=== PATIENT | female | born 1980 | race Caucasian/White ===

== ENCOUNTER 2016-10-16 21:09 | Inpatient (IN) | payer MEDICARE, MEDICAID ==
[~2016-10-16] VITALS: Ht 132.1 cm; Wt 44.5 kg
[~2016-10-16 21:09] MED LIST: ACET325T38 GT; ALB0.5V NEB; AZIT200S13 PO; BACI1PAC7 TOP; BISM262O27 GT; CARB100O GT; CETI1SOL36 GT; DIVA250T PO; DIVA500T7 GT; DOCU50LI GT; DOCU50LI14 GT; DUONEB 0.5 MG-33 ML IH; DVL500TSR GT; FRSM10B60 GT; GUAI100L28 PO; LEVO75TA GT; MAGN400O7 GT; MULT236L PEG; MULT9LIQ7 PO; NITR50CA4 GT; NITR50CA4 PO; NST15C TOP; POLY17PO6 PO; POLY1DRO OP; POTA20LI2 PO; PRED15SO PO; RANI15SY PO; SENN-115 GT; SENN8.6T80 PO; TOPI25CA6 GT; VALP250S14 PO; VALP250S3 PEG; [UNRECOGNIZED DRUG - CODE] PO; [UNRECOGNIZED DRUG - CODE] PO; [UNRECOGNIZED DRUG - CODE] TOP; [UNRECOGNIZED DRUG - CODE] TP
--- OUTSIDE RECORDS SUMMARY | 2016-10-16 21:16 | XMS REPORT | Continuity of Care Document ---
Author Author [facility] Organization [facility] Address Unknown Phone Unavailable Care Team Providers Care Server Name Role Phone Hari Gunter PCP [phone] Source Comments Some departments are not documenting in the electronic medical record. If you do not see the information that you expected, contact Release of Information in the Health Information Management department at [phone] for further assistance in locating additional records.[facility] Active Allergies and Adverse Reactions Allergen Noted Date Severity Reactions Comments Amoxicillin 12/19/2011 DIARRHEA Other 12/19/2011 SEE COMMENTS Anesthesia gases caused MALIGNANT HYPERTHERMIA Current Medications Prescription Sig. Disp. Refills Start End Date Status Date vitamins, multiple Take 5 mL by mouth daily. Active (THERAVITE) oral solution cetirizine (ZYRTEC) 1 10 mg by PEG Tube route Active mg/mL oral solution daily. carBAMazepine (TEGRETOL) 200 mg by PEG Tube route Active 100 mg/5 mL oral three times daily. suspension topiramate (TOPAMAX) 25 50 mg by PEG Tube route Active mg sprinkle capsule twice daily. LEVOTHYROXINE SODIUM Take 0.5 Tabs by mouth Active (SYNTHROID PO) twice daily. nitrofurantoin Take 50 mg by mouth every Active (MACRODANTIN) 50 mg 6 hours. capsule DIVALPROEX SODIUM Take by mouth. Active (DEPAKOTE PO) DOCUSATE SODIUM (COLACE Take by mouth. Active PO) SENNOSIDES (SENOKOT PO) Take by mouth. Active ALBUTEROL IN Inhale by mouth. Active CARBOXYMETHYLCELLULOSE Place into or around Active SODIUM (REFRESH OP) eye(s). 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 Social History Tobacco Use Types Packs/Day Years Used Date Never Smoker Alcohol Use Drinks/Week oz/Week Comments No Last Filed Vital Signs Vital Sign Reading Time Taken Blood Pressure 105/58 01/05/2012 12:30 PM TEXTILE BAG SEWER Pulse 107 01/05/2012 12:38 PM TEXTILE BAG SEWER Temperature 36.7 C (98.1 F) 01/05/2012 12:38 PM TEXTILE BAG SEWER Respiratory Rate - - Height 1.321 m (4' 4") 12/23/2013 3:44 PM TEXTILE BAG SEWER Weight 48.535 kg (107 lb) 05/09/2016 2:16 PM CDT Body Mass Index 27.81 05/09/2016 2:16 PM CDT Oxygen Saturation 96% 01/05/2012 12:38 PM TEXTILE BAG SEWER Plan of Care Health Maintenance Due Date Last Done Comments Physical (Comprehensive) 1986 Exam Pertussis Vaccine 1990 Tetanus Vaccine 1996 Cervical Cancer Screening 2000 Influenza Vaccine 06/30/2016 Results from Last 3 Months Not on file
--- OUTSIDE RECORDS SUMMARY | 2016-10-16 21:18 | XMS REPORT | Continuity of Care Document ---
Author Author [facility] Organization [facility] Address Unknown Phone Unavailable Care Team Providers Care Designer Architect Name Role Phone Hari Gunter PCP [phone] Source Comments Some departments are not documenting in the electronic medical record. 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 Social History Tobacco Use Types Packs/Day Years Used Date Never Smoker Alcohol Use Drinks/Week oz/Week Comments No Last Filed Vital Signs Vital Sign Reading Time Taken Blood Pressure 105/58 01/05/2012 12:30 PM [employer]ING FOR[employer] MACHINE Pulse 107 01/05/2012 12:38 PM [employer]ING [employer]ACHINE Temperature 36.7 C (98.1 F) 01/05/2012 12:38 PM [employer]ING [employer] MACHINE Respiratory Rate - - Height 1.321 m (4' 4") 12/23/2013 3:44 PM [employer]ACHINE Weight 48.535 kg (107 lb) 05/09/2016 2:16 PM CDT Body Mass Index 27.81 05/09/2016 2:16 PM CDT Oxygen Saturation 96% 01/05/2012 12:38 PM [employer] MACHINE Plan of Care Health Maintenance Due Date Last Done Comments Physical (Comprehensive) 1986 Exam Pertussis Vaccine 1990 Tetanus Vaccine 1996 Cervical Cancer Screening 2000 Influenza Vaccine 06/30/2016 Results from Last 3 Months Not on file
[2016-10-16] MEDS ORDERED: ONDANSETRON 2 MG/ML (Z0FRAN) 2 ML VIAL IV ONE (21:50)
--- NOTE | 2016-10-16 22:15 | NUR ---
Placed 19g 3/4" jacobo needle to left side where PAC is. Flushed easily, no blood return noted. Eva Leon RN verified placement.
[2016-10-16 22:40] LABS: BASOPHILS % (AUTO) 1 % (0-2); EOSINOPHILS # (AUTO) 0.1 10^3uL; EOSINOPHILS % (AUTO) 1 % (0-4); LYMPHOCYTES # (AUTO) 0.5 X10^3; MEAN CORPUSCULAR VOLUME 96 FL (80-100); MEAN PLATELET VOLUME 11.9 FL (6.0-9.5); MONOCYTES # (AUTO) 0.9 X10^3; MONOCYTES % (AUTO) 12 % (3-11); NEUTROPHILS # (AUTO) 5.7 X10^3; NEUTROPHILS % (AUTO) 79 % (51-67); PLATELET COUNT 157 10^3uL (150-450); WHITE BLOOD COUNT 7.21 10^3uL (4.0-11.0)
[2016-10-16] MEDS ORDERED: BACI30OI7 TP (22:44)
[2016-10-16 22:50] LABS: ALBUMIN 3.8 g/dL (3.4-5.0); ANION GAP 15.5 MEQ/L (3-15); CALCULATED IONIZED CALCIUM 4.2 mg/dL (3.8-4.6); TOTAL PROTEIN 6.3 g/dL (6.4-8.5)
[2016-10-16 22:51] LABS: MEAN CORPUSCULAR HEMOGLOBIN 34.3 PG (26.0-34.0); MEAN CORPUSCULAR HGB CONC 35.6 g/dL (31.0-37.0)
[2016-10-16 23:14] LABS: BILIRUBIN,URINE Negative (Negative); CLARITY,URINE Cloudy; GLUCOSE, URINE (UA) Negative (Negative); LEUKOCYTE ESTERASE ,URINE 1+ (Negative); UROBILINOGEN,URINE 0.2 mg/dL (0.2-1.0)
[2016-10-16] MEDS ORDERED: [UNRECOGNIZED DRUG - CODE] PO (23:23)
[2016-10-16 23:28] LABS: COLOR,URINE Dark Yellow; RBC,URINE 0-2 /HPF; URINE CENTRIFUGED VOLUME 12 mL
[2016-10-16 23:29] LABS: AMORPHOUS SEDIMENT,UR 4+ /HPF
[2016-10-16] MEDS: SODIUM CHLORIDE FLUSH 10 ML SYR IV PRN ×2 (23:30→23:33)
[2016-10-17] MEDS ORDERED: ALBUTEROL/IPRATROPIUM 3MG-0.5MG/3ML (DUONEB) NEB VIAL INH ONE ×2 (00:12→00:15)
[2016-10-17] MEDS ORDERED: cefTRIAXone SODIUM 1,000 MG in SODIUM CHLORIDE 50 ML IV ONE (00:20)
--- NOTE | 2016-10-17 01:53 | NUR ---
Pt arrived to floor via cart, accompanied by personal care aid and RN from ER. Pt is alert, lethargic, has several mental delays. Resp are even and nonlabored, rhonchi is heard bilaterally to lungs, Heart murmur heard, BS are active x 4 quadrants. Pt is NPO, does have g-tube that she receives Jevity through. Pt has + 1 edema to bilateral legs and arms, has had an 8lb weight gain. Does not appear in pain at this time, PAC to left chest accessed, will continue to monitor.
[2016-10-17] MEDS ORDERED: MULTIVITS W FE OTHER MIN PEG SCH (02:05)
[2016-10-17] MEDS: ONDANSETRON 2 MG/ML (Z0FRAN) 2 ML VIAL IV SCH ×4 (02:15→21:07)
[2016-10-17] MEDS ORDERED: FUROSEMIDE 20 MG/2 ML (LASIX) VIAL IV ONE (02:35)
--- NOTE | 2016-10-17 03:02 | History and Physical (E) ---
History & Physical PCP: Willem Sparrow MD CC: " vomiting" HPI This is a 36 y/o F who presents to the ED for the 2nd time in the last 24 hrs with conjunctivitis and started on ABX gtt's and returns with continual vomiting and inability to keep tube feeds down. Reports she vomits with each feed. She has also had some increased WOB. She is unable to cough as far as the rehab care assistant knows. She is drooling more than usual and appears more lethargic than her baseline. She reports a BM today. No change in urination. Reports getting x2 bags IVF's today. Reports being 8 lb up from baseline wt. PMH Marcela de Pike Severe intellectual disability Sz d/o Celft palate with partial repair Hypothyroidism Lactose intolerance Chronic bronchitis Asthma Eczema Chronic UTI's PSH Unknown foot surgeries Partial cleft palate repair ALLERGIES: Please see list at end of report. HOME MEDICATIONS: Please see list at end of report. FH Father- unknown [place] Mother- healthy SH MCDS with permanent rehab care assistant No alcohol, tobacco or ROS- pt non-verbal and complete ROS unobtainable, below is reported by caregiver CONSTITUTION: Reports weight gain. Denies fever or chills. HEENT: No change in vision or hearing. No sores in mouth, sore throat. CV: No chest pain, palpitations. PULM: Reports dyspnea. No cough, shortness of breath. GI: Reports vomiting, No constipation, or diarrhea. No blood in stool. : No dysuria. No blood in urine. MS: No new muscle or joint aches and pains. NEURO: No numbness or tingling. No new weakness. INTEG: No rashes, lesions, or sores. ENDO: No heat or cold intolerance. No polydipsia or polyuria. HEME/LYMPH: No easy bruising or bleeding. No swollen glands. PSYCH: Reports change in mood or behavior. OBJECTIVE GEN: Awake, non-verbal, intermittent tracking HEENT: EOMI, PERRL, synophyrs, unable to visualize oral cavity, drooling excessively, difficult to evaluate conjunctiva as pt will not open eyes but on brief exam R erythema with minimal matting CV: RRR, distant heart sounds, chest wall port LUNGS: Diffuse bilateral rhonchi ABD: NT, distended abdomen, G-tube C/D/I EXTR: Cyanosis to BLE, small hands and feet, 1+ pitting edema BLE, distant peripheral pulses. INTEG: No rash. NEURO: difficult to completely evaluate d/t illness, appears to have multiple chronic strength deficits MSK: diffuse weakness and muscle wasting with decrease ROM LUE LABS Vital Signs Date Time Temp Pulse Resp B/P Pulse Ox O2 Delivery O2 Flow Rate FiO2 10/17/16 01:24 92 20 97 Room Air 10/16/16 21:35 97.3 134/71 Lab-Past 14 Days, 35 Results 10/16/16 22:32: Alanine Aminotransferase (ALT/SGPT) 33, Albumin 3.8, Albumin/Globulin Ratio 1.520, Alkaline Phosphatase 268H, Anion Gap 15.5H, Aspartate Amino Transf (AST/ SGOT) 33, BUN/Creatinine Ratio 26H, Basophils # (Auto) 0.0, Basophils (%) (Auto ) 1, Blood Urea Nitrogen 9, Calcium Level 8.9, Calcium/Ionized Calcium Ratio 4.2 , Calculated Osmolality 260L, Carbon Dioxide Level 27, Chloride Level 96L, Creatinine 0.34L, Eosinophils # (Auto) 0.1, Eosinophils (%) (Auto) 1, Estimat Glomerular Filtration Rate 262.2, Estimated GFR (Non- 216.7, Glucose Level 136H, Hematocrit 41.30, Hemoglobin 14.7, Lipase 75, Lymphocytes # (Auto) 0.5, Lymphocytes (%) (Auto) 7L, Mean Corpuscular Hemoglobin 34.3H, Mean Corpuscular Hemoglobin Concent 35.6, Mean Corpuscular Volume 96, Mean Platelet Volume 11.9H, Monocytes # (Auto) 0.9, Monocytes (%) (Auto) 12H, Neutrophils # ( Auto) 5.7, Neutrophils (%) (Auto) 79H, Platelet Count 157, Potassium Level 3.6# , Red Blood Count 4.29, Red Cell Distribution Width 12.0, Sodium Level 134L, Total Bilirubin 0.8, Total Protein 6.3L, White Blood Count 7.21 10/16/16 23:05: Urine Amorphous Sediment 4+H, Urine Bacteria None seen, Urine Bilirubin Negative , Urine Clarity Cloudy, Urine Collection Type Catheter, Urine Color Dark yellow , Urine Glucose (UA) Negative, Urine Hyaline Casts 2+, Urine Ketones 1+H, Urine Leukocyte Esterase 1+H, Urine Mucus 2+H, Urine Nitrite Negative, Urine Protein Negative, Urine RBC 0-2, Urine RBC (Auto) 2+H, Urine Specific [place] 1.015, Urine Squamous Epithelial Cells 2-5, Urine Urobilinogen 0.2, Urine WBC 5-10H, Urine pH 8.0, Volume Urine Centrifuged 12 ml IMAGING ASSESSMENT This is a 36 y/o F with Marcela Erazo who presents with nausea and inability to keep feeds down PLAN Nausea and vomiting- schedule Zofran prior to feeds, gastric residual, hold IVF' s Chronic bronchitis in fluid overloaded state Caregiver reports this is BL for pt and with appropriate O2 sats will not be too aggressive Will give extra Lasix dose x1, continue breathing treatments R Bacterial Conjunctivitis- Polymyxin/trimethoprim Chronic medical conditions- continue home meds DVT- Lovenox Allergies/Home Medications Allergies: Coded Allergies: Penicillins (Verified Allergy, Unknown, 12/01/15) amoxicillin (Verified Allergy, Unknown, 12/01/15) Uncoded Allergies: ANESTHESIA (Allergy, Unknown, 09/18/14) Reported Home Medications Scheduled Bacitracin Zinc (Antibiotic Ointment) 28.4 GM TP BID (Reported) Carbamazepine (Tegretol) 10 ML GT TID (Reported) Cetirizine Hcl (Zyrtec) 10 ML GT HS (Reported) Diltiazem HCl (Diltiazem ER) 120 MG PO DAILY (Reported) Divalproex Sodium (Divalproex Sodium) 500 MG GT HS (Reported) Docusate Sodium (Colace 10mg/ml) 10 ML GT BID (Reported) Furosemide (Lasix 10mg/ml) 20 MG GT DAILY (Reported) Guaifenesin (Robafen) 400 MG PO BID (Reported) Ipratropium/Albuterol Sulfate (Duoneb 3mg-0.5mg/3ml) 3 ML IH TID (Reported) Lactose-Free Food (Jevity) 237 ML PO QID (Reported) Levothyroxine Sodium (Synthroid) 37.5 MG GT DAILY (Reported) Multivits W-Fe,Other Min (Centrum) 5 ML PEG DAILY AT NOON (Reported) Multivits W-Min/Ferrous Gluc (Centrum Multivit-Mineral Liq) 9 MG PO DAILY ( Reported) Nitrofurantoin Macrocrystal (Macrodantin) 50 MG PO HS (Reported) Polyethylene Glycol 3350 (Miralax) 17 GM PO DAILY (Reported) Polyvinyl Alcohol/Povidone/Pf (Refresh Classic Eye Drops) 1 EACH OP DAILY ( Reported) Potassium Chloride (KCl 20mEq/15ml) 7.5 ML PO DAILY (Reported) Ranitidine Hcl (Ranitidine 75mg/5ml) 10 ML PO BID (Reported) Sennosides (Senna-Gen) 8.6 MG PO DAILY (Reported) Sulfamethoxazole/Trimethoprim (Sulfamethoxazole/Trimethoprim 200mg-40mg/5ml) 20 ML PO BID (Reported) Topiramate (Topamax) 50 MG GT BID (Reported) Valproic Acid (Depakene 250mg/5ml) 500 MG PO HS (Reported) Copies to: End of Report . CARLI BENAVIDES DO Oct 17, 2016 03:02
[2016-10-17] MEDS: [UNRECOGNIZED DRUG - OTHER] OD SCH ×5 (05:00→21:22)
[2016-10-17] MEDS: TRIMETHOPRIM OD SCH ×5 (05:00→21:22)
[2016-10-17 07:04] VITALS: BP 130/81
--- NOTE | 2016-10-17 07:35 | NUR ---
NUTRITION ASSESSMENT Level 1 Patient: Kelly Jackson Age/Sex: 36/F Date Screened: 10-17-16 Weight: 113.7#/51.7 kg Height: 52 inches Primary Diagnosis: n/v, bronchitis Diet Order: (none entered) Relevant labs: (from -) sodium 134, glucose 136 Food allergies: N Nutrition Assessment Criteria Age over 80: N Body Mass Index (BMI) under 19: N Admission Screening Indicates Risk? 6 points Moderate/High Risk Diagnosis: 3 points TPN or PPN: N NPO or clear liquid diet: Yes Serum Glucose <70 or >180: N Hgb A1c >6.7: N/A Total: 9 points Risk Screen: __ Patient at low nutritional risk based on available data; reevaluate in 5-7 days __ Patient at moderate nutritional risk based on available data; reevaluate in 3-5 days _X_ Patient at high nutritional risk; complete Nutrition Assessment within 48 hours of admission.
--- NOTE | 2016-10-17 07:38 | Diagnostic Imaging Report ---
INDICATION: Abdominal pain COMPARISON: 09/14/2016 FINDINGS: Frontal chest: Left-sided Port-A-Cath is unchanged. Heart size is enlarged but stable. Mild pulmonary venous congestion is unchanged. Some patchy perihilar infiltrate is again demonstrated. No pleural fluid is seen. Abdomen: Gastrostomy tube is again seen overlying the stomach. The bowel gas pattern appears unremarkable with the exception of moderate amount of stool in the colon. There is no evidence of free intraperitoneal air. No abnormal calcifications are suspected. Deformity of the bony pelvis is again demonstrated. IMPRESSION: 1. In the chest, there is persistent cardiomegaly with mild pulmonary vascular congestion and patchy perihilar airspace disease similar to the prior study. 2. No acute abdominal abnormality is suspected. Dictated by: Dictated on workstation # [id number]
[2016-10-17 07:51] VITALS: BP 88/70
[2016-10-17] MEDS ORDERED: LEVOTHYROXINE 75 MCG (LEVOTHROID) TABLET GT SCH (09:00)
[2016-10-17] MEDS ORDERED: BACITRACIN OINTMENT 0.9 GM PACKET TOP SCH (09:00)
[2016-10-17] MEDS ORDERED: BACITRACIN TOP SCH (09:00)
[2016-10-17] MEDS ORDERED: TOPIRAMATE 50 MG GT SCH (09:00)
[2016-10-17] MEDS ORDERED: FUROSEMIDE GT SCH (09:00)
[2016-10-17] MEDS ORDERED: RANITIDINE 75 MG/5 ML PO SCH (09:00)
[2016-10-17] MEDS ORDERED: LACTOSE FREE FOOD PO SCH (09:00)
[2016-10-17] MEDS ORDERED: NON-FORMULARY MEDICATION 1 EA EA (Diltiazem HCl (Diltiazem ER) 120 MG) PO SCH (09:00)
[2016-10-17] MEDS ORDERED: FUROSEMIDE 40 MG/5 ML GT SCH (09:00)
[2016-10-17] MEDS: DOCUSATE 100 MG/10 ML GT SCH ×2 (09:02→21:11)
[2016-10-17] MEDS ORDERED: ACET80TA20 PO (09:02)
[2016-10-17] MEDS ORDERED: CALA120L5 TOP (09:02)
[2016-10-17] MEDS ORDERED: [UNRECOGNIZED DRUG - CODE] OU (09:02)
[2016-10-17] MEDS ORDERED: [UNRECOGNIZED DRUG - CODE] TOP (09:02)
[2016-10-17] MEDS ORDERED: BACI3.5O6 OD (09:02)
[2016-10-17] MEDS ORDERED: CARB15DR2 OU (09:02)
[2016-10-17] MEDS: guaiFENesin SYRUP 200 MG/10 ML (ROBITUSSIN) UDC GT SCH ×2 (09:03→21:29)
[2016-10-17] MEDS: FAMOTIDINE 40 MG/5 ML GT SCH ×2 (09:05→21:19)
[2016-10-17] MEDS: SENNOSIDES 8.6 MG (SENOKOT) TAB GT SCH (09:06)
[2016-10-17] MEDS: LEVOTHYROXINE 75 MCG (LEVOTHROID) TABLET GT SCH (09:07)
[2016-10-17] MEDS: CARBAMAZEPINE 100 MG/5 ML GT SCH ×3 (09:08→18:14)
[2016-10-17] MEDS: SULFAMETHOXAZOLE PO SCH ×2 (09:09→21:16)
[2016-10-17] MEDS: ARTIFICIAL TEARS (REFRESH) OPHTHALMIC DROPS OU SCH (09:09)
[2016-10-17] MEDS: DILTIAZEM CD 120 MG (CARDIZEM CD) CAP PO SCH (09:09)
[2016-10-17] MEDS: TRIMETHOPRIM PO SCH ×2 (09:09→21:16)
[2016-10-17] MEDS ORDERED: HYDR28CR43 TP (09:10)
[2016-10-17] MEDS ORDERED: MAGN400O7 PO (09:10)
[2016-10-17] MEDS ORDERED: ZINC TOP (09:10)
[2016-10-17] MEDS ORDERED: MAALOX TOP (09:10)
[2016-10-17] MEDS ORDERED: NYST15CR TP (09:10)
[2016-10-17] MEDS ORDERED: [UNRECOGNIZED DRUG - CODE] PO (09:10)
[2016-10-17] MEDS ORDERED: TOLN150S2 TP (09:10)
[2016-10-17] MEDS: ENOXAPARIN 40 MG/0.4 ML (LOVENOX) SYR SC SCH (09:11)
[2016-10-17] MEDS: POLYETHYLENE GLYCOL 17 GM (MIRALAX) PACKET PO SCH (09:11)
[2016-10-17] MEDS: POTASSIUM CHLORIDE ORAL SOLUTION 20 MEQ/15 ML (KCL) UDC PO SCH (09:11)
[2016-10-17] MEDS: ALBUTEROL/IPRATROPIUM 3MG-0.5MG/3ML (DUONEB) NEB VIAL INH SCH ×3 (09:38→19:52)
--- NOTE | 2016-10-17 10:29 | NUR ---
NUTRITION ASSESSMENT Level II Patient: Kelly Jackson Age/Sex: 36/F Date Assessed: 10-17-16 ASSESSMENT Pertinent History: Patient admitted with n/v and bronchitis and screened at high nutritional risk secondary to mentally disabled patient with existing G-tube who currently has no order in [place] for her feedings. PMHx includes Marcela de Pike, severe intellectual disability, seizures, cleft palate, hypothyroidism, lactose intolerance and asthma. She has caregivers who on admission reported continual vomiting with inability to keep tube feedings down LORRY WEIGHER. She is also up 10.3# since the day before with fluid overload. Weight history includes 112# in 2012, 105# 2014, 104.9# 09-14-16, and 103.4# 10-16-16 in ED. There is no current documentation of her usual tube feeding regimen in the EMR other than Jevity. Spoke with nurse at [facility] and PCP office: patients usual regimen is 4 cans Jevity 1.0/day for total of 960 ml, with an order to flush once/day with 7Toma, Piotr or Dr. Ferrera but no specified quantity. She also receives water flushes after each feeding, of an unknown amount. Meds/Nutrition: Synthroid, Lasix, KCl, MVI, Colace, Zofran q 6 hrs. Weight: 113.7#/51.7 kg Height: 52 inches Body Mass Index (BMI): 29.6 [place] Body Weight : 85#/38.6 kg % IBW: 133% GASTROINTESTINAL Appetite: N/A Diet Order: none Unintentional loss of >10 lbs. in 3 months: N Difficult to chew/swallow: Yes Diabetes: N Relevant Labs: (from -) glucose 136, sodium 134 Calculations for Nutritional Assessment Estimated calorie needs: 22-25 kcals/kg UBW = 1,100-1,275 kcals Estimated protein needs: 1.0-1.1 g/kg UBW = 46-51 g./day DIAGNOSIS 1. Nutrition Diagnosis: Inability to take p.o. nutrition related to severe intellectual disability as evidenced by Marcela Crumpe with mental disability and existing PEG whereby she receives Jevity. NUTRITIONAL INTERVENTION Goal: Patient will receive adequate nutrition via PEG to meet her needs. Plan: Patients usual TFing regimen is Jevity 1.0, 240 cc QID, providing a total of 1,015 kcals, 42 g. protein, and 799 ml water. Because her weight has been stable (other than fluid retention with this admission), I see no reason to change her usual tube feeding regimen at this time. Recommend she receive water flushes for a total of 216 ml/day--divided into 4 feedings would equal 55 ml flush each time. Per tube feeding protocol, recommend flushing tube both before and after feedings to help prevent clogging, and flush with 20 ml sterile water before-and after each medication administration. Nurse at [facility] said pt. is to be strict NPO and receive nothing by mouth, though oral care would certainly be appropriate. Consistent with our tube feeding protocol, do not recommend flushing with Piotr Mcallister or Dr. Ferrera while hospitalized, since the Jevity (because it has intact protein) is more susceptible to changes in consistency when exposed to meds or liquids with a more acidic pH and can get thicker, which potentially increases the risk of clogging the tube. Also, because pt. was vomiting after feedings prior to admission, recommend we check gastric residuals for 12-24 hours after restarting her feedings; once she is tolerating feedings as usual, we should be able to DC residual check. Will follow closely with physician. MONITORING & EVALUATION __ Monitor patients menu selections __ Monitor patients food intake per nursing notes __ Monitor NPO/clear liquid days _X_ Monitor lab values _X_ Monitor I&O _X_ Other--monitor tube feeding intake and tolerance, and weight
--- NOTE | 2016-10-17 10:31 | NUR ---
Med Rec completed via DEC.
[2016-10-17] MEDS: THERAPEUTIC MULTIVITAMINS LIQUID 5 ML UDC GT SCH (12:00)
--- NOTE | 2016-10-17 15:24 | NUR ---
Pt found sleeping in bed on RA with intensive care medicine specialist at bedside, SPO2 94%, HR 65, RR 18 and sonorous, BS coarse rhonchi throughout all lung [place]. Duoneb via SVN/MASK tolerated well with no changes in BS post Tx. Pt did not wake during my visit.
[2016-10-17] MEDS ORDERED: ARTIFICIAL TEARS (REFRESH) OPHTHALMIC DROPS OU PRN (15:40)
[2016-10-17 15:46] VITALS: BP 80/60
--- NOTE | 2016-10-17 16:25 | NUR ---
MULTIDISCIPLINARY MTG/DR. FERNANDO: Pt. admitted for respiratory distress and she had been vomiting after feedings. Pt. is to be on Jevity 1 and strict NPO. Zofran has been ordered to be given prior to feedings. No discharge needs identified at this time.
--- NOTE | 2016-10-17 17:23 | Progress Note (E) ---
Progress Note SUBJECTIVE Overnight, no major issues reported. Remains afebrile. Remains on room air. Other vitals stable though noted BP is on the low side. Because of disability, she can provide no history or ROS. Noted edema of arms, L > R. Breath sounds remain somewhat coarse. No further emesis noted with feeds. Place tube feed order after discussing with RN, psychologist educational. OBJECTIVE Vital Signs Date Time Temp Pulse Resp B/P Pulse Ox O2 Delivery O2 Flow Rate FiO2 10/17/16 07:04 96.9 95 18 96 Room air 10/16/16 21:35 134/71 GEN: Stirs to exam. Non-verbal. 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 Dry skin. Clear sclerae. Somewhat dry oral mucosa through she doesn't cooperate much with exam. CV: Regular, borderline tachy, with prominent 3/6 systolic murmur, crescendo/ decrescendo. PULM: Coarse rales bilaterally, somewhat conducted from upper airway. ABD: Soft, no apparent tenderness. G-tube intact. Active bowels sounds. EXTR: Warm, well-perfused. Left arm is hyperemic, edematous, more so than right. INTEG: Dry skin. Left arm hyperemia as noted. NEURO: Non-verbal. Lab-Past 14 Days, 35 Results 10/16/16 22:32: Alanine Aminotransferase (ALT/SGPT) 33, Albumin 3.8, Albumin/Globulin Ratio 1.520, Alkaline Phosphatase 268H, Anion Gap 15.5H, Aspartate Amino Transf (AST/ SGOT) 33, BUN/Creatinine Ratio 26H, Basophils # (Auto) 0.0, Basophils (%) (Auto ) 1, Blood Urea Nitrogen 9, Calcium Level 8.9, Calcium/Ionized Calcium Ratio 4.2 , Calculated Osmolality 260L, Carbon Dioxide Level 27, Chloride Level 96L, Creatinine 0.34L, Eosinophils # (Auto) 0.1, Eosinophils (%) (Auto) 1, Estimat Glomerular Filtration Rate 262.2, Estimated GFR (Non- 216.7, Glucose Level 136H, Hematocrit 41.30, Hemoglobin 14.7, Lipase 75, Lymphocytes # (Auto) 0.5, Lymphocytes (%) (Auto) 7L, Mean Corpuscular Hemoglobin 34.3H, Mean Corpuscular Hemoglobin Concent 35.6, Mean Corpuscular Volume 96, Mean Platelet Volume 11.9H, Monocytes # (Auto) 0.9, Monocytes (%) (Auto) 12H, Neutrophils # ( Auto) 5.7, Neutrophils (%) (Auto) 79H, Platelet Count 157, Potassium Level 3.6# , Red Blood Count 4.29, Red Cell Distribution Width 12.0, Sodium Level 134L, Total Bilirubin 0.8, Total Protein 6.3L, White Blood Count 7.21 10/16/16 23:05: Urine Amorphous Sediment 4+H, Urine Bacteria None seen, Urine Bilirubin Negative , Urine Clarity Cloudy, Urine Collection Type Catheter, Urine Color Dark yellow , Urine Glucose (UA) Negative, Urine Hyaline Casts 2+, Urine Ketones 1+H, Urine Leukocyte Esterase 1+H, Urine Mucus 2+H, Urine Nitrite Negative, Urine Protein Negative, Urine RBC 0-2, Urine RBC (Auto) 2+H, Urine Specific [place] 1.015, Urine Squamous Epithelial Cells 2-5, Urine Urobilinogen 0.2, Urine WBC 5-10H, Urine pH 8.0, Volume Urine Centrifuged 12 ml IMAGING 10/16/16 ACUTE ABD SERIES INDICATION: Abdominal pain COMPARISON: 09/14/2016 FINDINGS: Frontal chest: Left-sided Port-A-Cath is unchanged. Heart size is enlarged but stable. Mild pulmonary venous congestion is unchanged. Some patchy perihilar infiltrate is again demonstrated. No pleural fluid is seen. Abdomen: Gastrostomy tube is again seen overlying the stomach. The bowel gas pattern appears unremarkable with the exception of moderate amount of stool in the colon. There is no evidence of free intraperitoneal air. No abnormal calcifications are suspected. Deformity of the bony pelvis is again demonstrated. IMPRESSION: 1. In the chest, there is persistent cardiomegaly with mild pulmonary vascular congestion and patchy perihilar airspace disease similar to the prior study. 2. No acute abdominal abnormality is suspected. ASSESSMENT Kelly Jackson is a 36 year old female admitted from ED 10/17 where she presented for the second time in two days. She had a recent diagnosis of conjunctivitis and developed acute respiratory distress, vomiting after tube feeds, increased lethargy, and increased weight. She has a significant murmur on exam and pulmonary edema on admit imaging. 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 PLAN * Nausea/Vomiting: Uncertain cause. Viral gastroenteritis? No diarrhea reported. Resumed tube feeds and plan to check residuals. Ondansetron for nausea. * Acute Respiratory Distress: URI? Heart failure? Check resp PCR panel. Workup for heart failure. Oxygen protocol. Consider diuresis. * Asthma: Duoneb TID * Congestive Heart Failure: On the basis of murmur, CXR, pulmonary exam, edema. Check echo. Consider diuresis. Monitor daily weight. I&O difficult to monitor due to incontinence. * Edema: Monitor I&O, daily weight. Consider diuresis. * Altered Mental Status: Check ammonia level. * Conjunctivitis: Polymixin/trimethoprim eye drops, moisturizing eye drops. * F/E/N: Hold IVF. Peripheral IV. Tube feeds. I&O, daily weight. * Prophylaxis: SCDs. * Code Status: Full * Dispo: Inpatient. Not expected to discharge before 10/21. CHRONIC ISSUES * Seizure disorder: Topiramate, valproic acid. * Constipation: Bowel regimen * Hypothyroidism: Levothyroxine * GERD: Famotidine * Seasonal allergies: Cetirizine * HTN? Diltiazem. Verify indication. * Eczema: Observe * Marcela de Pike syndrome: Observe. MARYBETH FERNANDO MD Oct 17, 2016 07:48
--- NOTE | 2016-10-17 18:37 | NUR ---
Patient has slept most of shift. Patient had 190 ml of residual in G tube before 2 bolus of Jevity 1.0 chase. Patient was given 240 ml of jevity 1.0 chase.
[2016-10-17 18:40] VITALS: BP 80/60
--- NOTE | 2016-10-17 20:03 | NUR ---
Pt found lying in bed on RA, SPO2 90%, HR 88, RR 18 with coarse rhonchi throughout all lung [place] before and after Duoneb via SVN. Will monitor for supplemental O2 needs ESPERANZA lopez.
[2016-10-17] MEDS ORDERED: VALPROIC ACID 250 MG/5 ML PO SCH (21:00)
[2016-10-17] MEDS ORDERED: NITROFURANTOIN MACROCRYSTAL 50 MG PO SCH (21:00)
[2016-10-17] MEDS ORDERED: DIVALPROEX 500 MG PO SCH (21:00)
[2016-10-17] MEDS: SODIUM CHLORIDE FLUSH 10 ML SYR IV PRN (21:08)
[2016-10-17] MEDS: toPIRamate 25 MG (TOPAMAX) TAB PO SCH (21:18)
[2016-10-17] MEDS: CETIRIZINE 1 MG/ML GT SCH (21:22)
[2016-10-17] MEDS: CARBOXYMETHYLCELLULOSE 1% (CELLUVISC) OPHTHALMIC DROPS OU SCH (21:25)
[2016-10-18 00:48] VITALS: BP 121/69
[2016-10-18] MEDS: [UNRECOGNIZED DRUG - OTHER] OD SCH ×6 (01:00→20:25)
[2016-10-18] MEDS: TRIMETHOPRIM OD SCH ×6 (01:00→20:25)
[2016-10-18 04:00] VITALS: BP 104/59
--- NOTE | 2016-10-18 05:55 | NUR ---
Notified by EMPLOYMENT TRAINER that SPO2 86-89% on room air. RT called to evaluate, O2 @ 2L/ nc. Rested throughout night, turn q 2 hr, patient does turn self at times, non verbal, incontinent of urine, lungs sounds course, HOB 30 degree,
--- NOTE | 2016-10-18 05:59 | NUR ---
Lab in for blood specimen, blood sample taken from left upper chest, good blood return, flushes easily and locked.
[2016-10-18 06:05] LABS: MEAN CORPUSCULAR HGB CONC 34.6 g/dL (31.0-37.0); MEAN PLATELET VOLUME 12.2 FL (6.0-9.5); PLATELET COUNT 145 10^3uL (150-450); WHITE BLOOD COUNT 3.89 10^3uL (4.0-11.0)
--- NOTE | 2016-10-18 06:21 | NUR ---
Pt placed on 2 l/min NC for low SPO2 of 86%
[2016-10-18 06:35] LABS: ALBUMIN 3.4 g/dL (3.4-5.0); ANION GAP 12.6 MEQ/L (3-15); MAGNESIUM* 2.3 mg/dL (1.6-2.3); PHOSPHORUS 4.6 mg/dL (2.4-4.9)
[2016-10-18 06:59] LABS: MEAN CORPUSCULAR HEMOGLOBIN 34.6 PG (26.0-34.0); MEAN CORPUSCULAR VOLUME 100 FL (80-100)
[2016-10-18 07:01] LABS: BAND NEUTROPHILS % 2 % (0-6); EOSINOPHILS % 5 % (0-4); LYMPHOCYTES # 0.8 #; MONOCYTES # 0.5 #; MONOCYTES % 16 % (3-11); SEGMENTED NEUTROPHILS % 56 % (51-67); TOTAL CELLS COUNTED 100
[2016-10-18 07:02] LABS: RBC MORPH NORMAL (NORMAL)
[2016-10-18] MEDS: ALBUTEROL/IPRATROPIUM 3MG-0.5MG/3ML (DUONEB) NEB VIAL INH SCH ×3 (07:36→19:09)
--- NOTE | 2016-10-18 07:40 | NUR ---
Pt is laying in bed, arousable, pt is on 3L SPO2 90%. Visitor present at bedside. Addendum: 10/18/16 at 0747 by Sulema Reddy RT Pt is laying in bed, arousable, pt is on room air not 3L, SPO2 90%. Visitor is present at bedside.
[2016-10-18] MEDS ORDERED: LACTULOSE ORAL SOLUTION 10 GM/15 ML UDC GT ONE (07:47)
[2016-10-18 07:53] VITALS: BP 109/59
[2016-10-18] MEDS: DILTIAZEM CD 120 MG (CARDIZEM CD) CAP PO SCH (08:42)
[2016-10-18] MEDS: LEVOTHYROXINE 75 MCG (LEVOTHROID) TABLET GT SCH (08:42)
[2016-10-18] MEDS: SENNOSIDES 8.6 MG (SENOKOT) TAB GT SCH (08:42)
[2016-10-18] MEDS: DOCUSATE 100 MG/10 ML GT SCH ×2 (08:47→20:26)
[2016-10-18] MEDS: guaiFENesin SYRUP 200 MG/10 ML (ROBITUSSIN) UDC GT SCH ×2 (08:47→20:26)
[2016-10-18] MEDS: TRIMETHOPRIM PO SCH ×2 (08:48→20:29)
[2016-10-18] MEDS: SULFAMETHOXAZOLE PO SCH ×2 (08:48→20:29)
[2016-10-18] MEDS: FAMOTIDINE 40 MG/5 ML GT SCH ×2 (08:48→20:27)
[2016-10-18] MEDS: CARBAMAZEPINE 100 MG/5 ML GT SCH ×3 (08:49→18:01)
[2016-10-18] MEDS: POTASSIUM CHLORIDE ORAL SOLUTION 20 MEQ/15 ML (KCL) UDC PO SCH (08:51)
[2016-10-18] MEDS: ENOXAPARIN 40 MG/0.4 ML (LOVENOX) SYR SC SCH (08:54)
[2016-10-18] MEDS ORDERED: FUROSEMIDE 40 MG/4 ML PO SCH (09:00)
[2016-10-18] MEDS: LACTULOSE ORAL SOLUTION 10 GM/15 ML UDC GT SCH ×2 (09:00→20:27)
--- NOTE | 2016-10-18 09:30 | NUR ---
Pt's hands and feet bilaterally noted to be red, edematous; pitting 1+.
[2016-10-18] MEDS ORDERED: WATER, FOR IRRIGATION 1000 ML POUR BOTTLE ONE (09:50)
[2016-10-18] MEDS ORDERED: WATER (STERILE) FOR INJECTION 10 ML VIAL IR PRN (09:50)
[2016-10-18] MEDS ORDERED: SODIUM CHLORIDE 100 ML ONE (10:04)
[2016-10-18] MEDS: LEVOFLOXACIN 750 MG/150 ML IV 150 ML IV SCH (10:17)
[2016-10-18] MEDS: FUROSEMIDE 40 MG/4 ML (LASIX) VIAL IV SCH ×2 (10:18→14:49)
[2016-10-18] MEDS: ARTIFICIAL TEARS (REFRESH) OPHTHALMIC DROPS OU SCH (10:24)
[2016-10-18] MEDS: WATER, FOR IRRIGATION 1000 ML POUR BOTTLE GT PRN (10:43)
--- NOTE | 2016-10-18 10:45 | NUR ---
AM medications administered per GT with no difficulty, flushes easily. Upon flushing and administering miralax at 1030, GT flushes well without resistance, but upon removing syringe, fluid evacuates tube with excessive pressure. Residual checked and approx 60mL of what was checked appeared to be the medications that were administered this morning. Paveline notified, new orders entered.
[2016-10-18] MEDS: POLYETHYLENE GLYCOL 17 GM (MIRALAX) PACKET PO SCH (10:56)
--- NOTE | 2016-10-18 11:36 | Progress Note (E) ---
Progress Note SUBJECTIVE Overnight, oxygen requirement increased to 1-2 L. This AM, coarse upper airway rhonchi. Started NT suction which worked well. Got sample for culture. RN reports more firm, distended abdomen, and though G-tube flushes, contents pour back out when she removes the syringe. Checking small bowel follow-up through study to further assess while holding feeds and meds. Given oxygen requirement, started empiric coverage for pneumonia. Noted elevated ammonia level. Gave lactulose this AM which may be contributing to her new symptoms. OBJECTIVE Vital Signs Date Time Temp Pulse Resp B/P Pulse Ox O2 Delivery O2 Flow Rate FiO2 10/18/16 07:53 97.0 85 20 109/59 92 Room air I & O 10/17/16 10/18/16 Cumulative From/Thru 19:00 07:00 10/16/16 21:35 - 10/18/16 06:09 Intake Total 445 ml 605 ml 1050 ml Balance 445 ml 605 ml 1050 ml GEN: Awake, stirs to exam. Non-verbal. 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 Dry skin. Clear sclerae. Somewhat dry oral mucosa through she doesn't cooperate much with exam. CV: Regular, prominent 3/6 systolic murmur, crescendo/decrescendo. PULM: Coarse rales bilaterally on 10/17 have improved somewhat. Rhonchi conducted from upper airway. ABD: Distended, firm, tolerates exam, but this is a change from 10/17. G-tube intact. Hypoactive bowel sounds. EXTR: Warm, well-perfused. Left arm is hyperemic, edematous, more so than right. INTEG: Dry skin. Left arm hyperemia as noted. NEURO: Non-verbal. Lab-Past 14 Days, 35 Results 10/16/16 22:32: Alanine Aminotransferase (ALT/SGPT) 33, Albumin 3.8, Albumin/Globulin Ratio 1.520, Alkaline Phosphatase 268H, Anion Gap 15.5H, Aspartate Amino Transf (AST/ SGOT) 33, BUN/Creatinine Ratio 26H, Basophils # (Auto) 0.0, Basophils (%) (Auto ) 1, Blood Urea Nitrogen 9, Calcium Level 8.9, Calcium/Ionized Calcium Ratio 4.2 , Calculated Osmolality 260L, Carbon Dioxide Level 27, Chloride Level 96L, Creatinine 0.34L, Eosinophils # (Auto) 0.1, Eosinophils (%) (Auto) 1, Estimat Glomerular Filtration Rate 262.2, Estimated GFR (Non- 216.7, Glucose Level 136H, Hematocrit 41.30, Hemoglobin 14.7, Lipase 75, Lymphocytes # (Auto) 0.5, Lymphocytes (%) (Auto) 7L, Mean Corpuscular Hemoglobin 34.3H, Mean Corpuscular Hemoglobin Concent 35.6, Mean Corpuscular Volume 96, Mean Platelet Volume 11.9H, Monocytes # (Auto) 0.9, Monocytes (%) (Auto) 12H, Neutrophils # ( Auto) 5.7, Neutrophils (%) (Auto) 79H, Platelet Count 157, Potassium Level 3.6# , Red Blood Count 4.29, Red Cell Distribution Width 12.0, Sodium Level 134L, Total Bilirubin 0.8, Total Protein 6.3L, White Blood Count 7.21 10/16/16 23:05: Urine Amorphous Sediment 4+H, Urine Bacteria None seen, Urine Bilirubin Negative , Urine Clarity Cloudy, Urine Collection Type Catheter, Urine Color Dark yellow , Urine Glucose (UA) Negative, Urine Hyaline Casts 2+, Urine Ketones 1+H, Urine Leukocyte Esterase 1+H, Urine Mucus 2+H, Urine Nitrite Negative, Urine Protein Negative, Urine RBC 0-2, Urine RBC (Auto) 2+H, Urine Specific [place] 1.015, Urine Squamous Epithelial Cells 2-5, Urine Urobilinogen 0.2, Urine WBC 5-10H, Urine pH 8.0, Volume Urine Centrifuged 12 ml 10/17/16 17:58: Adenovirus (PCR) Negative, Bordetella parapertussis DNA (PCR) Negative, Chlamydophila pneumoniae (PCR) Negative, Coronavirus Type 229E (PCR) Negative, Coronavirus Type HKU1 (PCR) Negative, Coronavirus Type NL63 (PCR) Negative, Coronavirus Type OC43 (PCR) Negative, Enterovirus/Rhinovirus (PCR) Negative, Human Metapneumovirus (PCR) Negative, Influenza Type A (H1) (PCR) Negative, Influenza Virus Type B (PCR) Negative, Mycoplasma pneumoniae (PCR) Negative, Parainfluenza Type 1 (PCR) Negative, Parainfluenza Type 2 (PCR) Negative, Parainfluenza Type 3 (PCR) Negative, Parainfluenza Type 4 (PCR) Negative, Respiratory Syncytial Virus (PCR) Negative 10/18/16 05:40: Albumin 3.4, Anion Gap 12.6, Basophils # (Auto) , Basophils (%) (Auto) , Blood Urea Nitrogen 9, Calcium Level 8.7L, Carbon Dioxide Level 27, Chloride Level 105 , Creatinine 0.45L, Eosinophils # (Auto) , Eosinophils (%) (Auto) , Estimat Glomerular Filtration Rate 189.7, Estimated GFR (Non- 156.8, Glucose Level 85#, Hematocrit 38.20, Hemoglobin 13.2, Lymphocytes # (Auto) , Lymphocytes (%) (Auto) , Mean Corpuscular Hemoglobin 34.6H, Mean Corpuscular Hemoglobin Concent 34.6, Mean Corpuscular Volume 100, Mean Platelet Volume 12.2H , Monocytes # (Auto) , Monocytes (%) (Auto) , Neutrophils # (Auto) , Neutrophils (%) (Auto) , Platelet Count 145L, Potassium Level 4.1, Red Blood Count 3.82L, Red Cell Distribution Width 12.6, Sodium Level 141#, White Blood Count 3.89L, Absolute Band Neutrophils 0.1, Ammonia 89.1H, Band Neutrophils % 2 , Basophils # (Manual) 0.0, Basophils % (Manual) 1, Blood Morphology Comment Normal, C-Reactive Protein 1.30H, Differential Total Cells Counted 100, Eosinophils # 0.2, Eosinophils % (Manual) 5H, Lymphocytes # 0.8, Lymphocytes % ( Manual) 20, Magnesium Level 2.3, Metamyelocytes % 0, Monocytes # 0.5, Monocytes % (Manual) 16H, VN-Qam-I-Type Natriuretic Peptide 1600H, Neutrophils # 2.2, Phosphorus Level 4.6, Segmented Neutrophils % 56 MICRO 10/16 Urine culture >100,000 cfu/ml gram negative bacilli. 10/17 Resp PCR Panel Negative 10/18 Sputum culture Pending IMAGING 10/18/16 Small Bowel Follow Through: PENDING 10/17/16 ECHO: Pending 10/16/16 ACUTE ABD SERIES INDICATION: Abdominal pain COMPARISON: 09/14/2016 FINDINGS: Frontal chest: Left-sided Port-A-Cath is unchanged. Heart size is enlarged but stable. Mild pulmonary venous congestion is unchanged. Some patchy perihilar infiltrate is again demonstrated. No pleural fluid is seen. Abdomen: Gastrostomy tube is again seen overlying the stomach. The bowel gas pattern appears unremarkable with the exception of moderate amount of stool in the colon. There is no evidence of free intraperitoneal air. No abnormal calcifications are suspected. Deformity of the bony pelvis is again demonstrated. IMPRESSION: 1. In the chest, there is persistent cardiomegaly with mild pulmonary vascular congestion and patchy perihilar airspace disease similar to the prior study. 2. No acute abdominal abnormality is suspected. ASSESSMENT Kelly Jackson is a 36 year old female admitted from ED 10/17 where she presented for the second time in two days. She had a recent diagnosis of conjunctivitis and developed acute respiratory distress, vomiting after tube feeds, increased lethargy, and increased weight. She has a significant murmur on exam and pulmonary edema on admit imaging. 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 PLAN * Acute Respiratory Distress: URI? Heart failure? Also concern for pneumonia. Resp PCR panel negative. Workup for heart failure. Oxygen protocol. Consider diuresis * Asthma: Duoneb TID, albuterol PRN. * Community Acquired Pneumonia: [facility] diagnosis. Blood culture not obtained on admit. Sputum culture pending. Allergy to PCN noted. Unable to participate in acapella or IS. NT suction PRN. Levofloxacin. * UTI Due to Gram Negative Bacilli: Culture pending. Levofloxacin. * Nausea/Vomiting: Resolved. Uncertain cause. Viral gastroenteritis? No diarrhea reported. Resumed tube feeds and plan to check residuals. Ondansetron for nausea. * Abdominal Distension, G-Tube Dysfunction: Check small bowel follow-through. * Congestive Heart Failure: On the basis of murmur, CXR, pulmonary exam, edema. Check echo. Furosemide. Monitor daily weight. I&O difficult to monitor due to incontinence. * Edema: Monitor I&O, daily weight. Furosemide. * Altered Mental Status: Due to infection, ammonia. Treat underlying problems. * Hyperammonemia: Attributed to valproic acid adverse effect. Hold valproate. Lactulose. * Conjunctivitis: Polymixin/trimethoprim eye drops, moisturizing eye drops. * F/E/N: Peripheral IV. Tube feeds. I&O, daily weight. * Prophylaxis: SCDs. * Code Status: Full * Dispo: Inpatient. Not expected to discharge before 10/21. CHRONIC ISSUES * Seizure disorder: Topiramate. Hold valproic acid due to hyperammonemia. * Constipation: Bowel regimen * Hypothyroidism: Levothyroxine * GERD: Famotidine * Seasonal allergies: Cetirizine * HTN? Diltiazem. Verify indication. * Eczema: Observe * [place] de Pike syndrome: Observe. MARYBETH FERNANDO MD Oct 18, 2016 11:36
[2016-10-18] MEDS: THERAPEUTIC MULTIVITAMINS LIQUID 5 ML UDC GT SCH (12:00)
[2016-10-18] MEDS ORDERED: BISACODYL 10 MG SUPP (DULCOLAX) PR PRN (15:00)
[2016-10-18 15:36] VITALS: BP 126/68
--- NOTE | 2016-10-18 17:21 | NUR ---
Instructed by Dr Ball to hold all feedings and medications except Topamax and Tegretol until further notice. Pt just had large loose incontinent BM requiring bed change. [facility] staff here at this time; she states pt toilets Q2hr at their facility and does well with this. Bed alarm on. L port access intact.
--- NOTE | 2016-10-18 18:35 | NUR ---
Pt sitting up in bed, caregiver brought a few personal belongings from home ("busy beads", chapstick, "thumper" back massager) and pt appears to enjoy these. PRN Dulcolax suppository given per Dr Ball instruction. 1800 med given thru GT with no difficulty, flushed with 30mL before and after with no resistance. Port access intact. Bed alarm on for safety.
--- NOTE | 2016-10-18 19:11 | NUR ---
Pt found lying in bed on RA, SPO2 92%, RR 16, HR 94 with BS clear bilateral upper and RML, slightly coarse bilateral lower lobes before and after Duoneb via SVN. Pt has a moderately strong cough, NTS not indicated at this time.
[2016-10-18] MEDS: toPIRamate 25 MG (TOPAMAX) TAB PO SCH (20:25)
[2016-10-18] MEDS: CARBOXYMETHYLCELLULOSE 1% (CELLUVISC) OPHTHALMIC DROPS OU SCH (20:25)
[2016-10-18] MEDS: CETIRIZINE 1 MG/ML GT SCH (20:28)
--- NOTE | 2016-10-18 20:48 | Diagnostic Imaging Report ---
INDICATION: Abdominal pain and distention. FINDINGS: Fleet Director radiographs of the abdomen reveal diffuse dilatation of colon containing moderate to large amount of stool. Gastrografin contrast was injected through the indwelling gastrostomy tube. Contrast opacifies mildly prominent small bowel loops with contrast reaching the distal small bowel and proximal colon after 5-1/2 hours. IMPRESSION: Findings are compatible with constipation. There is mild delay in small bowel transit with transit time of 5.5 hours. No obstruction is seen. Dictated by: Dictated on workstation # [id number]
--- NOTE | 2016-10-19 | NUR ---
Tube feeding done as ordered. 35 cc residual before tube feeding of 120 cc, followed by sterile water as ordered. Patient tolerated well. Repositioned in bed.
[2016-10-19 00:09] VITALS: BP 126/60
[2016-10-19] MEDS: [UNRECOGNIZED DRUG - OTHER] OD SCH ×7 (00:49→21:00)
[2016-10-19] MEDS: TRIMETHOPRIM OD SCH ×7 (00:49→21:00)
[2016-10-19 04:32] VITALS: BP 88/47
[2016-10-19 06:10] LABS: MEAN PLATELET VOLUME 11.3 FL (6.0-9.5); PLATELET COUNT 158 10^3uL (150-450); WHITE BLOOD COUNT 7.33 10^3uL (4.0-11.0)
--- NOTE | 2016-10-19 06:15 | NUR ---
Patient rests in bed throughout night without needs. Respirations even and unlabored. No suctioning necessary this shift. No needs at this time.
[2016-10-19 06:37] LABS: MEAN CORPUSCULAR HEMOGLOBIN 34.5 PG (26.0-34.0); MEAN CORPUSCULAR VOLUME 99 FL (80-100)
[2016-10-19 06:43] LABS: ALBUMIN 3.9 g/dL (3.4-5.0); ANION GAP 18.6 MEQ/L (3-15); CALCULATED IONIZED CALCIUM 4.3 mg/dL (3.8-4.6); TOTAL PROTEIN 6.5 g/dL (6.4-8.5)
[2016-10-19 06:48] LABS: BAND NEUTROPHILS % 1 % (0-6); EOSINOPHILS % 0 % (0-4); MONOCYTES # 1.1 #; MONOCYTES % 16 % (3-11); SEGMENTED NEUTROPHILS % 70 % (51-67); TOTAL CELLS COUNTED 100
[2016-10-19 06:49] LABS: RBC MORPH NORMAL (NORMAL)
[2016-10-19] MEDS: ALBUTEROL/IPRATROPIUM 3MG-0.5MG/3ML (DUONEB) NEB VIAL INH SCH ×3 (07:23→18:56)
[2016-10-19 07:55] VITALS: BP 117/69
[2016-10-19] MEDS: LEVOFLOXACIN 750 MG/150 ML IV 150 ML IV SCH (08:31)
[2016-10-19] MEDS: DILTIAZEM CD 120 MG (CARDIZEM CD) CAP PO SCH (09:00)
[2016-10-19] MEDS: THERAPEUTIC MULTIVITAMINS LIQUID 5 ML UDC GT SCH (09:00)
[2016-10-19] MEDS: CETIRIZINE 1 MG/ML GT SCH (09:00)
[2016-10-19] MEDS: SULFAMETHOXAZOLE PO SCH ×2 (09:00→21:00)
[2016-10-19] MEDS: POTASSIUM CHLORIDE ORAL SOLUTION 20 MEQ/15 ML (KCL) UDC PO SCH (09:00)
[2016-10-19] MEDS: SENNOSIDES 8.6 MG (SENOKOT) TAB GT SCH (09:00)
[2016-10-19] MEDS: FAMOTIDINE 40 MG/5 ML GT SCH ×2 (09:00→21:00)
[2016-10-19] MEDS: FUROSEMIDE 40 MG/4 ML GT SCH (09:00)
[2016-10-19] MEDS: POLYETHYLENE GLYCOL 17 GM (MIRALAX) PACKET PO SCH (09:00)
[2016-10-19] MEDS: LACTULOSE ORAL SOLUTION 10 GM/15 ML UDC GT SCH ×2 (09:00→21:00)
[2016-10-19] MEDS: guaiFENesin SYRUP 200 MG/10 ML (ROBITUSSIN) UDC GT SCH ×2 (09:00→21:00)
[2016-10-19] MEDS: TRIMETHOPRIM PO SCH ×2 (09:00→21:00)
[2016-10-19] MEDS: DOCUSATE 100 MG/10 ML GT SCH ×2 (09:00→21:00)
[2016-10-19] MEDS: LEVOTHYROXINE 75 MCG (LEVOTHROID) TABLET GT SCH (09:00)
[2016-10-19] MEDS: CARBAMAZEPINE 100 MG/5 ML GT SCH ×3 (09:19→18:10)
[2016-10-19] MEDS: ARTIFICIAL TEARS (REFRESH) OPHTHALMIC DROPS OU SCH (09:20)
[2016-10-19 12:03] VITALS: BP 102/57
--- NOTE | 2016-10-19 12:43 | NUR ---
Nutrition Follow Up: Noted abdominal distention and reports by RN of Jevity coming back out when syringe is removed. SBFT yesterday showed constipation with mild delay in small bowel transit time, no obstruction. Feedings were held on physicians verbal order yesterday evening, but no official order was entered in the EMR to stop feedings even though they have been held since approximately 1725 yesterday, per nurses notes. Weight today: 102.3#/46.5 kg--this is down 11.4# since admission Labs: glucose 67 1. Weight is back down to UBW. 2. Spoke with RN who will clarify with physician whether or not we can restart feedings today. If not, requested that an order be entered to DC feedings until were ready to begin again.
[2016-10-19] MEDS: SODIUM CHLORIDE FLUSH 10 ML SYR IV PRN ×2 (12:49→17:06)
[2016-10-19] MEDS: FUROSEMIDE 40 MG/4 ML (LASIX) VIAL IV SCH ×2 (12:49→17:11)
--- NOTE | 2016-10-19 13:27 | NUR ---
Patient is still not receiving any feeding per her G tube. Abdomen distension has decreased. Bowel sounds are hypoactive. Patient is alert and non communicative.
--- NOTE | 2016-10-19 13:57 | Progress Note-A/P (E) ---
Progress Note Subjective: Patient is resting quietly in bed. Awake. No family at bedside. Discussed care plan with nursing staff. 3 BM's overnight. Objective: Current Medications Carbamazepine 200 mg TID GT Cetirizine 10 mg HS GT Docusate 100 mg BID GT Guaifenesin 400 mg BID GT Albuterol/ Ipratropium 3 ml TID INH Multivitamins Therapeutic 5 ml DAILY@12 GT Polyethylene Glycol 17 gm DAILY PO Polyvinyl Alcohol/ Povidone 1 each DAILY OU Potassium Chloride 10 meq DAILY PO Sennosides 8.6 mg DAILY GT Trimethoprim/ Sulfamethoxazole 20 ml BID PO Valproic Acid 500 mg HS PO--Hold Polymyxin/ Trimethoprim Sulfate 1 DROP Q4HR OD Enoxaparin 40 mg DAILY SC Levothyroxine 37.5 mcg DAILY GT Diltiazem 120 mg DAILY@0900 PO Topiramate 50 mg HS PO Famotidine 20 mg BID GT Carboxymethylcellulose Sodium 1 DROP HS OU Polyvinyl Alcohol/ Povidone 1 DROP QID PRN OU Furosemide 40 mg DAILY@09,14 IV Levofloxacin Q24H IV Lactulose 20 gm BID GT Furosemide 20 mg DAILY GT Sterile Water FOR GT FLUSH UD PRN GT Bisacodyl 10 mg BID PRN NC Vital Signs Date Time Temp Pulse Resp B/P Pulse Ox O2 Delivery O2 Flow Rate FiO2 10/19/16 12:03 97.7 101 20 102/57 92 Room air I & O Past 24 hrs 10/19/16 07:00 Output Total 3694 ml Balance -3694 ml Output Urine Total 3058 ml Stool Total 636 ml Physical Exam General--Awake and alert. No distress. HEENT--Normal [place] de Pike facial features. MMM in oral cavity. Lungs--Clear bilaterally. Heart--LARISA II/ heard best over left lower sternal. RRR. Abdomen--NBS/S/ND/NTTP. G-tube present. Extremities--No lower extremity edema. Past 24 hour Lab Results 10/19/16 06:00 Laboratory Results Past 24 Hrs 10/19/16 06:00: Absolute Band Neutrophils 0.1, Alanine Aminotransferase (ALT/SGPT) 34, Albumin 3.9, Albumin/Globulin Ratio 1.500, Alkaline Phosphatase 241, Ammonia 52.4, Anion Gap 18.6, Aspartate Amino Transf (AST/SGOT) 36, BUN/Creatinine Ratio 20, Band Neutrophils % 1, Basophils # (Auto) , Basophils # (Manual) 0.0, Basophils % (Manual) 0, Basophils (%) (Auto) , Blood Morphology Comment Normal, Blood Urea Nitrogen 10, C-Reactive Protein 2.00, Calcium Level 9.3, Calcium/Ionized Calcium Ratio 4.3, Calculated Osmolality 269, Carbon Dioxide Level 25, Chloride Level 101, Creatinine 0.49, Differential Total Cells Counted 100, Eosinophils # 0.0, Eosinophils # (Auto) , Eosinophils % (Manual) 0, Eosinophils (%) (Auto) , Estimat Glomerular Filtration Rate 172.0, Estimated GFR (Non- 142.1, Glucose Level 67, Hematocrit 40.60, Hemoglobin 14.2, Lymphocytes # 1.0, Lymphocytes # (Auto) , Lymphocytes % (Manual) 13, Lymphocytes (%) (Auto) , Mean Corpuscular Hemoglobin 34.5, Mean Corpuscular Hemoglobin Concent 35.0, Mean Corpuscular Volume 99, Mean Platelet Volume 11.3, Monocytes # 1.1, Monocytes # ( Auto) , Monocytes % (Manual) 16, Monocytes (%) (Auto) , Neutrophils # 5.1, Neutrophils # (Auto) , Neutrophils (%) (Auto) , Platelet Count 158, Potassium Level 3.7, Red Blood Count 4.11, Red Cell Distribution Width 12.4, Segmented Neutrophils % 70, Sodium Level 141, Total Bilirubin 1.7, Total Protein 6.5, White Blood Count 7.33 Microbiology 10/16/16 Urine Culture - Final, Complete Urine Culture FINAL 10/19/16 07:30 S Escherichia coli >100,000 cfu/ml E. coli Antibiotic AVIS INT Ampicillin >=32 R Ampicillin/sulbactam 16 I Cefazolin <=4 S Ceftriaxone <=1 S Ciprofloxacin 1 S Gentamicin <=1 S Nitrofurantoin <=16 S Trimethoprim/Sulfa >=320 R Imaging Results 10.16.16 CXR IMPRESSION: 1. In the chest, there is persistent cardiomegaly with mild pulmonary vascular congestion and patchy perihilar airspace disease similar to the prior study. 2. No acute abdominal abnormality is suspected. 10.18.16 Small bowel follow through. IMPRESSION: Findings are compatible with constipation. There is mild delay in small bowel transit with transit time of 5.5 hours. No obstruction is seen. Assessment/Plan Acute respiratory failure Attributed to URI. Required oxygen overnight 10.17 CAP Continue levofloxacin. Allergy to PCN. No blood culture. Sputum culture pending. UTI Culture above. Continue levofloxacin. G tube dysfunction/Constipation Radiographic studies above. Improving. Will start tube feeds today at half feeds (120ml QID), and advance tomorrow. Constipation Improving. Multiple BM's. CHF Echo pending. Prelim report shows normal LVEF. Providing furosemide. Monitor daily i/o's carefully and daily weights ( trending down). Hyperammonemia Trending down. Attributed to valproic acid, holding for now. Continue lactulose. Seizure disorder Topiramate per home regimen. Holding valproic acid per above. Constipation Continue bowel regimen. Hypothyroidism Continue home levothyroxine. GERD Continue home famotidine. Seasonal allergies Continue home cetirizine. HTN Has been on diltiazem at home, pressures have been low here. [place] de Pike syndrome Stable. Monitor. FEN NPO, all diet per G-tube. Has been on hold due to distention and constipation. Will restart tube feeds. Electrolytes have been normal. No fluids at this time. Code status Full code. DVT proph SCD's Dispo Inpatient. Will start tube feeds and monitor for improvement. Will also restart home medications. CIERRA DOMINGUEZ MD Oct 19, 2016 13:57
[2016-10-19 15:51] VITALS: BP 122/45
[2016-10-19] MEDS ORDERED: FUROSEMIDE 40 MG/4 ML (LASIX) VIAL IV SCH (16:31)
[2016-10-19] MEDS: ENOXAPARIN 40 MG/0.4 ML (LOVENOX) SYR SC SCH (18:27)
--- NOTE | 2016-10-19 18:30 | NUR ---
Received an order to restart tube feedings with Jevity 1.0 chase. at half the original dose. Flushes remain the same. Brian RN gave a 120 cc feeding without difficulty. No residual noted prior to the feeding.
[2016-10-19 20:00] VITALS: BP 107/49
--- NOTE | 2016-10-19 20:00 | NUR ---
Repositioned in bed. Alert. G-tube intact. Hs meds given, followed by sterile water as ordered. Patient tolerates well. No skin breakdown noted. Barrier cream to bottom. Heels off of bed with two pillows. Oral care and lip moisture to lips. Smiles at staff. Pillows at sides of bed for seizure precautions. Bed alarm on for safety.
[2016-10-19] MEDS: toPIRamate 25 MG (TOPAMAX) TAB PO SCH (20:51)
[2016-10-19] MEDS: CARBOXYMETHYLCELLULOSE 1% (CELLUVISC) OPHTHALMIC DROPS OU SCH (21:00)
[2016-10-20] VITALS: BP 113/54
[2016-10-20] MEDS: TRIMETHOPRIM OD SCH ×6 (01:00→21:18)
[2016-10-20] MEDS: [UNRECOGNIZED DRUG - OTHER] OD SCH ×6 (01:00→21:18)
--- NOTE | 2016-10-20 03:00 | NUR ---
Patient repositioned q 2 hours, but does not like to rest on her right side very well. Heels floated at all times. Barrier cream to buttocks area. Patient is non-verbal. Oral care given several times, along with lip moisture to lips. Patient cooperative with cares. Smiles at staff. Bed alarm on for safety.
[2016-10-20 04:00] VITALS: BP 98/54
--- NOTE | 2016-10-20 06:00 | NUR ---
Tube feeding administered per protocol. Residual prior to tube feeding 45cc. Patient tolerated well. Diaper changed x3 tonight. Good mikaela care given Barrier cream to bottom. Left Port patent and has a good blood return and flushes without difficulty. No complications noted at site. Oral care given several times, and moisture cream to lops numerous times.
[2016-10-20 06:07] LABS: MEAN CORPUSCULAR HGB CONC 35.4 g/dL (31.0-37.0); MEAN CORPUSCULAR VOLUME 97 FL (80-100); MEAN PLATELET VOLUME 12.1 FL (6.0-9.5); PLATELET COUNT 182 10^3uL (150-450); WHITE BLOOD COUNT 6.12 10^3uL (4.0-11.0)
[2016-10-20 06:10] LABS: MEAN CORPUSCULAR HEMOGLOBIN 34.5 PG (26.0-34.0)
[2016-10-20 06:33] LABS: BAND NEUTROPHILS % 2 % (0-6); EOSINOPHILS % 1 % (0-4); LYMPHOCYTES # 0.9 #; MONOCYTES # 1.2 #; MONOCYTES % 20 % (3-11); RBC MORPH NORMAL (NORMAL); SEGMENTED NEUTROPHILS % 63 % (51-67); TOTAL CELLS COUNTED 100
[2016-10-20 06:46] LABS: ANION GAP 21.3 MEQ/L (3-15); CALCULATED IONIZED CALCIUM 4.4 mg/dL (3.8-4.6); MAGNESIUM* 2.2 mg/dL (1.6-2.3); PHOSPHORUS 4.8 mg/dL (2.4-4.9); TOTAL PROTEIN 6.7 g/dL (6.4-8.5)
[2016-10-20] MEDS: ALBUTEROL/IPRATROPIUM 3MG-0.5MG/3ML (DUONEB) NEB VIAL INH SCH ×3 (07:13→20:04)
--- NOTE | 2016-10-20 07:16 | NUR ---
Pt found lying in bed on RA, SPO2 90%, HR 103, RR 16 and non labored. BS reveal clear bilateral upper lobes and RML, slightly coarse bilateral lower lobes before and after Duoneb via SVN/MASK which was tolerated well. NTS not indicated att his time.
--- NOTE | 2016-10-20 07:32 | Diagnostic Imaging Report ---
EXAMINATION: Abdominal radiographs, acute series. DATE: October 20, 2016. CLINICAL INDICATION: 36-year-old female, constipation. G-tube dysfunction. COMPARISON: October 18, 2016. COMMENTS: There is a left-sided venous line with tip projecting over the expected position of the upper right atrium. The heart appears enlarged. There is no identified pneumothorax or large pleural effusion. The gastrostomy tube projects over the expected position of the stomach. There is enteric contrast material within the transverse colon and right colon. There is no identified free intraperitoneal air. There is mild gaseous distention of large bowel which is less prominent compared to prior exam. IMPRESSION: 1. Gastrostomy tube projects over the expected position of the stomach. 2. Mild gaseous distention of bowel most likely involving loops of large bowel which is less prominent compared to prior exam. Dictated by: Dictated on workstation # [id number]
[2016-10-20 07:50] VITALS: BP 118/64
[2016-10-20] MEDS: TRIMETHOPRIM PO SCH ×3 (08:05→21:17)
[2016-10-20] MEDS: SENNOSIDES 8.6 MG (SENOKOT) TAB GT SCH ×2 (08:05→09:49)
[2016-10-20] MEDS: FUROSEMIDE 40 MG/4 ML GT SCH ×2 (08:05→09:48)
[2016-10-20] MEDS: DOCUSATE 100 MG/10 ML GT SCH ×3 (08:05→21:16)
[2016-10-20] MEDS: SULFAMETHOXAZOLE PO SCH ×3 (08:05→21:17)
[2016-10-20] MEDS: guaiFENesin SYRUP 200 MG/10 ML (ROBITUSSIN) UDC GT SCH ×3 (08:05→21:16)
[2016-10-20] MEDS: LEVOTHYROXINE 75 MCG (LEVOTHROID) TABLET GT SCH ×2 (08:05→09:49)
[2016-10-20] MEDS: LACTULOSE ORAL SOLUTION 10 GM/15 ML UDC GT SCH ×2 (08:05→21:16)
[2016-10-20] MEDS: DILTIAZEM CD 120 MG (CARDIZEM CD) CAP PO SCH ×2 (08:05→09:49)
[2016-10-20] MEDS: FAMOTIDINE 40 MG/5 ML GT SCH ×3 (08:05→21:16)
[2016-10-20] MEDS: POTASSIUM CHLORIDE ORAL SOLUTION 20 MEQ/15 ML (KCL) UDC PO SCH ×5 (08:06→18:26)
[2016-10-20] MEDS: POLYETHYLENE GLYCOL 17 GM (MIRALAX) PACKET PO SCH (08:06)
[2016-10-20] MEDS: LEVOFLOXACIN 750 MG/150 ML IV 150 ML IV SCH (08:18)
[2016-10-20] MEDS: ENOXAPARIN 40 MG/0.4 ML (LOVENOX) SYR SC SCH (08:25)
[2016-10-20] MEDS: CARBAMAZEPINE 100 MG/5 ML GT SCH ×3 (08:26→18:26)
[2016-10-20] MEDS: ARTIFICIAL TEARS (REFRESH) OPHTHALMIC DROPS OU SCH (08:29)
--- NOTE | 2016-10-20 08:30 | Progress Note (E) ---
Progress Note Subjective: Patient is resting quietly in bed. Awake. Patient evaluated by Dr. Burroughs, around 9:15. Patient is awake, resting quietly in bed. No family at bedside. I was able to update mother by phone this morning. She states the patient sees Dr. Mckeon in [place]. She states the patient has frequent seizures that involve eye rolling. She has had grand mal seizures, but not in some time. Her questions were answered. Objective: Current Medications Carbamazepine 200 mg TID GT Cetirizine 10 mg HS GT Docusate 100 mg BID GT Guaifenesin 400 mg BID GT Albuterol/ Ipratropium 3 ml TID INH Multivitamins Therapeutic 5 ml DAILY@12 GT Polyethylene Glycol 17 gm DAILY PO Polyvinyl Alcohol/ Povidone 1 each DAILY OU Potassium Chloride 10 meq DAILY PO Sennosides 8.6 mg DAILY GT Trimethoprim/ Sulfamethoxazole 20 ml BID PO Valproic Acid 500 mg HS PO--Hold Polymyxin/ Trimethoprim Sulfate 1 DROP Q4HR OD Enoxaparin 40 mg DAILY SC Levothyroxine 37.5 mcg DAILY GT Diltiazem 120 mg DAILY@0900 PO Topiramate 50 mg HS PO Famotidine 20 mg BID GT Carboxymethylcellulose Sodium 1 DROP HS OU Polyvinyl Alcohol/ Povidone 1 DROP QID PRN OU Furosemide 40 mg DAILY@09,14 IV Levofloxacin Q24H IV Lactulose 20 gm BID GT Furosemide 20 mg DAILY GT Sterile Water FOR GT FLUSH UD PRN GT Bisacodyl 10 mg BID PRN [place] Vitals: Vital Signs Date Time Temp Pulse Resp B/P Pulse Ox O2 Delivery O2 Flow Rate FiO2 10/20/16 07:50 99.1 105 20 118/64 90 Room air I & O Past 24 hrs 10/20/16 07:00 Output Total 1694 ml Balance -1694 ml Output Urine Total 1694 ml Physical Exam General--Awake and alert. No distress. HEENT--Typical Marcela de Pike facial features. MMM in oral cavity. Lungs--Clear bilaterally. Heart--LARISA II/ heard best over left lower sternal. RRR. Abdomen--NBS/S/ND/NTTP. G-tube present. Extremities--No lower extremity edema. Past 24 hour Lab Results 10/19/16 06:00 Laboratory Results Past 24 Hrs CBC BMP Last 24 Hrs 10/20/16 05:45 Laboratory Results Past 24 Hrs 10/20/16 05:45: Absolute Band Neutrophils 0.1, Alanine Aminotransferase (ALT/SGPT) 36, Albumin 4.0, Albumin/Globulin Ratio 1.481, Alkaline Phosphatase 221, Ammonia 46.8, Anion Gap 21.3, Aspartate Amino Transf (AST/SGOT) 42, BUN/Creatinine Ratio 25, Band Neutrophils % 2, Basophils # (Auto) , Basophils # (Manual) 0.0, Basophils % (Manual) 0, Basophils (%) (Auto) , Blood Morphology Comment Normal, Blood Urea Nitrogen 15, Calcium Level 9.6, Calcium/Ionized Calcium Ratio 4.4, Calculated Osmolality 272, Carbon Dioxide Level 26, Chloride Level 97, Creatinine 0.59, Differential Total Cells Counted 100, Eosinophils # 0.1, Eosinophils # (Auto) , Eosinophils % (Manual) 1, Eosinophils (%) (Auto) , Estimat Glomerular Filtration Rate 138.8, Estimated GFR (Non- 114.7, Glucose Level 85, Hematocrit 42.90, Hemoglobin 15.2, Lymphocytes # 0.9, Lymphocytes # (Auto) , Lymphocytes % (Manual) 14, Lymphocytes (%) (Auto) , Magnesium Level 2.2, Mean Corpuscular Hemoglobin 34.5, Mean Corpuscular Hemoglobin Concent 35.4, Mean Corpuscular Volume 97, Mean Platelet Volume 12.1, Metamyelocytes % 0, Monocytes # 1.2, Monocytes # (Auto) , Monocytes % (Manual) 20, Monocytes (%) (Auto) , Neutrophils # 3.9, Neutrophils # (Auto) , Neutrophils (%) (Auto) , Phosphorus Level 4.8, Platelet Count 182, Potassium Level 3.3, Red Blood Count 4.41, Red Cell Distribution Width 12.4, Segmented Neutrophils % 63, Sodium Level 141, Total Bilirubin 2.1, Total Protein 6.7, White Blood Count 6.12 Microbiology 10/16/16 Urine Culture - Final, Complete Urine Culture FINAL 10/19/16 07:30 S Escherichia coli >100,000 cfu/ml E. coli Antibiotic AVIS INT Ampicillin >=32 R Ampicillin/sulbactam 16 I Cefazolin <=4 S Ceftriaxone <=1 S Ciprofloxacin 1 S Gentamicin <=1 S Nitrofurantoin <=16 S Trimethoprim/Sulfa >=320 R Imaging Results 16 CXR IMPRESSION: 1. In the chest, there is persistent cardiomegaly with mild pulmonary vascular congestion and patchy perihilar airspace disease similar to the prior study. 2. No acute abdominal abnormality is suspected. 10.18.16 Small bowel follow through. IMPRESSION: Findings are compatible with constipation. There is mild delay in small bowel transit with transit time of 5.5 hours. No obstruction is seen. 16 Abdominal film IMPRESSION: 1. Gastrostomy tube projects over the expected position of the stomach. 2. Mild gaseous distention of bowel most likely involving loops of large bowel which is less prominent compared to prior exam. Assessment/Plan Acute respiratory failure Improving. Attributed to URI. Required oxygen overnight 12., she has been weaned to room air. CAP Continue levofloxacin, day #4 of abx. Allergy to PCN. No blood culture. No sputum culture. UTI Culture above. Levofloxacin per above, day #4. G tube dysfunction/Constipation Radiographic studies above. Improving. Started tube feeds at half feeds (120ml QID), will advance today. Constipation Improving. Multiple BM's. CHF Echo pending. Prelim report shows normal LVEF. Providing furosemide. Monitor daily i/o's carefully and daily weights ( trending down). Hyperammonemia Improving. Attributed to valproic acid, holding for now. Continue lactulose. Hyperbilirubinemia 2.1 today. Seizure disorder Topiramate per home regimen. Holding valproic acid per above. Discussed with neurologist (Dr. Mckeon) who recommends holding valproic acid until ammonia and bilirubin normalize. Constipation Continue bowel regimen. Hypothyroidism Continue home levothyroxine. GERD Continue home famotidine. Seasonal allergies Continue home cetirizine. HTN Has been on diltiazem at home, pressures have been low here. 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 FEN NPO, all diet per G-tube. Has been on hold due to distention and constipation. Restarting tube feeds. Electrolytes--hypokalemia today, will replace. No fluids at this time. Code status Full code. DVT proph SCD's Dispo Inpatient. Continue to advance tube feeds, if patient tolerates this well, can look to d/c tomorrow. Discussed with neurologist per above. Yumiko De La Garza APRN Oct 20, 2016 08:30 CIERRA BURROUGHS MD Oct 20, 2016 08:50
--- NOTE | 2016-10-20 08:41 | NUR ---
Pt resting in bed. Skin warm, dry, intact. Resprs nonlabored, even on RA. Heels were floating on two pillows, though pt crossed her feet. feet with pillows and kept heels floated. Medication administered thru GT with no difficulty. Pt tolerated this well. IV Levaquin infusing into L subclavian port with no difficulty. Bed alarm on for safety. Lip moisturizer applied to lips.
[2016-10-20] MEDS ORDERED: SODIUM CHLORIDE 100 ML ONE (10:07)
--- NOTE | 2016-10-20 11:54 | NUR ---
Tube feeding tolerated well. Residual prior to feeding: approx 60mL orange colored fluid.
[2016-10-20 12:38] VITALS: BP 102/61
[2016-10-20] MEDS: THERAPEUTIC MULTIVITAMINS LIQUID 5 ML UDC GT SCH (13:12)
--- NOTE | 2016-10-20 14:43 | NUR ---
Pt found lying in bed on RA, SPO2 90%, HR 82, RR 16 and non labored. BS essentially clear at this time before and after TX of Duoneb via SVN/MASK
[2016-10-20 16:26] VITALS: BP 115/62
--- NOTE | 2016-10-20 17:49 | NUR ---
Pt sitting up in bed. 1800 feeding given thru GT with no difficulty, flushed with 50mL before and after with no resistance. Port access intact. Abd distention has improved. Pt has been alert for majority of shift. Lips dry; oral care and chapstick applied PRN. Skin warm, dry, intact. Resprs nonlabored, even on RA. Bed alarm on for safety.
[2016-10-20 19:46] VITALS: BP 110/67
--- NOTE | 2016-10-20 20:00 | NUR ---
Resting in bed with HOB elevated. Caregivers here from [facility] to visit with patient. Patient repositioned in bed. No respiratory distress noted. Abdomen soft and non-distended. Is alert. Is non-verbal. but for the most part patient is able to make needs known. Skin warm and dry. Color pink. Left Port remains accessed and is without complications to site. Dr Burroughs called and would like patient to go back to full tube feedings again. Meds given via g-tube without difficulty, and patient tolerated well.Bed alarm on for safety.
[2016-10-20] MEDS: CETIRIZINE 1 MG/ML GT SCH (21:17)
[2016-10-20] MEDS: CARBOXYMETHYLCELLULOSE 1% (CELLUVISC) OPHTHALMIC DROPS OU SCH (21:17)
[2016-10-20] MEDS: toPIRamate 25 MG (TOPAMAX) TAB PO SCH (21:19)
--- NOTE | 2016-10-21 | NUR ---
Repositioned in bed. Residual checked prior to tube feeding and obtained 30 cc. Jevity 1 chase, 240ml administered via gravity. Followed with sterile water as ordered. Patient tolerated feeding well. Bed alarm placed on for patient safety.
[2016-10-21 00:15] VITALS: BP 120/76
[2016-10-21] MEDS: [UNRECOGNIZED DRUG - OTHER] OD SCH ×6 (01:00→22:05)
[2016-10-21] MEDS: TRIMETHOPRIM OD SCH ×6 (01:00→22:05)
[2016-10-21 04:00] VITALS: BP 120/74
--- NOTE | 2016-10-21 05:40 | NUR ---
Tube feeding administered as ordered. Patient had 90 cc residual prior to feeding. Jevity 1 chase administered per gravity, followed by sterile water per protocol. Patient tolerated well. No respiratory distress noted. Bed alarm on for safety.
[2016-10-21 06:11] LABS: MEAN CORPUSCULAR HGB CONC 34.9 g/dL (31.0-37.0); MEAN PLATELET VOLUME 11.9 FL (6.0-9.5); PLATELET COUNT 178 10^3uL (150-450); WHITE BLOOD COUNT 5.76 10^3uL (4.0-11.0)
[2016-10-21 06:17] LABS: MEAN CORPUSCULAR HEMOGLOBIN 34.3 PG (26.0-34.0); MEAN CORPUSCULAR VOLUME 98 FL (80-100)
[2016-10-21 06:46] LABS: BAND NEUTROPHILS % 2 % (0-6); EOSINOPHILS % 1 % (0-4); LYMPHOCYTES # 1.1 #; MONOCYTES # 0.7 #; MONOCYTES % 13 % (3-11); RBC MORPH NORMAL (NORMAL); SEGMENTED NEUTROPHILS % 64 % (51-67); TOTAL CELLS COUNTED 100
[2016-10-21 07:27] LABS: ALBUMIN 3.8 g/dL (3.4-5.0); ANION GAP 15.1 MEQ/L (3-15); CALCULATED IONIZED CALCIUM 4.3 mg/dL (3.8-4.6); MAGNESIUM* 2.4 mg/dL (1.6-2.3); PHOSPHORUS 4.1 mg/dL (2.4-4.9); TOTAL PROTEIN 6.4 g/dL (6.4-8.5)
[2016-10-21] MEDS: ALBUTEROL/IPRATROPIUM 3MG-0.5MG/3ML (DUONEB) NEB VIAL INH SCH ×3 (07:32→19:07)
--- NOTE | 2016-10-21 07:34 | NUR ---
Pt found lying in bed on RA, SPO2 91%, HR 90, RR 16 and non labored, with BS having fine crackles in bilateral bases, no change post Tx.
[2016-10-21 08:01] VITALS: BP 112/59
[2016-10-21] MEDS: LEVOFLOXACIN 750 MG/150 ML IV 150 ML IV SCH (08:39)
[2016-10-21] MEDS: POTASSIUM CHLORIDE ORAL SOLUTION 20 MEQ/15 ML (KCL) UDC PO SCH ×2 (08:57→22:04)
[2016-10-21] MEDS: LACTULOSE ORAL SOLUTION 10 GM/15 ML UDC GT SCH ×2 (08:57→22:03)
[2016-10-21] MEDS: CARBAMAZEPINE 100 MG/5 ML GT SCH ×3 (08:58→17:29)
[2016-10-21] MEDS: guaiFENesin SYRUP 200 MG/10 ML (ROBITUSSIN) UDC GT SCH ×2 (08:58→22:03)
[2016-10-21] MEDS: SENNOSIDES 8.6 MG (SENOKOT) TAB GT SCH (08:59)
[2016-10-21] MEDS: DILTIAZEM CD 120 MG (CARDIZEM CD) CAP PO SCH (08:59)
[2016-10-21] MEDS: LEVOTHYROXINE 75 MCG (LEVOTHROID) TABLET GT SCH (08:59)
[2016-10-21] MEDS: POLYETHYLENE GLYCOL 17 GM (MIRALAX) PACKET PO SCH (09:02)
[2016-10-21] MEDS: ENOXAPARIN 40 MG/0.4 ML (LOVENOX) SYR SC SCH (09:09)
[2016-10-21] MEDS: ARTIFICIAL TEARS (REFRESH) OPHTHALMIC DROPS OU SCH (09:10)
--- NOTE | 2016-10-21 09:38 | NUR ---
Pt tolerates AM medication well. Pt playing with "busy beads". Skin warm, dry, intact. Resprs nonlabored, even on RA. Levaquin infusing in L port with no difficulties. Edema in bilateral feet seems to have resolved. Bed alarm on for safety.
[2016-10-21] MEDS: DOCUSATE 100 MG/10 ML GT SCH ×2 (10:09→22:03)
[2016-10-21] MEDS: SULFAMETHOXAZOLE PO SCH ×2 (10:09→22:07)
[2016-10-21] MEDS: FAMOTIDINE 40 MG/5 ML GT SCH ×2 (10:09→21:00)
[2016-10-21] MEDS: FUROSEMIDE 40 MG/4 ML GT SCH (10:09)
[2016-10-21] MEDS: TRIMETHOPRIM PO SCH ×2 (10:09→22:07)
[2016-10-21 12:00] VITALS: BP 116/71
[2016-10-21] MEDS: THERAPEUTIC MULTIVITAMINS LIQUID 5 ML UDC GT SCH (12:08)
--- NOTE | 2016-10-21 12:27 | Progress Note (E) ---
Progress Note SUBJECTIVE Tolerating full feeds. Abdomen soft. She seems more alert and comfortable than 3 days prior. Noted ammonia level is still elevated. Valproic acid remains on hold. OBJECTIVE Vital Signs Date Time Temp Pulse Resp B/P Pulse Ox O2 Delivery O2 Flow Rate FiO2 10/21/16 08:01 97.1 88 20 112/59 95 Room air 0.00 I & O 10/20/16 10/21/16 Cumulative From/Thru 19:00 07:00 10/16/16 21:35 - 10/21/16 06:18 Intake Total 0 ml 1050 ml Output Total 226 ml 736 ml 6350 ml Balance -226 ml -736 ml -5300 ml GEN: Awake, stirs to exam. Non-verbal. 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 Dry skin. Clear sclerae. Somewhat dry oral mucosa through she doesn't cooperate much with exam. Some mattering in eyes bilaterally. CV: Regular, prominent 3/6 systolic murmur, crescendo/decrescendo. PULM: Breath sounds continue to improve with better air movement and diminished basilar rales. ABD: Soft, hypoactibe bowel sounds. No apparent tenderness. EXTR: Warm, well-perfused. Left arm is hyperemic but edema in upper extremities is much improved. INTEG: Dry skin. Left arm hyperemia as noted. NEURO: Non-verbal. Lab-Past 14 Days, 35 Results 10/16/16 22:32: Alanine Aminotransferase (ALT/SGPT) 33, Albumin 3.8, Albumin/Globulin Ratio 1.520, Alkaline Phosphatase 268H, Anion Gap 15.5H, Aspartate Amino Transf (AST/ SGOT) 33, BUN/Creatinine Ratio 26H, Basophils # (Auto) 0.0, Basophils (%) (Auto ) 1, Blood Urea Nitrogen 9, Calcium Level 8.9, Calcium/Ionized Calcium Ratio 4.2 , Calculated Osmolality 260L, Carbon Dioxide Level 27, Chloride Level 96L, Creatinine 0.34L, Eosinophils # (Auto) 0.1, Eosinophils (%) (Auto) 1, Estimat Glomerular Filtration Rate 262.2, Estimated GFR (Non- 216.7, Glucose Level 136H, Hematocrit 41.30, Hemoglobin 14.7, Lipase 75, Lymphocytes # (Auto) 0.5, Lymphocytes (%) (Auto) 7L, Mean Corpuscular Hemoglobin 34.3H, Mean Corpuscular Hemoglobin Concent 35.6, Mean Corpuscular Volume 96, Mean Platelet Volume 11.9H, Monocytes # (Auto) 0.9, Monocytes (%) (Auto) 12H, Neutrophils # ( Auto) 5.7, Neutrophils (%) (Auto) 79H, Platelet Count 157, Potassium Level 3.6# , Red Blood Count 4.29, Red Cell Distribution Width 12.0, Sodium Level 134L, Total Bilirubin 0.8, Total Protein 6.3L, White Blood Count 7.21 10/16/16 23:05: Urine Amorphous Sediment 4+H, Urine Bacteria None seen, Urine Bilirubin Negative , Urine Clarity Cloudy, Urine Collection Type Catheter, Urine Color Dark yellow , Urine Glucose (UA) Negative, Urine Hyaline Casts 2+, Urine Ketones 1+H, Urine Leukocyte Esterase 1+H, Urine Mucus 2+H, Urine Nitrite Negative, Urine Protein Negative, Urine RBC 0-2, Urine RBC (Auto) 2+H, Urine Specific Linn 1.015, Urine Squamous Epithelial Cells 2-5, Urine Urobilinogen 0.2, Urine WBC 5-10H, Urine pH 8.0, Volume Urine Centrifuged 12 ml 10/17/16 17:58: Adenovirus (PCR) Negative, Bordetella parapertussis DNA (PCR) Negative, Chlamydophila pneumoniae (PCR) Negative, Coronavirus Type 229E (PCR) Negative, Coronavirus Type HKU1 (PCR) Negative, Coronavirus Type NL63 (PCR) Negative, Coronavirus Type OC43 (PCR) Negative, Enterovirus/Rhinovirus (PCR) Negative, Human Metapneumovirus (PCR) Negative, Influenza Type A (H1) (PCR) Negative, Influenza Virus Type B (PCR) Negative, Mycoplasma pneumoniae (PCR) Negative, Parainfluenza Type 1 (PCR) Negative, Parainfluenza Type 2 (PCR) Negative, Parainfluenza Type 3 (PCR) Negative, Parainfluenza Type 4 (PCR) Negative, Respiratory Syncytial Virus (PCR) Negative 10/18/16 05:40: Albumin 3.4, Anion Gap 12.6, Basophils # (Auto) , Basophils (%) (Auto) , Blood Urea Nitrogen 9, Calcium Level 8.7L, Carbon Dioxide Level 27, Chloride Level 105 , Creatinine 0.45L, Eosinophils # (Auto) , Eosinophils (%) (Auto) , Estimat Glomerular Filtration Rate 189.7, Estimated GFR (Non- 156.8, Glucose Level 85#, Hematocrit 38.20, Hemoglobin 13.2, Lymphocytes # (Auto) , Lymphocytes (%) (Auto) , Mean Corpuscular Hemoglobin 34.6H, Mean Corpuscular Hemoglobin Concent 34.6, Mean Corpuscular Volume 100, Mean Platelet Volume 12.2H , Monocytes # (Auto) , Monocytes (%) (Auto) , Neutrophils # (Auto) , Neutrophils (%) (Auto) , Platelet Count 145L, Potassium Level 4.1, Red Blood Count 3.82L, Red Cell Distribution Width 12.6, Sodium Level 141#, White Blood Count 3.89L, Absolute Band Neutrophils 0.1, Ammonia 89.1H, Band Neutrophils % 2 , Basophils # (Manual) 0.0, Basophils % (Manual) 1, Blood Morphology Comment Normal, C-Reactive Protein 1.30H, Differential Total Cells Counted 100, Eosinophils # 0.2, Eosinophils % (Manual) 5H, Lymphocytes # 0.8, Lymphocytes % ( Manual) 20, Magnesium Level 2.3, Metamyelocytes % 0, Monocytes # 0.5, Monocytes % (Manual) 16H, UD-Tcg-X-Type Natriuretic Peptide 1600H, Neutrophils # 2.2, Phosphorus Level 4.6, Segmented Neutrophils % 56 10/19/ 06:00: Absolute Band Neutrophils 0.1, Alanine Aminotransferase (ALT/SGPT) 34, Albumin 3.9, Albumin/Globulin Ratio 1.500, Alkaline Phosphatase 241H, Ammonia 52.4H, Anion Gap 18.6H, Aspartate Amino Transf (AST/SGOT) 36, BUN/Creatinine Ratio 20, Band Neutrophils % 1, Basophils # (Auto) , Basophils # (Manual) 0.0, Basophils % (Manual) 0, Basophils (%) (Auto) , Blood Morphology Comment Normal, Blood Urea Nitrogen 10, C-Reactive Protein 2.00H, Calcium Level 9.3, Calcium/Ionized Calcium Ratio 4.3, Calculated Osmolality 269L, Carbon Dioxide Level 25, Chloride Level 101, Creatinine 0.49L, Differential Total Cells Counted 100, Eosinophils # 0.0, Eosinophils # (Auto) , Eosinophils % (Manual) 0, Eosinophils (%) (Auto) , Estimat Glomerular Filtration Rate 172.0, Estimated GFR (Non- 142.1, Glucose Level 67#L, Hematocrit 40.60, Hemoglobin 14.2, Lymphocytes # 1.0, Lymphocytes # (Auto) , Lymphocytes % (Manual) 13L, Lymphocytes (%) (Auto) , Mean Corpuscular Hemoglobin 34.5H, Mean Corpuscular Hemoglobin Concent 35.0, Mean Corpuscular Volume 99, Mean Platelet Volume 11.3H , Monocytes # 1.1, Monocytes # (Auto) , Monocytes % (Manual) 16H, Monocytes (%) (Auto) , Neutrophils # 5.1, Neutrophils # (Auto) , Neutrophils (%) (Auto) , Platelet Count 158, Potassium Level 3.7, Red Blood Count 4.11, Red Cell Distribution Width 12.4, Segmented Neutrophils % 70H, Sodium Level 141, Total Bilirubin 1.7#H, Total Protein 6.5, White Blood Count 7.33 10/20/16 05:45: Absolute Band Neutrophils 0.1, Alanine Aminotransferase (ALT/SGPT) 36, Albumin 4.0, Albumin/Globulin Ratio 1.481, Alkaline Phosphatase 221H, Ammonia 46.8H, Anion Gap 21.3H, Aspartate Amino Transf (AST/SGOT) 42H, BUN/Creatinine Ratio 25H , Band Neutrophils % 2, Basophils # (Auto) , Basophils # (Manual) 0.0, Basophils % (Manual) 0, Basophils (%) (Auto) , Blood Morphology Comment Normal, Blood Urea Nitrogen 15, Calcium Level 9.6, Calcium/Ionized Calcium Ratio 4.4, Calculated Osmolality 272L, Carbon Dioxide Level 26, Chloride Level 97L, Creatinine 0.59L, Differential Total Cells Counted 100, Eosinophils # 0.1, Eosinophils # (Auto) , Eosinophils % (Manual) 1, Eosinophils (%) (Auto) , Estimat Glomerular Filtration Rate 138.8, Estimated GFR (Non- 114.7, Glucose Level 85#, Hematocrit 42.90, Hemoglobin 15.2, Lymphocytes # 0.9, Lymphocytes # (Auto) , Lymphocytes % (Manual) 14L, Lymphocytes (%) (Auto) , Mean Corpuscular Hemoglobin 34.5H, Mean Corpuscular Hemoglobin Concent 35.4, Mean Corpuscular Volume 97, Mean Platelet Volume 12.1H, Monocytes # 1.2, Monocytes # (Auto) , Monocytes % (Manual) 20H, Monocytes (%) (Auto) , Neutrophils # 3.9, Neutrophils # (Auto) , Neutrophils (%) (Auto) , Platelet Count 182, Potassium Level 3.3L, Red Blood Count 4.41, Red Cell Distribution Width 12.4, Segmented Neutrophils % 63, Sodium Level 141, Total Bilirubin 2.1H, Total Protein 6.7, White Blood Count 6.12, Magnesium Level 2.2, Metamyelocytes % 0, Phosphorus Level 4.8 10/21/16 05:50: Absolute Band Neutrophils 0.1, Alanine Aminotransferase (ALT/SGPT) 33, Albumin 3.8, Albumin/Globulin Ratio 1.461, Alkaline Phosphatase 200H, Ammonia 69.1H, Anion Gap 15.1H, Aspartate Amino Transf (AST/SGOT) 42H, BUN/Creatinine Ratio 29H , Band Neutrophils % 2, Basophils # (Manual) 0.0, Basophils % (Manual) 0, Blood Morphology Comment Normal, Blood Urea Nitrogen 14, Calcium Level 9.2, Calcium/ Ionized Calcium Ratio 4.3, Calculated Osmolality 271L, Carbon Dioxide Level 26, Chloride Level 102, Creatinine 0.48L, Differential Total Cells Counted 100, Eosinophils # 0.1, Eosinophils % (Manual) 1, Estimat Glomerular Filtration Rate 176.1, Estimated GFR (Non- 145.5, Glucose Level 119#H, Hematocrit 42.40, Hemoglobin 14.8, Lymphocytes # 1.1, Lymphocytes % (Manual) 20 , Mean Corpuscular Hemoglobin 34.3H, Mean Corpuscular Hemoglobin Concent 34.9, Mean Corpuscular Volume 98, Mean Platelet Volume 11.9H, Monocytes # 0.7, Monocytes % (Manual) 13H, Neutrophils # 3.7, Platelet Count 178, Potassium Level 3.6, Red Blood Count 4.32, Red Cell Distribution Width 12.4, Segmented Neutrophils % 64, Sodium Level 139, Total Bilirubin 1.2H, Total Protein 6.4, White Blood Count 5.76, Magnesium Level 2.4H, Metamyelocytes % 0, Phosphorus Level 4.1 MICRO SPEC #: [id number] FAN: 10/16/16 STATUS: COMP REQ #: [id number] RECD: 10/16/[address]: JONNY QUINN MD Order Location: ED SOURCE: URINE DESCRIPTION: U CATH Procedure Result Verified URINE CULTURE Final Verified 10/19/16-0731 AM Source: URINE / STRAIGHT CATH, IN/OUT Order Location: EMERGENCY Site: U CATH Received : 10/17/16 13:23 Order#: [id number] Urine Culture FINAL 10/19/16 07:30 S Escherichia coli >100,000 cfu/ml E. coli Antibiotic AVIS INT Ampicillin >=32 R Ampicillin/sulbactam 16 I Cefazolin <=4 S Ceftriaxone <=1 S Ciprofloxacin 1 S Gentamicin <=1 S Nitrofurantoin <=16 S Trimethoprim/Sulfa >=320 R S=SUSCEPTIBLE I=INTERMEDIATE R=RESISTANT S-DD= SUSCEPTIBLE, DOSE DEPENDENT 10/17 Resp PCR Panel Negative IMAGING 10/20/16 ACUTE ABD SERIES EXAMINATION: Abdominal radiographs, acute series. DATE : October 20, 2016. CLINICAL INDICATION: 36-year-old female, constipation. G- tube dysfunction. COMPARISON: October 18, 2016. COMMENTS: There is a left- sided venous line with tip projecting over the expected position of the upper right atrium. The heart appears enlarged. There is no identified pneumothorax or large pleural effusion. The gastrostomy tube projects over the expected position of the stomach. There is enteric contrast material within the transverse colon and right colon. There is no identified free intraperitoneal air. There is mild gaseous distention of large bowel which is less prominent compared to prior exam. IMPRESSION: 1. Gastrostomy tube projects over the expected position of the stomach. 2. Mild gaseous distention of bowel most likely involving loops of large bowel which is less prominent compared to prior exam. 10/18/16 SMALL BOWEL STUDY INDICATION: Abdominal pain and distention. FINDINGS: Head Of Loss Prevention radiographs of the abdomen reveal diffuse dilatation of colon containing moderate to large amount of stool. Gastrografin contrast was injected through the indwelling gastrostomy tube. Contrast opacifies mildly prominent small bowel loops with contrast reaching the distal small bowel and proximal colon after 5-1/2 hours. IMPRESSION: Findings are compatible with constipation. There is mild delay in small bowel transit with transit time of 5.5 hours. No obstruction is seen. 10/17/16 ECHO: Summary: Technically challenging study. Normal cardiac chamber sizes. Normal LV wall thickness. Intact LV systolic function with estimated EF 61%. Thickened aortic valve, with no significant stenosis or insufficiency. No significant mitral or tricuspid insufficiency. No pericardial effusion. 10/16/16 ACUTE ABD SERIES INDICATION: Abdominal pain COMPARISON: 09/14/2016 FINDINGS: Frontal chest: Left-sided Port-A-Cath is unchanged. Heart size is enlarged but stable. Mild pulmonary venous congestion is unchanged. Some patchy perihilar infiltrate is again demonstrated. No pleural fluid is seen. Abdomen: Gastrostomy tube is again seen overlying the stomach. The bowel gas pattern appears unremarkable with the exception of moderate amount of stool in the colon. There is no evidence of free intraperitoneal air. No abnormal calcifications are suspected. Deformity of the bony pelvis is again demonstrated. IMPRESSION: 1. In the chest, there is persistent cardiomegaly with mild pulmonary vascular congestion and patchy perihilar airspace disease similar to the prior study. 2. No acute abdominal abnormality is suspected. ASSESSMENT Kelly Jackson is a 36 year old female admitted from ED 10/17 where she presented for the second time in two days. She had a recent diagnosis of conjunctivitis and developed acute respiratory distress, vomiting after tube feeds, increased lethargy, and increased weight. She had a significant murmur on exam and pulmonary edema on admit imaging. She has underlying M[place]a de Pike syndrome as well as other chronic problems. She was found to have multiple acute issues as outlined including constipation, pneumonia, UTI, and hyperammonemia. PLAN * Acute Respiratory Distress: Improved. URI? Heart failure? Also concern for pneumonia. Resp PCR panel negative. Workup for heart failure as noted. Improved with diuresis. Oxygen protocol. * Asthma: Duoneb TID, albuterol PRN. * Community Acquired Pneumonia: [facility] diagnosis. Blood culture not obtained on admit. No sputum for culture. Allergy to PCN noted. Unable to participate in acapella or IS. NT suction PRN. Levofloxacin. * UTI Due to E coli: Culture as noted. Levofloxacin. * Nausea/Vomiting: Resolved. Attributed to constipation. Ondansetron for nausea. * Abdominal Distension, G-Tube Dysfunction: Due to constipation. Small bowel follow-through as noted. * Constipation: Bowel regimen. Lactulose. * Congestive Heart Failure due to Fluid Overload: On the basis of murmur, CXR, pulmonary exam, edema. Echo as noted. Improved with furosemide. Monitor daily weight. I&O difficult to monitor due to incontinence. * Edema: Monitor I&O, daily weight. Furosemide. * Altered Mental Status: Due to infection, ammonia. Treat underlying problems. * Hyperammonemia: Attributed to valproic acid adverse effect. Hold valproate. Lactulose. * Conjunctivitis: Polymixin/trimethoprim eye drops, moisturizing eye drops. Warm compress. * F/E/N: Peripheral IV. Tube feeds. I&O, daily weight. * Prophylaxis: SCDs. * Code Status: Full * Dispo: Inpatient. Discharge deferred due to still elevated ammonia and need to observe another day to ensure tolerating tube feeds. Consider discharge . CHRONIC ISSUES * Seizure disorder: Topiramate. Hold valproic acid due to hyperammonemia. Follow -up with Dr. Mckeon post-discharge. * Constipation: Bowel regimen * Hypothyroidism: Levothyroxine * GERD: Famotidine * Seasonal allergies: Cetirizine * HTN? Diltiazem. Verify indication. * Eczema: Observe * [place] de Pike syndrome: Observe. MARYBETH FERNANDO MD Oct 21, 2016 12:27
--- NOTE | 2016-10-21 12:42 | NUR ---
Pt tolerated 1200 GT feeding well. 120mL pre-feeding residual.
--- NOTE | 2016-10-21 13:42 | NUR ---
Pt found lying in bed on RA, SPO2 93%, HR 93, RR 16, vocal and non labored, BS vocal, able to hear fine crackles bilateral bases before and after Duoneb via SVN/MASK.
[2016-10-21 15:58] VITALS: BP 102/78
--- NOTE | 2016-10-21 19:00 | NUR ---
Pt tolerated 1800 feeding well, pre-feeding residual 130mL. Skin very warm, red all over, intact. Resprs nonlabored, even. Caregiver here at this time, spoke at lengths with this nurse, incoming nurse Manisha Hoover RN and Lizzy. Bed alarm on for safety.
[2016-10-21 19:33] VITALS: BP 111/62
[2016-10-21] MEDS: toPIRamate 25 MG (TOPAMAX) TAB PO SCH (22:04)
[2016-10-21] MEDS: CETIRIZINE 1 MG/ML GT SCH (22:04)
[2016-10-21] MEDS: CARBOXYMETHYLCELLULOSE 1% (CELLUVISC) OPHTHALMIC DROPS OU SCH (22:05)
--- NOTE | 2016-10-22 | NUR ---
Resting in bed, smiling at staff, repositioned q 2 hr, pre-feeding residual 120 ml, Jevity feeding tolerated, tube flushed with 20 ml pre and post feeding.
[2016-10-22 00:19] VITALS: BP 124/76
[2016-10-22] MEDS: [UNRECOGNIZED DRUG - OTHER] OD SCH ×6 (01:31→21:08)
[2016-10-22] MEDS: TRIMETHOPRIM OD SCH ×6 (01:31→21:08)
[2016-10-22 04:45] VITALS: BP 120/68
--- NOTE | 2016-10-22 06:00 | NUR ---
Kelly resting in bed, respirations even non labored on room air, warm compresses, eye drops and oral care completed per order, x-large yellow loose bm incontinent. Pre-residual 120 ml, tube flushed with 20 ml H2O, 230 ml feeding with 20 ml post flush, abdomen, firm round, in no distress, continues to rest with eyes closed.
[2016-10-22] MEDS: ALBUTEROL/IPRATROPIUM 3MG-0.5MG/3ML (DUONEB) NEB VIAL INH SCH ×3 (07:35→19:45)
--- NOTE | 2016-10-22 07:37 | NUR ---
Pt found lying in bed, SPO2 92% on RA, HR 90, RR 16 and non labored with clear BS at this time. Duoneb given via SVN tolerated well. BS unchanged post Tx.
[2016-10-22 07:47] VITALS: BP 100/58
--- NOTE | 2016-10-22 08:00 | NUR ---
Patient expels large amount of yellow emesis. Dr. Ball notified. New order received to hold further feedings. PRN Zofran order also obtained.
[2016-10-22] MEDS ORDERED: ONDANSETRON 2 MG/ML (Z0FRAN) 2 ML VIAL IV PRN (09:05)
[2016-10-22] MEDS: SODIUM CHLORIDE FLUSH 10 ML SYR IV PRN ×2 (09:24→13:09)
[2016-10-22] MEDS: LEVOFLOXACIN 750 MG/150 ML IV 150 ML IV SCH (09:24)
--- NOTE | 2016-10-22 09:51 | Progress Note (E) ---
Progress Note SUBJECTIVE Met last night with [facility] staff member who knows patient well. She states Kelly is not yet to baseline: she is still somewhat lethargic. Has edema which is still a bit worse than usual. Discussed findings, plan of care. This AM, Kelly vomited copious amount. Vitals remained stable. Suspect she just is not tolerating lactulose. She did have a large BM overnight. Held feeds and meds for now. Planning to stop lactulose despite ammonia level. Completed levofloxacin course for UTI and pneumonia. On exam now, resting in bed, sitting up with support of bed. Is a bit more interactive than she has been in the last few days, reaching out, directing her gaze, and she appears to smile. Abdominal exam again concerning, as noted below. OBJECTIVE Vital Signs Date Time Temp Pulse Resp B/P Pulse Ox O2 Delivery O2 Flow Rate FiO2 10/22/16 07:47 97.2 89 18 100/58 94 Room air 10/21/16 15:58 0.00 I & O 10/21/16 10/22/16 Cumulative From/Thru 19:00 07:00 10/16/16 21:35 - 10/22/16 06:04 Intake Total 0 ml 1050 ml Output Total 566 ml 1530 ml 8446 ml Balance -566 ml -1530 ml -7396 ml GEN: Awake, stirs to exam. Non-verbal. 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 Dry skin. Clear sclerae. Somewhat dry oral mucosa through she doesn't cooperate much with exam. Some mattering in eyes bilaterally but improved. Mildly injected right sclera. CV: Regular, prominent 3/6 systolic murmur, crescendo/decrescendo. PULM: Breath sounds continue to improve with better air movement and diminished basilar rales. ABD: More firm again, but tolerates exam. Active but not hyperactive bowel sounds. EXTR: Warm, well-perfused. Left arm is hyperemic but edema in upper extremities is improved. INTEG: Dry skin. Left arm hyperemia as noted. NEURO: Non-verbal. Lab-Past 14 Days, 35 Results 10/16/16 22:32: Alanine Aminotransferase (ALT/SGPT) 33, Albumin 3.8, Albumin/Globulin Ratio 1.520, Alkaline Phosphatase 268H, Anion Gap 15.5H, Aspartate Amino Transf (AST/ SGOT) 33, BUN/Creatinine Ratio 26H, Basophils # (Auto) 0.0, Basophils (%) (Auto ) 1, Blood Urea Nitrogen 9, Calcium Level 8.9, Calcium/Ionized Calcium Ratio 4.2 , Calculated Osmolality 260L, Carbon Dioxide Level 27, Chloride Level 96L, Creatinine 0.34L, Eosinophils # (Auto) 0.1, Eosinophils (%) (Auto) 1, Estimat Glomerular Filtration Rate 262.2, Estimated GFR (Non- 216.7, Glucose Level 136H, Hematocrit 41.30, Hemoglobin 14.7, Lipase 75, Lymphocytes # (Auto) 0.5, Lymphocytes (%) (Auto) 7L, Mean Corpuscular Hemoglobin 34.3H, Mean Corpuscular Hemoglobin Concent 35.6, Mean Corpuscular Volume 96, Mean Platelet Volume 11.9H, Monocytes # (Auto) 0.9, Monocytes (%) (Auto) 12H, Neutrophils # ( Auto) 5.7, Neutrophils (%) (Auto) 79H, Platelet Count 157, Potassium Level 3.6# , Red Blood Count 4.29, Red Cell Distribution Width 12.0, Sodium Level 134L, Total Bilirubin 0.8, Total Protein 6.3L, White Blood Count 7.21 10/16/16 23:05: Urine Amorphous Sediment 4+H, Urine Bacteria None seen, Urine Bilirubin Negative , Urine Clarity Cloudy, Urine Collection Type Catheter, Urine Color Dark yellow , Urine Glucose (UA) Negative, Urine Hyaline Casts 2+, Urine Ketones 1+H, Urine Leukocyte Esterase 1+H, Urine Mucus 2+H, Urine Nitrite Negative, Urine Protein Negative, Urine RBC 0-2, Urine RBC (Auto) 2+H, Urine Specific [place] 1.015, Urine Squamous Epithelial Cells 2-5, Urine Urobilinogen 0.2, Urine WBC 5-10H, Urine pH 8.0, Volume Urine Centrifuged 12 ml 10/17/16 17:58: Adenovirus (PCR) Negative, Bordetella parapertussis DNA (PCR) Negative, Chlamydophila pneumoniae (PCR) Negative, Coronavirus Type 229E (PCR) Negative, Coronavirus Type HKU1 (PCR) Negative, Coronavirus Type NL63 (PCR) Negative, Coronavirus Type OC43 (PCR) Negative, Enterovirus/Rhinovirus (PCR) Negative, Human Metapneumovirus (PCR) Negative, Influenza Type A (H1) (PCR) Negative, Influenza Virus Type B (PCR) Negative, Mycoplasma pneumoniae (PCR) Negative, Parainfluenza Type 1 (PCR) Negative, Parainfluenza Type 2 (PCR) Negative, Parainfluenza Type 3 (PCR) Negative, Parainfluenza Type 4 (PCR) Negative, Respiratory Syncytial Virus (PCR) Negative 10/18/16 05:40: Albumin 3.4, Anion Gap 12.6, Basophils # (Auto) , Basophils (%) (Auto) , Blood Urea Nitrogen 9, Calcium Level 8.7L, Carbon Dioxide Level 27, Chloride Level 105 , Creatinine 0.45L, Eosinophils # (Auto) , Eosinophils (%) (Auto) , Estimat Glomerular Filtration Rate 189.7, Estimated GFR (Non- 156.8, Glucose Level 85#, Hematocrit 38.20, Hemoglobin 13.2, Lymphocytes # (Auto) , Lymphocytes (%) (Auto) , Mean Corpuscular Hemoglobin 34.6H, Mean Corpuscular Hemoglobin Concent 34.6, Mean Corpuscular Volume 100, Mean Platelet Volume 12.2H , Monocytes # (Auto) , Monocytes (%) (Auto) , Neutrophils # (Auto) , Neutrophils (%) (Auto) , Platelet Count 145L, Potassium Level 4.1, Red Blood Count 3.82L, Red Cell Distribution Width 12.6, Sodium Level 141#, White Blood Count 3.89L, Absolute Band Neutrophils 0.1, Ammonia 89.1H, Band Neutrophils % 2 , Basophils # (Manual) 0.0, Basophils % (Manual) 1, Blood Morphology Comment Normal, C-Reactive Protein 1.30H, Differential Total Cells Counted 100, Eosinophils # 0.2, Eosinophils % (Manual) 5H, Lymphocytes # 0.8, Lymphocytes % ( Manual) 20, Magnesium Level 2.3, Metamyelocytes % 0, Monocytes # 0.5, Monocytes % (Manual) 16H, CB-Yfd-F-Type Natriuretic Peptide 1600H, Neutrophils # 2.2, Phosphorus Level 4.6, Segmented Neutrophils % 56 10/19/16 06:00: Absolute Band Neutrophils 0.1, Alanine Aminotransferase (ALT/SGPT) 34, Albumin 3.9, Albumin/Globulin Ratio 1.500, Alkaline Phosphatase 241H, Ammonia 52.4H, Anion Gap 18.6H, Aspartate Amino Transf (AST/SGOT) 36, BUN/Creatinine Ratio 20, Band Neutrophils % 1, Basophils # (Auto) , Basophils # (Manual) 0.0, Basophils % (Manual) 0, Basophils (%) (Auto) , Blood Morphology Comment Normal, Blood Urea Nitrogen 10, C-Reactive Protein 2.00H, Calcium Level 9.3, Calcium/Ionized Calcium Ratio 4.3, Calculated Osmolality 269L, Carbon Dioxide Level 25, Chloride Level 101, Creatinine 0.49L, Differential Total Cells Counted 100, Eosinophils # 0.0, Eosinophils # (Auto) , Eosinophils % (Manual) 0, Eosinophils (%) (Auto) , Estimat Glomerular Filtration Rate 172.0, Estimated GFR (Non- 142.1, Glucose Level 67#L, Hematocrit 40.60, Hemoglobin 14.2, Lymphocytes # 1.0, Lymphocytes # (Auto) , Lymphocytes % (Manual) 13L, Lymphocytes (%) (Auto) , Mean Corpuscular Hemoglobin 34.5H, Mean Corpuscular Hemoglobin Concent 35.0, Mean Corpuscular Volume 99, Mean Platelet Volume 11.3H , Monocytes # 1.1, Monocytes # (Auto) , Monocytes % (Manual) 16H, Monocytes (%) (Auto) , Neutrophils # 5.1, Neutrophils # (Auto) , Neutrophils (%) (Auto) , Platelet Count 158, Potassium Level 3.7, Red Blood Count 4.11, Red Cell Distribution Width 12.4, Segmented Neutrophils % 70H, Sodium Level 141, Total Bilirubin 1.7#H, Total Protein 6.5, White Blood Count 7.33 10/20/16 05:45: Absolute Band Neutrophils 0.1, Alanine Aminotransferase (ALT/SGPT) 36, Albumin 4.0, Albumin/Globulin Ratio 1.481, Alkaline Phosphatase 221H, Ammonia 46.8H, Anion Gap 21.3H, Aspartate Amino Transf (AST/SGOT) 42H, BUN/Creatinine Ratio 25H , Band Neutrophils % 2, Basophils # (Auto) , Basophils # (Manual) 0.0, Basophils % (Manual) 0, Basophils (%) (Auto) , Blood Morphology Comment Normal, Blood Urea Nitrogen 15, Calcium Level 9.6, Calcium/Ionized Calcium Ratio 4.4, Calculated Osmolality 272L, Carbon Dioxide Level 26, Chloride Level 97L, Creatinine 0.59L, Differential Total Cells Counted 100, Eosinophils # 0.1, Eosinophils # (Auto) , Eosinophils % (Manual) 1, Eosinophils (%) (Auto) , Estimat Glomerular Filtration Rate 138.8, Estimated GFR (Non- 114.7, Glucose Level 85#, Hematocrit 42.90, Hemoglobin 15.2, Lymphocytes # 0.9, Lymphocytes # (Auto) , Lymphocytes % (Manual) 14L, Lymphocytes (%) (Auto) , Mean Corpuscular Hemoglobin 34.5H, Mean Corpuscular Hemoglobin Concent 35.4, Mean Corpuscular Volume 97, Mean Platelet Volume 12.1H, Monocytes # 1.2, Monocytes # (Auto) , Monocytes % (Manual) 20H, Monocytes (%) (Auto) , Neutrophils # 3.9, Neutrophils # (Auto) , Neutrophils (%) (Auto) , Platelet Count 182, Potassium Level 3.3L, Red Blood Count 4.41, Red Cell Distribution Width 12.4, Segmented Neutrophils % 63, Sodium Level 141, Total Bilirubin 2.1H, Total Protein 6.7, White Blood Count 6.12, Magnesium Level 2.2, Metamyelocytes % 0, Phosphorus Level 4.8 10/21/16 05:50: Absolute Band Neutrophils 0.1, Alanine Aminotransferase (ALT/SGPT) 33, Albumin 3.8, Albumin/Globulin Ratio 1.461, Alkaline Phosphatase 200H, Ammonia 69.1H, Anion Gap 15.1H, Aspartate Amino Transf (AST/SGOT) 42H, BUN/Creatinine Ratio 29H , Band Neutrophils % 2, Basophils # (Manual) 0.0, Basophils % (Manual) 0, Blood Morphology Comment Normal, Blood Urea Nitrogen 14, Calcium Level 9.2, Calcium/ Ionized Calcium Ratio 4.3, Calculated Osmolality 271L, Carbon Dioxide Level 26, Chloride Level 102, Creatinine 0.48L, Differential Total Cells Counted 100, Eosinophils # 0.1, Eosinophils % (Manual) 1, Estimat Glomerular Filtration Rate 176.1, Estimated GFR (Non- 145.5, Glucose Level 119#H, Hematocrit 42.40, Hemoglobin 14.8, Lymphocytes # 1.1, Lymphocytes % (Manual) 20 , Mean Corpuscular Hemoglobin 34.3H, Mean Corpuscular Hemoglobin Concent 34.9, Mean Corpuscular Volume 98, Mean Platelet Volume 11.9H, Monocytes # 0.7, Monocytes % (Manual) 13H, Neutrophils # 3.7, Platelet Count 178, Potassium Level 3.6, Red Blood Count 4.32, Red Cell Distribution Width 12.4, Segmented Neutrophils % 64, Sodium Level 139, Total Bilirubin 1.2H, Total Protein 6.4, White Blood Count 5.76, Magnesium Level 2.4H, Metamyelocytes % 0, Phosphorus Level 4.1 MICRO SPEC #: [id number] FAN: 10/16/16 STATUS: COMP REQ #: [id number] RECD: 10/16/[address]: JONNY QUINN MD Order Location: ED SOURCE: URINE DESCRIPTION: U CATH Procedure Result Verified URINE CULTURE Final Verified 10/19/16-0731 AM Source: URINE / STRAIGHT CATH, IN/OUT Order Location: EMERGENCY Site: U CATH Received : 10/17/16 13:23 Order#: [id number] Urine Culture FINAL 10/19/16 07:30 S Escherichia coli >100,000 cfu/ml E. coli Antibiotic AVIS INT Ampicillin >=32 R Ampicillin/sulbactam 16 I Cefazolin <=4 S Ceftriaxone <=1 S Ciprofloxacin 1 S Gentamicin <=1 S Nitrofurantoin <=16 S Trimethoprim/Sulfa >=320 R S=SUSCEPTIBLE I=INTERMEDIATE R=RESISTANT S-DD= SUSCEPTIBLE, DOSE DEPENDENT 10/17 Resp PCR Panel Negative IMAGING 10/20/16 ACUTE ABD SERIES EXAMINATION: Abdominal radiographs, acute series. DATE : October 20, 2016. CLINICAL INDICATION: 36-year-old female, constipation. G- tube dysfunction. COMPARISON: October 18, 2016. COMMENTS: There is a left- sided venous line with tip projecting over the expected position of the upper right atrium. The heart appears enlarged. There is no identified pneumothorax or large pleural effusion. The gastrostomy tube projects over the expected position of the stomach. There is enteric contrast material within the transverse colon and right colon. There is no identified free intraperitoneal air. There is mild gaseous distention of large bowel which is less prominent compared to prior exam. IMPRESSION: 1. Gastrostomy tube projects over the expected position of the stomach. 2. Mild gaseous distention of bowel most likely involving loops of large bowel which is less prominent compared to prior exam. 10/18/16 SMALL BOWEL STUDY INDICATION: Abdominal pain and distention. FINDINGS: [employer] radiographs of the abdomen reveal diffuse dilatation of colon containing moderate to large amount of stool. Gastrografin contrast was injected through the indwelling gastrostomy tube. Contrast opacifies mildly prominent small bowel loops with contrast reaching the distal small bowel and proximal colon after 5-1/2 hours. IMPRESSION: Findings are compatible with constipation. There is mild delay in small bowel transit with transit time of 5.5 hours. No obstruction is seen. 10/17/16 ECHO: Summary: Technically challenging study. Normal cardiac chamber sizes. Normal LV wall thickness. Intact LV systolic function with estimated EF 61%. Thickened aortic valve, with no significant stenosis or insufficiency. No significant mitral or tricuspid insufficiency. No pericardial effusion. 10/16/16 ACUTE ABD SERIES INDICATION: Abdominal pain COMPARISON: 09/14/2016 FINDINGS: Frontal chest: Left-sided Port-A-Cath is unchanged. Heart size is enlarged but stable. Mild pulmonary venous congestion is unchanged. Some patchy perihilar infiltrate is again demonstrated. No pleural fluid is seen. Abdomen: Gastrostomy tube is again seen overlying the stomach. The bowel gas pattern appears unremarkable with the exception of moderate amount of stool in the colon. There is no evidence of free intraperitoneal air. No abnormal calcifications are suspected. Deformity of the bony pelvis is again demonstrated. IMPRESSION: 1. In the chest, there is persistent cardiomegaly with mild pulmonary vascular congestion and patchy perihilar airspace disease similar to the prior study. 2. No acute abdominal abnormality is suspected. ASSESSMENT Kelly Jackson is a 36 year old female admitted from ED 10/17 where she presented for the second time in two days. She had a recent diagnosis of conjunctivitis and developed acute respiratory distress, vomiting after tube feeds, increased lethargy, and increased weight. She had a significant murmur on exam and pulmonary edema on admit imaging. 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 She was found to have multiple acute issues as outlined including constipation, pneumonia, UTI, and hyperammonemia. PLAN * Acute Respiratory Distress: Improved. URI? Heart failure? Also concern for pneumonia. Resp PCR panel negative. Workup for heart failure as noted. Improved with diuresis. Oxygen protocol. * Asthma: Duoneb TID, albuterol PRN. * Community Acquired Pneumonia: Clinical diagnosis. Blood culture not obtained on admit. No sputum for culture. Allergy to PCN noted. Unable to participate in acapella or IS. NT suction PRN. Levofloxacin. * UTI Due to E coli: Culture as noted. Levofloxacin. * Nausea/Vomiting: Had resolved but had recurrent episode 10/22. Attributed to constipation initially. May not be tolerating lactulose. Ondansetron for nausea. * Abdominal Distension, G-Tube Dysfunction: Due to constipation. Small bowel follow-through as noted. * Constipation: Bowel regimen. * Congestive Heart Failure due to Fluid Overload: On the basis of murmur, CXR, pulmonary exam, edema. Echo as noted. Improved with furosemide. Monitor daily weight. I&O difficult to monitor due to incontinence. * Edema: Monitor I&O, daily weight. Furosemide increased to IV dosing 10/22. * Altered Mental Status: Due to infection, ammonia. Treat underlying problems. * Hyperammonemia: Attributed to valproic acid adverse effect. Hold valproate. Lactulose on hold due to poor tolerance. Monitor ammonia trend. * Medication Adverse Effect: Due to lactulose. Worse bloating, nausea/vomiting with this medication. Hold lactulose. * Conjunctivitis: Polymixin/trimethoprim eye drops, moisturizing eye drops. Warm compress. * F/E/N: Peripheral IV. Tube feeds. I&O, daily weight. * Prophylaxis: SCDs. * Code Status: Full * Dispo: Inpatient. Discharge deferred due to still elevated ammonia, still edematous, recurrent vomiting. CHRONIC ISSUES * Seizure disorder: Topiramate. Hold valproic acid due to hyperammonemia. Follow -up with Dr. Mckeon post-discharge. * Constipation: Bowel regimen * Hypothyroidism: Levothyroxine * GERD: Famotidine * Seasonal allergies: Cetirizine * HTN? Diltiazem. Verify indication. * Eczema: Observe * Lena de Pike syndrome: Observe. MARYBETH FERNANDO MD Oct 22, 2016 09:46
[2016-10-22] MEDS: ENOXAPARIN 40 MG/0.4 ML (LOVENOX) SYR SC SCH (09:57)
[2016-10-22] MEDS: SULFAMETHOXAZOLE PO SCH ×2 (09:57→21:00)
[2016-10-22] MEDS: DOCUSATE 100 MG/10 ML GT SCH ×2 (09:57→21:00)
[2016-10-22] MEDS: guaiFENesin SYRUP 200 MG/10 ML (ROBITUSSIN) UDC GT SCH ×2 (09:57→21:00)
[2016-10-22] MEDS: POLYETHYLENE GLYCOL 17 GM (MIRALAX) PACKET PO SCH (09:57)
[2016-10-22] MEDS: DILTIAZEM CD 120 MG (CARDIZEM CD) CAP PO SCH (09:57)
[2016-10-22] MEDS: SENNOSIDES 8.6 MG (SENOKOT) TAB GT SCH (09:57)
[2016-10-22] MEDS: LEVOTHYROXINE 75 MCG (LEVOTHROID) TABLET GT SCH (09:57)
[2016-10-22] MEDS: TRIMETHOPRIM PO SCH ×2 (09:57→21:00)
[2016-10-22] MEDS: CARBAMAZEPINE 100 MG/5 ML GT SCH ×3 (09:58→16:05)
[2016-10-22] MEDS: FAMOTIDINE 40 MG/5 ML GT SCH ×2 (09:58→21:00)
[2016-10-22] MEDS: POTASSIUM CHLORIDE ORAL SOLUTION 20 MEQ/15 ML (KCL) UDC PO SCH ×2 (09:58→21:00)
[2016-10-22] MEDS: ARTIFICIAL TEARS (REFRESH) OPHTHALMIC DROPS OU SCH (09:58)
--- NOTE | 2016-10-22 10:00 | NUR ---
AM medications administered through G-tube. Patient does not tolerate well. Expels large amount of emesis. Will continue to monitor.
--- NOTE | 2016-10-22 11:10 | NUR ---
Gunjan from [facility] calls for update. Updated on plan of care for shift.
[2016-10-22] MEDS: THERAPEUTIC MULTIVITAMINS LIQUID 5 ML UDC GT SCH (11:40)
[2016-10-22 11:46] VITALS: BP 104/67
[2016-10-22] MEDS: FUROSEMIDE 40 MG/4 ML (LASIX) VIAL IV SCH (13:09)
--- NOTE | 2016-10-22 13:50 | Diagnostic Imaging Report ---
Indication: Vomiting, abdominal distention Comparison: August 20, 2016 Technique: Single radiograph of the abdomen dated October 22, 2016. Findings: Percutaneous gastrostomy catheter is again seen overlying the upper abdomen. Significant gaseous distention of the colon is identified, increased from the prior examination. This now measures up to 13.8 cm. No definite free air. Osseous structures appear stable. Impression: Increasing distention of the colon. Findings may relate to worsening ileus. However, distal colonic obstruction not excluded. Recommend clinical correlation. Report was called to Dr. Ball by [email or web address] at 1:49 p.m. Dictated by: Dictated on workstation # [id number]
--- NOTE | 2016-10-22 14:23 | NUR ---
Pt found lying in bed, SPO2 90% on RA, HR 97, RR 16 and non labored with clear BS at this time. Duoneb given via SVN/MASK tolerated well. BS unchanged post Tx.
[2016-10-22 16:00] VITALS: BP 84/55
--- NOTE | 2016-10-22 19:05 | NUR ---
At [address] Dr[address] Ball orders to hold all feeds and medications through g-tube today. Patient's abdomen remains distended but no further emesis noted. Patient interactive with staff. housekeeper caregiver visits this afternoon. No edema noted to face. Will continue to monitor.
[2016-10-22 19:32] VITALS: BP 112/66
[2016-10-22] MEDS: toPIRamate 25 MG (TOPAMAX) TAB PO SCH (21:00)
[2016-10-22] MEDS: CETIRIZINE 1 MG/ML GT SCH (21:00)
[2016-10-22] MEDS: CARBOXYMETHYLCELLULOSE 1% (CELLUVISC) OPHTHALMIC DROPS OU SCH (21:08)
[2016-10-23 00:17] VITALS: BP 100/63
[2016-10-23] MEDS: TRIMETHOPRIM OD SCH ×6 (02:24→21:38)
[2016-10-23] MEDS: [UNRECOGNIZED DRUG - OTHER] OD SCH ×6 (02:24→21:38)
[2016-10-23 04:17] VITALS: BP 105/65
[2016-10-23 06:36] LABS: MEAN PLATELET VOLUME 12.3 FL (6.0-9.5); PLATELET COUNT 185 10^3uL (150-450); WHITE BLOOD COUNT 7.11 10^3uL (4.0-11.0)
--- NOTE | 2016-10-23 06:40 | NUR ---
Patient rests in bed throughout night without needs. Turn and changed frequently. No needs at this time.
[2016-10-23 06:58] LABS: MEAN CORPUSCULAR HEMOGLOBIN 34.2 PG (26.0-34.0); MEAN CORPUSCULAR VOLUME 98 FL (80-100)
[2016-10-23 07:07] LABS: ALBUMIN 3.8 g/dL (3.4-5.0); ANION GAP 17.7 MEQ/L (3-15); CALCULATED IONIZED CALCIUM 4.3 mg/dL (3.8-4.6); MAGNESIUM* 2.4 mg/dL (1.6-2.3); TOTAL PROTEIN 6.3 g/dL (6.4-8.5)
[2016-10-23 07:47] LABS: BAND NEUTROPHILS % 3 % (0-6); EOSINOPHILS % 0 % (0-4); LYMPHOCYTES # 1.4 #; MONOCYTES # 1.1 #; MONOCYTES % 16 % (3-11); RBC MORPH NORMAL (NORMAL); SEGMENTED NEUTROPHILS % 61 % (51-67); TOTAL CELLS COUNTED 100
[2016-10-23 07:50] VITALS: BP 107/61
[2016-10-23] MEDS: ALBUTEROL/IPRATROPIUM 3MG-0.5MG/3ML (DUONEB) NEB VIAL INH SCH ×3 (07:53→21:07)
--- NOTE | 2016-10-23 08:02 | Diagnostic Imaging Report ---
Indication: Constipation and pneumonia Comparison: Abdomen dated 10/22/2016 and chest 12/01/2015 Findings: PA chest: Left Port-A-Cath is unchanged. The tip appears to be in the right atrium. Cardiomegaly with mild prominence pulmonary vascularity appears similar to the prior study. Some streaky atelectasis or scarring at the left midlung and right upper lung appears stable. No new pulmonary parenchymal abnormality is suspected. Abdomen: Gastrostomy catheter over the left upper quadrant is unchanged. There has been significant improvement in appearance of bowel gas pattern since the prior study with significant decrease in the extent of colonic distention. There is some persistent prominent colon and air-filled small bowel. Findings are likely related to improving ileus. There is chronic deformity of the pelvis. Impression: 1. Stable appearance of the chest as described 2. Moderate improvement since the recent prior abdominal series with findings suggestive of improving ileus as described. Dictated by: Dictated on workstation # [id number]
[2016-10-23] MEDS: ARTIFICIAL TEARS (REFRESH) OPHTHALMIC DROPS OU SCH (09:00)
--- NOTE | 2016-10-23 10:30 | NUR ---
[id number]. KASSIE RAZO TO ATTEMPT TO GIVE MEDS, HOLD FEEDING X 1 HOUR AFTER, G-TUBE CHECKED FOR RESIDUAL, NONE OBTAINED, MEDS ADMIN VIA G-TUBE WITHOUT INCIDENT, MEDS GO IN EASY, NO RESISTANCE, THIS NURSE ADMIN MEDS SLOWLY, PT SHOWED NO SIGNS OF DISTRESS OR DISCOMFORT, ALERT AND INTERACTS WITH THIS NURSE. PAC PATENT FOR IV LASIX.
[2016-10-23] MEDS: FAMOTIDINE 40 MG/5 ML GT SCH ×2 (10:37→21:41)
[2016-10-23] MEDS: ENOXAPARIN 40 MG/0.4 ML (LOVENOX) SYR SC SCH (10:37)
[2016-10-23] MEDS: FUROSEMIDE 40 MG/4 ML (LASIX) VIAL IV SCH ×2 (10:37→14:07)
[2016-10-23] MEDS: POTASSIUM CHLORIDE ORAL SOLUTION 20 MEQ/15 ML (KCL) UDC PO SCH ×2 (10:37→21:40)
[2016-10-23] MEDS: TRIMETHOPRIM PO SCH ×2 (10:37→21:40)
[2016-10-23] MEDS: SULFAMETHOXAZOLE PO SCH ×2 (10:37→21:40)
[2016-10-23] MEDS: SENNOSIDES 8.6 MG (SENOKOT) TAB GT SCH (10:38)
[2016-10-23] MEDS: CARBAMAZEPINE 100 MG/5 ML GT SCH ×3 (10:38→21:41)
[2016-10-23] MEDS: CETIRIZINE 1 MG/ML GT SCH (10:38)
[2016-10-23] MEDS: DILTIAZEM CD 120 MG (CARDIZEM CD) CAP PO SCH (10:39)
[2016-10-23] MEDS: LEVOTHYROXINE 75 MCG (LEVOTHROID) TABLET GT SCH (10:39)
[2016-10-23] MEDS: guaiFENesin SYRUP 200 MG/10 ML (ROBITUSSIN) UDC GT SCH ×2 (10:42→21:40)
[2016-10-23] MEDS: DOCUSATE 100 MG/10 ML GT SCH ×2 (11:15→21:41)
[2016-10-23 11:44] VITALS: BP 110/63
--- NOTE | 2016-10-23 13:00 | NUR ---
TUBE FEEDING ADMIN WITHOUT PROBLEMS,FLUSHING WITH SW 20CC BEFORE & AFTER.
[2016-10-23] MEDS: POLYETHYLENE GLYCOL 17 GM (MIRALAX) PACKET PO SCH (13:10)
[2016-10-23] MEDS: THERAPEUTIC MULTIVITAMINS LIQUID 5 ML UDC GT SCH (13:10)
--- NOTE | 2016-10-23 13:29 | Progress Note (E) ---
Progress Note SUBJECTIVE With bowel rest, abdominal issue seems to be improving. Has had additional BM. Tolerated meds this AM and now trying tube feed. Minimal residual prior to feed. Vitals stable. Level of alertness remains good. Ammonia level down significantly to 30.1. AST mildly elevated at 66. AlkP 210. Bili more elevated at 2.6 from 1.2. Has not been getting much hydration. CRP is more elevated at 7.30 compared to 1.30 on admit. Afebrile and though there is 3% bands, WBC normal at 7.11. Completed antibiotic for pneumonia and UTI. On exam, is alert, turns head readily to door when people enter. Smiling. Reaches out for hand- holding. Mucus membranes a bit dry. OBJECTIVE Vital Signs Date Time Temp Pulse Resp B/P Pulse Ox O2 Delivery O2 Flow Rate FiO2 10/23/16 11:44 98.0 114 20 110/63 91 Room air 10/21/16 15:58 0.00 I & O 10/22/16 10/23/16 Cumulative From/Thru 19:00 07:00 10/16/16 21:35 - 10/23/16 05:59 Intake Total 150 ml 1200 ml Output Total 1248 ml 9694 ml Balance 150 ml -1248 ml -8494 ml GEN: Awake, stirs to exam. Non-verbal. 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 Dry skin. Clear sclerae. Somewhat dry oral mucosa through she doesn't cooperate much with exam. Some mattering in eyes bilaterally but improved. Mildly injected right sclera, stable. CV: Regular, prominent 3/6 systolic murmur, crescendo/decrescendo. PULM: Breath sounds continue to improve with better air movement and diminished basilar rales. ABD: Abdomen now soft again, hyperactive bowel sounds. Tolerates exam well. EXTR: Warm, well-perfused. Left arm is hyperemic but edema in upper extremities is improved. INTEG: Dry skin. Left arm hyperemia as noted. NEURO: Non-verbal. Lab-Past 14 Days, 35 Results 10/16/16 22:32: Alanine Aminotransferase (ALT/SGPT) 33, Albumin 3.8, Albumin/Globulin Ratio 1.520, Alkaline Phosphatase 268H, Anion Gap 15.5H, Aspartate Amino Transf (AST/ SGOT) 33, BUN/Creatinine Ratio 26H, Basophils # (Auto) 0.0, Basophils (%) (Auto ) 1, Blood Urea Nitrogen 9, Calcium Level 8.9, Calcium/Ionized Calcium Ratio 4.2 , Calculated Osmolality 260L, Carbon Dioxide Level 27, Chloride Level 96L, Creatinine 0.34L, Eosinophils # (Auto) 0.1, Eosinophils (%) (Auto) 1, Estimat Glomerular Filtration Rate 262.2, Estimated GFR (Non- 216.7, Glucose Level 136H, Hematocrit 41.30, Hemoglobin 14.7, Lipase 75, Lymphocytes # (Auto) 0.5, Lymphocytes (%) (Auto) 7L, Mean Corpuscular Hemoglobin 34.3H, Mean Corpuscular Hemoglobin Concent 35.6, Mean Corpuscular Volume 96, Mean Platelet Volume 11.9H, Monocytes # (Auto) 0.9, Monocytes (%) (Auto) 12H, Neutrophils # ( Auto) 5.7, Neutrophils (%) (Auto) 79H, Platelet Count 157, Potassium Level 3.6# , Red Blood Count 4.29, Red Cell Distribution Width 12.0, Sodium Level 134L, Total Bilirubin 0.8, Total Protein 6.3L, White Blood Count 7.21 10/16/16 23:05: Urine Amorphous Sediment 4+H, Urine Bacteria None seen, Urine Bilirubin Negative , Urine Clarity Cloudy, Urine Collection Type Catheter, Urine Color Dark yellow , Urine Glucose (UA) Negative, Urine Hyaline Casts 2+, Urine Ketones 1+H, Urine Leukocyte Esterase 1+H, Urine Mucus 2+H, Urine Nitrite Negative, Urine Protein Negative, Urine RBC 0-2, Urine RBC (Auto) 2+H, Urine Specific [place] 1.015, Urine Squamous Epithelial Cells 2-5, Urine Urobilinogen 0.2, Urine WBC 5-10H, Urine pH 8.0, Volume Urine Centrifuged 12 ml 10/17/16 17:58: Adenovirus (PCR) Negative, Bordetella parapertussis DNA (PCR) Negative, Chlamydophila pneumoniae (PCR) Negative, Coronavirus Type 229E (PCR) Negative, Coronavirus Type HKU1 (PCR) Negative, Coronavirus Type NL63 (PCR) Negative, Coronavirus Type OC43 (PCR) Negative, Enterovirus/Rhinovirus (PCR) Negative, Human Metapneumovirus (PCR) Negative, Influenza Type A (H1) (PCR) Negative, Influenza Virus Type B (PCR) Negative, Mycoplasma pneumoniae (PCR) Negative, Parainfluenza Type 1 (PCR) Negative, Parainfluenza Type 2 (PCR) Negative, Parainfluenza Type 3 (PCR) Negative, Parainfluenza Type 4 (PCR) Negative, Respiratory Syncytial Virus (PCR) Negative 10/18/16 05:40: Albumin 3.4, Anion Gap 12.6, Basophils # (Auto) , Basophils (%) (Auto) , Blood Urea Nitrogen 9, Calcium Level 8.7L, Carbon Dioxide Level 27, Chloride Level 105 , Creatinine 0.45L, Eosinophils # (Auto) , Eosinophils (%) (Auto) , Estimat Glomerular Filtration Rate 189.7, Estimated GFR (Non- 156.8, Glucose Level 85#, Hematocrit 38.20, Hemoglobin 13.2, Lymphocytes # (Auto) , Lymphocytes (%) (Auto) , Mean Corpuscular Hemoglobin 34.6H, Mean Corpuscular Hemoglobin Concent 34.6, Mean Corpuscular Volume 100, Mean Platelet Volume 12.2H , Monocytes # (Auto) , Monocytes (%) (Auto) , Neutrophils # (Auto) , Neutrophils (%) (Auto) , Platelet Count 145L, Potassium Level 4.1, Red Blood Count 3.82L, Red Cell Distribution Width 12.6, Sodium Level 141#, White Blood Count 3.89L, Absolute Band Neutrophils 0.1, Ammonia 89.1H, Band Neutrophils % 2 , Basophils # (Manual) 0.0, Basophils % (Manual) 1, Blood Morphology Comment Normal, C-Reactive Protein 1.30H, Differential Total Cells Counted 100, Eosinophils # 0.2, Eosinophils % (Manual) 5H, Lymphocytes # 0.8, Lymphocytes % ( Manual) 20, Magnesium Level 2.3, Metamyelocytes % 0, Monocytes # 0.5, Monocytes % (Manual) 16H, OC-Cry-P-Type Natriuretic Peptide 1600H, Neutrophils # 2.2, Phosphorus Level 4.6, Segmented Neutrophils % 56 10/19/16 06:00: Absolute Band Neutrophils 0.1, Alanine Aminotransferase (ALT/SGPT) 34, Albumin 3.9, Albumin/Globulin Ratio 1.500, Alkaline Phosphatase 241H, Ammonia 52.4H, Anion Gap 18.6H, Aspartate Amino Transf (AST/SGOT) 36, BUN/Creatinine Ratio 20, Band Neutrophils % 1, Basophils # (Auto) , Basophils # (Manual) 0.0, Basophils % (Manual) 0, Basophils (%) (Auto) , Blood Morphology Comment Normal, Blood Urea Nitrogen 10, C-Reactive Protein 2.00H, Calcium Level 9.3, Calcium/Ionized Calcium Ratio 4.3, Calculated Osmolality 269L, Carbon Dioxide Level 25, Chloride Level 101, Creatinine 0.49L, Differential Total Cells Counted 100, Eosinophils # 0.0, Eosinophils # (Auto) , Eosinophils % (Manual) 0, Eosinophils (%) (Auto) , Estimat Glomerular Filtration Rate 172.0, Estimated GFR (Non- 142.1, Glucose Level 67#L, Hematocrit 40.60, Hemoglobin 14.2, Lymphocytes # 1.0, Lymphocytes # (Auto) , Lymphocytes % (Manual) 13L, Lymphocytes (%) (Auto) , Mean Corpuscular Hemoglobin 34.5H, Mean Corpuscular Hemoglobin Concent 35.0, Mean Corpuscular Volume 99, Mean Platelet Volume 11.3H , Monocytes # 1.1, Monocytes # (Auto) , Monocytes % (Manual) 16H, Monocytes (%) (Auto) , Neutrophils # 5.1, Neutrophils # (Auto) , Neutrophils (%) (Auto) , Platelet Count 158, Potassium Level 3.7, Red Blood Count 4.11, Red Cell Distribution Width 12.4, Segmented Neutrophils % 70H, Sodium Level 141, Total Bilirubin 1.7#H, Total Protein 6.5, White Blood Count 7.33 10/20/16 05:45: Absolute Band Neutrophils 0.1, Alanine Aminotransferase (ALT/SGPT) 36, Albumin 4.0, Albumin/Globulin Ratio 1.481, Alkaline Phosphatase 221H, Ammonia 46.8H, Anion Gap 21.3H, Aspartate Amino Transf (AST/SGOT) 42H, BUN/Creatinine Ratio 25H , Band Neutrophils % 2, Basophils # (Auto) , Basophils # (Manual) 0.0, Basophils % (Manual) 0, Basophils (%) (Auto) , Blood Morphology Comment Normal, Blood Urea Nitrogen 15, Calcium Level 9.6, Calcium/Ionized Calcium Ratio 4.4, Calculated Osmolality 272L, Carbon Dioxide Level 26, Chloride Level 97L, Creatinine 0.59L, Differential Total Cells Counted 100, Eosinophils # 0.1, Eosinophils # (Auto) , Eosinophils % (Manual) 1, Eosinophils (%) (Auto) , Estimat Glomerular Filtration Rate 138.8, Estimated GFR (Non- 114.7, Glucose Level 85#, Hematocrit 42.90, Hemoglobin 15.2, Lymphocytes # 0.9, Lymphocytes # (Auto) , Lymphocytes % (Manual) 14L, Lymphocytes (%) (Auto) , Mean Corpuscular Hemoglobin 34.5H, Mean Corpuscular Hemoglobin Concent 35.4, Mean Corpuscular Volume 97, Mean Platelet Volume 12.1H, Monocytes # 1.2, Monocytes # (Auto) , Monocytes % (Manual) 20H, Monocytes (%) (Auto) , Neutrophils # 3.9, Neutrophils # (Auto) , Neutrophils (%) (Auto) , Platelet Count 182, Potassium Level 3.3L, Red Blood Count 4.41, Red Cell Distribution Width 12.4, Segmented Neutrophils % 63, Sodium Level 141, Total Bilirubin 2.1H, Total Protein 6.7, White Blood Count 6.12, Magnesium Level 2.2, Metamyelocytes % 0, Phosphorus Level 4.8 10/21/16 05:50: Absolute Band Neutrophils 0.1, Alanine Aminotransferase (ALT/SGPT) 33, Albumin 3.8, Albumin/Globulin Ratio 1.461, Alkaline Phosphatase 200H, Ammonia 69.1H, Anion Gap 15.1H, Aspartate Amino Transf (AST/SGOT) 42H, BUN/Creatinine Ratio 29H , Band Neutrophils % 2, Basophils # (Manual) 0.0, Basophils % (Manual) 0, Blood Morphology Comment Normal, Blood Urea Nitrogen 14, Calcium Level 9.2, Calcium/ Ionized Calcium Ratio 4.3, Calculated Osmolality 271L, Carbon Dioxide Level 26, Chloride Level 102, Creatinine 0.48L, Differential Total Cells Counted 100, Eosinophils # 0.1, Eosinophils % (Manual) 1, Estimat Glomerular Filtration Rate 176.1, Estimated GFR (Non- 145.5, Glucose Level 119#H, Hematocrit 42.40, Hemoglobin 14.8, Lymphocytes # 1.1, Lymphocytes % (Manual) 20 , Mean Corpuscular Hemoglobin 34.3H, Mean Corpuscular Hemoglobin Concent 34.9, Mean Corpuscular Volume 98, Mean Platelet Volume 11.9H, Monocytes # 0.7, Monocytes % (Manual) 13H, Neutrophils # 3.7, Platelet Count 178, Potassium Level 3.6, Red Blood Count 4.32, Red Cell Distribution Width 12.4, Segmented Neutrophils % 64, Sodium Level 139, Total Bilirubin 1.2H, Total Protein 6.4, White Blood Count 5.76, Magnesium Level 2.4H, Metamyelocytes % 0, Phosphorus Level 4.1 10/23/16 05:47: Absolute Band Neutrophils 0.2, Alanine Aminotransferase (ALT/SGPT) 32, Albumin 3.8, Albumin/Globulin Ratio 1.520, Alkaline Phosphatase 210H, Ammonia 30.1H, Anion Gap 17.7H, Aspartate Amino Transf (AST/SGOT) 66H, BUN/Creatinine Ratio 30H , Band Neutrophils % 3, Basophils # (Auto) , Basophils # (Manual) 0.0, Basophils % (Manual) 0, Basophils (%) (Auto) , Blood Morphology Comment Normal, Blood Urea Nitrogen 17, C-Reactive Protein 7.30H, Calcium Level 9.2, Calcium/ Ionized Calcium Ratio 4.3, Calculated Osmolality 273L, Carbon Dioxide Level 23, Chloride Level 105, Creatinine 0.56L, Differential Total Cells Counted 100, Eosinophils # 0.0, Eosinophils # (Auto) , Eosinophils % (Manual) 0, Eosinophils (%) (Auto) , Estimat Glomerular Filtration Rate 147.4, Estimated GFR (Non- 121.8, Glucose Level 81#, Hematocrit 42.80, Hemoglobin 15.0, Lymphocytes # 1.4, Lymphocytes # (Auto) , Lymphocytes % (Manual) 20, Lymphocytes (%) (Auto) , Mean Corpuscular Hemoglobin 34.2H, Mean Corpuscular Hemoglobin Concent 35.0, Mean Corpuscular Volume 98, Mean Platelet Volume 12.3H , Monocytes # 1.1, Monocytes # (Auto) , Monocytes % (Manual) 16H, Monocytes (%) (Auto) , Neutrophils # 4.3, Neutrophils # (Auto) , Neutrophils (%) (Auto) , Platelet Count 185, Potassium Level 4.1, Red Blood Count 4.39, Red Cell Distribution Width 12.5, Segmented Neutrophils % 61, Sodium Level 141, Total Bilirubin 2.6#H, Total Protein 6.3L, White Blood Count 7.11, Magnesium Level 2.4H, Metamyelocytes % 0, HL-Eet-M-Type Natriuretic Peptide 2520H MICRO SPEC #: [id number] FAN: 10/16/16 STATUS: COMP REQ #: [id number] RECD: 10/16/[address] [facility] [address]: JONNY QUINN MD Order Location: ED SOURCE: URINE DESCRIPTION: U CATH Procedure Result Verified URINE CULTURE Final Verified 10/19/16-0731 AM Source: URINE / STRAIGHT CATH, IN/OUT Order Location: EMERGENCY Site: U CATH Received : 10/17/16 13:23 Order#: [id number] Urine Culture FINAL 10/19/16 07:30 S Escherichia coli >100,000 cfu/ml E. coli Antibiotic AVIS INT Ampicillin >=32 R Ampicillin/sulbactam 16 I Cefazolin <=4 S Ceftriaxone <=1 S Ciprofloxacin 1 S Gentamicin <=1 S Nitrofurantoin <=16 S Trimethoprim/Sulfa >=320 R S=SUSCEPTIBLE I=INTERMEDIATE R=RESISTANT S-DD= SUSCEPTIBLE, DOSE DEPENDENT 10/17 Resp PCR Panel Negative IMAGING 10/23/16 ACUTE ABD SERIES Indication: Constipation and pneumonia Comparison: Abdomen dated 10/22/2016 and chest 12/01/2015 Findings: PA chest: Left Port-A- Cath is unchanged. The tip appears to be in the right atrium. Cardiomegaly with mild prominence pulmonary vascularity appears similar to the prior study. Some streaky atelectasis or scarring at the left midlung and right upper lung appears stable. No new pulmonary parenchymal abnormality is suspected. Abdomen: Gastrostomy catheter over the left upper quadrant is unchanged. There has been significant improvement in appearance of bowel gas pattern since the prior study with significant decrease in the extent of colonic distention. There is some persistent prominent colon and air-filled small bowel. Findings are likely related to improving ileus. There is chronic deformity of the pelvis. Impression : 1. Stable appearance of the chest as described 2. Moderate improvement since the recent prior abdominal series with findings suggestive of improving ileus as described. 10/22/16 ABDOMEN (FLAT PLATE) 1VIEW Indication: Vomiting, abdominal distention Comparison: August 20, 2016 Technique: Single radiograph of the abdomen dated October 22, 2016. Findings: Percutaneous gastrostomy catheter is again seen overlying the upper abdomen. Significant gaseous distention of the colon is identified, increased from the prior examination. This now measures up to 13.8 cm. No definite free air. Osseous structures appear stable. Impression: Increasing distention of the colon. Findings may relate to worsening ileus. However, distal colonic obstruction not excluded. Recommend clinical correlation. 10/20/16 ACUTE ABD SERIES EXAMINATION: Abdominal radiographs, acute series. DATE : October 20, 2016. CLINICAL INDICATION: 36-year-old female, constipation. G- tube dysfunction. COMPARISON: October 18, 2016. COMMENTS: There is a left- sided venous line with tip projecting over the expected position of the upper right atrium. The heart appears enlarged. There is no identified pneumothorax or large pleural effusion. The gastrostomy tube projects over the expected position of the stomach. There is enteric contrast material within the transverse colon and right colon. There is no identified free intraperitoneal air. There is mild gaseous distention of large bowel which is less prominent compared to prior exam. IMPRESSION: 1. Gastrostomy tube projects over the expected position of the stomach. 2. Mild gaseous distention of bowel most likely involving loops of large bowel which is less prominent compared to prior exam. 10/18/16 SMALL BOWEL STUDY INDICATION: Abdominal pain and distention. FINDINGS: Counter Clerk radiographs of the abdomen reveal diffuse dilatation of colon containing moderate to large amount of stool. Gastrografin contrast was injected through the indwelling gastrostomy tube. Contrast opacifies mildly prominent small bowel loops with contrast reaching the distal small bowel and proximal colon after 5-1/2 hours. IMPRESSION: Findings are compatible with constipation. There is mild delay in small bowel transit with transit time of 5.5 hours. No obstruction is seen. 10/17/16 ECHO: Summary: Technically challenging study. Normal cardiac chamber sizes. Normal LV wall thickness. Intact LV systolic function with estimated EF 61%. Thickened aortic valve, with no significant stenosis or insufficiency. No significant mitral or tricuspid insufficiency. No pericardial effusion. 10/16/16 ACUTE ABD SERIES INDICATION: Abdominal pain COMPARISON: 09/14/2016 FINDINGS: Frontal chest: Left-sided Port-A-Cath is unchanged. Heart size is enlarged but stable. Mild pulmonary venous congestion is unchanged. Some patchy perihilar infiltrate is again demonstrated. No pleural fluid is seen. Abdomen: Gastrostomy tube is again seen overlying the stomach. The bowel gas pattern appears unremarkable with the exception of moderate amount of stool in the colon. There is no evidence of free intraperitoneal air. No abnormal calcifications are suspected. Deformity of the bony pelvis is again demonstrated. IMPRESSION: 1. In the chest, there is persistent cardiomegaly with mild pulmonary vascular congestion and patchy perihilar airspace disease similar to the prior study. 2. No acute abdominal abnormality is suspected. ASSESSMENT Kelly Jackson is a 36 year old female admitted from ED 10/17 where she presented for the second time in two days. She had a recent diagnosis of conjunctivitis and developed acute respiratory distress, vomiting after tube feeds, increased lethargy, and increased weight. She had a significant murmur on exam and pulmonary edema on admit imaging. 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 She was found to have multiple acute issues as outlined including constipation, pneumonia, UTI, and hyperammonemia. PLAN * Acute Respiratory Distress: Improved. URI? Heart failure? Also concern for pneumonia. Resp PCR panel negative. Workup for heart failure as noted. Improved with diuresis. Oxygen protocol. * Asthma: Duoneb TID, albuterol PRN. * Community Acquired Pneumonia: Clinical diagnosis. Blood culture not obtained on admit. No sputum for culture. Allergy to PCN noted. Unable to participate in acapella or IS. NT suction PRN. Levofloxacin. * UTI Due to E coli: Culture as noted. Levofloxacin. * Ileus: Due to constipation, then later perhaps aggravated by lactulose. Small bowel follow-through as noted. Serial exam and imaging as noted. * Congestive Heart Failure due to Fluid Overload: On the basis of murmur, CXR, pulmonary exam, edema. Echo as noted. Improved with furosemide. Monitor daily weight. I&O difficult to monitor due to incontinence. * Edema: Monitor I&O, daily weight. Furosemide increased to IV dosing 10/22. * Nausea/Vomiting: Had resolved but had recurrent episode 10/22. Attributed to constipation initially. May not be tolerating lactulose. Ondansetron for nausea. * Constipation: Bowel regimen. * Altered Mental Status: Due to infection, ammonia. Treat underlying problems. * Hyperammonemia: Attributed to valproic acid adverse effect. Hold valproate. Lactulose on hold due to poor tolerance. Monitor ammonia trend. * Hyperbilirubinemia: Cholestasis from volume contraction? Monitor trend. If worsening, will need further hepatic workup. * Medication Adverse Effect: Due to lactulose. Worse bloating, nausea/vomiting with this medication. Hold lactulose. * Conjunctivitis: Polymixin/trimethoprim eye drops, moisturizing eye drops. Warm compress. * F/E/N: Peripheral IV. Tube feeds. I&O, daily weight. * Prophylaxis: SCDs. * Code Status: Full * Dispo: Inpatient. Discharge deferred due to still elevated ammonia, still edematous, recurrent vomiting. Working on resuming tube feeds. Monitoring hepatic function further. CHRONIC ISSUES * Seizure disorder: Topiramate. Hold valproic acid due to hyperammonemia. Follow -up with Dr. Mckeon post-discharge. * Constipation: Bowel regimen * Hypothyroidism: Levothyroxine * GERD: Famotidine * Seasonal allergies: Cetirizine * HTN? Diltiazem. Verify indication. * Eczema: Observe * Plato de Pike syndrome: Observe. MARYBETH FERNANDO MD Oct 23, 2016 13:29
[2016-10-23] MEDS: SODIUM CHLORIDE FLUSH 10 ML SYR IV PRN (14:07)
--- NOTE | 2016-10-23 14:10 | NUR ---
NO SIGNS DISTRESS OR DISCOMFORT 1 HOUR POST TUBE FEED.
[2016-10-23 16:00] VITALS: BP 118/59
--- NOTE | 2016-10-23 19:51 | Progress Note (E) ---
Progress Note Seen again on evening rounds. Mental status stable. Abdomen remains soft with active bowel sounds. Tolerating medications and tube feeds now. Repeat labs pending for AM. MARYBETH FERNANDO MD Oct 23, 2016 19:51
[2016-10-23 19:54] VITALS: BP 114/68
[2016-10-23] MEDS: toPIRamate 25 MG (TOPAMAX) TAB PO SCH (21:38)
[2016-10-23] MEDS: CARBOXYMETHYLCELLULOSE 1% (CELLUVISC) OPHTHALMIC DROPS OU SCH (21:39)
[2016-10-24] VITALS: BP 115/64
[2016-10-24] MEDS: TRIMETHOPRIM OD SCH (01:11)
[2016-10-24] MEDS: [UNRECOGNIZED DRUG - OTHER] OD SCH (01:11)
[2016-10-24 04:00] VITALS: BP 105/72
[2016-10-24] MEDS: ALBUTEROL/IPRATROPIUM 3MG-0.5MG/3ML (DUONEB) NEB VIAL INH SCH ×3 (05:31→20:50)
[2016-10-24 06:32] LABS: MEAN CORPUSCULAR HGB CONC 35.2 g/dL (31.0-37.0); MEAN CORPUSCULAR VOLUME 97 FL (80-100); MEAN PLATELET VOLUME 11.9 FL (6.0-9.5); PLATELET COUNT 189 10^3uL (150-450); WHITE BLOOD COUNT 8.31 10^3uL (4.0-11.0)
--- NOTE | 2016-10-24 06:39 | NUR ---
Patient has tolerated all medications and feeds this shift. Rests in bed without needs. No vomiting noted. No needs at this time.
[2016-10-24 07:23] LABS: MEAN CORPUSCULAR HEMOGLOBIN 34.3 PG (26.0-34.0)
[2016-10-24 07:26] LABS: ANION GAP 17.9 MEQ/L (3-15); BILIRUBIN CONJUGATED 0.4 mg/dL (0.0-0.4); TOTAL PROTEIN 7.4 g/dL (6.4-8.5)
[2016-10-24 07:27] LABS: ALBUMIN 4.2 g/dL (3.4-5.0); CALCULATED IONIZED CALCIUM 3.8 mg/dL (3.8-4.6)
[2016-10-24 07:34] LABS: BAND NEUTROPHILS % 1 % (0-6); EOSINOPHILS % 0 % (0-4); MONOCYTES # 1.2 #; MONOCYTES % 15 % (3-11); RBC MORPH NORMAL (NORMAL); SEGMENTED NEUTROPHILS % 72 % (51-67); TOTAL CELLS COUNTED 100
[2016-10-24] MEDS: ENOXAPARIN 40 MG/0.4 ML (LOVENOX) SYR SC SCH (08:21)
[2016-10-24] MEDS: POLYETHYLENE GLYCOL 17 GM (MIRALAX) PACKET PO SCH (08:21)
[2016-10-24] MEDS: POTASSIUM CHLORIDE ORAL SOLUTION 20 MEQ/15 ML (KCL) UDC PO SCH ×2 (08:21→22:15)
[2016-10-24] MEDS: guaiFENesin SYRUP 200 MG/10 ML (ROBITUSSIN) UDC GT SCH ×2 (08:21→22:15)
[2016-10-24] MEDS: LEVOTHYROXINE 75 MCG (LEVOTHROID) TABLET GT SCH (08:21)
[2016-10-24] MEDS: SENNOSIDES 8.6 MG (SENOKOT) TAB GT SCH (08:22)
[2016-10-24] MEDS: ARTIFICIAL TEARS (REFRESH) OPHTHALMIC DROPS OU SCH (08:22)
[2016-10-24] MEDS: DILTIAZEM CD 120 MG (CARDIZEM CD) CAP PO SCH (08:22)
[2016-10-24] MEDS: DOCUSATE 100 MG/10 ML GT SCH ×2 (08:23→22:15)
[2016-10-24] MEDS: TRIMETHOPRIM PO SCH ×2 (08:23→22:16)
[2016-10-24] MEDS: SULFAMETHOXAZOLE PO SCH ×2 (08:23→22:16)
[2016-10-24] MEDS: CARBAMAZEPINE 100 MG/5 ML GT SCH ×3 (08:25→17:33)
[2016-10-24 08:28] VITALS: BP 101/71
[2016-10-24] MEDS: SODIUM CHLORIDE FLUSH 10 ML SYR IV SCH (08:44)
[2016-10-24] MEDS: FAMOTIDINE 40 MG/5 ML GT SCH ×2 (09:00→22:15)
[2016-10-24 12:00] VITALS: BP 110/53
[2016-10-24] MEDS: THERAPEUTIC MULTIVITAMINS LIQUID 5 ML UDC GT SCH (12:51)
--- NOTE | 2016-10-24 15:12 | NUR ---
Patient is nonverbal. POC explained to the patient and feedings and medications administered. She tolerates interventions well. No vomit, no BM and residuals WNL. Hygiene tended knew this AM and PRN. The patient is in no immediate distress
[2016-10-24 16:00] VITALS: BP 122/71
--- NOTE | 2016-10-24 18:53 | NUR ---
Residual of 150 prior to TF administration. Dr. Burroughs notified and feeding is held. Kelly has a grade fever this afternoon as well. Blankets removed. Kelly is being turned Q2HR and oral care provided while awake. Report is given to Malorie MATA and care is relinquished.
--- NOTE | 2016-10-24 20:00 | NUR ---
Resting in bed. Alert. Non-verbal. Awake and alert. Tolerates medications via tube feeding well. No emesis. Abdomen soft. Bowel sounds active. Medications followed by Sterile water flush as ordered. Oral care done. Lip moisture to lips. Not using ChapStick that has been brought in by her staff. Appears to be making her lips worse.
[2016-10-24 20:46] VITALS: BP 114/63
--- NOTE | 2016-10-24 20:51 | NUR ---
Pt found lying in bed on RA, SPO2 90%, HR 111, RR 16 and non labored, BS clear before and after Duoneb via SVN/MASK.
[2016-10-24] MEDS ORDERED: POTASSIUM CHLORIDE ORAL SOLUTION 20 MEQ/15 ML (KCL) UDC PO ONE (22:05)
--- NOTE | 2016-10-24 22:05 | Progress Note-A/P (E) ---
Progress Note Subjective: Patient is more aware and responsive to me today. Her residual for her 6pm feeding is 60ml. No family at bedside to discuss care and plan. Objective: Current Medications Carbamazepine 200 mg TID GT Cetirizine 10 mg HS GT Docusate 100 mg BID GT Guaifenesin 400 mg BID GT Albuterol/ Ipratropium 3 ml TID INH Multivitamins Therapeutic 5 ml DAILY@12 GT Polyethylene Glycol 17 gm DAILY PO Polyvinyl Alcohol/ Povidone 1 each DAILY OU Sennosides 8.6 mg DAILY GT Trimethoprim/ Sulfamethoxazole 20 ml BID PO Valproic Acid 500 mg HS PO -- Hold Enoxaparin 40 mg DAILY SC Levothyroxine 37.5 mcg DAILY GT Diltiazem 120 mg DAILY@0900 PO Topiramate 50 mg HS PO Famotidine 20 mg BID GT Carboxymethylcellulose Sodium 1 DROP HS OU Polyvinyl Alcohol/ Povidone 1 DROP QID PRN OU Sterile Water FOR GT FLUSH UD PRN GT Bisacodyl 10 mg BID PRN MO Heparin 30 unit UD PRN IV Potassium Chloride 20 meq BID PO Ondansetron 4 mg Q6H PRN IV Vital Signs Date Time Temp Pulse Resp B/P Pulse Ox O2 Delivery O2 Flow Rate FiO2 10/24/16 20:46 99.8 121 16 114/63 91 Room air 0.00 110 I & O Past 24 hrs 10/24/16 07:00 Output Total 2620 ml Balance -2620 ml Output Urine Total 2620 ml # Bowel Movements 1 Physical Exam General--Awake and alert. No distress. HEENT--Normal [place] facial features. MMM in oral cavity. Lungs--Clear bilaterally. Heart--LARISA II/ heard best over left lower sternal. RRR. Abdomen--NBS/S/ND/NTTP. Past 24 hour Lab Results 10/24/16 06:15 Laboratory Results Past 24 Hrs 10/24/16 06:15: Absolute Band Neutrophils 0.1, Alanine Aminotransferase (ALT/SGPT) 53, Albumin 4.2, Albumin/Globulin Ratio 1.312, Alkaline Phosphatase 246, Ammonia 42.9, Anion Gap 17.9, Aspartate Amino Transf (AST/SGOT) 78, BUN/Creatinine Ratio 40, Band Neutrophils % 1, Basophils # (Auto) , Basophils # (Manual) 0.0, Basophils % (Manual) 0, Basophils (%) (Auto) , Blood Morphology Comment Normal, Blood Urea Nitrogen 29, C-Reactive Protein 13.60, Calcium Level 8.9, Calcium/Ionized Calcium Ratio 3.8, Calculated Osmolality 292, Carbon Dioxide Level 27, Chloride Level 106, Conjugated Bilirubin 0.4, Creatinine 0.73, Differential Total Cells Counted 100, Eosinophils # 0.0, Eosinophils # (Auto) , Eosinophils % (Manual) 0 , Eosinophils (%) (Auto) , Estimat Glomerular Filtration Rate 108.5, Estimated GFR (Non- 89.7, Glucose Level 169, Hematocrit 45.20, Hemoglobin 15.9, Lymphocytes # 1.0, Lymphocytes # (Auto) , Lymphocytes % (Manual) 12, Lymphocytes (%) (Auto) , Mean Corpuscular Hemoglobin 34.3, Mean Corpuscular Hemoglobin Concent 35.2, Mean Corpuscular Volume 97, Mean Platelet Volume 11.9, Monocytes # 1.2, Monocytes # (Auto) , Monocytes % (Manual) 15, Monocytes (%) ( Auto) , Neutrophils # 6.0, Neutrophils # (Auto) , Neutrophils (%) (Auto) , Platelet Count 189, Potassium Level 3.4, Red Blood Count 4.64, Red Cell Distribution Width 12.6, Segmented Neutrophils % 72, Sodium Level 147, Total Bilirubin 2.8, Total Protein 7.4, White Blood Count 8.31 Microbiology 10/16/16 Urine Culture - Final, Complete Imaging Results 10/17/16 ECHO Summary: Technically challenging study. Normal cardiac chamber sizes. Normal LV wall thickness. Intact LV systolic function with estimated EF 61%. Thickened aortic valve, with no significant stenosis or insufficiency. No significant mitral or tricuspid insufficiency. No pericardial effusion. 10.16.16 CXR IMPRESSION: 1. In the chest, there is persistent cardiomegaly with mild pulmonary vascular congestion and patchy perihilar airspace disease similar to the prior study. 2. No acute abdominal abnormality is suspected. 10.18.16 Small bowel follow through. IMPRESSION: Findings are compatible with constipation. There is mild delay in small bowel transit with transit time of 5.5 hours. No obstruction is seen. 10.20.16 Abdominal film IMPRESSION: 1. Gastrostomy tube projects over the expected position of the stomach. 2. Mild gaseous distention of bowel most likely involving loops of large bowel which is less prominent compared to prior exam. 10.22.16 Abdominal film Impression: Increasing distention of the colon. Findings may relate to worsening ileus. However, distal colonic obstruction not excluded. Recommend clinical correlation. 10.23.16 Abdominal film Impression: 1. Stable appearance of the chest as described 2. Moderate improvement since the recent prior abdominal series with findings suggestive of improving ileus as described. Assessment/Plan Acute respiratory failure Improved. Attributed to URI. Required oxygen overnight 10.17 CAP Improved. Patient received a 5 day course of levofloxacin. No blood culture. Sputum culture pending. UTI Culture above. Abx provided. G tube dysfunction/Constipation Radiographic studies above. Improving. High residual today. Skipping a feed. Will discuss with home care to see how they manage this. Constipation Improving. Multiple BM's. CHF Echo per above. Provided furosemide. Monitor daily i/o's carefully and daily weights (trending down). Hyperammonemia Trending down. Attributed to valproic acid, holding for now. Held lactulose due to distended abd. Elevated liver enzymes Persist. Continue to monitor for improvement. Seizure disorder Topiramate per home regimen. Holding valproic acid per above. Constipation/ileus Continue bowel regimen. Hypothyroidism Continue home levothyroxine. GERD Continue home famotidine. Seasonal allergies Continue home cetirizine. HTN Has been on diltiazem at home, pressures have been low here. 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 FEN NPO, all diet per G-tube. Typical feeding schedule is 240ml of Jevity 1.0 QID. Continue. Monitor residuals. Electrolytes--hypokalemia replace. No fluids at this time. Code status Full code. DVT proph SCD's Dispo Inpatient. Look to d/c tomorrow. CIERRA DOMINGUEZ MD Oct 24, 2016 22:05
[2016-10-24] MEDS: CARBOXYMETHYLCELLULOSE 1% (CELLUVISC) OPHTHALMIC DROPS OU SCH (22:14)
[2016-10-24] MEDS: CETIRIZINE 1 MG/ML GT SCH (22:15)
[2016-10-24] MEDS: toPIRamate 25 MG (TOPAMAX) TAB PO SCH (22:16)
--- NOTE | 2016-10-25 | NUR ---
G-tube checked for residual, which was 95 cc. Tube feeding with Jevity 1 chase via gravity administered without difficulty. Followed by sterile water as ordered. Patient slept through tube feeding. Tolerated well. No emesis. Hob elevated during tube feeding. Repositioned in bed. Bed alarm on for safety.
[2016-10-25 00:01] VITALS: BP 103/68
[2016-10-25 04:12] VITALS: BP 105/61
--- NOTE | 2016-10-25 06:30 | NUR ---
Patient rested at long intervals tonight. 6am residual from G-tube was 150 cc. Jevity 1 Russell administered by gravity, followed by sterile water as ordered. Patient slept through feeding. Left port intact, without complications to site. Patient smiles at staff. Bowel sounds audible in all four quadrants. No emesis. Abdomen not distended. Bed alarm on for safety. Heels floated to prevent breakdown. Oral care several times. Lips looking better, yet remain dry.
[2016-10-25 06:32] LABS: MEAN CORPUSCULAR HGB CONC 34.5 g/dL (31.0-37.0); MEAN PLATELET VOLUME 12.6 FL (6.0-9.5); PLATELET COUNT 215 10^3uL (150-450); WHITE BLOOD COUNT 8.52 10^3uL (4.0-11.0)
[2016-10-25 06:47] LABS: MEAN CORPUSCULAR HEMOGLOBIN 34.4 PG (26.0-34.0); MEAN CORPUSCULAR VOLUME 100 FL (80-100)
[2016-10-25 06:57] LABS: BAND NEUTROPHILS % 0 % (0-6); EOSINOPHILS % 0 % (0-4); LYMPHOCYTES # 0.9 #; MONOCYTES % 13 % (3-11); RBC MORPH NORMAL (NORMAL); SEGMENTED NEUTROPHILS % 77 % (51-67); TOTAL CELLS COUNTED 100
[2016-10-25 07:45] VITALS: BP 121/66
[2016-10-25 08:06] LABS: ALBUMIN 4.3 g/dL (3.4-5.0); ANION GAP 18.2 MEQ/L (3-15); CALCULATED IONIZED CALCIUM 3.7 mg/dL (3.8-4.6); MAGNESIUM* 3.4 mg/dL (1.6-2.3); PHOSPHORUS 3.8 mg/dL (2.4-4.9); TOTAL PROTEIN 7.5 g/dL (6.4-8.5)
[2016-10-25] MEDS: ALBUTEROL/IPRATROPIUM 3MG-0.5MG/3ML (DUONEB) NEB VIAL INH SCH ×3 (08:41→19:52)
--- NOTE | 2016-10-25 08:46 | NUR ---
Pt is laying in bed, tolerated tx well, SPO2 94% on room air.
[2016-10-25] MEDS: POTASSIUM CHLORIDE ORAL SOLUTION 20 MEQ/15 ML (KCL) UDC PO SCH ×2 (09:00→21:50)
[2016-10-25] MEDS: TRIMETHOPRIM PO SCH ×2 (09:29→21:50)
[2016-10-25] MEDS: FAMOTIDINE 40 MG/5 ML GT SCH ×2 (09:29→21:50)
[2016-10-25] MEDS: SULFAMETHOXAZOLE PO SCH ×2 (09:29→21:50)
[2016-10-25] MEDS: CARBAMAZEPINE 100 MG/5 ML GT SCH ×3 (09:30→17:50)
[2016-10-25] MEDS: DOCUSATE 100 MG/10 ML GT SCH ×2 (09:30→22:09)
[2016-10-25] MEDS: SENNOSIDES 8.6 MG (SENOKOT) TAB GT SCH (09:32)
[2016-10-25] MEDS: DILTIAZEM CD 120 MG (CARDIZEM CD) CAP PO SCH (09:32)
[2016-10-25] MEDS: LEVOTHYROXINE 75 MCG (LEVOTHROID) TABLET GT SCH (09:32)
[2016-10-25] MEDS: POLYETHYLENE GLYCOL 17 GM (MIRALAX) PACKET PO SCH (09:34)
[2016-10-25] MEDS: guaiFENesin SYRUP 200 MG/10 ML (ROBITUSSIN) UDC GT SCH ×2 (09:34→21:50)
[2016-10-25] MEDS: ENOXAPARIN 40 MG/0.4 ML (LOVENOX) SYR SC SCH (09:36)
[2016-10-25] MEDS: ARTIFICIAL TEARS (REFRESH) OPHTHALMIC DROPS OU SCH (09:44)
[2016-10-25] MEDS: SODIUM CHLORIDE FLUSH 10 ML SYR IV SCH (09:53)
--- NOTE | 2016-10-25 10:01 | Discharge Instructions (E) ---
Discharge Instructions Discharge Diet: Other (Jevity 1 chase TF - Give 1/2 can (120 cc) slowly then give other half (120cc) in 15-20min...do this QID- go slowly to prevent vomiting and abdominal distention. ) Yumiko De La Garza APRN Oct 25, 2016 10:01
[2016-10-25 11:47] VITALS: BP 121/49
[2016-10-25] MEDS: THERAPEUTIC MULTIVITAMINS LIQUID 5 ML UDC GT SCH (13:09)
--- NOTE | 2016-10-25 13:36 | NUR ---
Verbal order from Dr Burroughs to administer 120mL of feeding slowly, wait 30 mins then administer other 120mL of feeding slowly and keep HOB 30* during and 1hr after feedings. To be done with all other feedings. Pre-feeding residual: 70mL. Manjeet aware.
--- NOTE | 2016-10-25 14:57 | Progress Note-A/P (E) ---
Progress Note Subjective: Patient is resting in bed, watching TV. Discussed with Kortney Quick at [facility] who states the patient walks at the home, short distances. Discussed current findings and care plan. Objective: Current Medications Carbamazepine 200 mg TID GT Cetirizine 10 mg HS GT Docusate 100 mg BID GT Guaifenesin 400 mg BID GT Albuterol/ Ipratropium 3 ml TID INH Multivitamins Therapeutic 5 ml DAILY@12 GT Polyethylene Glycol 17 gm DAILY PO Polyvinyl Alcohol/ Povidone 1 each DAILY OU Sennosides 8.6 mg DAILY GT Trimethoprim/ Sulfamethoxazole 20 ml BID PO Valproic Acid 500 mg HS PO -- Hold Enoxaparin 40 mg DAILY SC Levothyroxine 37.5 mcg DAILY GT Diltiazem 120 mg DAILY@0900 PO Topiramate 50 mg HS PO Famotidine 20 mg BID GT Carboxymethylcellulose Sodium 1 DROP HS OU Polyvinyl Alcohol/ Povidone 1 DROP QID PRN OU Sterile Water FOR GT FLUSH UD PRN GT Bisacodyl 10 mg BID PRN DC Heparin 30 unit UD PRN IV Potassium Chloride 20 meq BID PO Ondansetron 4 mg Q6H PRN IV Vital Signs Date Time Temp Pulse Resp B/P Pulse Ox O2 Delivery O2 Flow Rate FiO2 10/25/16 11:47 99.2 117 20 121/49 92 Room air 10/25/16 04:12 0.00 I & O Past 24 hrs 10/25/16 07:00 Intake Total 150 ml Output Total 794 ml Balance -644 ml Other 150 ml Output Urine Total 794 ml Physical Exam General--Awake and alert. No distress. HEENT--Normal [place] facial features. MMM in oral cavity. Lungs--Clear bilaterally. Heart--LARISA II/ heard best over left lower sternal. RRR. Abdomen--NBS/S/ND/NTTP. Extremities--No edema noted to lower extremities. Past 24 hour Lab Results 10/25/16 05:45 10/25/16 07:40 Laboratory Results Past 24 Hrs 10/25/16 05:45: Absolute Band Neutrophils 0.0, Band Neutrophils % 0, Basophils # (Auto) , Basophils # (Manual) 0.0, Basophils % (Manual) 0, Basophils (%) (Auto) , Blood Morphology Comment Normal, Differential Total Cells Counted 100, Eosinophils # 0.0, Eosinophils # (Auto) , Eosinophils % (Manual) 0, Eosinophils (%) (Auto) , Hematocrit 44.40, Hemoglobin 15.3, Lymphocytes # 0.9, Lymphocytes # (Auto) , Lymphocytes % (Manual) 10, Lymphocytes (%) (Auto) , Mean Corpuscular Hemoglobin 34.4, Mean Corpuscular Hemoglobin Concent 34.5, Mean Corpuscular Volume 100, Mean Platelet Volume 12.6, Metamyelocytes % 0, Monocytes # 1.0, Monocytes # ( Auto) , Monocytes % (Manual) 13, Monocytes (%) (Auto) , Neutrophils # 6.6, Neutrophils # (Auto) , Neutrophils (%) (Auto) , Platelet Count 215, Red Blood Count 4.45, Red Cell Distribution Width 12.9, Segmented Neutrophils % 77, White Blood Count 8.52 10/25/16 07:40: Alanine Aminotransferase (ALT/SGPT) 65, Albumin 4.3, Albumin/Globulin Ratio 1.343, Alkaline Phosphatase 244, Anion Gap 18.2, Aspartate Amino Transf (AST/ SGOT) 89, BUN/Creatinine Ratio 42, Blood Urea Nitrogen 31, C-Reactive Protein 6.30, Calcium Level 8.8, Calcium/Ionized Calcium Ratio 3.7, Calculated Osmolality 297, Carbon Dioxide Level 24, Chloride Level 112, Creatinine 0.74, Estimat Glomerular Filtration Rate 106.9, Estimated GFR (Non- 88.3, Glucose Level 137, Magnesium Level 3.4, Phosphorus Level 3.8, Potassium Level 5.0, Sodium Level 149, Total Bilirubin 2.3, Total Protein 7.5 Microbiology 10/16/16 Urine Culture - Final, Complete Imaging Results 10/17/16 ECHO Summary: Technically challenging study. Normal cardiac chamber sizes. Normal LV wall thickness. Intact LV systolic function with estimated EF 61%. Thickened aortic valve, with no significant stenosis or insufficiency. No significant mitral or tricuspid insufficiency. No pericardial effusion. 10.16.16 CXR IMPRESSION: 1. In the chest, there is persistent cardiomegaly with mild pulmonary vascular congestion and patchy perihilar airspace disease similar to the prior study. 2. No acute abdominal abnormality is suspected. 10.18.16 Small bowel follow through. IMPRESSION: Findings are compatible with constipation. There is mild delay in small bowel transit with transit time of 5.5 hours. No obstruction is seen. 10.20.16 Abdominal film IMPRESSION: 1. Gastrostomy tube projects over the expected position of the stomach. 2. Mild gaseous distention of bowel most likely involving loops of large bowel which is less prominent compared to prior exam. 10.22.16 Abdominal film Impression: Increasing distention of the colon. Findings may relate to worsening ileus. However, distal colonic obstruction not excluded. Recommend clinical correlation. 10.23.16 Abdominal film Impression: 1. Stable appearance of the chest as described 2. Moderate improvement since the recent prior abdominal series with findings suggestive of improving ileus as described. Assessment/Plan Acute respiratory failure Improved. Attributed to URI. Required oxygen overnight 10.17 CAP Improved. Patient received a 5 day course of levofloxacin. No blood culture. Sputum culture pending. UTI Culture above. Abx provided. G tube dysfunction/Constipation Radiographic studies above. Improving. High residual today. Skipped a feed (see below). Constipation Improving. Multiple BM's. CHF Echo per above. Provided furosemide. Monitor daily i/o's carefully and daily weights (trending down). Hyperammonemia Trending down continue to monitor. Attributed to valproic acid, holding for now. Held lactulose due to distended abd. Elevated liver enzymes Persist. Continue to monitor for improvement. Debility Per the home staff the patient does ambulate, however has not been doing that here. Will have PT work with patient. Seizure disorder Topiramate per home regimen. Holding valproic acid per above. Constipation/ileus Continue bowel regimen. Hypothyroidism Continue home levothyroxine. GERD Continue home famotidine. Seasonal allergies Continue home cetirizine. HTN Has been on diltiazem at home, pressures have been low here. 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 FEN NPO, all diet per G-tube. Typical feeding schedule is 240ml of Jevity 1.0 QID, patient has been experiencing residuals of 60-150ml. Patient receives 50ml flushes of water with each feed. Will start to feed 120ml, followed by 20minutes of sitting upright then finish the remaining 120ml feed, follow feeds with 50ml of water. Continue to have patient sitting upright for 30-60minutes after feed. Continue to monitor residuals. Electrolytes--hypokalemia replaced. No fluids at this time. Code status Full code. DVT proph SCD's Dispo Inpatient. Adjusting feeds per above. Will have PT work with patient. CIERRA DOMINGUEZ MD Oct 25, 2016 14:57
[2016-10-25 16:00] VITALS: BP 117/71
--- NOTE | 2016-10-25 16:12 | Physical Therapy Evaluation(E) ---
Plan of Care STG: Plan-Treatment Functional: Amb Safe w/ AD on level STG Time Frame: 2 Days LTG Time Frame: 5 Days Goals Discussed/Agreed: No Plan: Functional Strengthening, Gait & Transfer Training Discharge Recommendations: 24 hour Caregiver support Aware of Dx and Prognosis: No Aware of Risk & Benefit: No To be Seen: Daily Monday-Monday Initial Evaluation Service Date/Time 10/25/16, 16:05 Primary Diagnosis: (1) Dehydration ICD Code: E86.0 Treatment Diagnosis: (1) Weakness generalized ICD Code: R53.1 Start of Care Date: Oct 25, 2016 Resuscitation Status: Full Code Precaution/Isolation: Standard Precautions Fall Level: High Risk 51 or greater Initial Assessment Reason for Rehab: Increase Mobility, Increase Strength Medical History: Other ([place] ) Prior Level of Function Patient is a resident of [facility] and requires multimedia manager care. Rehabilitation Potential: Fair Rehab Potential Based on Patient to participate with transfers and gait. Assistive Device: Handheld Assist (Moderate assist x 2) Assist: Mod Assist (x2) Gait Description: Wide Based Gait, Shuffling, Short Step Length Gait Limitations: Fatigue, Decreased Strength, Decreased Balance Patient demonstrates limitted mobility at UEs and LEs. Assessment/Goals Initial Transfer Assessment Sit-Stand from Bed: Moderate Assistance Stand-Sit: Moderate Assistance Pivot Transfers: Moderate Assistance Ambulation: Moderate Assistance Distance Walked in Feet only able to take two steps. Transfer Short Term Goals Sit-Stand from bed: Minimal Assistance Stand-Sit: Minimal Assistance Pivot Transfer: Minimal Assistance Ambulation: Minimal Assistance Distance to Walk in Feet 25 feet. Coding Time In: 345 Time Out: 400 Total Minutes: 15 Code & Unit: 57644 Eval< 30 min Jason Polanco PT Oct 25, 2016 16:12
--- NOTE | 2016-10-25 17:57 | NUR ---
Residual 300mL. Manjeet notified. 1800 feeding held. Verbal order to sit patient up in bed and wait for two hours and recheck. Pt got up to personal w/c with two assist and gaitbelt. Brushed her hair and styled it. Pt smiles. Pt sitting out at nurse's station at this time for interaction. Skin warm, dry, intact. Resprs nonlabored, even.
--- NOTE | 2016-10-25 19:30 | NUR ---
Patient's residual 275mL. Dr. Ball notified. Will recheck ~2100. Will continue to monitor.
--- NOTE | 2016-10-25 19:48 | NUR ---
Pt found on RA, SPO2 79%, placed on 2 l/min NC, SPO2 recovered to 90% Addendum: 10/25/16 at 1950 by Samson Johns RT wrong Pt
--- NOTE | 2016-10-25 19:53 | NUR ---
Pt found sitting in her wheelchair on RA, SPO2 92%, HR 104, RR 15 and non labored with clear BS before and after Duoneb via SVN/MASK which was tolerated well.
[2016-10-25 20:47] VITALS: BP 101/68
--- NOTE | 2016-10-25 21:45 | NUR ---
Residual at this time: ~200mL. Dr. Ball notified. Meds given as ordered, will hold feeding until AM per order. Will continue to monitor.
[2016-10-25] MEDS: toPIRamate 25 MG (TOPAMAX) TAB PO SCH (21:50)
[2016-10-25] MEDS: CETIRIZINE 1 MG/ML GT SCH (21:50)
[2016-10-25] MEDS: CARBOXYMETHYLCELLULOSE 1% (CELLUVISC) OPHTHALMIC DROPS OU SCH (21:50)
[2016-10-26 00:06] VITALS: BP 110/71
[2016-10-26 04:25] VITALS: BP 123/61
--- NOTE | 2016-10-26 05:27 | NUR ---
Residual checked before AM tube feeding. 0mL able to be aspirated. 120mL given slowly per order. Will wait 30 minuted before finishing feeding with second 120mL bolus. Will continue to monitor.
--- NOTE | 2016-10-26 06:15 | NUR ---
Second 120mL bolus given slowly. Patient resting in bed, interactive with staff when in room. Changed as needed. No needs at this time.
[2016-10-26] MEDS: ALBUTEROL/IPRATROPIUM 3MG-0.5MG/3ML (DUONEB) NEB VIAL INH SCH ×3 (07:32→19:55)
[2016-10-26 08:00] VITALS: BP 104/64
[2016-10-26] MEDS: ARTIFICIAL TEARS (REFRESH) OPHTHALMIC DROPS OU SCH (09:07)
[2016-10-26] MEDS: POTASSIUM CHLORIDE ORAL SOLUTION 20 MEQ/15 ML (KCL) UDC PO SCH ×2 (09:07→21:14)
[2016-10-26] MEDS: LEVOTHYROXINE 75 MCG (LEVOTHROID) TABLET GT SCH (09:07)
[2016-10-26] MEDS: ENOXAPARIN 40 MG/0.4 ML (LOVENOX) SYR SC SCH (09:07)
[2016-10-26] MEDS: guaiFENesin SYRUP 200 MG/10 ML (ROBITUSSIN) UDC GT SCH ×2 (09:07→21:13)
[2016-10-26] MEDS: SENNOSIDES 8.6 MG (SENOKOT) TAB GT SCH (09:07)
[2016-10-26] MEDS: DILTIAZEM CD 120 MG (CARDIZEM CD) CAP PO SCH (09:07)
[2016-10-26] MEDS: FAMOTIDINE 40 MG/5 ML GT SCH ×2 (09:08→21:14)
[2016-10-26] MEDS: CARBAMAZEPINE 100 MG/5 ML GT SCH ×3 (09:08→18:22)
[2016-10-26] MEDS: DOCUSATE 100 MG/10 ML GT SCH ×2 (09:09→21:13)
[2016-10-26] MEDS: POLYETHYLENE GLYCOL 17 GM (MIRALAX) PACKET PO SCH (09:09)
[2016-10-26] MEDS: SULFAMETHOXAZOLE PO SCH ×2 (09:09→21:13)
[2016-10-26] MEDS: SODIUM CHLORIDE FLUSH 10 ML SYR IV SCH (09:09)
[2016-10-26] MEDS: TRIMETHOPRIM PO SCH ×2 (09:09→21:13)
--- NOTE | 2016-10-26 09:45 | NUR ---
Pt in bed resting at time of assessment. Pt does not appear to be having any pain or discomfort. Tolerated medication administration well. Pt noted to be in bed smiling at staff member. No further needs noted at this time. Will continue to monitor.
--- NOTE | 2016-10-26 10:30 | NUR ---
Patient is sitting out at nurses station. Looking through books. Smiles at staff as they walk by. Does not appear to be having any pain. Will continue to monitor.
[2016-10-26 11:25] VITALS: BP 100/62
--- NOTE | 2016-10-26 12:10 | NUR ---
Residual checked before 1200 feeding with result of 70 mls. 120ml of feeding given slowly per order which patient tolerated well. Will wait 30 mins before giving second half of feeding. Will continue to monitor.
[2016-10-26] MEDS: THERAPEUTIC MULTIVITAMINS LIQUID 5 ML UDC GT SCH (12:21)
--- NOTE | 2016-10-26 12:45 | NUR ---
Pt given second half of feeding. Tolerated well. Pt now resting in bed. Does not appear to be having any pain or discomfort. Will continue to monitor.
--- NOTE | 2016-10-26 13:46 | Progress Note (E) ---
Progress Note SUBJECTIVE Clinically continues to improve. However, mild hepatitis still noted and of uncertain etiology. Gallbladder sono not yet done... changed to complete abdomen sono but will need to defer until AM due to need for NPO status. Ammonia level keeps vacillating up and down. Monitoring trend. More alert compared to admit. Tolerates sitting in chair and transfers with 1 person assist now. Tolerating full, bolus feeds. OBJECTIVE Vital Signs Date Time Temp Pulse Resp B/P Pulse Ox O2 Delivery O2 Flow Rate FiO2 10/26/16 11:25 98.2 108 18 100/62 94 Room air 10/25/16 04:12 0.00 I & O 10/25/16 10/26/16 Cumulative From/Thru 19:00 07:00 10/16/16 21:35 - 10/26/16 05:05 Intake Total 1350 ml Output Total 878 ml 568 ml 20382 ml Balance -878 ml -568 ml -79848 ml GEN: Resting in bed. Stirs to exam. No apparent acute distress. 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 Dry skin. Clear sclerae. Somewhat dry oral mucosa. Mildly injected right sclera but improving. CV: Regular, prominent 3/6 systolic murmur, crescendo/decrescendo. PULM: Breath sounds continue to improve with better air movement and diminished basilar rales. ABD: Soft, tolerates exam. No apparent tenderness. Not distended. Active bowel sounds. EXTR: Warm, well-perfused. Left arm is hyperemic but edema in upper extremities is improved. INTEG: Dry skin. Left arm hyperemia as noted. NEURO: Non-verbal. Lab-Past 14 Days, 35 Results 10/16/16 22:32: Alanine Aminotransferase (ALT/SGPT) 33, Albumin 3.8, Albumin/Globulin Ratio 1.520, Alkaline Phosphatase 268H, Anion Gap 15.5H, Aspartate Amino Transf (AST/ SGOT) 33, BUN/Creatinine Ratio 26H, Basophils # (Auto) 0.0, Basophils (%) (Auto ) 1, Blood Urea Nitrogen 9, Calcium Level 8.9, Calcium/Ionized Calcium Ratio 4.2 , Calculated Osmolality 260L, Carbon Dioxide Level 27, Chloride Level 96L, Creatinine 0.34L, Eosinophils # (Auto) 0.1, Eosinophils (%) (Auto) 1, Estimat Glomerular Filtration Rate 262.2, Estimated GFR (Non- 216.7, Glucose Level 136H, Hematocrit 41.30, Hemoglobin 14.7, Lipase 75, Lymphocytes # (Auto) 0.5, Lymphocytes (%) (Auto) 7L, Mean Corpuscular Hemoglobin 34.3H, Mean Corpuscular Hemoglobin Concent 35.6, Mean Corpuscular Volume 96, Mean Platelet Volume 11.9H, Monocytes # (Auto) 0.9, Monocytes (%) (Auto) 12H, Neutrophils # ( Auto) 5.7, Neutrophils (%) (Auto) 79H, Platelet Count 157, Potassium Level 3.6# , Red Blood Count 4.29, Red Cell Distribution Width 12.0, Sodium Level 134L, Total Bilirubin 0.8, Total Protein 6.3L, White Blood Count 7.21 10/16/16 23:05: Urine Amorphous Sediment 4+H, Urine Bacteria None seen, Urine Bilirubin Negative , Urine Clarity Cloudy, Urine Collection Type Catheter, Urine Color Dark yellow , Urine Glucose (UA) Negative, Urine Hyaline Casts 2+, Urine Ketones 1+H, Urine Leukocyte Esterase 1+H, Urine Mucus 2+H, Urine Nitrite Negative, Urine Protein Negative, Urine RBC 0-2, Urine RBC (Auto) 2+H, Urine Specific [place] 1.015, Urine Squamous Epithelial Cells 2-5, Urine Urobilinogen 0.2, Urine WBC 5-10H, Urine pH 8.0, Volume Urine Centrifuged 12 ml 10/17/16 17:58: Adenovirus (PCR) Negative, Bordetella parapertussis DNA (PCR) Negative, Chlamydophila pneumoniae (PCR) Negative, Coronavirus Type 229E (PCR) Negative, Coronavirus Type HKU1 (PCR) Negative, Coronavirus Type NL63 (PCR) Negative, Coronavirus Type OC43 (PCR) Negative, Enterovirus/Rhinovirus (PCR) Negative, Human Metapneumovirus (PCR) Negative, Influenza Type A (H1) (PCR) Negative, Influenza Virus Type B (PCR) Negative, Mycoplasma pneumoniae (PCR) Negative, Parainfluenza Type 1 (PCR) Negative, Parainfluenza Type 2 (PCR) Negative, Parainfluenza Type 3 (PCR) Negative, Parainfluenza Type 4 (PCR) Negative, Respiratory Syncytial Virus (PCR) Negative 10/18/16 05:40: Albumin 3.4, Anion Gap 12.6, Basophils # (Auto) , Basophils (%) (Auto) , Blood Urea Nitrogen 9, Calcium Level 8.7L, Carbon Dioxide Level 27, Chloride Level 105 , Creatinine 0.45L, Eosinophils # (Auto) , Eosinophils (%) (Auto) , Estimat Glomerular Filtration Rate 189.7, Estimated GFR (Non- 156.8, Glucose Level 85#, Hematocrit 38.20, Hemoglobin 13.2, Lymphocytes # (Auto) , Lymphocytes (%) (Auto) , Mean Corpuscular Hemoglobin 34.6H, Mean Corpuscular Hemoglobin Concent 34.6, Mean Corpuscular Volume 100, Mean Platelet Volume 12.2H , Monocytes # (Auto) , Monocytes (%) (Auto) , Neutrophils # (Auto) , Neutrophils (%) (Auto) , Platelet Count 145L, Potassium Level 4.1, Red Blood Count 3.82L, Red Cell Distribution Width 12.6, Sodium Level 141#, White Blood Count 3.89L, Absolute Band Neutrophils 0.1, Ammonia 89.1H, Band Neutrophils % 2 , Basophils # (Manual) 0.0, Basophils % (Manual) 1, Blood Morphology Comment Normal, C-Reactive Protein 1.30H, Differential Total Cells Counted 100, Eosinophils # 0.2, Eosinophils % (Manual) 5H, Lymphocytes # 0.8, Lymphocytes % ( Manual) 20, Magnesium Level 2.3, Metamyelocytes % 0, Monocytes # 0.5, Monocytes % (Manual) 16H, CX-Xiu-T-Type Natriuretic Peptide 1600H, Neutrophils # 2.2, Phosphorus Level 4.6, Segmented Neutrophils % 56 10/19/16 06:00: Absolute Band Neutrophils 0.1, Alanine Aminotransferase (ALT/SGPT) 34, Albumin 3.9, Albumin/Globulin Ratio 1.500, Alkaline Phosphatase 241H, Ammonia 52.4H, Anion Gap 18.6H, Aspartate Amino Transf (AST/SGOT) 36, BUN/Creatinine Ratio 20, Band Neutrophils % 1, Basophils # (Auto) , Basophils # (Manual) 0.0, Basophils % (Manual) 0, Basophils (%) (Auto) , Blood Morphology Comment Normal, Blood Urea Nitrogen 10, C-Reactive Protein 2.00H, Calcium Level 9.3, Calcium/Ionized Calcium Ratio 4.3, Calculated Osmolality 269L, Carbon Dioxide Level 25, Chloride Level 101, Creatinine 0.49L, Differential Total Cells Counted 100, Eosinophils # 0.0, Eosinophils # (Auto) , Eosinophils % (Manual) 0, Eosinophils (%) (Auto) , Estimat Glomerular Filtration Rate 172.0, Estimated GFR (Non- 142.1, Glucose Level 67#L, Hematocrit 40.60, Hemoglobin 14.2, Lymphocytes # 1.0, Lymphocytes # (Auto) , Lymphocytes % (Manual) 13L, Lymphocytes (%) (Auto) , Mean Corpuscular Hemoglobin 34.5H, Mean Corpuscular Hemoglobin Concent 35.0, Mean Corpuscular Volume 99, Mean Platelet Volume 11.3H , Monocytes # 1.1, Monocytes # (Auto) , Monocytes % (Manual) 16H, Monocytes (%) (Auto) , Neutrophils # 5.1, Neutrophils # (Auto) , Neutrophils (%) (Auto) , Platelet Count 158, Potassium Level 3.7, Red Blood Count 4.11, Red Cell Distribution Width 12.4, Segmented Neutrophils % 70H, Sodium Level 141, Total Bilirubin 1.7#H, Total Protein 6.5, White Blood Count 7.33 10/20/16 05:45: Absolute Band Neutrophils 0.1, Alanine Aminotransferase (ALT/SGPT) 36, Albumin 4.0, Albumin/Globulin Ratio 1.481, Alkaline Phosphatase 221H, Ammonia 46.8H, Anion Gap 21.3H, Aspartate Amino Transf (AST/SGOT) 42H, BUN/Creatinine Ratio 25H , Band Neutrophils % 2, Basophils # (Auto) , Basophils # (Manual) 0.0, Basophils % (Manual) 0, Basophils (%) (Auto) , Blood Morphology Comment Normal, Blood Urea Nitrogen 15, Calcium Level 9.6, Calcium/Ionized Calcium Ratio 4.4, Calculated Osmolality 272L, Carbon Dioxide Level 26, Chloride Level 97L, Creatinine 0.59L, Differential Total Cells Counted 100, Eosinophils # 0.1, Eosinophils # (Auto) , Eosinophils % (Manual) 1, Eosinophils (%) (Auto) , Estimat Glomerular Filtration Rate 138.8, Estimated GFR (Non- 114.7, Glucose Level 85#, Hematocrit 42.90, Hemoglobin 15.2, Lymphocytes # 0.9, Lymphocytes # (Auto) , Lymphocytes % (Manual) 14L, Lymphocytes (%) (Auto) , Mean Corpuscular Hemoglobin 34.5H, Mean Corpuscular Hemoglobin Concent 35.4, Mean Corpuscular Volume 97, Mean Platelet Volume 12.1H, Monocytes # 1.2, Monocytes # (Auto) , Monocytes % (Manual) 20H, Monocytes (%) (Auto) , Neutrophils # 3.9, Neutrophils # (Auto) , Neutrophils (%) (Auto) , Platelet Count 182, Potassium Level 3.3L, Red Blood Count 4.41, Red Cell Distribution Width 12.4, Segmented Neutrophils % 63, Sodium Level 141, Total Bilirubin 2.1H, Total Protein 6.7, White Blood Count 6.12, Magnesium Level 2.2, Metamyelocytes % 0, Phosphorus Level 4.8 10/21/16 05:50: Absolute Band Neutrophils 0.1, Alanine Aminotransferase (ALT/SGPT) 33, Albumin 3.8, Albumin/Globulin Ratio 1.461, Alkaline Phosphatase 200H, Ammonia 69.1H, Anion Gap 15.1H, Aspartate Amino Transf (AST/SGOT) 42H, BUN/Creatinine Ratio 29H , Band Neutrophils % 2, Basophils # (Manual) 0.0, Basophils % (Manual) 0, Blood Morphology Comment Normal, Blood Urea Nitrogen 14, Calcium Level 9.2, Calcium/ Ionized Calcium Ratio 4.3, Calculated Osmolality 271L, Carbon Dioxide Level 26, Chloride Level 102, Creatinine 0.48L, Differential Total Cells Counted 100, Eosinophils # 0.1, Eosinophils % (Manual) 1, Estimat Glomerular Filtration Rate 176.1, Estimated GFR (Non- 145.5, Glucose Level 119#H, Hematocrit 42.40, Hemoglobin 14.8, Lymphocytes # 1.1, Lymphocytes % (Manual) 20 , Mean Corpuscular Hemoglobin 34.3H, Mean Corpuscular Hemoglobin Concent 34.9, Mean Corpuscular Volume 98, Mean Platelet Volume 11.9H, Monocytes # 0.7, Monocytes % (Manual) 13H, Neutrophils # 3.7, Platelet Count 178, Potassium Level 3.6, Red Blood Count 4.32, Red Cell Distribution Width 12.4, Segmented Neutrophils % 64, Sodium Level 139, Total Bilirubin 1.2H, Total Protein 6.4, White Blood Count 5.76, Magnesium Level 2.4H, Metamyelocytes % 0, Phosphorus Level 4.1 10/23/16 05:47: Absolute Band Neutrophils 0.2, Alanine Aminotransferase (ALT/SGPT) 32, Albumin 3.8, Albumin/Globulin Ratio 1.520, Alkaline Phosphatase 210H, Ammonia 30.1H, Anion Gap 17.7H, Aspartate Amino Transf (AST/SGOT) 66H, BUN/Creatinine Ratio 30H , Band Neutrophils % 3, Basophils # (Auto) , Basophils # (Manual) 0.0, Basophils % (Manual) 0, Basophils (%) (Auto) , Blood Morphology Comment Normal, Blood Urea Nitrogen 17, C-Reactive Protein 7.30H, Calcium Level 9.2, Calcium/ Ionized Calcium Ratio 4.3, Calculated Osmolality 273L, Carbon Dioxide Level 23, Chloride Level 105, Creatinine 0.56L, Differential Total Cells Counted 100, Eosinophils # 0.0, Eosinophils # (Auto) , Eosinophils % (Manual) 0, Eosinophils (%) (Auto) , Estimat Glomerular Filtration Rate 147.4, Estimated GFR (Non- 121.8, Glucose Level 81#, Hematocrit 42.80, Hemoglobin 15.0, Lymphocytes # 1.4, Lymphocytes # (Auto) , Lymphocytes % (Manual) 20, Lymphocytes (%) (Auto) , Mean Corpuscular Hemoglobin 34.2H, Mean Corpuscular Hemoglobin Concent 35.0, Mean Corpuscular Volume 98, Mean Platelet Volume 12.3H , Monocytes # 1.1, Monocytes # (Auto) , Monocytes % (Manual) 16H, Monocytes (%) (Auto) , Neutrophils # 4.3, Neutrophils # (Auto) , Neutrophils (%) (Auto) , Platelet Count 185, Potassium Level 4.1, Red Blood Count 4.39, Red Cell Distribution Width 12.5, Segmented Neutrophils % 61, Sodium Level 141, Total Bilirubin 2.6#H, Total Protein 6.3L, White Blood Count 7.11, Magnesium Level 2.4H, Metamyelocytes % 0, LO-Tbh-F-Type Natriuretic Peptide 2520H 10/24/16 06:15: Absolute Band Neutrophils 0.1, Alanine Aminotransferase (ALT/SGPT) 53, Albumin 4.2, Albumin/Globulin Ratio 1.312, Alkaline Phosphatase 246H, Ammonia 42.9H, Anion Gap 17.9H, Aspartate Amino Transf (AST/SGOT) 78H, BUN/Creatinine Ratio 40H , Band Neutrophils % 1, Basophils # (Auto) , Basophils # (Manual) 0.0, Basophils % (Manual) 0, Basophils (%) (Auto) , Blood Morphology Comment Normal, Blood Urea Nitrogen 29#H, C-Reactive Protein 13.60H, Calcium Level 8.9, Calcium/ Ionized Calcium Ratio 3.8, Calculated Osmolality 292, Carbon Dioxide Level 27, Chloride Level 106, Conjugated Bilirubin 0.4, Creatinine 0.73, Differential Total Cells Counted 100, Eosinophils # 0.0, Eosinophils # (Auto) , Eosinophils % (Manual) 0, Eosinophils (%) (Auto) , Estimat Glomerular Filtration Rate 108.5 , Estimated GFR (Non- 89.7, Glucose Level 169#H, Hematocrit 45.20H, Hemoglobin 15.9H, Lymphocytes # 1.0, Lymphocytes # (Auto) , Lymphocytes % (Manual) 12L, Lymphocytes (%) (Auto) , Mean Corpuscular Hemoglobin 34.3H, Mean Corpuscular Hemoglobin Concent 35.2, Mean Corpuscular Volume 97, Mean Platelet Volume 11.9H, Monocytes # 1.2, Monocytes # (Auto) , Monocytes % (Manual ) 15H, Monocytes (%) (Auto) , Neutrophils # 6.0, Neutrophils # (Auto) , Neutrophils (%) (Auto) , Platelet Count 189, Potassium Level 3.4L, Red Blood Count 4.64, Red Cell Distribution Width 12.6, Segmented Neutrophils % 72H, Sodium Level 147, Total Bilirubin 2.8H, Total Protein 7.4, White Blood Count 8.31 10/25/16 05:45: Absolute Band Neutrophils 0.0, Band Neutrophils % 0, Basophils # (Auto) , Basophils # (Manual) 0.0, Basophils % (Manual) 0, Basophils (%) (Auto) , Blood Morphology Comment Normal, Differential Total Cells Counted 100, Eosinophils # 0.0, Eosinophils # (Auto) , Eosinophils % (Manual) 0, Eosinophils (%) (Auto) , Hematocrit 44.40, Hemoglobin 15.3, Lymphocytes # 0.9, Lymphocytes # (Auto) , Lymphocytes % (Manual) 10L, Lymphocytes (%) (Auto) , Mean Corpuscular Hemoglobin 34.4H, Mean Corpuscular Hemoglobin Concent 34.5, Mean Corpuscular Volume 100, Mean Platelet Volume 12.6H, Monocytes # 1.0, Monocytes # (Auto) , Monocytes % (Manual) 13H, Monocytes (%) (Auto) , Neutrophils # 6.6, Neutrophils # (Auto) , Neutrophils (%) (Auto) , Platelet Count 215, Red Blood Count 4.45, Red Cell Distribution Width 12.9, Segmented Neutrophils % 77H, White Blood Count 8.52, Metamyelocytes % 0 10/25/16 07:40: Alanine Aminotransferase (ALT/SGPT) 65, Albumin 4.3, Albumin/Globulin Ratio 1.343, Alkaline Phosphatase 244H, Anion Gap 18.2H, Aspartate Amino Transf (AST/ SGOT) 89H, BUN/Creatinine Ratio 42H, Blood Urea Nitrogen 31H, C-Reactive Protein 6.30H, Calcium Level 8.8, Calcium/Ionized Calcium Ratio 3.7L, Calculated Osmolality 297, Carbon Dioxide Level 24, Chloride Level 112H, Creatinine 0.74, Estimat Glomerular Filtration Rate 106.9, Estimated GFR (Non- 88.3, Glucose Level 137H, Potassium Level 5.0#, Sodium Level 149, Total Bilirubin 2.3H, Total Protein 7.5, Magnesium Level 3.4#H, Phosphorus Level 3.8 MICRO SPEC #: [id number] FAN: 10/16/16 STATUS: COMP REQ #: [id number] RECD: 10/16/[address]: JONNY QUINN MD Order Location: ED SOURCE: URINE DESCRIPTION: U CATH Procedure Result Verified URINE CULTURE Final Verified 12/21/16-0731 AM Source: URINE / STRAIGHT CATH, IN/OUT Order Location: EMERGENCY Site: U CATH Received : 10/17/16 13:23 Order#: [id number] Urine Culture FINAL 10/19/16 07:30 S Escherichia coli >100,000 cfu/ml E. coli Antibiotic AVIS INT Ampicillin >=32 R Ampicillin/sulbactam 16 I Cefazolin <=4 S Ceftriaxone <=1 S Ciprofloxacin 1 S Gentamicin <=1 S Nitrofurantoin <=16 S Trimethoprim/Sulfa >=320 R S=SUSCEPTIBLE I=INTERMEDIATE R=RESISTANT S-DD= SUSCEPTIBLE, DOSE DEPENDENT 10/17 Resp PCR Panel Negative IMAGING 10/23/16 ACUTE ABD SERIES Indication: Constipation and pneumonia Comparison: Abdomen dated 10/22/2016 and chest 12/01/2015 Findings: PA chest: Left Port-A- Cath is unchanged. The tip appears to be in the right atrium. Cardiomegaly with mild prominence pulmonary vascularity appears similar to the prior study. Some streaky atelectasis or scarring at the left midlung and right upper lung appears stable. No new pulmonary parenchymal abnormality is suspected. Abdomen: Gastrostomy catheter over the left upper quadrant is unchanged. There has been significant improvement in appearance of bowel gas pattern since the prior study with significant decrease in the extent of colonic distention. There is some persistent prominent colon and air-filled small bowel. Findings are likely related to improving ileus. There is chronic deformity of the pelvis. Impression : 1. Stable appearance of the chest as described 2. Moderate improvement since the recent prior abdominal series with findings suggestive of improving ileus as described. 10/22/16 ABDOMEN (FLAT PLATE) 1VIEW Indication: Vomiting, abdominal distention Comparison: August 20, 2016 Technique: Single radiograph of the abdomen dated October 22, 2016. Findings: Percutaneous gastrostomy catheter is again seen overlying the upper abdomen. Significant gaseous distention of the colon is identified, increased from the prior examination. This now measures up to 13.8 cm. No definite free air. Osseous structures appear stable. Impression: Increasing distention of the colon. Findings may relate to worsening ileus. However, distal colonic obstruction not excluded. Recommend clinical correlation. 10/20/16 ACUTE ABD SERIES EXAMINATION: Abdominal radiographs, acute series. DATE : October 20, 2016. CLINICAL INDICATION: 36-year-old female, constipation. G- tube dysfunction. COMPARISON: October 18, 2016. COMMENTS: There is a left- sided venous line with tip projecting over the expected position of the upper right atrium. The heart appears enlarged. There is no identified pneumothorax or large pleural effusion. The gastrostomy tube projects over the expected position of the stomach. There is enteric contrast material within the transverse colon and right colon. There is no identified free intraperitoneal air. There is mild gaseous distention of large bowel which is less prominent compared to prior exam. IMPRESSION: 1. Gastrostomy tube projects over the expected position of the stomach. 2. Mild gaseous distention of bowel most likely involving loops of large bowel which is less prominent compared to prior exam. 10/18/16 SMALL BOWEL STUDY INDICATION: Abdominal pain and distention. FINDINGS: Floor Runner radiographs of the abdomen reveal diffuse dilatation of colon containing moderate to large amount of stool. Gastrografin contrast was injected through the indwelling gastrostomy tube. Contrast opacifies mildly prominent small bowel loops with contrast reaching the distal small bowel and proximal colon after 5-1/2 hours. IMPRESSION: Findings are compatible with constipation. There is mild delay in small bowel transit with transit time of 5.5 hours. No obstruction is seen. 10/17/16 ECHO: Summary: Technically challenging study. Normal cardiac chamber sizes. Normal LV wall thickness. Intact LV systolic function with estimated EF 61%. Thickened aortic valve, with no significant stenosis or insufficiency. No significant mitral or tricuspid insufficiency. No pericardial effusion. 10/16/16 ACUTE ABD SERIES INDICATION: Abdominal pain COMPARISON: 09/14/2016 FINDINGS: Frontal chest: Left-sided Port-A-Cath is unchanged. Heart size is enlarged but stable. Mild pulmonary venous congestion is unchanged. Some patchy perihilar infiltrate is again demonstrated. No pleural fluid is seen. Abdomen: Gastrostomy tube is again seen overlying the stomach. The bowel gas pattern appears unremarkable with the exception of moderate amount of stool in the colon. There is no evidence of free intraperitoneal air. No abnormal calcifications are suspected. Deformity of the bony pelvis is again demonstrated. IMPRESSION: 1. In the chest, there is persistent cardiomegaly with mild pulmonary vascular congestion and patchy perihilar airspace disease similar to the prior study. 2. No acute abdominal abnormality is suspected. ASSESSMENT Kelly Jackson is a 36 year old female admitted from ED 10/17 where she presented for the second time in two days. She had a recent diagnosis of conjunctivitis and developed acute respiratory distress, vomiting after tube feeds, increased lethargy, and increased weight. She had a significant murmur on exam and pulmonary edema on admit imaging. 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 She was found to have multiple acute issues as outlined including constipation, pneumonia, UTI, and hyperammonemia. PLAN * Acute Respiratory Distress: Improved. URI? Heart failure less likely based on echo. Also concern for pneumonia. Resp PCR panel negative. Workup for heart failure as noted. Improved with diuresis. Oxygen protocol. * Asthma: Duoneb TID, albuterol PRN. * Community Acquired Pneumonia: Resolving. Clinical diagnosis. Blood culture not obtained on admit. No sputum for culture. Allergy to PCN noted. Unable to participate in acapella or IS. NT suction PRN. Levofloxacin course completed. * UTI Due to E coli: Culture as noted. Levofloxacin course completed. * Ileus: Resolved. Due to constipation, then later perhaps aggravated by lactulose. Small bowel follow-through as noted. Serial exam and imaging as noted. * Congestive Heart Failure due to Fluid Overload: On the basis of murmur, CXR, pulmonary exam, edema. Echo as noted. Improved with furosemide. Monitor daily weight. I&O difficult to monitor due to incontinence. * Edema: Monitor I&O, daily weight. Furosemide increased to IV dosing 10/22. Stopped after last dose 10/23. * Nausea/Vomiting: Had resolved but had recurrent episode 10/22. Attributed to constipation initially. Likely not tolerating lactulose. Ondansetron for nausea. Improved with bowel rest and cessation of lactulose. * Constipation: Bowel regimen. * Altered Mental Status: Improving. Due to infection, ammonia. Treat underlying problems. * Hyperammonemia: Attributed to valproic acid adverse effect. Hold valproate. Lactulose on hold due to poor tolerance. Monitor ammonia trend. * Hyperbilirubinemia, Elevated AST: Cholestasis from volume contraction? Still not improving. Hepatitis panel, abdominal sono ordered. * Medication Adverse Effect: Due to lactulose. Worse bloating, nausea/vomiting with this medication. Hold lactulose. * Conjunctivitis: Polymixin/trimethoprim eye drops, moisturizing eye drops. Warm compress. * F/E/N: Peripheral IV. Tube feeds. I&O, daily weight. * Prophylaxis: SCDs. * Code Status: Full * Dispo: Inpatient. Discharge still deferred. Tolerating feeds now, and mental status improving. But now needs hepatic workup. CHRONIC ISSUES * Seizure disorder: Topiramate. Hold valproic acid due to hyperammonemia. Follow -up with Dr. Mckeon post-discharge. * Constipation: Bowel regimen * Hypothyroidism: Levothyroxine * GERD: Famotidine * Seasonal allergies: Cetirizine * HTN? Diltiazem. Verify indication. * Eczema: Observe * Marcela de Pike syndrome: Observe. MARYBETH FERNANDO MD Oct 26, 2016 13:41
--- NOTE | 2016-10-26 13:51 | PT Daily Note Inpatient (E) ---
PT Daily Treatment Service Date/Time 10/26/16, 13:37 Medical Diagnosis: (1) Dehydration ICD Code: E86.0 Physical Therapy: (1) Weakness generalized ICD Code: R53.1 Precaution/Isolation: Standard Precautions Resuscitation Status: Full Code Fall Level: High Risk 51 or greater Subjective Pt resting in bed. Oxygen Delivery: Room air O2 liters/minute: 0 Treatments Sit, Stand, Supine: Supine, Sitting Extremity: Both Lower Extremity Assistance: PROM Repetition: 1 x 10 Exercise: AP, Heel Slides, Hip Abduction, SLR, LAQ Transfers Rolling: Moderate Assistance Sit-Supine: Moderate Assistance Sitting Edge of Bed: Minimal Assistance Supine-Sit: Moderate Assistance Sit-Stand from bed: Moderate Assistance Gait Stood at edge of bed with max assist x 1 for about 20 seconds. Attempted to take a step but pt was unable to . Pt then lifted back up onto bed with max assist x 2. Sitting at edge of bed x 2 minutes with min assist for balance as pt tended to lean to left. Education/Plan Assessment Minimal participation from patient. Plan Patient will be seen: Daily Monday-Monday Coding Time In: 13:32 Time Out: 13:49 Total Minutes: 17 Codes/Units: 57019 Exercise Therp 15 m Ziggy Godwin [employer] Oct 26, 2016 13:51
[2016-10-26 16:12] VITALS: BP 100/66
[2016-10-26 18:13] LABS: HEPATITIS A ANTIBODY IGM Negative; HEPATITIS B CORE ABY IGM Negative; HEPATITIS B SURFACE ANTIGEN C Negative
--- NOTE | 2016-10-26 18:30 | NUR ---
Patient given tube feeding of 120 mls of Two [place] HN for first half of feeding. Dr. Prabhakar notified of this formula being given. No new orders. Plan to give remainder of feeding with Jevity formula. Patient tolerated feeding well. Will allow patient at least 30 minutes before completing volume of feeding.
[2016-10-26 20:00] VITALS: BP 124/68
--- NOTE | 2016-10-26 20:00 | NUR ---
Patient given Jevity 120 MLs per peg tube. Tolerated well. Head of bed left elevated following feeding.
[2016-10-26] MEDS: toPIRamate 25 MG (TOPAMAX) TAB PO SCH (21:13)
[2016-10-26] MEDS: CARBOXYMETHYLCELLULOSE 1% (CELLUVISC) OPHTHALMIC DROPS OU SCH (21:14)
[2016-10-26] MEDS: CETIRIZINE 1 MG/ML GT SCH (21:14)
[2016-10-27] VITALS (8 sets, daily range): BP systolic 86–106; BP diastolic 46–73
--- NOTE | 2016-10-27 05:02 | NUR ---
Pt is resting in bed asleep, resp are even and nonlabored. Has been changed and turned every 2hrs. Does not appear in pain during this shift. Pt is able to tolerate HS tube feeding, will not give 0600 tube feeding until after ultrasound. Bed alarm on, call light in reach, will continue to monitor frequently.
[2016-10-27 06:36] LABS: BASOPHILS % (AUTO) 1 % (0-2); EOSINOPHILS % (AUTO) 0 % (0-4); LYMPHOCYTES # (AUTO) 1.8 X10^3; MEAN CORPUSCULAR HGB CONC 33.9 g/dL (31.0-37.0); MEAN PLATELET VOLUME 12.4 FL (6.0-9.5); MONOCYTES # (AUTO) 1.3 X10^3; MONOCYTES % (AUTO) 13 % (3-11); NEUTROPHILS # (AUTO) 6.3 X10^3; NEUTROPHILS % (AUTO) 67 % (51-67); PLATELET COUNT 190 10^3uL (150-450); WHITE BLOOD COUNT 9.47 10^3uL (4.0-11.0)
[2016-10-27 06:48] LABS: MEAN CORPUSCULAR VOLUME 103 FL (80-100)
[2016-10-27 07:09] LABS: ANION GAP 21.7 MEQ/L (3-15); CALCULATED IONIZED CALCIUM 3.7 mg/dL (3.8-4.6); TOTAL PROTEIN 7.5 g/dL (6.4-8.5)
[2016-10-27] MEDS: ALBUTEROL/IPRATROPIUM 3MG-0.5MG/3ML (DUONEB) NEB VIAL INH SCH ×3 (08:09→20:43)
--- NOTE | 2016-10-27 08:11 | NUR ---
Pt found lying in bed on RA, SPO2 91%, HR 126, RR 18 and non labored with clear BS before and after Duoneb via SVN/MASK which was tolerated well.
--- NOTE | 2016-10-27 09:09 | PT Daily Note Inpatient (E) ---
PT Daily Treatment Service Date/Time 10/27/16, 09:00 Medical Diagnosis: (1) Dehydration ICD Code: E86.0 Physical Therapy: (1) Weakness generalized ICD Code: R53.1 Precaution/Isolation: Standard Precautions Resuscitation Status: Full Code Fall Level: High Risk 51 or greater Subjective Pt resting in bed with eyes open and looking around. Oxygen Delivery: Room air O2 liters/minute: 0 Treatments Sit, Stand, Supine: Supine Extremity: Both Lower Extremity Assistance: PROM Repetition: 1 x 10 Exercise: AP, Heel Slides, Hip Abduction, SLR Transfers Sit-Supine: Maximal Assistance (to lift legs and to position back in bed.) Sitting Edge of Bed: Moderate Assistance (sitting EOB about 4 minutes. Pt able to shift wt but unable to maintain balance. Increased difficulty holding head up as she fatigued.) Supine-Sit: Maximal Assistance (Pt able to use trunk mm's to help pull self up but unable to use arms.) Education/Plan Assessment Pt able to participate minimally with sitting activity but fatigued quickly. Plan Patient will be seen: Daily Monday-Monday Coding Time In: 8:43 Time Out: 8:59 Total Minutes: 16 Codes/Units: 24709 Exercise Therp 15 m (16 min.) Ziggy Godwin PTA Oct 27, 2016 09:09
[2016-10-27] MEDS: SODIUM CHLORIDE FLUSH 10 ML SYR IV SCH (09:56)
[2016-10-27] MEDS: SULFAMETHOXAZOLE PO SCH ×2 (09:57→21:27)
[2016-10-27] MEDS: DOCUSATE 100 MG/10 ML GT SCH ×2 (09:57→21:28)
[2016-10-27] MEDS: ARTIFICIAL TEARS (REFRESH) OPHTHALMIC DROPS OU SCH (09:57)
[2016-10-27] MEDS: guaiFENesin SYRUP 200 MG/10 ML (ROBITUSSIN) UDC GT SCH ×2 (09:57→21:41)
[2016-10-27] MEDS: TRIMETHOPRIM PO SCH ×2 (09:57→21:27)
[2016-10-27] MEDS: DILTIAZEM CD 120 MG (CARDIZEM CD) CAP PO SCH (09:57)
[2016-10-27] MEDS: POLYETHYLENE GLYCOL 17 GM (MIRALAX) PACKET PO SCH (09:58)
[2016-10-27] MEDS: FAMOTIDINE 40 MG/5 ML GT SCH ×2 (09:58→21:28)
[2016-10-27] MEDS: POTASSIUM CHLORIDE ORAL SOLUTION 20 MEQ/15 ML (KCL) UDC PO SCH ×2 (09:58→21:41)
[2016-10-27] MEDS: ENOXAPARIN 40 MG/0.4 ML (LOVENOX) SYR SC SCH (09:58)
[2016-10-27] MEDS: CARBAMAZEPINE 100 MG/5 ML GT SCH ×3 (09:59→17:17)
[2016-10-27] MEDS: LEVOTHYROXINE 75 MCG (LEVOTHROID) TABLET GT SCH (09:59)
[2016-10-27] MEDS: SENNOSIDES 8.6 MG (SENOKOT) TAB GT SCH (09:59)
--- NOTE | 2016-10-27 10:14 | Diagnostic Imaging Report ---
PROCEDURE: US abdomen complete. TECHNIQUE: Multiple real-time grayscale images were obtained over the abdomen in various projections. INDICATION: Possible cirrhosis. Patient has history of Marcela de Pike syndrome FINDINGS: Study is limited due to patient's inability to cooperate. The liver measures approximately 12.7 cm. There is normal echogenicity with no evidence of focal liver lesions. The bile ducts are not dilated. The common duct measures 3 mm. Gallbladder shows multiple gallstones. The gallbladder wall does not appear thickened. There is a gastric tube present. The pancreas is not visualized. Proximal and mid aorta are visualized and are not dilated. IVC appears normal. The right kidney measures 10.4 x 5.2 x 4.1 cm. The left kidney measures 11.5 x 4.6 x 4.1 cm. IMPRESSION: 1. Cholelithiasis with no evidence of gallbladder wall thickening or bile duct dilatation. 2. Liver parenchyma is homogeneous in appearance with no evidence of hepatomegaly. Dictated by: Dictated on workstation # [id number]
[2016-10-27] MEDS: THERAPEUTIC MULTIVITAMINS LIQUID 5 ML UDC GT SCH (12:31)
[2016-10-27] MEDS: D5W 1000 ML 1,000 ML IV SCH (13:01)
--- NOTE | 2016-10-27 14:15 | NUR ---
Pt found lying in bed on RA, SPO2 92%, HR 109, RR 16 and non labored with clear BS before and after Duoneb via SVN/MASK which was tolerated well.
--- NOTE | 2016-10-27 15:43 | NUR ---
MULTIDISCIPLINARY MTG/DR. FERNANDO: Pt. treated for feeding dysfunction and ileus which has resolved. Pt. sodium is 160 today. ordered D5 water at 50ml/hr and increased free water flushes. CRP is down to 2.6. AST and ALT is still elevated. Hepatitis panel is negative. Pt. to possibly discharge tomorrow. No discharge needs identified at this time.
--- NOTE | 2016-10-27 16:36 | Progress Note (E) ---
Progress Note SUBJECTIVE Tolerating full feeds. Not getting enough free water... Na shamika to 160 over the last two days. D5W infusing and giving increased free water per PEG tube. Abdominal sono reassuring though transaminitis continues. Ammonia improving. Discharge deferred due to hypernatremia. On exam, she does not appears as relaxed and comfortable as yesterday. Breathing more rapidly. Temp elevation this afternoon at 101.7. Giving lower-dose acetaminophen (in light of mild transaminitis that persists.) Noted WBC this AM was not elevated and that CRP is improving. Has not had urine checked since admit. Noted that hepatitis panel was negative. Noted that respiratory PCR panel was negative. OBJECTIVE Vital Signs Date Time Temp Pulse Resp B/P Pulse Ox O2 Delivery O2 Flow Rate FiO2 10/27/16 11:26 97.6 135 28 106/67 93 Room air 10/27/16 00:52 0.00 I & O 10/26/16 10/27/16 Cumulative From/Thru 19:00 07:00 10/16/16 21:35 - 10/27/16 06:37 Intake Total 0 ml 440 ml 1790 ml Output Total 75845 ml 1182 ml 70643 ml Balance -25660 ml -742 ml -44026 ml GEN: Resting in bed. Stirs to exam. But appears less interactive. Breathing more rapidly. 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 Dry skin. Clear sclerae. Somewhat dry oral mucosa. Mildly injected right sclera but improving. Tearing from right eye but sclerae do not appear injected. CV: Regular, prominent 3/6 systolic murmur, crescendo/decrescendo. PULM: Breath sounds clear though rate increased from baseline and some congestion noted in upper airway. No rales or rhonchi. ABD: Soft, tolerates exam. No apparent tenderness. Not distended. Active bowel sounds. EXTR: Warm, well-perfused. Left arm is hyperemic but edema in upper extremities is improved. INTEG: Dry skin. Left arm hyperemia as noted. NEURO: Non-verbal. Lab-Past 14 Days, 35 Results 10/16/16 22:32: Alanine Aminotransferase (ALT/SGPT) 33, Albumin 3.8, Albumin/Globulin Ratio 1.520, Alkaline Phosphatase 268H, Anion Gap 15.5H, Aspartate Amino Transf (AST/ SGOT) 33, BUN/Creatinine Ratio 26H, Basophils # (Auto) 0.0, Basophils (%) (Auto ) 1, Blood Urea Nitrogen 9, Calcium Level 8.9, Calcium/Ionized Calcium Ratio 4.2 , Calculated Osmolality 260L, Carbon Dioxide Level 27, Chloride Level 96L, Creatinine 0.34L, Eosinophils # (Auto) 0.1, Eosinophils (%) (Auto) 1, Estimat Glomerular Filtration Rate 262.2, Estimated GFR (Non- 216.7, Glucose Level 136H, Hematocrit 41.30, Hemoglobin 14.7, Lipase 75, Lymphocytes # (Auto) 0.5, Lymphocytes (%) (Auto) 7L, Mean Corpuscular Hemoglobin 34.3H, Mean Corpuscular Hemoglobin Concent 35.6, Mean Corpuscular Volume 96, Mean Platelet Volume 11.9H, Monocytes # (Auto) 0.9, Monocytes (%) (Auto) 12H, Neutrophils # ( Auto) 5.7, Neutrophils (%) (Auto) 79H, Platelet Count 157, Potassium Level 3.6# , Red Blood Count 4.29, Red Cell Distribution Width 12.0, Sodium Level 134L, Total Bilirubin 0.8, Total Protein 6.3L, White Blood Count 7.21 10/16/16 23:05: Urine Amorphous Sediment 4+H, Urine Bacteria None seen, Urine Bilirubin Negative , Urine Clarity Cloudy, Urine Collection Type Catheter, Urine Color Dark yellow , Urine Glucose (UA) Negative, Urine Hyaline Casts 2+, Urine Ketones 1+H, Urine Leukocyte Esterase 1+H, Urine Mucus 2+H, Urine Nitrite Negative, Urine Protein Negative, Urine RBC 0-2, Urine RBC (Auto) 2+H, Urine Specific [place] 1.015, Urine Squamous Epithelial Cells 2-5, Urine Urobilinogen 0.2, Urine WBC 5-10H, Urine pH 8.0, Volume Urine Centrifuged 12 ml 10/17/16 17:58: Adenovirus (PCR) Negative, Bordetella parapertussis DNA (PCR) Negative, Chlamydophila pneumoniae (PCR) Negative, Coronavirus Type 229E (PCR) Negative, Coronavirus Type HKU1 (PCR) Negative, Coronavirus Type NL63 (PCR) Negative, Coronavirus Type OC43 (PCR) Negative, Enterovirus/Rhinovirus (PCR) Negative, Human Metapneumovirus (PCR) Negative, Influenza Type A (H1) (PCR) Negative, Influenza Virus Type B (PCR) Negative, Mycoplasma pneumoniae (PCR) Negative, Parainfluenza Type 1 (PCR) Negative, Parainfluenza Type 2 (PCR) Negative, Parainfluenza Type 3 (PCR) Negative, Parainfluenza Type 4 (PCR) Negative, Respiratory Syncytial Virus (PCR) Negative 10/18/16 05:40: Albumin 3.4, Anion Gap 12.6, Basophils # (Auto) , Basophils (%) (Auto) , Blood Urea Nitrogen 9, Calcium Level 8.7L, Carbon Dioxide Level 27, Chloride Level 105 , Creatinine 0.45L, Eosinophils # (Auto) , Eosinophils (%) (Auto) , Estimat Glomerular Filtration Rate 189.7, Estimated GFR (Non- 156.8, Glucose Level 85#, Hematocrit 38.20, Hemoglobin 13.2, Lymphocytes # (Auto) , Lymphocytes (%) (Auto) , Mean Corpuscular Hemoglobin 34.6H, Mean Corpuscular Hemoglobin Concent 34.6, Mean Corpuscular Volume 100, Mean Platelet Volume 12.2H , Monocytes # (Auto) , Monocytes (%) (Auto) , Neutrophils # (Auto) , Neutrophils (%) (Auto) , Platelet Count 145L, Potassium Level 4.1, Red Blood Count 3.82L, Red Cell Distribution Width 12.6, Sodium Level 141#, White Blood Count 3.89L, Absolute Band Neutrophils 0.1, Ammonia 89.1H, Band Neutrophils % 2 , Basophils # (Manual) 0.0, Basophils % (Manual) 1, Blood Morphology Comment Normal, C-Reactive Protein 1.30H, Differential Total Cells Counted 100, Eosinophils # 0.2, Eosinophils % (Manual) 5H, Lymphocytes # 0.8, Lymphocytes % ( Manual) 20, Magnesium Level 2.3, Metamyelocytes % 0, Monocytes # 0.5, Monocytes % (Manual) 16H, RI-Mcw-T-Type Natriuretic Peptide 1600H, Neutrophils # 2.2, Phosphorus Level 4.6, Segmented Neutrophils % 56 10/19/16 06:00: Absolute Band Neutrophils 0.1, Alanine Aminotransferase (ALT/SGPT) 34, Albumin 3.9, Albumin/Globulin Ratio 1.500, Alkaline Phosphatase 241H, Ammonia 52.4H, Anion Gap 18.6H, Aspartate Amino Transf (AST/SGOT) 36, BUN/Creatinine Ratio 20, Band Neutrophils % 1, Basophils # (Auto) , Basophils # (Manual) 0.0, Basophils % (Manual) 0, Basophils (%) (Auto) , Blood Morphology Comment Normal, Blood Urea Nitrogen 10, C-Reactive Protein 2.00H, Calcium Level 9.3, Calcium/Ionized Calcium Ratio 4.3, Calculated Osmolality 269L, Carbon Dioxide Level 25, Chloride Level 101, Creatinine 0.49L, Differential Total Cells Counted 100, Eosinophils # 0.0, Eosinophils # (Auto) , Eosinophils % (Manual) 0, Eosinophils (%) (Auto) , Estimat Glomerular Filtration Rate 172.0, Estimated GFR (Non- 142.1, Glucose Level 67#L, Hematocrit 40.60, Hemoglobin 14.2, Lymphocytes # 1.0, Lymphocytes # (Auto) , Lymphocytes % (Manual) 13L, Lymphocytes (%) (Auto) , Mean Corpuscular Hemoglobin 34.5H, Mean Corpuscular Hemoglobin Concent 35.0, Mean Corpuscular Volume 99, Mean Platelet Volume 11.3H , Monocytes # 1.1, Monocytes # (Auto) , Monocytes % (Manual) 16H, Monocytes (%) (Auto) , Neutrophils # 5.1, Neutrophils # (Auto) , Neutrophils (%) (Auto) , Platelet Count 158, Potassium Level 3.7, Red Blood Count 4.11, Red Cell Distribution Width 12.4, Segmented Neutrophils % 70H, Sodium Level 141, Total Bilirubin 1.7#H, Total Protein 6.5, White Blood Count 7.33 10/20/16 05:45: Absolute Band Neutrophils 0.1, Alanine Aminotransferase (ALT/SGPT) 36, Albumin 4.0, Albumin/Globulin Ratio 1.481, Alkaline Phosphatase 221H, Ammonia 46.8H, Anion Gap 21.3H, Aspartate Amino Transf (AST/SGOT) 42H, BUN/Creatinine Ratio 25H , Band Neutrophils % 2, Basophils # (Auto) , Basophils # (Manual) 0.0, Basophils % (Manual) 0, Basophils (%) (Auto) , Blood Morphology Comment Normal, Blood Urea Nitrogen 15, Calcium Level 9.6, Calcium/Ionized Calcium Ratio 4.4, Calculated Osmolality 272L, Carbon Dioxide Level 26, Chloride Level 97L, Creatinine 0.59L, Differential Total Cells Counted 100, Eosinophils # 0.1, Eosinophils # (Auto) , Eosinophils % (Manual) 1, Eosinophils (%) (Auto) , Estimat Glomerular Filtration Rate 138.8, Estimated GFR (Non- 114.7, Glucose Level 85#, Hematocrit 42.90, Hemoglobin 15.2, Lymphocytes # 0.9, Lymphocytes # (Auto) , Lymphocytes % (Manual) 14L, Lymphocytes (%) (Auto) , Mean Corpuscular Hemoglobin 34.5H, Mean Corpuscular Hemoglobin Concent 35.4, Mean Corpuscular Volume 97, Mean Platelet Volume 12.1H, Monocytes # 1.2, Monocytes # (Auto) , Monocytes % (Manual) 20H, Monocytes (%) (Auto) , Neutrophils # 3.9, Neutrophils # (Auto) , Neutrophils (%) (Auto) , Platelet Count 182, Potassium Level 3.3L, Red Blood Count 4.41, Red Cell Distribution Width 12.4, Segmented Neutrophils % 63, Sodium Level 141, Total Bilirubin 2.1H, Total Protein 6.7, White Blood Count 6.12, Magnesium Level 2.2, Metamyelocytes % 0, Phosphorus Level 4.8 10/21/16 05:50: Absolute Band Neutrophils 0.1, Alanine Aminotransferase (ALT/SGPT) 33, Albumin 3.8, Albumin/Globulin Ratio 1.461, Alkaline Phosphatase 200H, Ammonia 69.1H, Anion Gap 15.1H, Aspartate Amino Transf (AST/SGOT) 42H, BUN/Creatinine Ratio 29H , Band Neutrophils % 2, Basophils # (Manual) 0.0, Basophils % (Manual) 0, Blood Morphology Comment Normal, Blood Urea Nitrogen 14, Calcium Level 9.2, Calcium/ Ionized Calcium Ratio 4.3, Calculated Osmolality 271L, Carbon Dioxide Level 26, Chloride Level 102, Creatinine 0.48L, Differential Total Cells Counted 100, Eosinophils # 0.1, Eosinophils % (Manual) 1, Estimat Glomerular Filtration Rate 176.1, Estimated GFR (Non- 145.5, Glucose Level 119#H, Hematocrit 42.40, Hemoglobin 14.8, Lymphocytes # 1.1, Lymphocytes % (Manual) 20 , Mean Corpuscular Hemoglobin 34.3H, Mean Corpuscular Hemoglobin Concent 34.9, Mean Corpuscular Volume 98, Mean Platelet Volume 11.9H, Monocytes # 0.7, Monocytes % (Manual) 13H, Neutrophils # 3.7, Platelet Count 178, Potassium Level 3.6, Red Blood Count 4.32, Red Cell Distribution Width 12.4, Segmented Neutrophils % 64, Sodium Level 139, Total Bilirubin 1.2H, Total Protein 6.4, White Blood Count 5.76, Magnesium Level 2.4H, Metamyelocytes % 0, Phosphorus Level 4.1 10/23/16 05:47: Absolute Band Neutrophils 0.2, Alanine Aminotransferase (ALT/SGPT) 32, Albumin 3.8, Albumin/Globulin Ratio 1.520, Alkaline Phosphatase 210H, Ammonia 30.1H, Anion Gap 17.7H, Aspartate Amino Transf (AST/SGOT) 66H, BUN/Creatinine Ratio 30H , Band Neutrophils % 3, Basophils # (Auto) , Basophils # (Manual) 0.0, Basophils % (Manual) 0, Basophils (%) (Auto) , Blood Morphology Comment Normal, Blood Urea Nitrogen 17, C-Reactive Protein 7.30H, Calcium Level 9.2, Calcium/ Ionized Calcium Ratio 4.3, Calculated Osmolality 273L, Carbon Dioxide Level 23, Chloride Level 105, Creatinine 0.56L, Differential Total Cells Counted 100, Eosinophils # 0.0, Eosinophils # (Auto) , Eosinophils % (Manual) 0, Eosinophils (%) (Auto) , Estimat Glomerular Filtration Rate 147.4, Estimated GFR (Non- 121.8, Glucose Level 81#, Hematocrit 42.80, Hemoglobin 15.0, Lymphocytes # 1.4, Lymphocytes # (Auto) , Lymphocytes % (Manual) 20, Lymphocytes (%) (Auto) , Mean Corpuscular Hemoglobin 34.2H, Mean Corpuscular Hemoglobin Concent 35.0, Mean Corpuscular Volume 98, Mean Platelet Volume 12.3H , Monocytes # 1.1, Monocytes # (Auto) , Monocytes % (Manual) 16H, Monocytes (%) (Auto) , Neutrophils # 4.3, Neutrophils # (Auto) , Neutrophils (%) (Auto) , Platelet Count 185, Potassium Level 4.1, Red Blood Count 4.39, Red Cell Distribution Width 12.5, Segmented Neutrophils % 61, Sodium Level 141, Total Bilirubin 2.6#H, Total Protein 6.3L, White Blood Count 7.11, Magnesium Level 2.4H, Metamyelocytes % 0, Hepatitis A IgM Antibody Negative, Hepatitis B Core IgM Antibody Negative, Hepatitis B Surface Antigen Negative, Hepatitis C Antibody Negative, RM-Hpo-N-Type Natriuretic Peptide 2520H 10/24/16 06:15: Absolute Band Neutrophils 0.1, Alanine Aminotransferase (ALT/SGPT) 53, Albumin 4.2, Albumin/Globulin Ratio 1.312, Alkaline Phosphatase 246H, Ammonia 42.9H, Anion Gap 17.9H, Aspartate Amino Transf (AST/SGOT) 78H, BUN/Creatinine Ratio 40H , Band Neutrophils % 1, Basophils # (Auto) , Basophils # (Manual) 0.0, Basophils % (Manual) 0, Basophils (%) (Auto) , Blood Morphology Comment Normal, Blood Urea Nitrogen 29#H, C-Reactive Protein 13.60H, Calcium Level 8.9, Calcium/ Ionized Calcium Ratio 3.8, Calculated Osmolality 292, Carbon Dioxide Level 27, Chloride Level 106, Conjugated Bilirubin 0.4, Creatinine 0.73, Differential Total Cells Counted 100, Eosinophils # 0.0, Eosinophils # (Auto) , Eosinophils % (Manual) 0, Eosinophils (%) (Auto) , Estimat Glomerular Filtration Rate 108.5 , Estimated GFR (Non- 89.7, Glucose Level 169#H, Hematocrit 45.20H, Hemoglobin 15.9H, Lymphocytes # 1.0, Lymphocytes # (Auto) , Lymphocytes % (Manual) 12L, Lymphocytes (%) (Auto) , Mean Corpuscular Hemoglobin 34.3H, Mean Corpuscular Hemoglobin Concent 35.2, Mean Corpuscular Volume 97, Mean Platelet Volume 11.9H, Monocytes # 1.2, Monocytes # (Auto) , Monocytes % (Manual ) 15H, Monocytes (%) (Auto) , Neutrophils # 6.0, Neutrophils # (Auto) , Neutrophils (%) (Auto) , Platelet Count 189, Potassium Level 3.4L, Red Blood Count 4.64, Red Cell Distribution Width 12.6, Segmented Neutrophils % 72H, Sodium Level 147, Total Bilirubin 2.8H, Total Protein 7.4, White Blood Count 8.31 10/25/16 05:45: Absolute Band Neutrophils 0.0, Band Neutrophils % 0, Basophils # (Auto) , Basophils # (Manual) 0.0, Basophils % (Manual) 0, Basophils (%) (Auto) , Blood Morphology Comment Normal, Differential Total Cells Counted 100, Eosinophils # 0.0, Eosinophils # (Auto) , Eosinophils % (Manual) 0, Eosinophils (%) (Auto) , Hematocrit 44.40, Hemoglobin 15.3, Lymphocytes # 0.9, Lymphocytes # (Auto) , Lymphocytes % (Manual) 10L, Lymphocytes (%) (Auto) , Mean Corpuscular Hemoglobin 34.4H, Mean Corpuscular Hemoglobin Concent 34.5, Mean Corpuscular Volume 100, Mean Platelet Volume 12.6H, Monocytes # 1.0, Monocytes # (Auto) , Monocytes % (Manual) 13H, Monocytes (%) (Auto) , Neutrophils # 6.6, Neutrophils # (Auto) , Neutrophils (%) (Auto) , Platelet Count 215, Red Blood Count 4.45, Red Cell Distribution Width 12.9, Segmented Neutrophils % 77H, White Blood Count 8.52, Metamyelocytes % 0 10/25/16 07:40: Alanine Aminotransferase (ALT/SGPT) 65, Albumin 4.3, Albumin/Globulin Ratio 1.343, Alkaline Phosphatase 244H, Anion Gap 18.2H, Aspartate Amino Transf (AST/ SGOT) 89H, BUN/Creatinine Ratio 42H, Blood Urea Nitrogen 31H, C-Reactive Protein 6.30H, Calcium Level 8.8, Calcium/Ionized Calcium Ratio 3.7L, Calculated Osmolality 297, Carbon Dioxide Level 24, Chloride Level 112H, Creatinine 0.74, Estimat Glomerular Filtration Rate 106.9, Estimated GFR (Non- 88.3, Glucose Level 137H, Potassium Level 5.0#, Sodium Level 149, Total Bilirubin 2.3H, Total Protein 7.5, Magnesium Level 3.4#H, Phosphorus Level 3.8 10/27/16 06:27: Alanine Aminotransferase (ALT/SGPT) 68H, Albumin 4.0, Albumin/Globulin Ratio 1.142, Alkaline Phosphatase 218H, Ammonia 35.4H, Anion Gap 21.7H, Aspartate Amino Transf (AST/SGOT) 91H, BUN/Creatinine Ratio 50H, Basophils # (Auto) 0.1, Basophils (%) (Auto) 1, Blood Urea Nitrogen 47#H, C-Reactive Protein 2.60H, Calcium Level 8.6L, Calcium/Ionized Calcium Ratio 3.7L, Calculated Osmolality 322H, Carbon Dioxide Level 21L, Chloride Level 122H, Creatinine 0.94, Eosinophils # (Auto) 0.0, Eosinophils (%) (Auto) 0, Estimat Glomerular Filtration Rate 81.1, Estimated GFR (Non- 67.0, Glucose Level 133H, Hematocrit 50.40H, Hemoglobin 17.1H, Lymphocytes # (Auto) 1.8, Lymphocytes (%) (Auto) 19L, Mean Corpuscular Hemoglobin 35.0H, Mean Corpuscular Hemoglobin Concent 33.9, Mean Corpuscular Volume 103H, Mean Platelet Volume 12.4H, Monocytes # (Auto) 1.3, Monocytes (%) (Auto) 13H, Neutrophils # (Auto) 6.3, Neutrophils (%) (Auto) 67, Platelet Count 190, Potassium Level 4.5, Red Blood Count 4.88, Red Cell Distribution Width 13.2, Sodium Level 160#H, Total Bilirubin 2.8H, Total Protein 7.5, White Blood Count 9.47 MICRO SPEC #: [id number] FAN: 10/16/16 STATUS: COMP REQ #: [id number] RECD: 10/16/[address]: JONNY QUINN MD Order Location: ED SOURCE: URINE DESCRIPTION: U CATH Procedure Result Verified URINE CULTURE Final Verified 10/19/16-0731 AM Source: URINE / STRAIGHT CATH, IN/OUT Order Location: EMERGENCY Site: U CATH Received : 10/17/16 13:23 Order#: [id number] Urine Culture FINAL 10/19/16 07:30 S Escherichia coli >100,000 cfu/ml E. coli Antibiotic AVIS INT Ampicillin >=32 R Ampicillin/sulbactam 16 I Cefazolin <=4 S Ceftriaxone <=1 S Ciprofloxacin 1 S Gentamicin <=1 S Nitrofurantoin <=16 S Trimethoprim/Sulfa >=320 R S=SUSCEPTIBLE I=INTERMEDIATE R=RESISTANT S-DD= SUSCEPTIBLE, DOSE DEPENDENT 10/17 Resp PCR Panel Negative IMAGING 10/23/16 ACUTE ABD SERIES Indication: Constipation and pneumonia Comparison: Abdomen dated 10/22/2016 and chest 12/01/2015 Findings: PA chest: Left Port-A- Cath is unchanged. The tip appears to be in the right atrium. Cardiomegaly with mild prominence pulmonary vascularity appears similar to the prior study. Some streaky atelectasis or scarring at the left midlung and right upper lung appears stable. No new pulmonary parenchymal abnormality is suspected. Abdomen: Gastrostomy catheter over the left upper quadrant is unchanged. There has been significant improvement in appearance of bowel gas pattern since the prior study with significant decrease in the extent of colonic distention. There is some persistent prominent colon and air-filled small bowel. Findings are likely related to improving ileus. There is chronic deformity of the pelvis. Impression : 1. Stable appearance of the chest as described 2. Moderate improvement since the recent prior abdominal series with findings suggestive of improving ileus as described. 10/22/16 ABDOMEN (FLAT PLATE) 1VIEW Indication: Vomiting, abdominal distention Comparison: August 20, 2016 Technique: Single radiograph of the abdomen dated October 22, 2016. Findings: Percutaneous gastrostomy catheter is again seen overlying the upper abdomen. Significant gaseous distention of the colon is identified, increased from the prior examination. This now measures up to 13.8 cm. No definite free air. Osseous structures appear stable. Impression: Increasing distention of the colon. Findings may relate to worsening ileus. However, distal colonic obstruction not excluded. Recommend clinical correlation. 10/20/16 ACUTE ABD SERIES EXAMINATION: Abdominal radiographs, acute series. DATE : October 20, 2016. CLINICAL INDICATION: 36-year-old female, constipation. G- tube dysfunction. COMPARISON: October 18, 2016. COMMENTS: There is a left- sided venous line with tip projecting over the expected position of the upper right atrium. The heart appears enlarged. There is no identified pneumothorax or large pleural effusion. The gastrostomy tube projects over the expected position of the stomach. There is enteric contrast material within the transverse colon and right colon. There is no identified free intraperitoneal air. There is mild gaseous distention of large bowel which is less prominent compared to prior exam. IMPRESSION: 1. Gastrostomy tube projects over the expected position of the stomach. 2. Mild gaseous distention of bowel most likely involving loops of large bowel which is less prominent compared to prior exam. 10/18/16 SMALL BOWEL STUDY INDICATION: Abdominal pain and distention. FINDINGS: Civil Manager radiographs of the abdomen reveal diffuse dilatation of colon containing moderate to large amount of stool. Gastrografin contrast was injected through the indwelling gastrostomy tube. Contrast opacifies mildly prominent small bowel loops with contrast reaching the distal small bowel and proximal colon after 5-1/2 hours. IMPRESSION: Findings are compatible with constipation. There is mild delay in small bowel transit with transit time of 5.5 hours. No obstruction is seen. 10/17/16 ECHO: Summary: Technically challenging study. Normal cardiac chamber sizes. Normal LV wall thickness. Intact LV systolic function with estimated EF 61%. Thickened aortic valve, with no significant stenosis or insufficiency. No significant mitral or tricuspid insufficiency. No pericardial effusion. 10/16/16 ACUTE ABD SERIES INDICATION: Abdominal pain COMPARISON: 09/14/2016 FINDINGS: Frontal chest: Left-sided Port-A-Cath is unchanged. Heart size is enlarged but stable. Mild pulmonary venous congestion is unchanged. Some patchy perihilar infiltrate is again demonstrated. No pleural fluid is seen. Abdomen: Gastrostomy tube is again seen overlying the stomach. The bowel gas pattern appears unremarkable with the exception of moderate amount of stool in the colon. There is no evidence of free intraperitoneal air. No abnormal calcifications are suspected. Deformity of the bony pelvis is again demonstrated. IMPRESSION: 1. In the chest, there is persistent cardiomegaly with mild pulmonary vascular congestion and patchy perihilar airspace disease similar to the prior study. 2. No acute abdominal abnormality is suspected. ASSESSMENT Kelly Jackson is a 36 year old female admitted from ED 10/17 where she presented for the second time in two days. She had a recent diagnosis of conjunctivitis and developed acute respiratory distress, vomiting after tube feeds, increased lethargy, and increased weight. She had a significant murmur on exam and pulmonary edema on admit imaging. 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 She was found to have multiple acute issues as outlined including constipation, pneumonia, UTI, and hyperammonemia. PLAN * Acute Respiratory Distress: Had improved, but worse in afternoon 10/27 perhaps due to fever. URI considered but resp PCR panel 10/17 was negative. Check new panel, new CXR. Heart failure less likely based on echo. Workup for heart failure as noted. Oxygen protocol. * Asthma: Duoneb TID, albuterol PRN. * Community Acquired Pneumonia: Resolving. Clinical diagnosis. Blood culture not obtained on admit. No sputum for culture. Allergy to PCN noted. Unable to participate in acapella or IS. NT suction PRN. Levofloxacin course completed. * UTI Due to E coli: Culture as noted. Levofloxacin course completed. * Ileus: Resolved. Due to constipation, then later perhaps aggravated by lactulose. Small bowel follow-through as noted. Serial exam and imaging as noted. * Congestive Heart Failure due to Fluid Overload: On the basis of murmur, CXR, pulmonary exam, edema. Echo as noted. Improved with furosemide. Monitor daily weight. I&O difficult to monitor due to incontinence. * Edema: Monitor I&O, daily weight. Furosemide increased to IV dosing 10/22. Stopped after last dose 10/23. * Nausea/Vomiting: Had resolved but had recurrent episode 10/22. Attributed to constipation initially. Likely not tolerating lactulose. Ondansetron for nausea. Improved with bowel rest and cessation of lactulose. * Constipation: Bowel regimen. * Altered Mental Status: Improving. Due to infection, ammonia. Treat underlying problems. * Hyperammonemia: Attributed to valproic acid adverse effect. Hold valproate. Lactulose on hold due to poor tolerance. Monitor ammonia trend. * Hyperbilirubinemia, Elevated AST: Cholestasis from volume contraction? Still not improving. Hepatitis panel, abdominal sono ordered. * Medication Adverse Effect: Due to lactulose. Worse bloating, nausea/vomiting with this medication. Hold lactulose. * Conjunctivitis: Polymixin/trimethoprim eye drops, moisturizing eye drops. Warm compress. * F/E/N: Peripheral IV. Tube feeds. I&O, daily weight. * Prophylaxis: SCDs. * Code Status: Full * Dispo: Inpatient. Discharge still deferred. Tolerating feeds now, but has fever, hypernatremia now. Hepatic workup unrevealing thus far. CHRONIC ISSUES * Seizure disorder: Topiramate. Hold valproic acid due to hyperammonemia. Follow -up with Dr. Mckeon post-discharge. * Constipation: Bowel regimen * Hypothyroidism: Levothyroxine * GERD: Famotidine * Seasonal allergies: Cetirizine * HTN? Diltiazem. Verify indication. * Eczema: Observe * Marcela de Pike syndrome: Observe. MARYBETH FERNANDO MD Oct 27, 2016 16:11
[2016-10-27] MEDS: ACETAMINOPHEN SUSPENSION 325 MG/10.15 ML (TYLENOL) UDC PO PRN (17:17)
[2016-10-27] MEDS: CETIRIZINE 1 MG/ML GT SCH (21:27)
[2016-10-27] MEDS: toPIRamate 25 MG (TOPAMAX) TAB PO SCH (21:41)
[2016-10-27] MEDS: CARBOXYMETHYLCELLULOSE 1% (CELLUVISC) OPHTHALMIC DROPS OU SCH (21:41)
--- NOTE | 2016-10-27 22:00 | NUR ---
Kelly is in bed on assessment. She is nonverbal but compliant with cares. Respirations are even and unlabored and she tolerates medications and feedings well. No abdominal distention and no N/V present. D5W fluids to run @50 cc/hr and 200cc of sterile water to gastric tube for increased sodium is ordered. Acetaminophen was added to the emar and given for a fever this afternoon and chest x-ray obtained. The patient is up with 2 assist to the recliner this afternoon. Kelly struggles to bare weight at this time. She is calm and pleasant and tolerates all interventions this shift. Report is given to Saskia MATA and cares relinquished.
[2016-10-28 04:47] VITALS: BP 102/57
[2016-10-28] MEDS: D5W 1000 ML 1,000 ML IV SCH (06:38)
[2016-10-28 06:52] LABS: ALBUMIN 3.7 g/dL (3.4-5.0); ANION GAP 19.4 MEQ/L (3-15); PHOSPHORUS 4.5 mg/dL (2.4-4.9)
--- NOTE | 2016-10-28 07:30 | NUR ---
Pt tolerates 0600 feeding well at this time. Gave first 120mL at 0700 and 2nd 120mL at 0730. HOB raised.
[2016-10-28 07:43] VITALS: BP 76/48
[2016-10-28 07:53] LABS: ALBUMIN 3.8 g/dL (3.4-5.0); BILIRUBIN CONJUGATED 0.2 mg/dL (0.0-0.4); TOTAL PROTEIN 6.8 g/dL (6.4-8.5)
[2016-10-28] MEDS: SODIUM CHLORIDE FLUSH 10 ML SYR IV SCH (09:00)
--- NOTE | 2016-10-28 09:00 | NUR ---
Pt tolerates AM medication well per G tube. Skin warm, dry, intact. Resprs nonlabored, even on RA. IVF infusing in L port with no difficulties. Bed alarm on for safety.
[2016-10-28] MEDS: SENNOSIDES 8.6 MG (SENOKOT) TAB GT SCH (09:14)
[2016-10-28] MEDS: DILTIAZEM CD 120 MG (CARDIZEM CD) CAP PO SCH (09:14)
[2016-10-28] MEDS: guaiFENesin SYRUP 200 MG/10 ML (ROBITUSSIN) UDC GT SCH ×2 (09:14→22:07)
[2016-10-28] MEDS: LEVOTHYROXINE 75 MCG (LEVOTHROID) TABLET GT SCH (09:14)
[2016-10-28] MEDS: SULFAMETHOXAZOLE PO SCH ×2 (09:15→22:03)
[2016-10-28] MEDS: POTASSIUM CHLORIDE ORAL SOLUTION 20 MEQ/15 ML (KCL) UDC PO SCH ×2 (09:15→22:03)
[2016-10-28] MEDS: CARBAMAZEPINE 100 MG/5 ML GT SCH ×3 (09:15→18:19)
[2016-10-28] MEDS: TRIMETHOPRIM PO SCH ×2 (09:15→22:03)
[2016-10-28] MEDS: DOCUSATE 100 MG/10 ML GT SCH ×2 (09:15→22:04)
[2016-10-28] MEDS: FAMOTIDINE 40 MG/5 ML GT SCH ×2 (09:16→22:04)
[2016-10-28] MEDS: POLYETHYLENE GLYCOL 17 GM (MIRALAX) PACKET PO SCH (09:16)
[2016-10-28] MEDS: ENOXAPARIN 40 MG/0.4 ML (LOVENOX) SYR SC SCH (09:23)
[2016-10-28] MEDS: ARTIFICIAL TEARS (REFRESH) OPHTHALMIC DROPS OU SCH (09:24)
--- NOTE | 2016-10-28 10:14 | PT Daily Note Inpatient (E) ---
PT Daily Treatment Service Date/Time 10/28/16, 10:08 Medical Diagnosis: (1) Dehydration ICD Code: E86.0 Physical Therapy: (1) Weakness generalized ICD Code: R53.1 Precaution/Isolation: Standard Precautions Resuscitation Status: Full Code Fall Level: High Risk 51 or greater Subjective Pt in bed, moans when asked if she will let me work on her legs a little bit Oxygen Delivery: Room air O2 liters/minute: 0 Treatments Sit, Stand, Supine: Supine Extremity: Both Lower Extremity Assistance: PROM Repetition: 1 x 15 Stretching stretched BLE throughout, winced with RLE hamstring stretch Transfers Supine-Sit: Total Assistance Pivot Transfers: Total Assistance (transferred to chair, positioned upright with pillows, nsg notified of transfer to chair) Education/Plan Assessment tolerated PROM ex and stretching with the exception of RLE hamstring stretch Safety Awareness: Impaired Response to Treatment: No Change Plan Cont POC Patient will be seen: Daily Monday-Monday Coding Time In: 0952 Time Out: 1007 Total Minutes: 15 Codes/Units: 56132 Exercise Therp Lori m [employer] Oct 28, 2016 10:14
[2016-10-28 10:48] VITALS: BP 88/60
--- NOTE | 2016-10-28 11:16 | Diagnostic Imaging Report ---
Indication: Respiratory distress. Exam: Single frontal view 5:20 p.m. Comparisons: 10/23/2016, 12/01/2015. Findings: Single frontal view shows a left venous catheter to be present with the tip in the right atrium. Moderate cardiomegaly is present. There is a somewhat wide left superior mediastinum however this is unchanged from 12/01/2015 and 12/01/2014. The pulmonary vascularity shows no venous congestion. There is no pleural effusion or alveolar infiltrate. A radiopaque catheter overlies the upper abdomen. Impression: No acute finding. Dictated by: Dictated on workstation # [id number]
[2016-10-28 11:24] VITALS: BP 91/44
[2016-10-28] MEDS: ALBUTEROL/IPRATROPIUM 3MG-0.5MG/3ML (DUONEB) NEB VIAL INH SCH ×3 (12:07→20:00)
[2016-10-28 12:41] LABS: ALBUMIN 3.9 g/dL (3.4-5.0); ANION GAP 18.5 MEQ/L (3-15)
--- NOTE | 2016-10-28 12:55 | NUR ---
Sade T102.6, P 11, R 38 BP 94/47. Reported to Dr. Ball. Addendum: 10/29/16 at 0217 by Florence Atwood RN Change time to 10/29 45.
[2016-10-28] MEDS: THERAPEUTIC MULTIVITAMINS LIQUID 5 ML UDC GT SCH (13:23)
--- NOTE | 2016-10-28 14:33 | PT Daily Note Inpatient (E) ---
PT Daily Treatment Service Date/Time 10/28/16, 14:30 Medical Diagnosis: (1) Dehydration ICD Code: E86.0 Physical Therapy: (1) Weakness generalized ICD Code: R53.1 Precaution/Isolation: Standard Precautions Resuscitation Status: Full Code Fall Level: High Risk 51 or greater Subjective pt has been in chair for x4 hrs, transferring her back to bed Pain Location/Comment not able to communicate Oxygen Delivery: Room air O2 liters/minute: 0 Treatments Sit, Stand, Supine: Long Sitting Extremity: Both Lower Extremity Assistance: PROM Repetition: 1 x 15 Exercise: AP, Heel Slides, Hip Abduction, Hip Adduction, SLR Transfers Sit-Supine: Total Assistance Sit-Stand from bed: Total Assistance Pivot Transfers: Total Assistance Education/Plan Assessment tolerates Max assist transfer to bed with no signs of distress Safety Awareness: Impaired Response to Treatment: No Change Plan Cont POC Patient will be seen: Daily Monday-Monday Coding Time In: 1421 Time Out: 1431 Total Minutes: 10 Codes/Units: 17253 Exercise Therp Lori m [employer] Oct 28, 2016 14:33
[2016-10-28 16:00] VITALS: BP 94/52
--- NOTE | 2016-10-28 16:00 | NUR ---
Assumed care from Colt Gross RN.
--- NOTE | 2016-10-28 19:05 | Progress Note (E) ---
Progress Note SUBJECTIVE Overnight, no major issues reported. Through the day, more somnolent, but no fever. BP has been low at times. Sodium improved through the day with D5W and increased free water per PEG. On evening rounds, abdomen a bit more full but soft. Active bowel sounds. Still struggling to get her to stable medical state for discharge. OBJECTIVE Vital Signs Date Time Temp Pulse Resp B/P Pulse Ox O2 Delivery O2 Flow Rate FiO2 10/28/16 16:00 98.2 110 20 94/52 92 10/28/16 11:24 Room air 10/27/16 22:30 0.00 I & O 10/27/16 10/28/16 Cumulative From/Thru 19:00 07:00 10/16/16 21:35 - 10/28/16 05:05 Intake Total 0 ml 1790 ml Output Total 240 ml 496 ml 78050 ml Balance -240 ml -496 ml -09497 ml GEN: Resting in bed. Stirs to exam. Less interactive. Breathing more rapidly with some nasal congestion noted. 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 Dry skin. Clear sclerae. Somewhat dry oral mucosa. Mildly injected right sclera but improving. Green mucus in mouth, suctioned. CV: Regular, prominent 3/6 systolic murmur, crescendo/decrescendo. PULM: Breath sounds more congested with upper airway sounds apparent. ABD: Soft, tolerates exam. A bit more full compared to 10/27. EXTR: Warm, well-perfused. Left arm is hyperemic but edema in upper extremities is improved. INTEG: Dry skin. Left arm hyperemia as noted. NEURO: Non-verbal. Lab-Past 14 Days, 35 Results 10/16/16 22:32: Alanine Aminotransferase (ALT/SGPT) 33, Albumin 3.8, Albumin/Globulin Ratio 1.520, Alkaline Phosphatase 268H, Anion Gap 15.5H, Aspartate Amino Transf (AST/ SGOT) 33, BUN/Creatinine Ratio 26H, Basophils # (Auto) 0.0, Basophils (%) (Auto ) 1, Blood Urea Nitrogen 9, Calcium Level 8.9, Calcium/Ionized Calcium Ratio 4.2 , Calculated Osmolality 260L, Carbon Dioxide Level 27, Chloride Level 96L, Creatinine 0.34L, Eosinophils # (Auto) 0.1, Eosinophils (%) (Auto) 1, Estimat Glomerular Filtration Rate 262.2, Estimated GFR (Non- 216.7, Glucose Level 136H, Hematocrit 41.30, Hemoglobin 14.7, Lipase 75, Lymphocytes # (Auto) 0.5, Lymphocytes (%) (Auto) 7L, Mean Corpuscular Hemoglobin 34.3H, Mean Corpuscular Hemoglobin Concent 35.6, Mean Corpuscular Volume 96, Mean Platelet Volume 11.9H, Monocytes # (Auto) 0.9, Monocytes (%) (Auto) 12H, Neutrophils # ( Auto) 5.7, Neutrophils (%) (Auto) 79H, Platelet Count 157, Potassium Level 3.6# , Red Blood Count 4.29, Red Cell Distribution Width 12.0, Sodium Level 134L, Total Bilirubin 0.8, Total Protein 6.3L, White Blood Count 7.21 10/16/16 23:05: Urine Amorphous Sediment 4+H, Urine Bacteria None seen, Urine Bilirubin Negative , Urine Clarity Cloudy, Urine Collection Type Catheter, Urine Color Dark yellow , Urine Glucose (UA) Negative, Urine Hyaline Casts 2+, Urine Ketones 1+H, Urine Leukocyte Esterase 1+H, Urine Mucus 2+H, Urine Nitrite Negative, Urine Protein Negative, Urine RBC 0-2, Urine RBC (Auto) 2+H, Urine Specific [place] 1.015, Urine Squamous Epithelial Cells 2-5, Urine Urobilinogen 0.2, Urine WBC 5-10H, Urine pH 8.0, Volume Urine Centrifuged 12 ml 10/17/16 17:58: Adenovirus (PCR) Negative, Bordetella parapertussis DNA (PCR) Negative, Chlamydophila pneumoniae (PCR) Negative, Coronavirus Type 229E (PCR) Negative, Coronavirus Type HKU1 (PCR) Negative, Coronavirus Type NL63 (PCR) Negative, Coronavirus Type OC43 (PCR) Negative, Enterovirus/Rhinovirus (PCR) Negative, Human Metapneumovirus (PCR) Negative, Influenza Type A (H1) (PCR) Negative, Influenza Virus Type B (PCR) Negative, Mycoplasma pneumoniae (PCR) Negative, Parainfluenza Type 1 (PCR) Negative, Parainfluenza Type 2 (PCR) Negative, Parainfluenza Type 3 (PCR) Negative, Parainfluenza Type 4 (PCR) Negative, Respiratory Syncytial Virus (PCR) Negative 10/18/16 05:40: Albumin 3.4, Anion Gap 12.6, Basophils # (Auto) , Basophils (%) (Auto) , Blood Urea Nitrogen 9, Calcium Level 8.7L, Carbon Dioxide Level 27, Chloride Level 105 , Creatinine 0.45L, Eosinophils # (Auto) , Eosinophils (%) (Auto) , Estimat Glomerular Filtration Rate 189.7, Estimated GFR (Non- 156.8, Glucose Level 85#, Hematocrit 38.20, Hemoglobin 13.2, Lymphocytes # (Auto) , Lymphocytes (%) (Auto) , Mean Corpuscular Hemoglobin 34.6H, Mean Corpuscular Hemoglobin Concent 34.6, Mean Corpuscular Volume 100, Mean Platelet Volume 12.2H , Monocytes # (Auto) , Monocytes (%) (Auto) , Neutrophils # (Auto) , Neutrophils (%) (Auto) , Platelet Count 145L, Potassium Level 4.1, Red Blood Count 3.82L, Red Cell Distribution Width 12.6, Sodium Level 141#, White Blood Count 3.89L, Absolute Band Neutrophils 0.1, Ammonia 89.1H, Band Neutrophils % 2 , Basophils # (Manual) 0.0, Basophils % (Manual) 1, Blood Morphology Comment Normal, C-Reactive Protein 1.30H, Differential Total Cells Counted 100, Eosinophils # 0.2, Eosinophils % (Manual) 5H, Lymphocytes # 0.8, Lymphocytes % ( Manual) 20, Magnesium Level 2.3, Metamyelocytes % 0, Monocytes # 0.5, Monocytes % (Manual) 16H, YM-Hfr-M-Type Natriuretic Peptide 1600H, Neutrophils # 2.2, Phosphorus Level 4.6, Segmented Neutrophils % 56 10/19/16 06:00: Absolute Band Neutrophils 0.1, Alanine Aminotransferase (ALT/SGPT) 34, Albumin 3.9, Albumin/Globulin Ratio 1.500, Alkaline Phosphatase 241H, Ammonia 52.4H, Anion Gap 18.6H, Aspartate Amino Transf (AST/SGOT) 36, BUN/Creatinine Ratio 20, Band Neutrophils % 1, Basophils # (Auto) , Basophils # (Manual) 0.0, Basophils % (Manual) 0, Basophils (%) (Auto) , Blood Morphology Comment Normal, Blood Urea Nitrogen 10, C-Reactive Protein 2.00H, Calcium Level 9.3, Calcium/Ionized Calcium Ratio 4.3, Calculated Osmolality 269L, Carbon Dioxide Level 25, Chloride Level 101, Creatinine 0.49L, Differential Total Cells Counted 100, Eosinophils # 0.0, Eosinophils # (Auto) , Eosinophils % (Manual) 0, Eosinophils (%) (Auto) , Estimat Glomerular Filtration Rate 172.0, Estimated GFR (Non- 142.1, Glucose Level 67#L, Hematocrit 40.60, Hemoglobin 14.2, Lymphocytes # 1.0, Lymphocytes # (Auto) , Lymphocytes % (Manual) 13L, Lymphocytes (%) (Auto) , Mean Corpuscular Hemoglobin 34.5H, Mean Corpuscular Hemoglobin Concent 35.0, Mean Corpuscular Volume 99, Mean Platelet Volume 11.3H , Monocytes # 1.1, Monocytes # (Auto) , Monocytes % (Manual) 16H, Monocytes (%) (Auto) , Neutrophils # 5.1, Neutrophils # (Auto) , Neutrophils (%) (Auto) , Platelet Count 158, Potassium Level 3.7, Red Blood Count 4.11, Red Cell Distribution Width 12.4, Segmented Neutrophils % 70H, Sodium Level 141, Total Bilirubin 1.7#H, Total Protein 6.5, White Blood Count 7.33 10/20/16 05:45: Absolute Band Neutrophils 0.1, Alanine Aminotransferase (ALT/SGPT) 36, Albumin 4.0, Albumin/Globulin Ratio 1.481, Alkaline Phosphatase 221H, Ammonia 46.8H, Anion Gap 21.3H, Aspartate Amino Transf (AST/SGOT) 42H, BUN/Creatinine Ratio 25H , Band Neutrophils % 2, Basophils # (Auto) , Basophils # (Manual) 0.0, Basophils % (Manual) 0, Basophils (%) (Auto) , Blood Morphology Comment Normal, Blood Urea Nitrogen 15, Calcium Level 9.6, Calcium/Ionized Calcium Ratio 4.4, Calculated Osmolality 272L, Carbon Dioxide Level 26, Chloride Level 97L, Creatinine 0.59L, Differential Total Cells Counted 100, Eosinophils # 0.1, Eosinophils # (Auto) , Eosinophils % (Manual) 1, Eosinophils (%) (Auto) , Estimat Glomerular Filtration Rate 138.8, Estimated GFR (Non- 114.7, Glucose Level 85#, Hematocrit 42.90, Hemoglobin 15.2, Lymphocytes # 0.9, Lymphocytes # (Auto) , Lymphocytes % (Manual) 14L, Lymphocytes (%) (Auto) , Mean Corpuscular Hemoglobin 34.5H, Mean Corpuscular Hemoglobin Concent 35.4, Mean Corpuscular Volume 97, Mean Platelet Volume 12.1H, Monocytes # 1.2, Monocytes # (Auto) , Monocytes % (Manual) 20H, Monocytes (%) (Auto) , Neutrophils # 3.9, Neutrophils # (Auto) , Neutrophils (%) (Auto) , Platelet Count 182, Potassium Level 3.3L, Red Blood Count 4.41, Red Cell Distribution Width 12.4, Segmented Neutrophils % 63, Sodium Level 141, Total Bilirubin 2.1H, Total Protein 6.7, White Blood Count 6.12, Magnesium Level 2.2, Metamyelocytes % 0, Phosphorus Level 4.8 10/21/16 05:50: Absolute Band Neutrophils 0.1, Alanine Aminotransferase (ALT/SGPT) 33, Albumin 3.8, Albumin/Globulin Ratio 1.461, Alkaline Phosphatase 200H, Ammonia 69.1H, Anion Gap 15.1H, Aspartate Amino Transf (AST/SGOT) 42H, BUN/Creatinine Ratio 29H , Band Neutrophils % 2, Basophils # (Manual) 0.0, Basophils % (Manual) 0, Blood Morphology Comment Normal, Blood Urea Nitrogen 14, Calcium Level 9.2, Calcium/ Ionized Calcium Ratio 4.3, Calculated Osmolality 271L, Carbon Dioxide Level 26, Chloride Level 102, Creatinine 0.48L, Differential Total Cells Counted 100, Eosinophils # 0.1, Eosinophils % (Manual) 1, Estimat Glomerular Filtration Rate 176.1, Estimated GFR (Non- 145.5, Glucose Level 119#H, Hematocrit 42.40, Hemoglobin 14.8, Lymphocytes # 1.1, Lymphocytes % (Manual) 20 , Mean Corpuscular Hemoglobin 34.3H, Mean Corpuscular Hemoglobin Concent 34.9, Mean Corpuscular Volume 98, Mean Platelet Volume 11.9H, Monocytes # 0.7, Monocytes % (Manual) 13H, Neutrophils # 3.7, Platelet Count 178, Potassium Level 3.6, Red Blood Count 4.32, Red Cell Distribution Width 12.4, Segmented Neutrophils % 64, Sodium Level 139, Total Bilirubin 1.2H, Total Protein 6.4, White Blood Count 5.76, Magnesium Level 2.4H, Metamyelocytes % 0, Phosphorus Level 4.1 10/23/16 05:47: Absolute Band Neutrophils 0.2, Alanine Aminotransferase (ALT/SGPT) 32, Albumin 3.8, Albumin/Globulin Ratio 1.520, Alkaline Phosphatase 210H, Ammonia 30.1H, Anion Gap 17.7H, Aspartate Amino Transf (AST/SGOT) 66H, BUN/Creatinine Ratio 30H , Band Neutrophils % 3, Basophils # (Auto) , Basophils # (Manual) 0.0, Basophils % (Manual) 0, Basophils (%) (Auto) , Blood Morphology Comment Normal, Blood Urea Nitrogen 17, C-Reactive Protein 7.30H, Calcium Level 9.2, Calcium/ Ionized Calcium Ratio 4.3, Calculated Osmolality 273L, Carbon Dioxide Level 23, Chloride Level 105, Creatinine 0.56L, Differential Total Cells Counted 100, Eosinophils # 0.0, Eosinophils # (Auto) , Eosinophils % (Manual) 0, Eosinophils (%) (Auto) , Estimat Glomerular Filtration Rate 147.4, Estimated GFR (Non- 121.8, Glucose Level 81#, Hematocrit 42.80, Hemoglobin 15.0, Lymphocytes # 1.4, Lymphocytes # (Auto) , Lymphocytes % (Manual) 20, Lymphocytes (%) (Auto) , Mean Corpuscular Hemoglobin 34.2H, Mean Corpuscular Hemoglobin Concent 35.0, Mean Corpuscular Volume 98, Mean Platelet Volume 12.3H , Monocytes # 1.1, Monocytes # (Auto) , Monocytes % (Manual) 16H, Monocytes (%) (Auto) , Neutrophils # 4.3, Neutrophils # (Auto) , Neutrophils (%) (Auto) , Platelet Count 185, Potassium Level 4.1, Red Blood Count 4.39, Red Cell Distribution Width 12.5, Segmented Neutrophils % 61, Sodium Level 141, Total Bilirubin 2.6#H, Total Protein 6.3L, White Blood Count 7.11, Magnesium Level 2.4H, Metamyelocytes % 0, Hepatitis A IgM Antibody Negative, Hepatitis B Core IgM Antibody Negative, Hepatitis B Surface Antigen Negative, Hepatitis C Antibody Negative, [id number]-Type Natriuretic Peptide 2520H 10/24/16 06:15: Absolute Band Neutrophils 0.1, Alanine Aminotransferase (ALT/SGPT) 53, Albumin 4.2, Albumin/Globulin Ratio 1.312, Alkaline Phosphatase 246H, Ammonia 42.9H, Anion Gap 17.9H, Aspartate Amino Transf (AST/SGOT) 78H, BUN/Creatinine Ratio 40H , Band Neutrophils % 1, Basophils # (Auto) , Basophils # (Manual) 0.0, Basophils % (Manual) 0, Basophils (%) (Auto) , Blood Morphology Comment Normal, Blood Urea Nitrogen 29#H, C-Reactive Protein 13.60H, Calcium Level 8.9, Calcium/ Ionized Calcium Ratio 3.8, Calculated Osmolality 292, Carbon Dioxide Level 27, Chloride Level 106, Conjugated Bilirubin 0.4, Creatinine 0.73, Differential Total Cells Counted 100, Eosinophils # 0.0, Eosinophils # (Auto) , Eosinophils % (Manual) 0, Eosinophils (%) (Auto) , Estimat Glomerular Filtration Rate 108.5 , Estimated GFR (Non- 89.7, Glucose Level 169#H, Hematocrit 45.20H, Hemoglobin 15.9H, Lymphocytes # 1.0, Lymphocytes # (Auto) , Lymphocytes % (Manual) 12L, Lymphocytes (%) (Auto) , Mean Corpuscular Hemoglobin 34.3H, Mean Corpuscular Hemoglobin Concent 35.2, Mean Corpuscular Volume 97, Mean Platelet Volume 11.9H, Monocytes # 1.2, Monocytes # (Auto) , Monocytes % (Manual ) 15H, Monocytes (%) (Auto) , Neutrophils # 6.0, Neutrophils # (Auto) , Neutrophils (%) (Auto) , Platelet Count 189, Potassium Level 3.4L, Red Blood Count 4.64, Red Cell Distribution Width 12.6, Segmented Neutrophils % 72H, Sodium Level 147, Total Bilirubin 2.8H, Total Protein 7.4, White Blood Count 8.31 10/25/16 05:45: Absolute Band Neutrophils 0.0, Band Neutrophils % 0, Basophils # (Auto) , Basophils # (Manual) 0.0, Basophils % (Manual) 0, Basophils (%) (Auto) , Blood Morphology Comment Normal, Differential Total Cells Counted 100, Eosinophils # 0.0, Eosinophils # (Auto) , Eosinophils % (Manual) 0, Eosinophils (%) (Auto) , Hematocrit 44.40, Hemoglobin 15.3, Lymphocytes # 0.9, Lymphocytes # (Auto) , Lymphocytes % (Manual) 10L, Lymphocytes (%) (Auto) , Mean Corpuscular Hemoglobin 34.4H, Mean Corpuscular Hemoglobin Concent 34.5, Mean Corpuscular Volume 100, Mean Platelet Volume 12.6H, Monocytes # 1.0, Monocytes # (Auto) , Monocytes % (Manual) 13H, Monocytes (%) (Auto) , Neutrophils # 6.6, Neutrophils # (Auto) , Neutrophils (%) (Auto) , Platelet Count 215, Red Blood Count 4.45, Red Cell Distribution Width 12.9, Segmented Neutrophils % 77H, White Blood Count 8.52, Metamyelocytes % 0 10/25/16 07:40: Alanine Aminotransferase (ALT/SGPT) 65, Albumin 4.3, Albumin/Globulin Ratio 1.343, Alkaline Phosphatase 244H, Anion Gap 18.2H, Aspartate Amino Transf (AST/ SGOT) 89H, BUN/Creatinine Ratio 42H, Blood Urea Nitrogen 31H, C-Reactive Protein 6.30H, Calcium Level 8.8, Calcium/Ionized Calcium Ratio 3.7L, Calculated Osmolality 297, Carbon Dioxide Level 24, Chloride Level 112H, Creatinine 0.74, Estimat Glomerular Filtration Rate 106.9, Estimated GFR (Non- 88.3, Glucose Level 137H, Potassium Level 5.0#, Sodium Level 149, Total Bilirubin 2.3H, Total Protein 7.5, Magnesium Level 3.4#H, Phosphorus Level 3.8 10/27/16 06:27: Alanine Aminotransferase (ALT/SGPT) 68H, Albumin 4.0, Albumin/Globulin Ratio 1.142, Alkaline Phosphatase 218H, Ammonia 35.4H, Anion Gap 21.7H, Aspartate Amino Transf (AST/SGOT) 91H, BUN/Creatinine Ratio 50H, Basophils # (Auto) 0.1, Basophils (%) (Auto) 1, Blood Urea Nitrogen 47#H, C-Reactive Protein 2.60H, Calcium Level 8.6L, Calcium/Ionized Calcium Ratio 3.7L, Calculated Osmolality 322H, Carbon Dioxide Level 21L, Chloride Level 122H, Creatinine 0.94, Eosinophils # (Auto) 0.0, Eosinophils (%) (Auto) 0, Estimat Glomerular Filtration Rate 81.1, Estimated GFR (Non- 67.0, Glucose Level 133H, Hematocrit 50.40H, Hemoglobin 17.1H, Lymphocytes # (Auto) 1.8, Lymphocytes (%) (Auto) 19L, Mean Corpuscular Hemoglobin 35.0H, Mean Corpuscular Hemoglobin Concent 33.9, Mean Corpuscular Volume 103H, Mean Platelet Volume 12.4H, Monocytes # (Auto) 1.3, Monocytes (%) (Auto) 13H, Neutrophils # (Auto) 6.3, Neutrophils (%) (Auto) 67, Platelet Count 190, Potassium Level 4.5, Red Blood Count 4.88, Red Cell Distribution Width 13.2, Sodium Level 160#H, Total Bilirubin 2.8H, Total Protein 7.5, White Blood Count 9.47 10/27/16 16:40: Sodium Level 158H 10/27/16 16:43: Adenovirus (PCR) Negative, Bordetella parapertussis DNA (PCR) Negative, Chlamydophila pneumoniae (PCR) Negative, Coronavirus Type 229E (PCR) Negative, Coronavirus Type HKU1 (PCR) Negative, Coronavirus Type NL63 (PCR) Negative, Coronavirus Type OC43 (PCR) Negative, Enterovirus/Rhinovirus (PCR) Negative, Human Metapneumovirus (PCR) Negative, Influenza Type A (H1) (PCR) Negative, Influenza Virus Type B (PCR) Negative, Mycoplasma pneumoniae (PCR) Negative, Parainfluenza Type 1 (PCR) Negative, Parainfluenza Type 2 (PCR) Negative, Parainfluenza Type 3 (PCR) Negative, Parainfluenza Type 4 (PCR) Negative, Respiratory Syncytial Virus (PCR) Negative 10/27/16 22:45: Sodium Level 157H 10/28/16 05:22: Sodium Level 151H, Alanine Aminotransferase (ALT/SGPT) 74H, Albumin 3.8, Alkaline Phosphatase 175H, Anion Gap 19.4H, Aspartate Amino Transf (AST/SGOT) 96H, Blood Urea Nitrogen 67H, Calcium Level 7.6L, Carbon Dioxide Level 20L, Chloride Level 116H, Conjugated Bilirubin 0.2, Creatinine 1.21H, Estimat Glomerular Filtration Rate 60.6, Estimated GFR (Non- 50.1, Glucose Level 191#H, Phosphorus Level 4.5, Potassium Level 4.8, Total Bilirubin 2.5H, Total Protein 6.8 10/28/16 12:13: Albumin 3.9, Anion Gap 18.5H, Blood Urea Nitrogen 66H, Calcium Level 8.1L, Carbon Dioxide Level 23, Chloride Level 113H, Creatinine 1.21H, Estimat Glomerular Filtration Rate 60.6, Estimated GFR (Non- 50.1, Glucose Level 186H, Phosphorus Level 4.0, Potassium Level 5.0, Sodium Level 149 MICRO 10/27 Resp PCR Panel Negative SPEC #: [id number] FAN: 10/16/16 STATUS: COMP REQ #: [id number] RECD: 10/16/[address]: JONNY QUINN MD Order Location: ED SOURCE: URINE DESCRIPTION: U CATH Procedure Result Verified URINE CULTURE Final Verified 10/19/16-0731 AM Source: URINE / STRAIGHT CATH, IN/OUT Order Location: EMERGENCY Site: U CATH Received : 10/17/16 13:23 Order#: [id number] Urine Culture FINAL 10/19/16 07:30 S Escherichia coli >100,000 cfu/ml E. coli Antibiotic AVIS INT Ampicillin >=32 R Ampicillin/sulbactam 16 I Cefazolin <=4 S Ceftriaxone <=1 S Ciprofloxacin 1 S Gentamicin <=1 S Nitrofurantoin <=16 S Trimethoprim/Sulfa >=320 R S=SUSCEPTIBLE I=INTERMEDIATE R=RESISTANT S-DD= SUSCEPTIBLE, DOSE DEPENDENT 10/17 Resp PCR Panel Negative IMAGING 10/27/16 CHEST 1 VIEW, AP/PA ONLY* Indication: Respiratory distress. Exam: Single frontal view 5:20 p.m. Comparisons: 10/23/2016, 12/01/2015. Findings: Single frontal view shows a left venous catheter to be present with the tip in the right atrium. Moderate cardiomegaly is present. There is a somewhat wide left superior mediastinum however this is unchanged from 12/01/2015 and 2014. The pulmonary vascularity shows no venous congestion. There is no pleural effusion or alveolar infiltrate. A radiopaque catheter overlies the upper abdomen. Impression: No acute finding. 10/27/16 US ABDOMEN, COMPLETE PROCEDURE: US abdomen complete. TECHNIQUE: Multiple real-time grayscale images were obtained over the abdomen in various projections. INDICATION: Possible cirrhosis. 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 The liver measures approximately 12.7 cm. There is normal echogenicity with no evidence of focal liver lesions. The bile ducts are not dilated. The common duct measures 3 mm. Gallbladder shows multiple gallstones. The gallbladder wall does not appear thickened. There is a gastric tube present. The pancreas is not visualized. Proximal and mid aorta are visualized and are not dilated. IVC appears normal. The right kidney measures 10.4 x 5.2 x 4.1 cm. The left kidney measures 11.5 x 4.6 x 4.1 cm. IMPRESSION: 1. Cholelithiasis with no evidence of gallbladder wall thickening or bile duct dilatation. 2. Liver parenchyma is homogeneous in appearance with no evidence of hepatomegaly. 10/23/16 ACUTE ABD SERIES Indication: Constipation and pneumonia Comparison: Abdomen dated 10/22/2016 and chest 12/01/2015 Findings: PA chest: Left Port-A- Cath is unchanged. The tip appears to be in the right atrium. Cardiomegaly with mild prominence pulmonary vascularity appears similar to the prior study. Some streaky atelectasis or scarring at the left midlung and right upper lung appears stable. No new pulmonary parenchymal abnormality is suspected. Abdomen: Gastrostomy catheter over the left upper quadrant is unchanged. There has been significant improvement in appearance of bowel gas pattern since the prior study with significant decrease in the extent of colonic distention. There is some persistent prominent colon and air-filled small bowel. Findings are likely related to improving ileus. There is chronic deformity of the pelvis. Impression : 1. Stable appearance of the chest as described 2. Moderate improvement since the recent prior abdominal series with findings suggestive of improving ileus as described. 10/22/16 ABDOMEN (FLAT PLATE) 1VIEW Indication: Vomiting, abdominal distention Comparison: August 20, 2016 Technique: Single radiograph of the abdomen dated October 22, 2016. Findings: Percutaneous gastrostomy catheter is again seen overlying the upper abdomen. Significant gaseous distention of the colon is identified, increased from the prior examination. This now measures up to 13.8 cm. No definite free air. Osseous structures appear stable. Impression: Increasing distention of the colon. Findings may relate to worsening ileus. However, distal colonic obstruction not excluded. Recommend clinical correlation. 10/20/16 ACUTE ABD SERIES EXAMINATION: Abdominal radiographs, acute series. DATE : October 20, 2016. CLINICAL INDICATION: 36-year-old female, constipation. G- tube dysfunction. COMPARISON: October 18, 2016. COMMENTS: There is a left- sided venous line with tip projecting over the expected position of the upper right atrium. The heart appears enlarged. There is no identified pneumothorax or large pleural effusion. The gastrostomy tube projects over the expected position of the stomach. There is enteric contrast material within the transverse colon and right colon. There is no identified free intraperitoneal air. There is mild gaseous distention of large bowel which is less prominent compared to prior exam. IMPRESSION: 1. Gastrostomy tube projects over the expected position of the stomach. 2. Mild gaseous distention of bowel most likely involving loops of large bowel which is less prominent compared to prior exam. 10/18/16 SMALL BOWEL STUDY INDICATION: Abdominal pain and distention. FINDINGS: [employer] radiographs of the abdomen reveal diffuse dilatation of colon containing moderate to large amount of stool. Gastrografin contrast was injected through the indwelling gastrostomy tube. Contrast opacifies mildly prominent small bowel loops with contrast reaching the distal small bowel and proximal colon after 5-1/2 hours. IMPRESSION: Findings are compatible with constipation. There is mild delay in small bowel transit with transit time of 5.5 hours. No obstruction is seen. 10/17/16 ECHO: Summary: Technically challenging study. Normal cardiac chamber sizes. Normal LV wall thickness. Intact LV systolic function with estimated EF 61%. Thickened aortic valve, with no significant stenosis or insufficiency. No significant mitral or tricuspid insufficiency. No pericardial effusion. 10/16/16 ACUTE ABD SERIES INDICATION: Abdominal pain COMPARISON: 09/14/2016 FINDINGS: Frontal chest: Left-sided Port-A-Cath is unchanged. Heart size is enlarged but stable. Mild pulmonary venous congestion is unchanged. Some patchy perihilar infiltrate is again demonstrated. No pleural fluid is seen. Abdomen: Gastrostomy tube is again seen overlying the stomach. The bowel gas pattern appears unremarkable with the exception of moderate amount of stool in the colon. There is no evidence of free intraperitoneal air. No abnormal calcifications are suspected. Deformity of the bony pelvis is again demonstrated. IMPRESSION: 1. In the chest, there is persistent cardiomegaly with mild pulmonary vascular congestion and patchy perihilar airspace disease similar to the prior study. 2. No acute abdominal abnormality is suspected. ASSESSMENT Kelly Jackson is a 36 year old female admitted from ED 10/17 where she presented for the second time in two days. She had a recent diagnosis of conjunctivitis and developed acute respiratory distress, vomiting after tube feeds, increased lethargy, and increased weight. She had a significant murmur on exam and pulmonary edema on admit imaging. 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 She was found to have multiple acute issues as outlined including constipation, pneumonia, UTI, and hyperammonemia. PLAN * Acute Respiratory Distress: Had improved, but worse in afternoon 10/27 perhaps due to fever. URI considered but resp PCR panel 10/17 was negative. Repeat Resp PCR Panel and CXR negative for new changes. Heart failure less likely based on echo. Workup for heart failure as noted. Oxygen protocol. * Asthma: Duoneb TID, albuterol PRN. * Community Acquired Pneumonia: Resolving. Clinical diagnosis. Blood culture not obtained on admit. No sputum for culture. Allergy to PCN noted. Unable to participate in acapella or IS. NT suction PRN. Levofloxacin course completed. * UTI Due to E coli: Culture as noted. Levofloxacin course completed. * Ileus: Resolved. Due to constipation, then later perhaps aggravated by lactulose. Small bowel follow-through as noted. Serial exam and imaging as noted. * Congestive Heart Failure due to Fluid Overload: On the basis of murmur, CXR, pulmonary exam, edema. Echo as noted. Improved with furosemide. Monitor daily weight. I&O difficult to monitor due to incontinence. * Edema: Monitor I&O, daily weight. Furosemide increased to IV dosing 10/22. Stopped after last dose 10/23. * Nausea/Vomiting: Had resolved but had recurrent episode 10/22. Attributed to constipation initially. Likely not tolerating lactulose. Ondansetron for nausea. Improved with bowel rest and cessation of lactulose. * Constipation: Bowel regimen. * Altered Mental Status: Improving. Due to infection, ammonia. Treat underlying problems. * Hyperammonemia: Attributed to valproic acid adverse effect. Hold valproate. Lactulose on hold due to poor tolerance. Monitor ammonia trend. * Hyperbilirubinemia, Elevated AST, Elevated ALT: Cholestasis from volume contraction? Still not improving. Hepatitis panel negative, abdominal sono unremarkable. Monitor trends. * Hypernatremia: Noted 10/27, treated with D5W and increased free water per PEG tube. Stopped D5W 10/28 and increased flushes. Continue to monitor fluid balance , sodium. * Medication Adverse Effect: Due to lactulose. Worse bloating, nausea/vomiting with this medication. Hold lactulose. * Conjunctivitis: Polymixin/trimethoprim eye drops, moisturizing eye drops. Warm compress. * F/E/N: Peripheral IV. Tube feeds. I&O, daily weight. * Prophylaxis: SCDs. * Code Status: Full * Dispo: Inpatient. Discharge still deferred due to complex issues. CHRONIC ISSUES * Seizure disorder: Topiramate. Hold valproic acid due to hyperammonemia. Follow -up with Dr. Mckeon post-discharge. * Constipation: Bowel regimen * Hypothyroidism: Levothyroxine * GERD: Famotidine * Seasonal allergies: Cetirizine * HTN? Diltiazem. Verify indication. 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 MARYBETH FERNANDO MD Oct 28, 2016 19:05
--- NOTE | 2016-10-28 19:38 | NUR ---
Saline locked IVF per order. The patient appeared to tolerate the last feeding without difficulty. Residual was 125 cc's prior to feeding. Head of the bed was elevated 90 degrees for 1 hour after feeding.
[2016-10-28 19:43] VITALS: BP 102/54
[2016-10-28] MEDS: toPIRamate 25 MG (TOPAMAX) TAB PO SCH (22:04)
[2016-10-28] MEDS: CETIRIZINE 1 MG/ML GT SCH (22:04)
[2016-10-28] MEDS: CARBOXYMETHYLCELLULOSE 1% (CELLUVISC) OPHTHALMIC DROPS OU SCH (22:04)
--- NOTE | 2016-10-28 23:30 | NUR ---
Residual tube feeding of 290ml, Dr. Ball notified. Advised to give water, but not formula for this feeding.
[2016-10-29] VITALS (7 sets, daily range): BP systolic 80–110; BP diastolic 40–62
--- NOTE | 2016-10-29 01:04 | Progress Note (E) ---
Progress Note Had rising residuals again tonight and noted abdominal exam in late afternoon was a bit firm. at 00:45, RN notified for temp 102.6, HR 111, RR 38, BP 94/47. Recommended acetaminophen to be given. Fever is of uncertain cause and workup thus far has been unrevealing. Feeding intolerance remains unexplained. No reports of diarrhea but for further workup, blood culture, CT chest/abdomen/ pelvis, check for c diff. MARYBETH FERNANDO MD Oct 29, 2016 01:04
[2016-10-29] MEDS: ACETAMINOPHEN SUSPENSION 325 MG/10.15 ML (TYLENOL) UDC PO PRN (01:42)
[2016-10-29] MEDS ORDERED: LEVETIRACETAM IV 1,000 MG in SODIUM CHLORIDE 100 ML IV ONE (01:50)
[2016-10-29] MEDS ORDERED: SODIUM CHLORIDE 100 ML ONE ×2 (02:30→02:45)
[2016-10-29] MEDS: SODIUM CHLORIDE FLUSH 10 ML SYR IV SCH (02:52)
[2016-10-29] MEDS: SODIUM CHLORIDE FLUSH 10 ML SYR IV PRN ×2 (03:38→06:27)
[2016-10-29 06:45] LABS: BASOPHILS % (AUTO) 0 % (0-2); EOSINOPHILS % (AUTO) 0 % (0-4); LYMPHOCYTES # (AUTO) 1.8 X10^3; MEAN PLATELET VOLUME 13.8 FL (6.0-9.5); MONOCYTES % (AUTO) 10 % (3-11); NEUTROPHILS # (AUTO) 6.8 X10^3; NEUTROPHILS % (AUTO) 71 % (51-67); PLATELET COUNT 103 10^3uL (150-450); WHITE BLOOD COUNT 9.62 10^3uL (4.0-11.0)
--- NOTE | 2016-10-29 06:45 | NUR ---
Lab draw off of port. Flushed per protocol.
[2016-10-29 07:16] LABS: ALBUMIN 3.1 g/dL (3.4-5.0); ANION GAP 17.8 MEQ/L (3-15); TOTAL PROTEIN 5.5 g/dL (6.4-8.5)
[2016-10-29 07:27] LABS: MEAN CORPUSCULAR HEMOGLOBIN 34.4 PG (26.0-34.0); MEAN CORPUSCULAR VOLUME 101 FL (80-100)
[2016-10-29] MEDS: ALBUTEROL/IPRATROPIUM 3MG-0.5MG/3ML (DUONEB) NEB VIAL INH SCH ×3 (09:57→19:36)
[2016-10-29] MEDS: POLYETHYLENE GLYCOL 17 GM (MIRALAX) PACKET PO SCH (10:30)
[2016-10-29] MEDS: TRIMETHOPRIM PO SCH ×2 (10:30→20:22)
[2016-10-29] MEDS: SULFAMETHOXAZOLE PO SCH ×2 (10:30→20:22)
--- NOTE | 2016-10-29 10:30 | NUR ---
Pt tolerates AM medication well per G tube. Skin warm, dry, intact. Resprs nonlabored, even on RA. L port SL. Bed alarm on for safety.
[2016-10-29] MEDS: guaiFENesin SYRUP 200 MG/10 ML (ROBITUSSIN) UDC GT SCH ×2 (10:31→20:22)
[2016-10-29] MEDS: CARBAMAZEPINE 100 MG/5 ML GT SCH ×3 (10:32→18:11)
[2016-10-29] MEDS: DOCUSATE 100 MG/10 ML GT SCH ×2 (10:32→20:22)
[2016-10-29] MEDS: FAMOTIDINE 40 MG/5 ML GT SCH ×2 (10:32→20:22)
[2016-10-29] MEDS: LEVOTHYROXINE 75 MCG (LEVOTHROID) TABLET GT SCH (10:34)
[2016-10-29] MEDS: SENNOSIDES 8.6 MG (SENOKOT) TAB GT SCH (10:34)
[2016-10-29] MEDS: ENOXAPARIN 40 MG/0.4 ML (LOVENOX) SYR SC SCH (10:35)
[2016-10-29] MEDS: ARTIFICIAL TEARS (REFRESH) OPHTHALMIC DROPS OU SCH (10:42)
[2016-10-29] MEDS: DILTIAZEM CD 120 MG (CARDIZEM CD) CAP PO SCH (10:42)
[2016-10-29] MEDS: POTASSIUM CHLORIDE ORAL SOLUTION 20 MEQ/15 ML (KCL) UDC PO SCH ×2 (10:43→20:22)
[2016-10-29] MEDS: THERAPEUTIC MULTIVITAMINS LIQUID 5 ML UDC GT SCH (13:23)
--- NOTE | 2016-10-29 13:26 | NUR ---
Pre-feeding residual: approx 210mL dark green, chunky fluid. Manjeet notified. Instructed to hold 1200 feeding, OK to give meds. HOB 60* per Manjeet. Will continue to monitor.
--- NOTE | 2016-10-29 14:38 | Diagnostic Imaging Report ---
PROCEDURE: CT chest, abdomen, and pelvis with and without contrast. TECHNIQUE: Precontrast images were obtained of the chest, abdomen, and pelvis. Multiple contiguous axial images were obtained through the chest, abdomen, and pelvis after administration of intravenous contrast. DATE: October 29, 2016. COMPARISON: Chest radiograph October 27, 2016. Abdominal radiographs October 23, 2016. INDICATION: 36-year-old female, fever of unknown origin. Ileus. Feeding intolerance. FINDINGS: There are low lung volumes with associated central bronchovascular crowding. There is respiratory motion artifact. There is no identified pulmonary nodule. There is mild scattered atelectasis. There is no identified additional focal airspace consolidation. There is no pneumothorax. There is no pleural effusion. There is no identified central pulmonary embolus. There is no pericardial effusion. There is no identified abnormally enlarged mediastinal, hilar, or axillary lymph node which meets CT size criteria for adenopathy. The liver is unremarkable in size and contour. There is no identified liver lesion. The main, right, and left portal vein are patent. There is a gallstone without evidence of acute cholecystitis. There is no intrahepatic or extrahepatic bile duct dilation. The pancreatic parenchyma is unremarkable. The spleen is normal in size. The adrenal glands are unremarkable. Unremarkable appearance of the renal parenchyma. The urinary collecting systems are not distended. There is no identified renal or ureteral stone. The urinary bladder is moderately distended and otherwise unremarkable in appearance. There is a nonobstructing 2-mm right renal stone on axial image 64. There is a nonobstructing 2-mm left renal stone on axial image 56 and a punctate nonobstructing left renal stone on axial image 62. There is enteric contrast material extending to the level of the rectum. There is a gastrostomy tube within the stomach. There is no gross distention of the intestinal tract. There is no free intraperitoneal air. There is no drainable fluid collection. There is no free pelvic fluid. There are atherosclerotic calcifications noted. There is no identified abnormally enlarged lymph node within the abdomen or pelvis that meets CT size criteria for adenopathy. There are chronic-appearing bony deformities of the pelvis. There is no identified acute bony abnormality. IMPRESSION: CT CHEST, ABDOMEN, AND PELVIS. 1. Low lung volumes with associated central bronchovascular crowding and respiratory motion artifact. 2. No identified acute cardiopulmonary abnormality. 3. No identified acute abnormality within the abdomen or pelvis. 4. Moderate distention of the urinary bladder. 5. Nonobstructing renal stones bilaterally. 6. Cholelithiasis without findings to suggest acute cholecystitis. 7. Atherosclerotic calcifications noted. Dictated by: Dictated on workstation # [id number]
--- NOTE | 2016-10-29 17:27 | Progress Note-A/P (E) ---
Progress Note Subjective: Patient is resting quietly in bed. She continues to have large residuals noted with tube feeds, feeds are being held. Medications are being given through the tube. Instructed nursing staff to have patient sitting up. Objective: Current Medications Carbamazepine 200 mg TID GT Cetirizine 10 mg HS GT Docusate 100 mg BID GT Guaifenesin 400 mg BID GT Albuterol/ Ipratropium 3 ml TID INH Multivitamins Therapeutic 5 ml DAILY@12 GT Polyethylene Glycol 17 gm DAILY PO Polyvinyl Alcohol/ Povidone 1 each DAILY OU Sennosides 8.6 mg DAILY GT Trimethoprim/ Sulfamethoxazole 20 ml BID PO Valproic Acid 500 mg HS PO Hold Enoxaparin 40 mg DAILY SC Levothyroxine 37.5 mcg DAILY GT Diltiazem 120 mg DAILY@0900 PO Topiramate 50 mg HS PO Famotidine 20 mg BID GT Carboxymethylcellulose 1 DROP HS OU Polyvinyl Alcohol/ Povidone 1 DROP QID PRN OU Sterile Water FOR GT FLUSH UD PRN GT Bisacodyl 10 mg BID PRN ID Heparin 30 unit UD PRN IV Potassium Chloride 20 meq BID PO Ondansetron 4 mg Q6H PRN IV Acetaminophen 325 mg Q4H PRN PO Vital Signs Date Time Temp Pulse Resp B/P Pulse Ox O2 Delivery O2 Flow Rate FiO2 10/29/16 15:25 98.3 84 18 80/40 95 Room air 10/27/16 22:30 0.00 I & O Past 24 hrs 10/29/16 07:00 Intake Total 730 ml Output Total 1560 ml Balance -830 ml Intake Oral 0 ml Tube Feeding 240 ml Tube Irrigant 240 ml Other 250 ml Output Urine Total 1560 ml Physical Exam General--Resting. No distress. HEENT--[place] de [place]ike facial features. MMM in oral cavity. Lungs--Clear bilaterally. Heart--LARISA II/ heard best over left lower sternal. RRR. Abdomen--NBS/S/ND/NTTP. Extremities--No edema noted to lower extremities. Past 24 hour Lab Results 10/29/16 06:25 Laboratory Results Past 24 Hrs 10/29/16 06:25: Alanine Aminotransferase (ALT/SGPT) 59, Albumin 3.1, Albumin/Globulin Ratio 1.291, Alkaline Phosphatase 132, Anion Gap 17.8, Aspartate Amino Transf (AST/ SGOT) 58, BUN/Creatinine Ratio 52, Basophils # (Auto) 0.0, Basophils (%) (Auto) 0, Blood Urea Nitrogen 57, Calcium Level 7.9, Calcium/Ionized Calcium Ratio 4.0 , Calculated Osmolality 295, Carbon Dioxide Level 21, Chloride Level 110, Creatinine 1.09, Eosinophils # (Auto) 0.0, Eosinophils (%) (Auto) 0, Estimat Glomerular Filtration Rate 68.3, Estimated GFR (Non- 56.5, Glucose Level 120, Hematocrit 36.20, Hemoglobin 12.3, Lymphocytes # (Auto) 1.8, Lymphocytes (%) (Auto) 18, Mean Corpuscular Hemoglobin 34.4, Mean Corpuscular Hemoglobin Concent 34.0, Mean Corpuscular Volume 101, Mean Platelet Volume 13.8 , Monocytes # (Auto) 1.0, Monocytes (%) (Auto) 10, Neutrophils # (Auto) 6.8, Neutrophils (%) (Auto) 71, Platelet Count 103, Potassium Level 5.1, Red Blood Count 3.58, Red Cell Distribution Width 12.6, Sodium Level 144, Total Bilirubin 2.8, Total Protein 5.5, White Blood Count 9.62 10/29/16 11:50: Clostridium difficile Antigen Negative, Stool Clos difficile Toxin Assay Negative Microbiology 10/16/16 Urine Culture - Final, Complete Imaging Results 10/17/16 ECHO Summary: Technically challenging study. Normal cardiac chamber sizes. Normal LV wall thickness. Intact LV systolic function with estimated EF 61%. Thickened aortic valve, with no significant stenosis or insufficiency. No significant mitral or tricuspid insufficiency. No pericardial effusion. 10.16.16 CXR IMPRESSION: 1. In the chest, there is persistent cardiomegaly with mild pulmonary vascular congestion and patchy perihilar airspace disease similar to the prior study. 2. No acute abdominal abnormality is suspected. 10.18.16 Small bowel follow through. IMPRESSION: Findings are compatible with constipation. There is mild delay in small bowel transit with transit time of 5.5 hours. No obstruction is seen. 10.20.16 Abdominal film IMPRESSION: 1. Gastrostomy tube projects over the expected position of the stomach. 2. Mild gaseous distention of bowel most likely involving loops of large bowel which is less prominent compared to prior exam. 10.22.16 Abdominal film Impression: Increasing distention of the colon. Findings may relate to worsening ileus. However, distal colonic obstruction not excluded. Recommend clinical correlation. 10.23.16 Abdominal film Impression: 1. Stable appearance of the chest as described 2. Moderate improvement since the recent prior abdominal series with findings suggestive of improving ileus as described. 10.27.16 Abdominal u/s IMPRESSION: 1. Cholelithiasis with no evidence of gallbladder wall thickening or bile duct dilatation. 2. Liver parenchyma is homogeneous in appearance with no evidence of hepatomegaly. 10.27.16 CXR Impression: No acute finding. 10.29.16 CT chest/abd/pelvis IMPRESSION: CT CHEST, ABDOMEN, AND PELVIS. 1. Low lung volumes with associated central bronchovascular crowding and respiratory motion artifact. 2. No identified acute cardiopulmonary abnormality. 3. No identified acute abnormality within the abdomen or pelvis. 4. Moderate distention of the urinary bladder. 5. Nonobstructing renal stones bilaterally. 6. Cholelithiasis without findings to suggest acute cholecystitis. 7. Atherosclerotic calcifications noted. Assessment/Plan Acute respiratory failure Improving, recurred. Re-evaluation did not reveal a source. Continue supplemental oxygen as needed. Asthma Continue duonebs and albuterol. CAP Patient received a 5 day course of levofloxacin. No blood culture or sputum culture. UTI Culture above. Abx provided. G tube dysfunction/Constipation Radiographic studies above. Improving. High residual today. Skipped a feed (see below). Constipation/Ileus Improving. Multiple BM's since admission. Imaging noted above. CHF Echo per above. Provided furosemide. Monitor daily i/o's carefully and daily weights. Hyperammonemia Trended down continue to monitor. Attributed to valproic acid, holding for now. Held lactulose due to distended abd. Elevated liver enzymes Persist. Imaging noted above. No improvement with fluids. Continue to monitor for improvement. Hypernatremia Increased the amount of free water through PEG tube. Debility Per the home staff the patient does ambulate, however has not been doing that here. Will have PT work with patient. Seizure disorder Topiramate per home regimen. Holding valproic acid per above. Added Keppra. Hypothyroidism Continue home levothyroxine. GERD Continue home famotidine. Seasonal allergies Continue home cetirizine. HTN Has been on diltiazem at home, pressures have been low here. [place] de [place]ike syndrome Stable. Monitor. FEN NPO, all diet per G-tube. Typical feeding schedule is 240ml of Jevity 1.0 QID, pt is not tolerating this. Electrolytes--hypokalemia replaced. Hypernatremia noted above. No fluids at this time. Code status Full code. DVT proph SCD's Dispo Inpatient. Patient is showing minimal improvement. Imaging noted above. Will continue to adjust tube feeds and address lab abnormalities. CIERRA DOMINGUEZ MD Oct 29, 2016 17:27
[2016-10-29] MEDS: WATER, FOR IRRIGATION 1000 ML POUR BOTTLE GT PRN (18:11)
--- NOTE | 2016-10-29 18:18 | NUR ---
Pre-feeding residual: 275mL dark green, chunky fluid. Feeding held, 1800 medication given. No S/S intolerance. Residual replaced. Pt lethargic this evening, doesn't stir much to exam. Will continue to monitor. HOB 60*. Bed alarm on.
[2016-10-29] MEDS: CETIRIZINE 1 MG/ML GT SCH (20:22)
[2016-10-29] MEDS: toPIRamate 25 MG (TOPAMAX) TAB PO SCH (20:22)
[2016-10-29] MEDS: CARBOXYMETHYLCELLULOSE 1% (CELLUVISC) OPHTHALMIC DROPS OU SCH (20:22)
[2016-10-30 04:00] VITALS: BP 100/62
--- NOTE | 2016-10-30 05:09 | NUR ---
2029-Gave HS medications with minimal discomfort to pt. 2335-Pt is sitting up at 60 degree angle, checked residual pre-feeding, has 225ml of dark green chunky fluid in stomach. Notified Dr. Burroughs and received order to hold feeding at this time and she will consult with surgery in am. 0200-Pt is resting in bed asleep, will continue to monitor. 0500-Pt is resting in bed asleep, will continue to monitor.
[2016-10-30 05:57] LABS: BASOPHILS % (AUTO) 0 % (0-2); EOSINOPHILS % (AUTO) 0 % (0-4); LYMPHOCYTES # (AUTO) 0.8 X10^3; MEAN CORPUSCULAR HGB CONC 33.3 g/dL (31.0-37.0); MONOCYTES # (AUTO) 0.6 X10^3; MONOCYTES % (AUTO) 9 % (3-11); NEUTROPHILS # (AUTO) 4.7 X10^3; NEUTROPHILS % (AUTO) 77 % (51-67); PLATELET COUNT 92 10^3uL (150-450); WHITE BLOOD COUNT 6.09 10^3uL (4.0-11.0)
[2016-10-30 06:17] LABS: ALBUMIN 3.4 g/dL (3.4-5.0); ANION GAP 17.8 MEQ/L (3-15); CALCULATED IONIZED CALCIUM 3.7 mg/dL (3.8-4.6); PHOSPHORUS 5.3 mg/dL (2.4-4.9); TOTAL PROTEIN 6.3 g/dL (6.4-8.5)
[2016-10-30 06:32] LABS: MAGNESIUM* 4.2 mg/dL (1.6-2.3)
[2016-10-30 06:37] LABS: MEAN CORPUSCULAR HEMOGLOBIN 33.8 PG (26.0-34.0); MEAN CORPUSCULAR VOLUME 102 FL (80-100)
[2016-10-30] MEDS: ALBUTEROL/IPRATROPIUM 3MG-0.5MG/3ML (DUONEB) NEB VIAL INH SCH ×2 (08:09→14:19)
[2016-10-30 08:26] VITALS: BP 81/47
--- NOTE | 2016-10-30 08:38 | Progress Note-A/P (E) ---
Progress Note Subjective: Patient has continued to have high residuals. Discussed with Dr. Mccall who has recommended checking placement of tube to ensure the bulb has not migrated into an obstructive position. If this not the case, he has recommended placing gastrograffin contrast to ensure tube placement. If tube is in fact in proper position, he has recommended pro-motility agents (metoclopramide and erythromycin). No family is at bedside. Patient is awake and response to verbal stimuli. Staff reports a fever this afternoon. Objective: Current Medications Carbamazepine 200 mg TID GT Cetirizine 10 mg HS GT Docusate 100 mg BID GT Guaifenesin 400 mg BID GT Albuterol/ Ipratropium 3 ml TID INH Multivitamins Therapeutic 5 ml DAILY@12 GT Polyethylene Glycol 17 gm DAILY PO Polyvinyl Alcohol/ Povidone 1 each DAILY OU Sennosides 8.6 mg DAILY GT Trimethoprim/ Sulfamethoxazole 20 ml BID PO Valproic Acid 500 mg HS PO Hold Enoxaparin 40 mg DAILY SC Levothyroxine 37.5 mcg DAILY GT Diltiazem 120 mg DAILY@0900 PO Topiramate 50 mg HS PO Famotidine 20 mg BID GT Carboxymethylcellulose 1 DROP HS OU Polyvinyl Alcohol/ Povidone 1 DROP QID PRN OU Sterile Water FOR GT FLUSH UD PRN GT Bisacodyl 10 mg BID PRN UT Heparin 30 unit UD PRN IV Potassium Chloride 20 meq BID PO Ondansetron 4 mg Q6H PRN IV Acetaminophen 325 mg Q4H PRN PO Vital Signs Date Time Temp Pulse Resp B/P Pulse Ox O2 Delivery O2 Flow Rate FiO2 10/30/16 08:26 98.9 94 28 81/47 92 Room air 10/27/16 22:30 0.00 I & O Past 24 hrs 10/30/16 07:00 Intake Total 0 ml Output Total 1078 ml Balance -1078 ml Intake Oral 0 ml Output Urine Total 1078 ml # Bowel Movements 2 Physical Exam General--Resting. No distress. HEENT--[place] de [place] facial features. MMM in oral cavity. Lungs--Clear bilaterally. Heart--LARISA II/ heard best over left lower sternal border. RRR. Abdomen--NBS/S/ND/NTTP. PEG tube in place, appears to be at 2cm, retention ring flush with skin. Tube rotates easily, no give on the tube that points to retention bulb migration. Extremities--No edema noted to lower extremities. Skin--Warm to the touch. Past 24 hour Lab Results 10/30/16 05:45 Laboratory Results Past 24 Hrs 10/29/16 11:50: Clostridium difficile Antigen Negative, Stool Clos difficile Toxin Assay Negative 10/30/16 05:45: Alanine Aminotransferase (ALT/SGPT) 52, Albumin 3.4, Albumin/Globulin Ratio 1.172, Alkaline Phosphatase 131, Ammonia 12.0, Anion Gap 17.8, Aspartate Amino Transf (AST/SGOT) 57, BUN/Creatinine Ratio 47, Basophils # (Auto) 0.0, Basophils (%) (Auto) 0, Blood Urea Nitrogen 47, Calcium Level 7.9, Calcium/ Ionized Calcium Ratio 3.7, Calculated Osmolality 298, Carbon Dioxide Level 21, Chloride Level 115, Creatinine 1.01, Eosinophils # (Auto) 0.0, Eosinophils (%) ( Auto) 0, Estimat Glomerular Filtration Rate 74.6, Estimated GFR (Non- 61.7, Glucose Level 83, Hematocrit 34.50, Hemoglobin 11.5, Lymphocytes # (Auto) 0.8, Lymphocytes (%) (Auto) 14, Magnesium Level 4.2, Mean Corpuscular Hemoglobin 33.8, Mean Corpuscular Hemoglobin Concent 33.3, Mean Corpuscular Volume 102, Mean Platelet Volume , Monocytes # (Auto) 0.6, Monocytes (%) (Auto) 9, Neutrophils # (Auto) 4.7, Neutrophils (%) (Auto) 77, Phosphorus Level 5.3, Platelet Count 92, Potassium Level 5.1, Red Blood Count 3.40, Red Cell Distribution Width 12.7, Smear Scan Yes, Sodium Level 149, Total Bilirubin 2.2, Total Protein 6.3, White Blood Count 6.09 Microbiology 10/29/16 Blood Culture - Preliminary, Resulted No Growth in 24 hours 10/16/16 Urine Culture - Final, Complete Imaging Results 10/17/16 ECHO Summary: Technically challenging study. Normal cardiac chamber sizes. Normal LV wall thickness. Intact LV systolic function with estimated EF 61%. Thickened aortic valve, with no significant stenosis or insufficiency. No significant mitral or tricuspid insufficiency. No pericardial effusion. 10.16.16 CXR IMPRESSION: 1. In the chest, there is persistent cardiomegaly with mild pulmonary vascular congestion and patchy perihilar airspace disease similar to the prior study. 2. No acute abdominal abnormality is suspected. 10.18.16 Small bowel follow through. IMPRESSION: Findings are compatible with constipation. There is mild delay in small bowel transit with transit time of 5.5 hours. No obstruction is seen. 10.20.16 Abdominal film IMPRESSION: 1. Gastrostomy tube projects over the expected position of the stomach. 2. Mild gaseous distention of bowel most likely involving loops of large bowel which is less prominent compared to prior exam. 10.22.16 Abdominal film Impression: Increasing distention of the colon. Findings may relate to worsening ileus. However, distal colonic obstruction not excluded. Recommend clinical correlation. 10.23.16 Abdominal film Impression: 1. Stable appearance of the chest as described 2. Moderate improvement since the recent prior abdominal series with findings suggestive of improving ileus as described. 10.27.16 Abdominal u/s IMPRESSION: 1. Cholelithiasis with no evidence of gallbladder wall thickening or bile duct dilatation. 2. Liver parenchyma is homogeneous in appearance with no evidence of hepatomegaly. 10.27.16 CXR Impression: No acute finding. 10.29.16 CT chest/abd/pelvis IMPRESSION: CT CHEST, ABDOMEN, AND PELVIS. 1. Low lung volumes with associated central bronchovascular crowding and respiratory motion artifact. 2. No identified acute cardiopulmonary abnormality. 3. No identified acute abnormality within the abdomen or pelvis. 4. Moderate distention of the urinary bladder. 5. Nonobstructing renal stones bilaterally. 6. Cholelithiasis without findings to suggest acute cholecystitis. 7. Atherosclerotic calcifications noted. 1.117 Abdominal film with gastrograffin to evaluate tube placement IMPRESSION: Gastrostomy tube appears to be in the stomach in satisfactory position. Assessment/Plan SIRS Meeting criteria with fever (1004.) and tachycardia (90-100's). Unclear source. No respiratory source Acute respiratory failure Improving, recurred. Re-evaluation has not revealed a source. Continue supplemental oxygen as needed. Asthma Continue albuterol. Will add back duonebs if needed. CAP Patient received a 5 day course of levofloxacin. Blood cultures drawn 10.29 are negative at 24 hours. UTI Culture above. Abx provided. G tube dysfunction/Constipation Persists. Discussed with Dr. Mccall who has recommended checking placement of tube to ensure the bulb has not migrated into an obstructive position. If this not the case, he has recommended placing gastrograffin contrast to ensure tube placement. If tube is in fact in proper position, he has recommended pro- motility agents (metoclopramide and erythromycin). Physical exam per above. Gastrograffin study showed good tube placement. See above. Adding metoclopramide for motility. Continue to monitor residuals. Once residuals fall below 100, will add feeds back. If patient continues to have high residuals, can add erythromycin, however, likely will need to consult surgery formally then. Will need to consider TPN if not tolerating feeds. Radiographic studies above. Constipation/Ileus Improving. Multiple BM's since admission. Imaging noted above. CHF Echo per above. Provided furosemide. Monitor daily i/o's carefully and daily weights. Hyperammonemia Has normalized. Attributed to valproic acid, holding for now. Elevated liver enzymes Persist. Imaging noted above. No improvement with fluids. Continue to monitor for improvement. Hypernatremia Increased the amount of free water through PEG tube. Sodium has normalized. Debility Per the home staff the patient does ambulate, however has not been doing that here. Continue PT. Seizure disorder Topiramate per home regimen. Holding valproic acid per above. Holding oral medications, adding keppra 500mg BID IV since she was on low doses of seizure meds. Hypothyroidism Holding home dose of levothyroxine since patient is NPO. Will restart when patient is tolerating po. Can add iv levothyroxine if needed. GERD Providing iv famotidine. Seasonal allergies Holding home cetirizine. HTN Has been on diltiazem at home, continued here, however since not tolerating feeds, changing to IV metoprolol. 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 FEN NPO. Typical feeding schedule is 240ml of Jevity 1.0 QID, pt is not tolerating this. See above. Electrolytes--hypokalemia replaced. Hypernatremia noted above. No fluids at this time. Code status Full code. DVT proph SCD's Dispo Inpatient. Holding feeds for now, holding po medications for now, switching to IV. Discussion with surgery noted above. Imaging noted above. Starting pro- motility agents today. CIERRA DOMINGUEZ MD Oct 30, 2016 08:38
[2016-10-30] MEDS: DILTIAZEM CD 120 MG (CARDIZEM CD) CAP PO SCH (11:09)
[2016-10-30] MEDS: guaiFENesin SYRUP 200 MG/10 ML (ROBITUSSIN) UDC GT SCH (11:10)
[2016-10-30] MEDS: POLYETHYLENE GLYCOL 17 GM (MIRALAX) PACKET PO SCH (11:10)
[2016-10-30] MEDS: ENOXAPARIN 40 MG/0.4 ML (LOVENOX) SYR SC SCH (11:10)
[2016-10-30] MEDS: LEVOTHYROXINE 75 MCG (LEVOTHROID) TABLET GT SCH (11:15)
[2016-10-30] MEDS: SENNOSIDES 8.6 MG (SENOKOT) TAB GT SCH (11:15)
[2016-10-30] MEDS: THERAPEUTIC MULTIVITAMINS LIQUID 5 ML UDC GT SCH (11:15)
[2016-10-30] MEDS: TRIMETHOPRIM PO SCH (11:15)
[2016-10-30] MEDS: SULFAMETHOXAZOLE PO SCH (11:15)
[2016-10-30] MEDS: CARBAMAZEPINE 100 MG/5 ML GT SCH ×2 (11:16→13:51)
[2016-10-30] MEDS: FAMOTIDINE 40 MG/5 ML GT SCH (11:17)
[2016-10-30] MEDS: DOCUSATE 100 MG/10 ML GT SCH (11:17)
[2016-10-30] MEDS: SODIUM CHLORIDE FLUSH 10 ML SYR IV SCH (11:18)
[2016-10-30] MEDS: ARTIFICIAL TEARS (REFRESH) OPHTHALMIC DROPS OU SCH (11:18)
[2016-10-30] MEDS: POTASSIUM CHLORIDE ORAL SOLUTION 20 MEQ/15 ML (KCL) UDC PO SCH (11:23)
[2016-10-30 11:50] VITALS: BP 96/49
--- NOTE | 2016-10-30 14:00 | NUR ---
PEG tube residual done with return of 250 cc's greenish thick liquid. Allowed to flow back by gravity. Dr. Burroughs notified of amount. Tube flushed with 40 cc's water after med given. Oral care done with pink oral sponge -thick whitish mucus removed. Eyes cleansed at corners - of dried matter. Repositioned and attend changed - incontinent of urine, smear of stool. No verbal responses - helps turn when repositioned - reaches for rail. No apparent discomfort.
[2016-10-30] MEDS: SODIUM CHLORIDE FLUSH 10 ML SYR IV PRN (15:54)
[2016-10-30] MEDS: D5 1/2 NS IV 1,000 ML IV SCH (15:54)
--- NOTE | 2016-10-30 15:59 | Diagnostic Imaging Report ---
INDICATION: Evaluation of gastric PEG tube. EXAMINATION: Abdomen. Contrast injected through the PEG tube. FINDINGS: Contrast appears to be going into the stomach and then passing along through the small bowel. IMPRESSION: Gastrostomy tube appears to be in the stomach in satisfactory position. Dictated by: Dictated on workstation # [id number]
[2016-10-30 16:16] VITALS: BP 119/63
[2016-10-30] MEDS: METOCLOPRAMIDE 10 MG/2 ML (REGLAN) VIAL IV SCH (18:41)
[2016-10-30] MEDS: meTOprolol 5 MG/5 ML (LOPRESSOR) VIAL IV SCH (18:41)
[2016-10-30] MEDS ORDERED: ALBUTEROL/IPRATROPIUM 3MG-0.5MG/3ML (DUONEB) NEB VIAL INH ONE (19:11)
--- NOTE | 2016-10-30 19:15 | NUR ---
Report received, care assumed.
[2016-10-30 19:37] VITALS: BP 104/64
--- NOTE | 2016-10-30 19:45 | NUR ---
Residual checked - [address] Burroughs texted amount. Pt has been repositioned at regular intervals. Skin protection lotion to bottom when attends changed.
--- NOTE | 2016-10-30 21:00 | NUR ---
Jevity feeding 120cc given with 60cc H2O, slowly by gravity. Pt appeared to tolerate it well. Assessment completed, pt not participative, non-verbal. No other needs at this time. Will continue to monitor.
[2016-10-30] MEDS: LEVETIRACETAM IV SCH (21:16)
[2016-10-30] MEDS: SODIUM CHLORIDE IV SCH (21:16)
[2016-10-30] MEDS: CARBOXYMETHYLCELLULOSE 1% (CELLUVISC) OPHTHALMIC DROPS OU SCH (21:17)
[2016-10-30] MEDS: FAMOTIDINE IV 20 MG in SODIUM CHLORIDE VIAL (PF) 10 ML IV SCH (21:17)
[2016-10-31 00:07] VITALS: BP 101/60
[2016-10-31] MEDS: METOCLOPRAMIDE 10 MG/2 ML (REGLAN) VIAL IV SCH ×2 (00:44→05:36)
[2016-10-31] MEDS: meTOprolol 5 MG/5 ML (LOPRESSOR) VIAL IV SCH ×2 (00:44→05:36)
[2016-10-31 04:17] VITALS: BP 102/63
[2016-10-31] MEDS: D5 1/2 NS IV 1,000 ML IV SCH ×2 (04:24→14:58)
--- NOTE | 2016-10-31 05:55 | NUR ---
Pt has slept in between eZono. No signs discomfort. No N/V. Tube feeding residual this morning was 90ml. Jevity 1.0 administered slowly via peg tube followed by free water. Pt tolerated well. IVF continue to infuse. Pt had large BM this morning. [place] care provided. No other needs at this time.
[2016-10-31 06:47] LABS: ALBUMIN 3.1 g/dL (3.4-5.0); ANION GAP 16.5 MEQ/L (3-15); CALCULATED IONIZED CALCIUM 3.6 mg/dL (3.8-4.6); PHOSPHORUS 4.2 mg/dL (2.4-4.9)
[2016-10-31 06:48] LABS: BASOPHILS % (AUTO) 1 % (0-2); EOSINOPHILS # (AUTO) 0.5 10^3uL; EOSINOPHILS % (AUTO) 8 % (0-4); LYMPHOCYTES # (AUTO) 1.2 X10^3; MEAN CORPUSCULAR HGB CONC 32.1 g/dL (31.0-37.0); MONOCYTES # (AUTO) 0.5 X10^3; MONOCYTES % (AUTO) 9 % (3-11); NEUTROPHILS # (AUTO) 3.3 X10^3; NEUTROPHILS % (AUTO) 60 % (51-67); WHITE BLOOD COUNT 5.53 10^3uL (4.0-11.0)
[2016-10-31 06:57] LABS: MAGNESIUM* 4.2 mg/dL (1.6-2.3)
[2016-10-31 07:29] LABS: MEAN CORPUSCULAR HEMOGLOBIN 34.1 PG (26.0-34.0); MEAN CORPUSCULAR VOLUME 106 FL (80-100)
[2016-10-31 07:30] LABS: PLATELET COUNT 101 10^3uL (150-450)
[2016-10-31 08:00] VITALS: BP 95/50
[2016-10-31] MEDS: SODIUM CHLORIDE FLUSH 10 ML SYR IV SCH (09:00)
--- NOTE | 2016-10-31 09:45 | Progress Note (E) ---
Progress Note SUBJECTIVE Continued problem with tube feedings. CT unremarkable for causes of high residuals. Got started on IV medications, IV metoclopramide. Feeds remain on hold. Strategies thus far for consistent nutrition have not been very successful. Had planned trial of continuous feeds but this was not yet started. Further infectious workup has been negative. Still waiting on UA (noted she had been treated for UTI.) Tmax in the last 24 hours 100.4. On exam, more alert and interactive again. Abdomen mildly distended but soft. Nursing staff have sit her up to chair and she is looking around room more. OBJECTIVE Vital Signs Date Time Temp Pulse Resp B/P Pulse Ox O2 Delivery O2 Flow Rate FiO2 10/31/16 08:00 98.2 16 28 95/50 94 Room air 10/27/16 22:30 0.00 I & O 10/30/16 10/31/16 Cumulative From/Thru 19:00 07:00 10/16/16 21:35 - 10/31/16 06:06 Intake Total 190 ml 1714 ml 4424 ml Output Total 624 ml 1352 ml 86070 ml Balance -434 ml 362 ml -99574 ml GEN: Resting in bed. Stirs to exam. Less interactive. Breathing more rapidly with some nasal congestion noted. 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 Dry skin. Clear sclerae. Somewhat dry oral mucosa. Mildly injected right sclera but improving. Green mucus in mouth, suctioned. CV: Regular, prominent 3/6 systolic murmur, crescendo/decrescendo. PULM: Breath sounds more congested with upper airway sounds apparent. ABD: Soft, tolerates exam. A bit more full compared to 10/27. EXTR: Warm, well-perfused. Left arm is hyperemic but edema in upper extremities is improved. INTEG: Dry skin. Left arm hyperemia as noted. NEURO: Non-verbal. Lab-Past 14 Days, 35 Results 10/17/16 17:58: Adenovirus (PCR) Negative, Bordetella parapertussis DNA (PCR) Negative, Chlamydophila pneumoniae (PCR) Negative, Coronavirus Type 229E (PCR) Negative, Coronavirus Type HKU1 (PCR) Negative, Coronavirus Type NL63 (PCR) Negative, Coronavirus Type OC43 (PCR) Negative, Enterovirus/Rhinovirus (PCR) Negative, Human Metapneumovirus (PCR) Negative, Influenza Type A (H1) (PCR) Negative, Influenza Virus Type B (PCR) Negative, Mycoplasma pneumoniae (PCR) Negative, Parainfluenza Type 1 (PCR) Negative, Parainfluenza Type 2 (PCR) Negative, Parainfluenza Type 3 (PCR) Negative, Parainfluenza Type 4 (PCR) Negative, Respiratory Syncytial Virus (PCR) Negative 10/18/16 05:40: Absolute Band Neutrophils 0.1, Albumin 3.4, Ammonia 89.1H, Anion Gap 12.6, Band Neutrophils % 2, Basophils # (Auto) , Basophils # (Manual) 0.0, Basophils % ( Manual) 1, Basophils (%) (Auto) , Blood Morphology Comment Normal, Blood Urea Nitrogen 9, C-Reactive Protein 1.30H, Calcium Level 8.7L, Carbon Dioxide Level 27, Chloride Level 105, Creatinine 0.45L, Differential Total Cells Counted 100, Eosinophils # 0.2, Eosinophils # (Auto) , Eosinophils % (Manual) 5H, Eosinophils (%) (Auto) , Estimat Glomerular Filtration Rate 189.7, Estimated GFR (Non- 156.8, Glucose Level 85#, Hematocrit 38.20, Hemoglobin 13.2, Lymphocytes # 0.8, Lymphocytes # (Auto) , Lymphocytes % (Manual ) 20, Lymphocytes (%) (Auto) , Magnesium Level 2.3, Mean Corpuscular Hemoglobin 34.6H, Mean Corpuscular Hemoglobin Concent 34.6, Mean Corpuscular Volume 100, Mean Platelet Volume 12.2H, Metamyelocytes % 0, Monocytes # 0.5, Monocytes # ( Auto) , Monocytes % (Manual) 16H, Monocytes (%) (Auto) , LV-Cdm-L-Type Natriuretic Peptide 1600H, Neutrophils # 2.2, Neutrophils # (Auto) , Neutrophils (%) (Auto) , Phosphorus Level 4.6, Platelet Count 145L, Potassium Level 4.1, Red Blood Count 3.82L, Red Cell Distribution Width 12.6, Segmented Neutrophils % 56, Sodium Level 141#, White Blood Count 3.89L 10/19/16 06:00: Absolute Band Neutrophils 0.1, Albumin 3.9, Ammonia 52.4H, Anion Gap 18.6H, Band Neutrophils % 1, Basophils # (Auto) , Basophils # (Manual) 0.0, Basophils % (Manual) 0, Basophils (%) (Auto) , Blood Morphology Comment Normal, Blood Urea Nitrogen 10, C-Reactive Protein 2.00H, Calcium Level 9.3, Carbon Dioxide Level 25, Chloride Level 101, Creatinine 0.49L, Differential Total Cells Counted 100, Eosinophils # 0.0, Eosinophils # (Auto) , Eosinophils % (Manual) 0 , Eosinophils (%) (Auto) , Estimat Glomerular Filtration Rate 172.0, Estimated GFR (Non- 142.1, Glucose Level 67#L, Hematocrit 40.60, Hemoglobin 14.2, Lymphocytes # 1.0, Lymphocytes # (Auto) , Lymphocytes % (Manual ) 13L, Lymphocytes (%) (Auto) , Mean Corpuscular Hemoglobin 34.5H, Mean Corpuscular Hemoglobin Concent 35.0, Mean Corpuscular Volume 99, Mean Platelet Volume 11.3H, Monocytes # 1.1, Monocytes # (Auto) , Monocytes % (Manual) 16H, Monocytes (%) (Auto) , Neutrophils # 5.1, Neutrophils # (Auto) , Neutrophils (% ) (Auto) , Platelet Count 158, Potassium Level 3.7, Red Blood Count 4.11, Red Cell Distribution Width 12.4, Segmented Neutrophils % 70H, Sodium Level 141, White Blood Count 7.33, Alanine Aminotransferase (ALT/SGPT) 34, Albumin/ Globulin Ratio 1.500, Alkaline Phosphatase 241H, Aspartate Amino Transf (AST/ SGOT) 36, BUN/Creatinine Ratio 20, Calcium/Ionized Calcium Ratio 4.3, Calculated Osmolality 269L, Total Bilirubin 1.7#H, Total Protein 6.5 10/20/16 05:45: Absolute Band Neutrophils 0.1, Albumin 4.0, Ammonia 46.8H, Anion Gap 21.3H, Band Neutrophils % 2, Basophils # (Auto) , Basophils # (Manual) 0.0, Basophils % (Manual) 0, Basophils (%) (Auto) , Blood Morphology Comment Normal, Blood Urea Nitrogen 15, Calcium Level 9.6, Carbon Dioxide Level 26, Chloride Level 97L , Creatinine 0.59L, Differential Total Cells Counted 100, Eosinophils # 0.1, Eosinophils # (Auto) , Eosinophils % (Manual) 1, Eosinophils (%) (Auto) , Estimat Glomerular Filtration Rate 138.8, Estimated GFR (Non- 114.7, Glucose Level 85#, Hematocrit 42.90, Hemoglobin 15.2, Lymphocytes # 0.9, Lymphocytes # (Auto) , Lymphocytes % (Manual) 14L, Lymphocytes (%) (Auto) , Magnesium Level 2.2, Mean Corpuscular Hemoglobin 34.5H, Mean Corpuscular Hemoglobin Concent 35.4, Mean Corpuscular Volume 97, Mean Platelet Volume 12.1H , Metamyelocytes % 0, Monocytes # 1.2, Monocytes # (Auto) , Monocytes % (Manual ) 20H, Monocytes (%) (Auto) , Neutrophils # 3.9, Neutrophils # (Auto) , Neutrophils (%) (Auto) , Phosphorus Level 4.8, Platelet Count 182, Potassium Level 3.3L, Red Blood Count 4.41, Red Cell Distribution Width 12.4, Segmented Neutrophils % 63, Sodium Level 141, White Blood Count 6.12, Alanine Aminotransferase (ALT/SGPT) 36, Albumin/Globulin Ratio 1.481, Alkaline Phosphatase 221H, Aspartate Amino Transf (AST/SGOT) 42H, BUN/Creatinine Ratio 25H, Calcium/Ionized Calcium Ratio 4.4, Calculated Osmolality 272L, Total Bilirubin 2.1H, Total Protein 6.7 10/21/16 05:50: Absolute Band Neutrophils 0.1, Alanine Aminotransferase (ALT/SGPT) 33, Albumin 3.8, Albumin/Globulin Ratio 1.461, Alkaline Phosphatase 200H, Ammonia 69.1H, Anion Gap 15.1H, Aspartate Amino Transf (AST/SGOT) 42H, BUN/Creatinine Ratio 29H , Band Neutrophils % 2, Basophils # (Manual) 0.0, Basophils % (Manual) 0, Blood Morphology Comment Normal, Blood Urea Nitrogen 14, Calcium Level 9.2, Calcium/ Ionized Calcium Ratio 4.3, Calculated Osmolality 271L, Carbon Dioxide Level 26, Chloride Level 102, Creatinine 0.48L, Differential Total Cells Counted 100, Eosinophils # 0.1, Eosinophils % (Manual) 1, Estimat Glomerular Filtration Rate 176.1, Estimated GFR (Non- 145.5, Glucose Level 119#H, Hematocrit 42.40, Hemoglobin 14.8, Lymphocytes # 1.1, Lymphocytes % (Manual) 20 , Magnesium Level 2.4H, Mean Corpuscular Hemoglobin 34.3H, Mean Corpuscular Hemoglobin Concent 34.9, Mean Corpuscular Volume 98, Mean Platelet Volume 11.9H , Metamyelocytes % 0, Monocytes # 0.7, Monocytes % (Manual) 13H, Neutrophils # 3.7, Phosphorus Level 4.1, Platelet Count 178, Potassium Level 3.6, Red Blood Count 4.32, Red Cell Distribution Width 12.4, Segmented Neutrophils % 64, Sodium Level 139, Total Bilirubin 1.2H, Total Protein 6.4, White Blood Count 5.76 10/23/16 05:47: Absolute Band Neutrophils 0.2, Alanine Aminotransferase (ALT/SGPT) 32, Albumin 3.8, Albumin/Globulin Ratio 1.520, Alkaline Phosphatase 210H, Ammonia 30.1H, Anion Gap 17.7H, Aspartate Amino Transf (AST/SGOT) 66H, BUN/Creatinine Ratio 30H , Band Neutrophils % 3, Basophils # (Manual) 0.0, Basophils % (Manual) 0, Blood Morphology Comment Normal, Blood Urea Nitrogen 17, Calcium Level 9.2, Calcium/ Ionized Calcium Ratio 4.3, Calculated Osmolality 273L, Carbon Dioxide Level 23, Chloride Level 105, Creatinine 0.56L, Differential Total Cells Counted 100, Eosinophils # 0.0, Eosinophils % (Manual) 0, Estimat Glomerular Filtration Rate 147.4, Estimated GFR (Non- 121.8, Glucose Level 81#, Hematocrit 42.80, Hemoglobin 15.0, Lymphocytes # 1.4, Lymphocytes % (Manual) 20, Magnesium Level 2.4H, Mean Corpuscular Hemoglobin 34.2H, Mean Corpuscular Hemoglobin Concent 35.0, Mean Corpuscular Volume 98, Mean Platelet Volume 12.3H, Metamyelocytes % 0, Monocytes # 1.1, Monocytes % (Manual) 16H, Neutrophils # 4.3 , Platelet Count 185, Potassium Level 4.1, Red Blood Count 4.39, Red Cell Distribution Width 12.5, Segmented Neutrophils % 61, Sodium Level 141, Total Bilirubin 2.6#H, Total Protein 6.3L, White Blood Count 7.11, Basophils # (Auto) , Basophils (%) (Auto) , C-Reactive Protein 7.30H, Eosinophils # (Auto) , Eosinophils (%) (Auto) , Hepatitis A IgM Antibody Negative, Hepatitis B Core IgM Antibody Negative, Hepatitis B Surface Antigen Negative, Hepatitis C Antibody Negative, Lymphocytes # (Auto) , Lymphocytes (%) (Auto) , Monocytes # ( Auto) , Monocytes (%) (Auto) , MZ-Bje-V-Type Natriuretic Peptide 2520H, Neutrophils # (Auto) , Neutrophils (%) (Auto) 10/24/16 06:15: Absolute Band Neutrophils 0.1, Alanine Aminotransferase (ALT/SGPT) 53, Albumin 4.2, Albumin/Globulin Ratio 1.312, Alkaline Phosphatase 246H, Ammonia 42.9H, Anion Gap 17.9H, Aspartate Amino Transf (AST/SGOT) 78H, BUN/Creatinine Ratio 40H , Band Neutrophils % 1, Basophils # (Manual) 0.0, Basophils % (Manual) 0, Blood Morphology Comment Normal, Blood Urea Nitrogen 29#H, Calcium Level 8.9, Calcium/ Ionized Calcium Ratio 3.8, Calculated Osmolality 292, Carbon Dioxide Level 27, Chloride Level 106, Creatinine 0.73, Differential Total Cells Counted 100, Eosinophils # 0.0, Eosinophils % (Manual) 0, Estimat Glomerular Filtration Rate 108.5, Estimated GFR (Non- 89.7, Glucose Level 169#H, Hematocrit 45.20H, Hemoglobin 15.9H, Lymphocytes # 1.0, Lymphocytes % (Manual) 12L, Mean Corpuscular Hemoglobin 34.3H, Mean Corpuscular Hemoglobin Concent 35.2 , Mean Corpuscular Volume 97, Mean Platelet Volume 11.9H, Monocytes # 1.2, Monocytes % (Manual) 15H, Neutrophils # 6.0, Platelet Count 189, Potassium Level 3.4L, Red Blood Count 4.64, Red Cell Distribution Width 12.6, Segmented Neutrophils % 72H, Sodium Level 147, Total Bilirubin 2.8H, Total Protein 7.4, White Blood Count 8.31, Basophils # (Auto) , Basophils (%) (Auto) , C-Reactive Protein 13.60H, Eosinophils # (Auto) , Eosinophils (%) (Auto) , Lymphocytes # ( Auto) , Lymphocytes (%) (Auto) , Monocytes # (Auto) , Monocytes (%) (Auto) , Neutrophils # (Auto) , Neutrophils (%) (Auto) , Conjugated Bilirubin 0.4 10/25/16 05:45: Absolute Band Neutrophils 0.0, Band Neutrophils % 0, Basophils # (Manual) 0.0, Basophils % (Manual) 0, Blood Morphology Comment Normal, Differential Total Cells Counted 100, Eosinophils # 0.0, Eosinophils % (Manual) 0, Hematocrit 44.40 , Hemoglobin 15.3, Lymphocytes # 0.9, Lymphocytes % (Manual) 10L, Mean Corpuscular Hemoglobin 34.4H, Mean Corpuscular Hemoglobin Concent 34.5, Mean Corpuscular Volume 100, Mean Platelet Volume 12.6H, Metamyelocytes % 0, Monocytes # 1.0, Monocytes % (Manual) 13H, Neutrophils # 6.6, Platelet Count 215 , Red Blood Count 4.45, Red Cell Distribution Width 12.9, Segmented Neutrophils % 77H, White Blood Count 8.52, Basophils # (Auto) , Basophils (%) (Auto) , Eosinophils # (Auto) , Eosinophils (%) (Auto) , Lymphocytes # (Auto) , Lymphocytes (%) (Auto) , Monocytes # (Auto) , Monocytes (%) (Auto) , Neutrophils # (Auto) , Neutrophils (%) (Auto) 10/25/16 07:40: Alanine Aminotransferase (ALT/SGPT) 65, Albumin 4.3, Albumin/Globulin Ratio 1.343, Alkaline Phosphatase 244H, Anion Gap 18.2H, Aspartate Amino Transf (AST/ SGOT) 89H, BUN/Creatinine Ratio 42H, Blood Urea Nitrogen 31H, C-Reactive Protein 6.30H, Calcium Level 8.8, Calcium/Ionized Calcium Ratio 3.7L, Calculated Osmolality 297, Carbon Dioxide Level 24, Chloride Level 112H, Creatinine 0.74, Estimat Glomerular Filtration Rate 106.9, Estimated GFR (Non- 88.3, Glucose Level 137H, Magnesium Level 3.4#H, Phosphorus Level 3.8, Potassium Level 5.0#, Sodium Level 149, Total Bilirubin 2.3H, Total Protein 7.5 10/27/16 06:27: Alanine Aminotransferase (ALT/SGPT) 68H, Albumin 4.0, Albumin/Globulin Ratio 1.142, Alkaline Phosphatase 218H, Anion Gap 21.7H, Aspartate Amino Transf (AST/ SGOT) 91H, BUN/Creatinine Ratio 50H, Blood Urea Nitrogen 47#H, C-Reactive Protein 2.60H, Calcium Level 8.6L, Calcium/Ionized Calcium Ratio 3.7L, Calculated Osmolality 322H, Carbon Dioxide Level 21L, Chloride Level 122H, Creatinine 0.94, Estimat Glomerular Filtration Rate 81.1, Estimated GFR (Non- 67.0, Glucose Level 133H, Potassium Level 4.5, Sodium Level 160 #H, Total Bilirubin 2.8H, Total Protein 7.5, Ammonia 35.4H, Basophils # (Auto) 0.1, Basophils (%) (Auto) 1, Eosinophils # (Auto) 0.0, Eosinophils (%) (Auto) 0 , Hematocrit 50.40H, Hemoglobin 17.1H, Lymphocytes # (Auto) 1.8, Lymphocytes (% ) (Auto) 19L, Mean Corpuscular Hemoglobin 35.0H, Mean Corpuscular Hemoglobin Concent 33.9, Mean Corpuscular Volume 103H, Mean Platelet Volume 12.4H, Monocytes # (Auto) 1.3, Monocytes (%) (Auto) 13H, Neutrophils # (Auto) 6.3, Neutrophils (%) (Auto) 67, Platelet Count 190, Red Blood Count 4.88, Red Cell Distribution Width 13.2, White Blood Count 9.47 10/27/16 16:40: Sodium Level 158H 10/27/16 16:43: Adenovirus (PCR) Negative, Bordetella parapertussis DNA (PCR) Negative, Chlamydophila pneumoniae (PCR) Negative, Coronavirus Type 229E (PCR) Negative, Coronavirus Type HKU1 (PCR) Negative, Coronavirus Type NL63 (PCR) Negative, Coronavirus Type OC43 (PCR) Negative, Enterovirus/Rhinovirus (PCR) Negative, Human Metapneumovirus (PCR) Negative, Influenza Type A (H1) (PCR) Negative, Influenza Virus Type B (PCR) Negative, Mycoplasma pneumoniae (PCR) Negative, Parainfluenza Type 1 (PCR) Negative, Parainfluenza Type 2 (PCR) Negative, Parainfluenza Type 3 (PCR) Negative, Parainfluenza Type 4 (PCR) Negative, Respiratory Syncytial Virus (PCR) Negative 10/27/16 22:45: Sodium Level 157H 10/28/16 05:22: Sodium Level 151H, Alanine Aminotransferase (ALT/SGPT) 74H, Albumin 3.8, Alkaline Phosphatase 175H, Anion Gap 19.4H, Aspartate Amino Transf (AST/SGOT) 96H, Blood Urea Nitrogen 67H, Calcium Level 7.6L, Carbon Dioxide Level 20L, Chloride Level 116H, Conjugated Bilirubin 0.2, Creatinine 1.21H, Estimat Glomerular Filtration Rate 60.6, Estimated GFR (Non- 50.1, Glucose Level 191#H, Phosphorus Level 4.5, Potassium Level 4.8, Total Bilirubin 2.5H, Total Protein 6.8 10/28/16 12:13: Sodium Level 149, Albumin 3.9, Anion Gap 18.5H, Blood Urea Nitrogen 66H, Calcium Level 8.1L, Carbon Dioxide Level 23, Chloride Level 113H, Creatinine 1.21H, Estimat Glomerular Filtration Rate 60.6, Estimated GFR (Non- 50.1, Glucose Level 186H, Phosphorus Level 4.0, Potassium Level 5.0 10/29/16 06:25: Sodium Level 144, Alanine Aminotransferase (ALT/SGPT) 59, Albumin 3.1#L, Alkaline Phosphatase 132H, Anion Gap 17.8H, Aspartate Amino Transf (AST/SGOT) 58H, Blood Urea Nitrogen 57H, Calcium Level 7.9L, Carbon Dioxide Level 21L, Chloride Level 110H, Creatinine 1.09, Estimat Glomerular Filtration Rate 68.3, Estimated GFR (Non- 56.5, Glucose Level 120#H, Potassium Level 5.1, Total Bilirubin 2.8H, Total Protein 5.5L, Albumin/Globulin Ratio 1.291, BUN /Creatinine Ratio 52H, Basophils # (Auto) 0.0, Basophils (%) (Auto) 0, Calcium/ Ionized Calcium Ratio 4.0, Calculated Osmolality 295, Eosinophils # (Auto) 0.0, Eosinophils (%) (Auto) 0, Hematocrit 36.20, Hemoglobin 12.3, Lymphocytes # (Auto ) 1.8, Lymphocytes (%) (Auto) 18L, Mean Corpuscular Hemoglobin 34.4H, Mean Corpuscular Hemoglobin Concent 34.0, Mean Corpuscular Volume 101H, Mean Platelet Volume 13.8H, Monocytes # (Auto) 1.0, Monocytes (%) (Auto) 10, Neutrophils # (Auto) 6.8, Neutrophils (%) (Auto) 71H, Platelet Count 103L, Red Blood Count 3.58L, Red Cell Distribution Width 12.6, White Blood Count 9.62 10/29/16 11:50: Clostridium difficile Antigen Negative, Stool Clos difficile Toxin Assay Negative 10/30/16 05:45: Alanine Aminotransferase (ALT/SGPT) 52, Albumin 3.4, Albumin/Globulin Ratio 1.172, Alkaline Phosphatase 131H, Ammonia 12.0, Anion Gap 17.8H, Aspartate Amino Transf (AST/SGOT) 57H, BUN/Creatinine Ratio 47H, Basophils # (Auto) 0.0, Basophils (%) (Auto) 0, Blood Urea Nitrogen 47H, Calcium Level 7.9L, Calcium/ Ionized Calcium Ratio 3.7L, Calculated Osmolality 298, Carbon Dioxide Level 21L , Chloride Level 115H, Creatinine 1.01, Eosinophils # (Auto) 0.0, Eosinophils (% ) (Auto) 0, Estimat Glomerular Filtration Rate 74.6, Estimated GFR (Non- 61.7, Glucose Level 83#, Hematocrit 34.50L, Hemoglobin 11.5L, Lymphocytes # (Auto) 0.8, Lymphocytes (%) (Auto) 14L, Magnesium Level 4.2#*H, Mean Corpuscular Hemoglobin 33.8, Mean Corpuscular Hemoglobin Concent 33.3, Mean Corpuscular Volume 102H, Mean Platelet Volume , Monocytes # (Auto) 0.6, Monocytes (%) (Auto) 9, Neutrophils # (Auto) 4.7, Neutrophils (%) (Auto) 77H, Phosphorus Level 5.3#H, Platelet Count 92L, Potassium Level 5.1, Red Blood Count 3.40L, Red Cell Distribution Width 12.7, Smear Scan Yes, Sodium Level 149 , Total Bilirubin 2.2H, Total Protein 6.3L, White Blood Count 6.09 10/31/16 06:10: Alanine Aminotransferase (ALT/SGPT) 45, Albumin 3.1L, Albumin/Globulin Ratio 1.068L, Alkaline Phosphatase 124, Anion Gap 16.5H, Aspartate Amino Transf (AST/ SGOT) 71H, BUN/Creatinine Ratio 40H, Basophils # (Auto) 0.1, Basophils (%) (Auto ) 1, Blood Urea Nitrogen 37H, Calcium Level 7.4L, Calcium/Ionized Calcium Ratio 3.6L, Calculated Osmolality 306H, Carbon Dioxide Level 20L, Chloride Level 121H , Creatinine 0.93, Eosinophils # (Auto) 0.5, Eosinophils (%) (Auto) 8H, Estimat Glomerular Filtration Rate 82.1, Estimated GFR (Non- 67.8, Glucose Level 128#H, Hematocrit 35.80, Hemoglobin 11.5L, Lymphocytes # (Auto) 1.2, Lymphocytes (%) (Auto) 21, Magnesium Level 4.2*H, Mean Corpuscular Hemoglobin 34.1H, Mean Corpuscular Hemoglobin Concent 32.1, Mean Corpuscular Volume 106H, Mean Platelet Volume , Monocytes # (Auto) 0.5, Monocytes (%) (Auto ) 9, Neutrophils # (Auto) 3.3, Neutrophils (%) (Auto) 60, Phosphorus Level 4.2# , Platelet Count 101L, Potassium Level 4.3, Red Blood Count 3.37L, Red Cell Distribution Width 13.0, Sodium Level 153H, Total Bilirubin 2.7H, Total Protein 6.0L, White Blood Count 5.53 MICRO 10/27 Resp PCR Panel Negative SPEC #: [id number] FAN: 10/16/16 STATUS: COMP REQ #: [id number] RECD: 10/16/[address]: JONNY QUINN MD Order Location: ED SOURCE: URINE DESCRIPTION: U CATH Procedure Result Verified URINE CULTURE Final Verified 10/19/16-07 AM Source: URINE / STRAIGHT CATH, IN/OUT Order Location: EMERGENCY Site: U CATH Received : 10/17/16 13:23 Order#: [id number] Urine Culture FINAL 10/19/16 07:30 S Escherichia coli >100,000 cfu/ml E. coli Antibiotic AVIS INT Ampicillin >=32 R Ampicillin/sulbactam 16 I Cefazolin <=4 S Ceftriaxone <=1 S Ciprofloxacin 1 S Gentamicin <=1 S Nitrofurantoin <=16 S Trimethoprim/Sulfa >=320 R S=SUSCEPTIBLE I=INTERMEDIATE R=RESISTANT S-DD= SUSCEPTIBLE, DOSE DEPENDENT 10/17 Resp PCR Panel Negative IMAGING 10/30/16 ABDOMEN, FLAT UPRIGHT DECUB INDICATION: Evaluation of gastric PEG tube. EXAMINATION: Abdomen. Contrast injected through the PEG tube. FINDINGS: Contrast appears to be going into the stomach and then passing along through the small bowel. IMPRESSION: Gastrostomy tube appears to be in the stomach in satisfactory position. 10/29/16 CT CHEST/ABDOMEN/PELVIS W WO PROCEDURE: CT chest, abdomen, and pelvis with and without contrast. TECHNIQUE: Precontrast images were obtained of the chest, abdomen, and pelvis. Multiple contiguous axial images were obtained through the chest, abdomen, and pelvis after administration of intravenous contrast. DATE: October 29, 2016. COMPARISON: Chest radiograph October 27, 2016. Abdominal radiographs October 23, 2016. INDICATION: 36-year-old female, fever of unknown origin. Ileus. Feeding intolerance. FINDINGS: There are low lung volumes with associated central bronchovascular crowding. There is respiratory motion artifact. There is no identified pulmonary nodule. There is mild scattered atelectasis. There is no identified additional focal airspace consolidation. There is no pneumothorax. There is no pleural effusion. There is no identified central pulmonary embolus. There is no pericardial effusion. There is no identified abnormally enlarged mediastinal, hilar, or axillary lymph node which meets CT size criteria for adenopathy. The liver is unremarkable in size and contour. There is no identified liver lesion. The main , right, and left portal vein are patent. There is a gallstone without evidence of acute cholecystitis. There is no intrahepatic or extrahepatic bile duct dilation. The pancreatic parenchyma is unremarkable. The spleen is normal in size. The adrenal glands are unremarkable. Unremarkable appearance of the renal parenchyma. The urinary collecting systems are not distended. There is no identified renal or ureteral stone. The urinary bladder is moderately distended and otherwise unremarkable in appearance. There is a nonobstructing 2-mm right renal stone on axial image 64. There is a nonobstructing 2-mm left renal stone on axial image 56 and a punctate nonobstructing left renal stone on axial image 62. There is enteric contrast material extending to the level of the rectum. There is a gastrostomy tube within the stomach. There is no gross distention of the intestinal tract. There is no free intraperitoneal air. There is no drainable fluid collection. There is no free pelvic fluid. There are atherosclerotic calcifications noted. There is no identified abnormally enlarged lymph node within the abdomen or pelvis that meets CT size criteria for adenopathy. There are chronic-appearing bony deformities of the pelvis. There is no identified acute bony abnormality. IMPRESSION: CT CHEST, ABDOMEN, AND PELVIS. 1. Low lung volumes with associated central bronchovascular crowding and respiratory motion artifact. 2. No identified acute cardiopulmonary abnormality. 3. No identified acute abnormality within the abdomen or pelvis. 4. Moderate distention of the urinary bladder. 5. Nonobstructing renal stones bilaterally. 6. Cholelithiasis without findings to suggest acute cholecystitis. 7. Atherosclerotic calcifications noted. 10/27/16 CHEST 1 VIEW, AP/PA ONLY* Indication: Respiratory distress. Exam: Single frontal view 5:20 p.m. Comparisons: 10/23/2016, 12/01/2015. Findings: Single frontal view shows a left venous catheter to be present with the tip in the right atrium. Moderate cardiomegaly is present. There is a somewhat wide left superior mediastinum however this is unchanged from 12/01/2015 and 2014. The pulmonary vascularity shows no venous congestion. There is no pleural effusion or alveolar infiltrate. A radiopaque catheter overlies the upper abdomen. Impression: No acute finding. 10/27/16 US ABDOMEN, COMPLETE PROCEDURE: US abdomen complete. TECHNIQUE: Multiple real-time grayscale images were obtained over the abdomen in various projections. INDICATION: Possible cirrhosis. Patient has history of [place] syndrome FINDINGS: Study is limited due to patient's inability to cooperate. The liver measures approximately 12.7 cm. There is normal echogenicity with no evidence of focal liver lesions. The bile ducts are not dilated. The common duct measures 3 mm. Gallbladder shows multiple gallstones. The gallbladder wall does not appear thickened. There is a gastric tube present. The pancreas is not visualized. Proximal and mid aorta are visualized and are not dilated. IVC appears normal. The right kidney measures 10.4 x 5.2 x 4.1 cm. The left kidney measures 11.5 x 4.6 x 4.1 cm. IMPRESSION: 1. Cholelithiasis with no evidence of gallbladder wall thickening or bile duct dilatation. 2. Liver parenchyma is homogeneous in appearance with no evidence of hepatomegaly. 10/23/16 ACUTE ABD SERIES Indication: Constipation and pneumonia Comparison: Abdomen dated 10/22/2016 and chest 12/01/2015 Findings: PA chest: Left Port-A- Cath is unchanged. The tip appears to be in the right atrium. Cardiomegaly with mild prominence pulmonary vascularity appears similar to the prior study. Some streaky atelectasis or scarring at the left midlung and right upper lung appears stable. No new pulmonary parenchymal abnormality is suspected. Abdomen: Gastrostomy catheter over the left upper quadrant is unchanged. There has been significant improvement in appearance of bowel gas pattern since the prior study with significant decrease in the extent of colonic distention. There is some persistent prominent colon and air-filled small bowel. Findings are likely related to improving ileus. There is chronic deformity of the pelvis. Impression : 1. Stable appearance of the chest as described 2. Moderate improvement since the recent prior abdominal series with findings suggestive of improving ileus as described. 10/22/16 ABDOMEN (FLAT PLATE) 1VIEW Indication: Vomiting, abdominal distention Comparison: August 20, 2016 Technique: Single radiograph of the abdomen dated October 22, 2016. Findings: Percutaneous gastrostomy catheter is again seen overlying the upper abdomen. Significant gaseous distention of the colon is identified, increased from the prior examination. This now measures up to 13.8 cm. No definite free air. Osseous structures appear stable. Impression: Increasing distention of the colon. Findings may relate to worsening ileus. However, distal colonic obstruction not excluded. Recommend clinical correlation. 10/20/16 ACUTE ABD SERIES EXAMINATION: Abdominal radiographs, acute series. DATE : October 20, 2016. CLINICAL INDICATION: 36-year-old female, constipation. G- tube dysfunction. COMPARISON: October 18, 2016. COMMENTS: There is a left- sided venous line with tip projecting over the expected position of the upper right atrium. The heart appears enlarged. There is no identified pneumothorax or large pleural effusion. The gastrostomy tube projects over the expected position of the stomach. There is enteric contrast material within the transverse colon and right colon. There is no identified free intraperitoneal air. There is mild gaseous distention of large bowel which is less prominent compared to prior exam. IMPRESSION: 1. Gastrostomy tube projects over the expected position of the stomach. 2. Mild gaseous distention of bowel most likely involving loops of large bowel which is less prominent compared to prior exam. 10/18/16 SMALL BOWEL STUDY INDICATION: Abdominal pain and distention. FINDINGS: Digital Engineer radiographs of the abdomen reveal diffuse dilatation of colon containing moderate to large amount of stool. Gastrografin contrast was injected through the indwelling gastrostomy tube. Contrast opacifies mildly prominent small bowel loops with contrast reaching the distal small bowel and proximal colon after 5-1/2 hours. IMPRESSION: Findings are compatible with constipation. There is mild delay in small bowel transit with transit time of 5.5 hours. No obstruction is seen. 10/17/16 ECHO: Summary: Technically challenging study. Normal cardiac chamber sizes. Normal LV wall thickness. Intact LV systolic function with estimated EF 61%. Thickened aortic valve, with no significant stenosis or insufficiency. No significant mitral or tricuspid insufficiency. No pericardial effusion. 10/16/16 ACUTE ABD SERIES INDICATION: Abdominal pain COMPARISON: 09/14/2016 FINDINGS: Frontal chest: Left-sided Port-A-Cath is unchanged. Heart size is enlarged but stable. Mild pulmonary venous congestion is unchanged. Some patchy perihilar infiltrate is again demonstrated. No pleural fluid is seen. Abdomen: Gastrostomy tube is again seen overlying the stomach. The bowel gas pattern appears unremarkable with the exception of moderate amount of stool in the colon. There is no evidence of free intraperitoneal air. No abnormal calcifications are suspected. Deformity of the bony pelvis is again demonstrated. IMPRESSION: 1. In the chest, there is persistent cardiomegaly with mild pulmonary vascular congestion and patchy perihilar airspace disease similar to the prior study. 2. No acute abdominal abnormality is suspected. ASSESSMENT Kelly Jackson is a 36 year old female admitted from ED 10/17 where she presented for the second time in two days. She had a recent diagnosis of conjunctivitis and developed acute respiratory distress, vomiting after tube feeds, increased lethargy, and increased weight. She had a significant murmur on exam and pulmonary edema on admit imaging. 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 She was found to have multiple acute issues as outlined including constipation, pneumonia, UTI, and hyperammonemia. She has had a prolonged hospitalization due to persistent problems with feeding tolerance. PLAN * Feeding Intolerance: Persistent, recurrent problem. Extensive imaging as noted has not shown any definitive GI pathology nor G-tube dysfunction. Motility may be an issue. Metoclopramide started 10/30. Favor trial of erythromycin due to metoclopramide adverse effect profile. Switch to continuous feeds 10/31. * Hypermagnesemia: Level shamika to 4.2 10/30, same on 10/31. No apparent exogenous sources of magnesium being given. Renal function preserved. NS bolus + furosemide 10/31. Monitor trend closely. * Ileus: Resolved. Due to constipation, then later perhaps aggravated by lactulose. Small bowel follow-through as noted. Serial exam and imaging as noted. * Nausea/Vomiting: Had resolved but had recurrent episode 10/22. Attributed to constipation initially. Likely not tolerating lactulose. Ondansetron for nausea. Improved with bowel rest and cessation of lactulose. * Hyperbilirubinemia, Elevated AST, Elevated ALT: Some modest improvement. Cholestasis from volume contraction? Hepatitis panel negative, abdominal sono unremarkable, CT abdomen unremarkable. Related to her syndrome? Monitor trends. * Hypernatremia: Noted 10/27, treated with D5W and increased free water per PEG tube. Stopped D5W 10/28 and increased flushes. Continue to monitor fluid balance , sodium, especially in light of interruptions to her tube feeds. * F/E/N: Peripheral IV. Tube feeds. I&O, daily weight. * Prophylaxis: SCDs. * Code Status: Full * Dispo: Inpatient. Discharge still deferred due to complex issues. RESOLVING ISSUES * Acute Respiratory Distress: Had improved, but worse in afternoon 10/27 perhaps due to fever. URI considered but resp PCR panel 10/17 was negative. Repeat Resp PCR Panel and CXR negative for new changes. Heart failure less likely based on echo. Workup for heart failure as noted. Oxygen protocol. * Community Acquired Pneumonia: Resolving. Clinical diagnosis. Blood culture not obtained on admit. No sputum for culture. Allergy to PCN noted. Unable to participate in acapella or IS. NT suction PRN. Levofloxacin course completed. * UTI Due to E coli: Culture as noted. Levofloxacin course completed. * Congestive Heart Failure due to Fluid Overload: On the basis of murmur, CXR, pulmonary exam, edema. Echo as noted. Improved with furosemide. Monitor daily weight. I&O difficult to monitor due to incontinence. * Edema: Monitor I&O, daily weight. Furosemide increased to IV dosing 10/22. Stopped after last dose 10/23. * Hyperammonemia: Attributed to valproic acid adverse effect. Hold valproate. Lactulose on hold due to poor tolerance. Monitor ammonia trend. * Altered Mental Status: Improving. Due to infection, ammonia. Treat underlying problems. * Medication Adverse Effect: Due to lactulose. Worse bloating, nausea/vomiting with this medication. Hold lactulose. * Conjunctivitis: Polymixin/trimethoprim eye drops, moisturizing eye drops. Warm compress. CHRONIC ISSUES * Seizure disorder: Topiramate. Hold valproic acid due to hyperammonemia. Follow -up with Dr. Mckeon post-discharge. * Constipation: Bowel regimen * Hypothyroidism: Levothyroxine * GERD: Famotidine * Seasonal allergies: Cetirizine * HTN? Diltiazem. Verify indication. * Eczema: Observe * [place] de Pike syndrome: Observe. * Asthma: Duoneb TID, albuterol PRN. MARYBETH FERNANDO MD Oct 31, 2016 09:38
[2016-10-31] MEDS: FAMOTIDINE IV 20 MG in SODIUM CHLORIDE VIAL (PF) 10 ML IV SCH (10:16)
[2016-10-31] MEDS: SODIUM CHLORIDE IV SCH (10:21)
[2016-10-31] MEDS: LEVETIRACETAM IV SCH (10:21)
[2016-10-31] MEDS: ARTIFICIAL TEARS (REFRESH) OPHTHALMIC DROPS OU SCH (10:24)
--- NOTE | 2016-10-31 11:16 | NUR ---
pt up in chair and is transferred to bed, pt has stool and is cleaned up, at this time a sore is noted on her coccyx approximately the size of a dime, barrier cream applied, attempt to obtain a straight cath for UA but unsuccessful due to patient inability to move legs and anatomy of patient, "wee bag" applied to attempt to collect urine. oral care completed by HASEEB
[2016-10-31 11:45] VITALS: BP 105/60
[2016-10-31] MEDS ORDERED: ERYTHROMYCIN BASE 250 MG PO SCH (12:00)
[2016-10-31] MEDS ORDERED: NS IV 500 ML 500 ML IV SCH (12:09)
[2016-10-31] MEDS ORDERED: FUROSEMIDE 100 MG/10 ML (LASIX) VIAL IV ONE (12:15)
[2016-10-31] MEDS: ERYTHROMYCIN ETHYLSUCCINATE 200 MG/5 ML GT SCH ×2 (13:32→18:03)
[2016-10-31] MEDS: WATER, FOR IRRIGATION 1000 ML POUR BOTTLE GT PRN (13:35)
--- NOTE | 2016-10-31 14:22 | NUR ---
Nutrition Follow Up: Patient has not been tolerating tube feedings per physician and nurses report. I was called on 10-25-16 while on vacation (due to no RD coverage that day) asking what to do about high gastric residuals, as pt. was being DC'd home. I suggested decrease the rate at which she was getting her bolus feedings and make sure her HOB was elevated at least 30 degrees. Pt. was never actually DC'd, as her clinical situation worsened. Feedings were slowed on 10-25 to 120 ml followed by sitting upright for 20 minutes and then finish the bolus with 120 ml plus 50 ml water flush. She appeared to tolerate that ok but then had another spike in residuals. Current comorbidities include hypermagnesemia and hypernatremia (initially improved, then up to 153 today). Noted free water was increased on 10-27 due to high sodium. IV fluids were ordered due to holding tube feedings. Per physician report, pt. has soft abdomen but mildly distended. Pt. was initially showing 0-5 ml gastric residual volume, but since 10-24-16 it has ranged from 0-300 ml. Tube placement was confirmed as appropriate and Metoclopramide was added yesterday for motility. Apparently her caregivers told physician that pt. has been having problems with her tube for months, so this is not a new problem, even though this was not passed on to me when I spoke with them at admission. Weight today: 96.8#/44 kg--this is down 5.5# in the past 12 days Labs: sodium 153, BUN 37, creatinine 0.93, glucose 128, phosphorus 4.2, magnesium 4.2, AST 71, ALT 45 1. Agree with continuous feeds as the next step to address high residuals. Spoke with physician who said the ultimate plan would be to transition her back to bolus feedings to enhance mobility at home rather than being tied to the pump all day. This is the goal we will work towards. If pt. is unable to tolerate the volume of bolus feedings, consider cyclic feedings at night. 2. Agree with Jevity 1.0 with final rate 40 ml/hr. to provide 1,015 kcals, 42 g. protein and 800 ml water. 3. Fluid requirements: 35 ml/kg = 1,540 ml fluid needed. This would require 740 ml flush per 24 hours (taking into account the 800 ml already included in the formula.) Her current water flush is ordered at 240 ml TID, providing 720 ml. Another fluid requirement calculation for comparison is 1 ml water/kcal, which would be 1,015 ml (minus 800 included in the formula) leaving an additional water flush of only 215 ml/24 hrs. This is likely inadequate, evidenced by patients continued hypernatremia. 4. Per caregivers, pt. is normally able to ambulate at home, which she has not been able to do here. PT is working with her; movement and activity should also help with gastric motility and tolerance to feedings. Will follow closely with physician and nurses re: tolerance to feedings and nutritional adequacy.
[2016-10-31 15:22] VITALS: BP 106/63
[2016-10-31 16:23] LABS: ALBUMIN 3.3 g/dL (3.4-5.0); ANION GAP 16.1 MEQ/L (3-15); MAGNESIUM* 3.5 mg/dL (1.6-2.3); PHOSPHORUS 3.6 mg/dL (2.4-4.9)
[2016-10-31] MEDS: THERAPEUTIC MULTIVITAMINS LIQUID 5 ML UDC GT SCH (18:02)
[2016-10-31] MEDS: CARBAMAZEPINE 100 MG/5 ML GT SCH ×2 (18:02→20:00)
[2016-10-31 19:41] VITALS: BP 99/55
[2016-10-31] MEDS: FAMOTIDINE 40 MG/5 ML GT SCH (20:15)
[2016-10-31] MEDS: LEVETIRACETAM 500 MG/5 ML PO SCH (20:15)
[2016-10-31] MEDS: CETIRIZINE 1 MG/ML GT SCH (20:15)
--- NOTE | 2016-10-31 20:15 | NUR ---
Continuous tube feeds started at 15 ml/hr on kangaroo pump per order.
[2016-10-31] MEDS: CARBOXYMETHYLCELLULOSE 1% (CELLUVISC) OPHTHALMIC DROPS OU SCH (20:28)
--- NOTE | 2016-10-31 23:15 | NUR ---
Tube feeding increased by 5ml/hr per order for a total dose of 20 ml/hr continuous feeds. Pt appears to be tolerating well. No n/v. Resting quietly with eyes shut.
[2016-11-01 00:45] VITALS: BP 90/52
--- NOTE | 2016-11-01 02:15 | NUR ---
Tube feed increased at by 5ml/hr at this time for new total rate of 25 ml/hr continuous. Pt continues to tolerate; no n/v. Resting quietly with eyes closed.
[2016-11-01 04:24] VITALS: BP 90/48
--- NOTE | 2016-11-01 05:14 | NUR ---
Tube feeding increased to 30 ml/hr. Pt cont to tolerate well. No n/v. Abd remains soft. Addendum: 11/01/16 at 0515 by Yumiko Velásquez RN Amended: Links added.
--- NOTE | 2016-11-01 06:17 | NUR ---
Pt rests well throughout the night. cont to tolerate continuous tube feeds w/o difficulty.IVF infusing into L PAC. no s/s pain. No needs at this time.
[2016-11-01 06:44] LABS: ALBUMIN 3.1 g/dL (3.4-5.0); ANION GAP 15.1 MEQ/L (3-15); MAGNESIUM* 3.2 mg/dL (1.6-2.3); PHOSPHORUS 3.9 mg/dL (2.4-4.9)
[2016-11-01 07:59] VITALS: BP 94/53
[2016-11-01] MEDS: FAMOTIDINE 40 MG/5 ML GT SCH ×2 (08:37→20:22)
[2016-11-01] MEDS: ERYTHROMYCIN ETHYLSUCCINATE 200 MG/5 ML GT SCH ×3 (08:37→18:04)
[2016-11-01] MEDS: CARBAMAZEPINE 100 MG/5 ML GT SCH ×3 (08:38→18:04)
[2016-11-01] MEDS: LEVOTHYROXINE 75 MCG (LEVOTHROID) TABLET GT SCH (08:38)
[2016-11-01] MEDS: SODIUM CHLORIDE FLUSH 10 ML SYR IV SCH (08:39)
[2016-11-01] MEDS: ARTIFICIAL TEARS (REFRESH) OPHTHALMIC DROPS OU SCH (08:40)
[2016-11-01] MEDS: LEVETIRACETAM 500 MG/5 ML PO SCH ×2 (08:40→20:22)
[2016-11-01] MEDS: DILTIAZEM CD 120 MG (CARDIZEM CD) CAP PO SCH (08:40)
[2016-11-01] MEDS: D5 1/2 NS IV 1,000 ML IV SCH (08:44)
[2016-11-01] MEDS: ENOXAPARIN 40 MG/0.4 ML (LOVENOX) SYR SC SCH ×2 (08:45→08:46)
--- NOTE | 2016-11-01 09:06 | Diagnostic Imaging Report ---
INDICATION: Feeding tube intolerance. TECHNIQUE: A KUB was obtained at 0504 hours. COMPARISON: 10/31/2016. FINDINGS: A gastrostomy tube is seen with the tip overlying the stomach. There is some residual contrast in the large and small bowel with scattered fluid levels. This may represent gastroenteritis or an ileus. There is no overt obstruction. Contrast is visualized to the rectum. IMPRESSION: Scattered fluid levels in bowel loops as above which may represent an ileus or gastroenteritis. No sign of obstruction. Some of the contrast administered yesterday has reached the rectum. Dictated by: Dictated on workstation # [id number]
--- NOTE | 2016-11-01 09:13 | Progress Note (E) ---
Progress Note SUBJECTIVE Good progress overnight, tolerating continuous feeds and medications. This AM, minimal residual and she is again awake and maintaining her base level of interactivity. Manager Of Planning following... notes reviewed and recommendations incorporated into tube feed orders. Magnesium is improved with NS bolus and furosemide given yesterday. Na continues to rise and free water in tube feeds increased. Mild low K. Monitoring trend. She is having BM now. Weight is undulating over the last several days, antonia 43.8 kg to 44.5 today. KUB this AM shows some ileus pattern, stable. No air/fluid levels. OBJECTIVE Vital Signs Date Time Temp Pulse Resp B/P Pulse Ox O2 Delivery O2 Flow Rate FiO2 11/01/16 07:59 97.3 71 26 94/53 96 Room air 10/27/16 22:30 0.00 Weight: 44.5 kg GEN: Resting in bed. More interactive. Breathing easily. NAD at present. 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 Dry skin. Clear sclerae. Somewhat dry oral mucosa. Mildly injected right sclera but improving. Somewhat dry oral mucosa. CV: Regular, prominent 3/6 systolic murmur, crescendo/decrescendo. PULM: Breath sounds are more clear overall. ABD: Soft, tolerates exam. Hyperactive bowel sounds. Not distended. EXTR: Warm, well-perfused. Left arm is hyperemic but edema in upper extremities is improved. INTEG: Dry skin. Left arm hyperemia as noted. NEURO: Non-verbal. Laboratory Results Past 5 Days 10/27/16 06:27: Alanine Aminotransferase (ALT/SGPT) 68H, Albumin 4.0, Albumin/Globulin Ratio 1.142, Alkaline Phosphatase 218H, Ammonia 35.4H, Anion Gap 21.7H, Aspartate Amino Transf (AST/SGOT) 91H, BUN/Creatinine Ratio 50H, Basophils # (Auto) 0.1, Basophils (%) (Auto) 1, Blood Urea Nitrogen 47#H, C-Reactive Protein 2.60H, Calcium Level 8.6L, Calcium/Ionized Calcium Ratio 3.7L, Calculated Osmolality 322H, Carbon Dioxide Level 21L, Chloride Level 122H, Creatinine 0.94, Eosinophils # (Auto) 0.0, Eosinophils (%) (Auto) 0, Estimat Glomerular Filtration Rate 81.1, Estimated GFR (Non- 67.0, Glucose Level 133H, Hematocrit 50.40H, Hemoglobin 17.1H, Lymphocytes # (Auto) 1.8, Lymphocytes (%) (Auto) 19L, Mean Corpuscular Hemoglobin 35.0H, Mean Corpuscular Hemoglobin Concent 33.9, Mean Corpuscular Volume 103H, Mean Platelet Volume 12.4H, Monocytes # (Auto) 1.3, Monocytes (%) (Auto) 13H, Neutrophils # (Auto) 6.3, Neutrophils (%) (Auto) 67, Platelet Count 190, Potassium Level 4.5, Red Blood Count 4.88, Red Cell Distribution Width 13.2, Sodium Level 160#H, Total Bilirubin 2.8H, Total Protein 7.5, White Blood Count 9.47 10/27/16 16:40: Sodium Level 158H 10/27/16 16:43: Adenovirus (PCR) Negative, Bordetella parapertussis DNA (PCR) Negative, Chlamydophila pneumoniae (PCR) Negative, Coronavirus Type 229E (PCR) Negative, Coronavirus Type HKU1 (PCR) Negative, Coronavirus Type NL63 (PCR) Negative, Coronavirus Type OC43 (PCR) Negative, Enterovirus/Rhinovirus (PCR) Negative, Human Metapneumovirus (PCR) Negative, Influenza Type A (H1) (PCR) Negative, Influenza Virus Type B (PCR) Negative, Mycoplasma pneumoniae (PCR) Negative, Parainfluenza Type 1 (PCR) Negative, Parainfluenza Type 2 (PCR) Negative, Parainfluenza Type 3 (PCR) Negative, Parainfluenza Type 4 (PCR) Negative, Respiratory Syncytial Virus (PCR) Negative 10/27/16 22:45: Sodium Level 157H 10/28/16 05:22: Alanine Aminotransferase (ALT/SGPT) 74H, Albumin 3.8, Alkaline Phosphatase 175H , Anion Gap 19.4H, Aspartate Amino Transf (AST/SGOT) 96H, Blood Urea Nitrogen 67H, Calcium Level 7.6L, Carbon Dioxide Level 20L, Chloride Level 116H, Conjugated Bilirubin 0.2, Creatinine 1.21H, Estimat Glomerular Filtration Rate 60.6, Estimated GFR (Non- 50.1, Glucose Level 191#H, Phosphorus Level 4.5, Potassium Level 4.8, Sodium Level 151H, Total Bilirubin 2.5H, Total Protein 6.8 12/30/16 12:13: Albumin 3.9, Anion Gap 18.5H, Blood Urea Nitrogen 66H, Calcium Level 8.1L, Carbon Dioxide Level 23, Chloride Level 113H, Creatinine 1.21H, Estimat Glomerular Filtration Rate 60.6, Estimated GFR (Non- 50.1, Glucose Level 186H, Phosphorus Level 4.0, Potassium Level 5.0, Sodium Level 149 10/29/16 06:25: Alanine Aminotransferase (ALT/SGPT) 59, Albumin 3.1#L, Alkaline Phosphatase 132H , Anion Gap 17.8H, Aspartate Amino Transf (AST/SGOT) 58H, Blood Urea Nitrogen 57H, Calcium Level 7.9L, Carbon Dioxide Level 21L, Chloride Level 110H, Creatinine 1.09, Estimat Glomerular Filtration Rate 68.3, Estimated GFR (Non- 56.5, Glucose Level 120#H, Potassium Level 5.1, Sodium Level 144, Total Bilirubin 2.8H, Total Protein 5.5L, Albumin/Globulin Ratio 1.291, BUN /Creatinine Ratio 52H, Basophils # (Auto) 0.0, Basophils (%) (Auto) 0, Calcium/ Ionized Calcium Ratio 4.0, Calculated Osmolality 295, Eosinophils # (Auto) 0.0, Eosinophils (%) (Auto) 0, Hematocrit 36.20, Hemoglobin 12.3, Lymphocytes # (Auto ) 1.8, Lymphocytes (%) (Auto) 18L, Mean Corpuscular Hemoglobin 34.4H, Mean Corpuscular Hemoglobin Concent 34.0, Mean Corpuscular Volume 101H, Mean Platelet Volume 13.8H, Monocytes # (Auto) 1.0, Monocytes (%) (Auto) 10, Neutrophils # (Auto) 6.8, Neutrophils (%) (Auto) 71H, Platelet Count 103L, Red Blood Count 3.58L, Red Cell Distribution Width 12.6, White Blood Count 9.62 10/29/16 11:50: Clostridium difficile Antigen Negative, Stool Clos difficile Toxin Assay Negative 10/30/16 05:45: Alanine Aminotransferase (ALT/SGPT) 52, Albumin 3.4, Albumin/Globulin Ratio 1.172, Alkaline Phosphatase 131H, Ammonia 12.0, Anion Gap 17.8H, Aspartate Amino Transf (AST/SGOT) 57H, BUN/Creatinine Ratio 47H, Basophils # (Auto) 0.0, Basophils (%) (Auto) 0, Blood Urea Nitrogen 47H, Calcium Level 7.9L, Calcium/ Ionized Calcium Ratio 3.7L, Calculated Osmolality 298, Carbon Dioxide Level 21L , Chloride Level 115H, Creatinine 1.01, Eosinophils # (Auto) 0.0, Eosinophils (% ) (Auto) 0, Estimat Glomerular Filtration Rate 74.6, Estimated GFR (Non- 61.7, Free Thyroxine (T4) Calculated 0.79, Glucose Level 83#, Hematocrit 34.50L, Hemoglobin 11.5L, Lymphocytes # (Auto) 0.8, Lymphocytes (%) ( Auto) 14L, Magnesium Level 4.2#*H, Mean Corpuscular Hemoglobin 33.8, Mean Corpuscular Hemoglobin Concent 33.3, Mean Corpuscular Volume 102H, Mean Platelet Volume , Monocytes # (Auto) 0.6, Monocytes (%) (Auto) 9, Neutrophils # (Auto) 4.7, Neutrophils (%) (Auto) 77H, Phosphorus Level 5.3#H, Platelet Count 92L, Potassium Level 5.1, Red Blood Count 3.40L, Red Cell Distribution Width 12.7, Smear Scan Yes, Sodium Level 149, Thyroid Stimulating Hormone (TSH) 1.88, Total Bilirubin 2.2H, Total Protein 6.3L, White Blood Count 6.09 10/31/16 06:10: Alanine Aminotransferase (ALT/SGPT) 45, Albumin 3.1L, Albumin/Globulin Ratio 1.068L, Alkaline Phosphatase 124, Anion Gap 16.5H, Aspartate Amino Transf (AST/ SGOT) 71H, BUN/Creatinine Ratio 40H, Basophils # (Auto) 0.1, Basophils (%) (Auto ) 1, Blood Urea Nitrogen 37H, Calcium Level 7.4L, Calcium/Ionized Calcium Ratio 3.6L, Calculated Osmolality 306H, Carbon Dioxide Level 20L, Chloride Level 121H , Creatinine 0.93, Eosinophils # (Auto) 0.5, Eosinophils (%) (Auto) 8H, Estimat Glomerular Filtration Rate 82.1, Estimated GFR (Non- 67.8, Glucose Level 128#H, Hematocrit 35.80, Hemoglobin 11.5L, Lymphocytes # (Auto) 1.2, Lymphocytes (%) (Auto) 21, Magnesium Level 4.2*H, Mean Corpuscular Hemoglobin 34.1H, Mean Corpuscular Hemoglobin Concent 32.1, Mean Corpuscular Volume 106H, Mean Platelet Volume , Monocytes # (Auto) 0.5, Monocytes (%) (Auto ) 9, Neutrophils # (Auto) 3.3, Neutrophils (%) (Auto) 60, Phosphorus Level 4.2# , Platelet Count 101L, Potassium Level 4.3, Red Blood Count 3.37L, Red Cell Distribution Width 13.0, Sodium Level 153H, Total Bilirubin 2.7H, Total Protein 6.0L, White Blood Count 5.53 10/31/16 15:58: Albumin 3.3L, Anion Gap 16.1H, Blood Urea Nitrogen 26H, Calcium Level 7.7L, Carbon Dioxide Level 20L, Chloride Level 120H, Creatinine 0.59L, Estimat Glomerular Filtration Rate 138.8, Estimated GFR (Non- 114.7, Glucose Level 90#, Magnesium Level 3.5H, Phosphorus Level 3.6, Potassium Level 3.7, Sodium Level 152H 11/01/16 05:45: Albumin 3.1L, Anion Gap 15.1H, Blood Urea Nitrogen 26H, Calcium Level 7.9L, Carbon Dioxide Level 22, Chloride Level 120H, Creatinine 0.61, Estimat Glomerular Filtration Rate 133.5, Estimated GFR (Non- 110.4, Glucose Level 127#H, Magnesium Level 3.2H, Phosphorus Level 3.9, Potassium Level 3.4L, Sodium Level 153H See EMR for more comprehensive list of labs. MICRO 10/27 Resp PCR Panel Negative SPEC #: [id number] FAN: 10/16/16 STATUS: COMP REQ #: [id number] RECD: 10/16/[address]: JONNY QUINN MD Order Location: ED SOURCE: URINE DESCRIPTION: U CATH Procedure Result Verified URINE CULTURE Final Verified 10/19/16-0731 AM Source: URINE / STRAIGHT CATH, IN/OUT Order Location: EMERGENCY Site: U CATH Received : 10/17/16 13:23 Order#: [id number] Urine Culture FINAL 10/19/16 07:30 S Escherichia coli >100,000 cfu/ml E. coli Antibiotic AVIS INT Ampicillin >=32 R Ampicillin/sulbactam 16 I Cefazolin <=4 S Ceftriaxone <=1 S Ciprofloxacin 1 S Gentamicin <=1 S Nitrofurantoin <=16 S Trimethoprim/Sulfa >=320 R S=SUSCEPTIBLE I=INTERMEDIATE R=RESISTANT S-DD= SUSCEPTIBLE, DOSE DEPENDENT 10/17 Resp PCR Panel Negative IMAGING 11/01/16 ABDOMEN, FLAT UPRIGHT DECUB INDICATION: Feeding tube intolerance. TECHNIQUE: A KUB was obtained at 0504 hours. COMPARISON: 10/31/2016. FINDINGS: A gastrostomy tube is seen with the tip overlying the stomach. There is some residual contrast in the large and small bowel with scattered fluid levels. This may represent gastroenteritis or an ileus. There is no overt obstruction. Contrast is visualized to the rectum. IMPRESSION: Scattered fluid levels in bowel loops as above which may represent an ileus or gastroenteritis. No sign of obstruction. Some of the contrast administered yesterday has reached the rectum. 10/30/16 ABDOMEN, FLAT UPRIGHT DECUB INDICATION: Evaluation of gastric PEG tube. EXAMINATION: Abdomen. Contrast injected through the PEG tube. FINDINGS: Contrast appears to be going into the stomach and then passing along through the small bowel. IMPRESSION: Gastrostomy tube appears to be in the stomach in satisfactory position. 10/29/16 CT CHEST/ABDOMEN/PELVIS W WO PROCEDURE: CT chest, abdomen, and pelvis with and without contrast. TECHNIQUE: Precontrast images were obtained of the chest, abdomen, and pelvis. Multiple contiguous axial images were obtained through the chest, abdomen, and pelvis after administration of intravenous contrast. DATE: October 29, 2016. COMPARISON: Chest radiograph October 27, 2016. Abdominal radiographs October 23, 2016. INDICATION: 36-year-old female, fever of unknown origin. Ileus. Feeding intolerance. FINDINGS: There are low lung volumes with associated central bronchovascular crowding. There is respiratory motion artifact. There is no identified pulmonary nodule. There is mild scattered atelectasis. There is no identified additional focal airspace consolidation. There is no pneumothorax. There is no pleural effusion. There is no identified central pulmonary embolus. There is no pericardial effusion. There is no identified abnormally enlarged mediastinal, hilar, or axillary lymph node which meets CT size criteria for adenopathy. The liver is unremarkable in size and contour. There is no identified liver lesion. The main , right, and left portal vein are patent. There is a gallstone without evidence of acute cholecystitis. There is no intrahepatic or extrahepatic bile duct dilation. The pancreatic parenchyma is unremarkable. The spleen is normal in size. The adrenal glands are unremarkable. Unremarkable appearance of the renal parenchyma. The urinary collecting systems are not distended. There is no identified renal or ureteral stone. The urinary bladder is moderately distended and otherwise unremarkable in appearance. There is a nonobstructing 2-mm right renal stone on axial image 64. There is a nonobstructing 2-mm left renal stone on axial image 56 and a punctate nonobstructing left renal stone on axial image 62. There is enteric contrast material extending to the level of the rectum. There is a gastrostomy tube within the stomach. There is no gross distention of the intestinal tract. There is no free intraperitoneal air. There is no drainable fluid collection. There is no free pelvic fluid. There are atherosclerotic calcifications noted. There is no identified abnormally enlarged lymph node within the abdomen or pelvis that meets CT size criteria for adenopathy. There are chronic-appearing bony deformities of the pelvis. There is no identified acute bony abnormality. IMPRESSION: CT CHEST, ABDOMEN, AND PELVIS. 1. Low lung volumes with associated central bronchovascular crowding and respiratory motion artifact. 2. No identified acute cardiopulmonary abnormality. 3. No identified acute abnormality within the abdomen or pelvis. 4. Moderate distention of the urinary bladder. 5. Nonobstructing renal stones bilaterally. 6. Cholelithiasis without findings to suggest acute cholecystitis. 7. Atherosclerotic calcifications noted. 10/27/16 CHEST 1 VIEW, AP/PA ONLY* Indication: Respiratory distress. Exam: Single frontal view 5:20 p.m. Comparisons: 10/23/2016, 12/01/2015. Findings: Single frontal view shows a left venous catheter to be present with the tip in the right atrium. Moderate cardiomegaly is present. There is a somewhat wide left superior mediastinum however this is unchanged from 12/01/2015 and 2014. The pulmonary vascularity shows no venous congestion. There is no pleural effusion or alveolar infiltrate. A radiopaque catheter overlies the upper abdomen. Impression: No acute finding. 10/27/16 US ABDOMEN, COMPLETE PROCEDURE: US abdomen complete. TECHNIQUE: Multiple real-time grayscale images were obtained over the abdomen in various projections. INDICATION: Possible cirrhosis. Patient has history of [place] syndrome FINDINGS: Study is limited due to patient's inability to cooperate. The liver measures approximately 12.7 cm. There is normal echogenicity with no evidence of focal liver lesions. The bile ducts are not dilated. The common duct measures 3 mm. Gallbladder shows multiple gallstones. The gallbladder wall does not appear thickened. There is a gastric tube present. The pancreas is not visualized. Proximal and mid aorta are visualized and are not dilated. IVC appears normal. The right kidney measures 10.4 x 5.2 x 4.1 cm. The left kidney measures 11.5 x 4.6 x 4.1 cm. IMPRESSION: 1. Cholelithiasis with no evidence of gallbladder wall thickening or bile duct dilatation. 2. Liver parenchyma is homogeneous in appearance with no evidence of hepatomegaly. 10/23/16 ACUTE ABD SERIES Indication: Constipation and pneumonia Comparison: Abdomen dated 10/22/2016 and chest 12/01/2015 Findings: PA chest: Left Port-A- Cath is unchanged. The tip appears to be in the right atrium. Cardiomegaly with mild prominence pulmonary vascularity appears similar to the prior study. Some streaky atelectasis or scarring at the left midlung and right upper lung appears stable. No new pulmonary parenchymal abnormality is suspected. Abdomen: Gastrostomy catheter over the left upper quadrant is unchanged. There has been significant improvement in appearance of bowel gas pattern since the prior study with significant decrease in the extent of colonic distention. There is some persistent prominent colon and air-filled small bowel. Findings are likely related to improving ileus. There is chronic deformity of the pelvis. Impression : 1. Stable appearance of the chest as described 2. Moderate improvement since the recent prior abdominal series with findings suggestive of improving ileus as described. 10/22/16 ABDOMEN (FLAT PLATE) 1VIEW Indication: Vomiting, abdominal distention Comparison: August 20, 2016 Technique: Single radiograph of the abdomen dated October 22, 2016. Findings: Percutaneous gastrostomy catheter is again seen overlying the upper abdomen. Significant gaseous distention of the colon is identified, increased from the prior examination. This now measures up to 13.8 cm. No definite free air. Osseous structures appear stable. Impression: Increasing distention of the colon. Findings may relate to worsening ileus. However, distal colonic obstruction not excluded. Recommend clinical correlation. 10/20/16 ACUTE ABD SERIES EXAMINATION: Abdominal radiographs, acute series. DATE : October 20, 2016. CLINICAL INDICATION: 36-year-old female, constipation. G- tube dysfunction. COMPARISON: October 18, 2016. COMMENTS: There is a left- sided venous line with tip projecting over the expected position of the upper right atrium. The heart appears enlarged. There is no identified pneumothorax or large pleural effusion. The gastrostomy tube projects over the expected position of the stomach. There is enteric contrast material within the transverse colon and right colon. There is no identified free intraperitoneal air. There is mild gaseous distention of large bowel which is less prominent compared to prior exam. IMPRESSION: 1. Gastrostomy tube projects over the expected position of the stomach. 2. Mild gaseous distention of bowel most likely involving loops of large bowel which is less prominent compared to prior exam. 10/18/16 SMALL BOWEL STUDY INDICATION: Abdominal pain and distention. FINDINGS: [employer] radiographs of the abdomen reveal diffuse dilatation of colon containing moderate to large amount of stool. Gastrografin contrast was injected through the indwelling gastrostomy tube. Contrast opacifies mildly prominent small bowel loops with contrast reaching the distal small bowel and proximal colon after 5-1/2 hours. IMPRESSION: Findings are compatible with constipation. There is mild delay in small bowel transit with transit time of 5.5 hours. No obstruction is seen. 10/17/16 ECHO: Summary: Technically challenging study. Normal cardiac chamber sizes. Normal LV wall thickness. Intact LV systolic function with estimated EF 61%. Thickened aortic valve, with no significant stenosis or insufficiency. No significant mitral or tricuspid insufficiency. No pericardial effusion. 10/16/16 ACUTE ABD SERIES INDICATION: Abdominal pain COMPARISON: 09/14/2016 FINDINGS: Frontal chest: Left-sided Port-A-Cath is unchanged. Heart size is enlarged but stable. Mild pulmonary venous congestion is unchanged. Some patchy perihilar infiltrate is again demonstrated. No pleural fluid is seen. Abdomen: Gastrostomy tube is again seen overlying the stomach. The bowel gas pattern appears unremarkable with the exception of moderate amount of stool in the colon. There is no evidence of free intraperitoneal air. No abnormal calcifications are suspected. Deformity of the bony pelvis is again demonstrated. IMPRESSION: 1. In the chest, there is persistent cardiomegaly with mild pulmonary vascular congestion and patchy perihilar airspace disease similar to the prior study. 2. No acute abdominal abnormality is suspected. ASSESSMENT Kelly Jackson is a 36 year old female admitted from ED 10/17 where she presented for the second time in two days. She had a recent diagnosis of conjunctivitis and developed acute respiratory distress, vomiting after tube feeds, increased lethargy, and increased weight. She had a significant murmur on exam and pulmonary edema on admit imaging. She has underlying [place] syndrome as well as other chronic problems. She was found to have multiple acute issues as outlined including constipation, pneumonia, UTI, and hyperammonemia. She has had a prolonged hospitalization due to persistent problems with feeding tolerance. PLAN * Feeding Intolerance: Persistent, recurrent problem. Extensive imaging as noted has not shown any definitive GI pathology nor G-tube dysfunction. Motility may be an issue. Metoclopramide started 10/30. Favor trial of erythromycin due to metoclopramide adverse effect profile. Switch to continuous feeds 10/31. * Hypermagnesemia: Improving. Level shamika to 4.2 10/30, same on 10/31. No apparent exogenous sources of magnesium being given. Renal function preserved. NS bolus + furosemide 10/31. Improved to 3.2 11/01. Monitor trend closely. * Ileus: Recurrent, mild. Multifactorial: constipation, then later perhaps aggravated by lactulose. Small bowel follow-through as noted. Serial exam and imaging as noted. Continue close monitoring of bowel function. * Nausea/Vomiting: Improved. Had resolved earlier in her hospitalization but had recurrent episode 10/22. Attributed to constipation initially. Likely not tolerating lactulose. Ondansetron for nausea. Improved with bowel rest and cessation of lactulose. * Hyperbilirubinemia, Elevated AST, Elevated ALT: Some modest improvement. Cholestasis from volume contraction? Hepatitis panel negative, abdominal sono unremarkable, CT abdomen unremarkable. Related to her syndrome? Monitor trends. * Hypernatremia: Noted 10/27, treated with D5W and increased free water per PEG tube. Stopped D5W 10/28 and increased flushes. Continue to monitor fluid balance , sodium, especially in light of interruptions to her tube feeds. * F/E/N: Peripheral IV. Tube feeds. I&O, daily weight. * Prophylaxis: SCDs. * Code Status: Full * Dispo: Inpatient. Discharge still deferred due to complex issues. RESOLVING ISSUES * Acute Respiratory Distress: Had improved, but worse in afternoon 10/27 perhaps due to fever. URI considered but resp PCR panel 10/17 was negative. Repeat Resp PCR Panel and CXR negative for new changes. Heart failure less likely based on echo. Workup for heart failure as noted. Oxygen protocol. * Community Acquired Pneumonia: Resolving. Clinical diagnosis. Blood culture not obtained on admit. No sputum for culture. Allergy to PCN noted. Unable to participate in acapella or IS. NT suction PRN. Levofloxacin course completed. * UTI Due to E coli: Culture as noted. Levofloxacin course completed. * Congestive Heart Failure due to Fluid Overload: On the basis of murmur, CXR, pulmonary exam, edema. Echo as noted. Improved with furosemide. Monitor daily weight. I&O difficult to monitor due to incontinence. * Edema: Monitor I&O, daily weight. Furosemide increased to IV dosing 10/22. Stopped after last dose 10/23. * Hyperammonemia: Attributed to valproic acid adverse effect. Hold valproate. Lactulose on hold due to poor tolerance. Monitor ammonia trend. * Altered Mental Status: Improving. Due to infection, ammonia. Treat underlying problems. * Medication Adverse Effect: Due to lactulose. Worse bloating, nausea/vomiting with this medication. Hold lactulose. * Conjunctivitis: Polymixin/trimethoprim eye drops, moisturizing eye drops. Warm compress. CHRONIC ISSUES * Seizure disorder: Topiramate. Hold valproic acid due to hyperammonemia. Follow -up with Dr. Mckeon post-discharge. * Constipation: Bowel regimen * Hypothyroidism: Levothyroxine * GERD: Famotidine * Seasonal allergies: Cetirizine * HTN? Diltiazem. Verify indication. * Eczema: Observe * [place] syndrome: Observe. * Asthma: Duoneb TID, albuterol PRN. MARYBETH FERNANDO MD Nov 01, 2016 09:13
--- NOTE | 2016-11-01 09:58 | NUR ---
2 attempts to straight cath the patient for UA were unsuccessful. assessment and interventions are ongoing.
--- NOTE | 2016-11-01 10:28 | NUR ---
Kelly is up on the BSC at this time. Zunilda MEMBRENO in the room to observe
--- NOTE | 2016-11-01 11:15 | NUR ---
UA collected by Brian MATA at this time
[2016-11-01 11:34] LABS: COLOR,URINE Amber; GLUCOSE, URINE (UA) Negative (Negative); LEUKOCYTE ESTERASE ,URINE Trace (Negative); PH,URINE 5.5 (5.0 - 8.0)
[2016-11-01 11:37] LABS: BILIRUBIN,URINE 1+ (Negative); CLARITY,URINE Slightly Cloudy
[2016-11-01 11:42] LABS: URINE CENTRIFUGED VOLUME 12 mL
[2016-11-01 11:45] VITALS: BP 90/50
--- NOTE | 2016-11-01 12:05 | PT Daily Note Inpatient (E) ---
PT Daily Treatment Service Date/Time 11/01/16, 12:02 Medical Diagnosis: (1) Dehydration ICD Code: E86.0 Physical Therapy: (1) Weakness generalized ICD Code: R53.1 Precaution/Isolation: Standard Precautions Resuscitation Status: Full Code Fall Level: High Risk 51 or greater Subjective pt non verbal, no signs of distress, nsg reports pt has been up and down a lot to bs, tired Pain Level: 0 Oxygen Delivery: Room air O2 liters/minute: 0 Treatments Sit, Stand, Supine: Supine Extremity: Both Lower Extremity Assistance: PROM Repetition: 1 x 15 Exercise: AP, Heel Slides, Hip Abduction, Hip Adduction, SLR, SAQ Transfers Rolling: Total Assistance (assisted nsg with change of brief due to incontinence of BM) Education/Plan Assessment pt tolerates exercises well with no signs of distress Safety Awareness: Impaired Response to Treatment: No Change Plan Cont POC Patient will be seen: Daily Monday-Monday Discharge Recommendations: 24 hour Caregiver support Coding Time In: 1143 Time Out: 1159 Total Minutes: 16 Codes/Units: 04307 Exercise Therp YU Garcia PTA Nov 01, 2016 12:05
[2016-11-01] MEDS: THERAPEUTIC MULTIVITAMINS LIQUID 5 ML UDC GT SCH (12:34)
--- NOTE | 2016-11-01 12:39 | NUR ---
TF increased to goal rate of 40 cc/hr.
[2016-11-01 15:54] VITALS: BP 103/55
--- NOTE | 2016-11-01 19:15 | NUR ---
Report received, care assumed. Pt resting with eyes closed in bed.
--- NOTE | 2016-11-01 19:16 | NUR ---
Kelly is bed resting for much of the afternoon. She is turned Q2HR and TF runs at 40 cc/hr with Flush Q6HR programmed into kangaroo pump. She tolerates feedings and interventions well. No distention. No Nausea or Vomiting. Currently resting supine in bed. Care relinquished and report given to Dora MATA.
[2016-11-01 20:19] VITALS: BP 86/50
[2016-11-01] MEDS: CARBOXYMETHYLCELLULOSE 1% (CELLUVISC) OPHTHALMIC DROPS OU SCH (20:21)
[2016-11-01] MEDS: CETIRIZINE 1 MG/ML GT SCH (20:22)
--- NOTE | 2016-11-01 20:30 | NUR ---
Evening medications adminsitered via peg tube, followed by 20cc H2O. Jevity 1.0 continuously infusing at 40cc/hr. IOral Addendum: 11/01/16 at 2234 by Dora Villarreal RN Oral care provided. Eye drops administered. Pt shows no signs discomfort. Appears to be tolerating feedings well. Will continue to monitor.
--- NOTE | 2016-11-01 23:00 | NUR ---
Tubing for tube feeding changed. Tube feedings continued at 40 ml/hr. No other needs.
[2016-11-02 00:18] VITALS: BP 95/55
[2016-11-02 05:58] VITALS: BP 82/53
[2016-11-02 06:51] LABS: ALBUMIN 2.7 g/dL (3.4-5.0); ANION GAP 12.2 MEQ/L (3-15); CALCULATED IONIZED CALCIUM 4.3 mg/dL (3.8-4.6); TOTAL PROTEIN 5.2 g/dL (6.4-8.5)
[2016-11-02 08:00] VITALS: BP 105/58
[2016-11-02] MEDS: FAMOTIDINE 40 MG/5 ML GT SCH ×2 (08:53→21:35)
[2016-11-02] MEDS: LEVOTHYROXINE 75 MCG (LEVOTHROID) TABLET GT SCH (08:53)
[2016-11-02] MEDS: CARBAMAZEPINE 100 MG/5 ML GT SCH ×3 (08:53→17:55)
[2016-11-02] MEDS: ENOXAPARIN 40 MG/0.4 ML (LOVENOX) SYR SC SCH (08:53)
[2016-11-02] MEDS: DILTIAZEM CD 120 MG (CARDIZEM CD) CAP PO SCH (08:53)
[2016-11-02] MEDS: LEVETIRACETAM 500 MG/5 ML PO SCH ×2 (08:53→21:36)
[2016-11-02] MEDS: ERYTHROMYCIN ETHYLSUCCINATE 200 MG/5 ML GT SCH ×3 (08:53→17:55)
[2016-11-02] MEDS: ARTIFICIAL TEARS (REFRESH) OPHTHALMIC DROPS OU SCH (08:54)
[2016-11-02] MEDS: SODIUM CHLORIDE FLUSH 10 ML SYR IV SCH (08:55)
--- NOTE | 2016-11-02 09:23 | NUR ---
0900-Residual checked on tube feeding, <5mls obtained. Meds given. Pt resting in bed.
--- NOTE | 2016-11-02 09:24 | NUR ---
Physical therapy working with patient at this time.
--- NOTE | 2016-11-02 09:38 | PT Daily Note Inpatient (E) ---
PT Daily Treatment Service Date/Time 11/02/16, 09:35 Medical Diagnosis: (1) Dehydration ICD Code: E86.0 Physical Therapy: (1) Weakness generalized ICD Code: R53.1 Precaution/Isolation: Standard Precautions Resuscitation Status: Full Code Fall Level: High Risk 51 or greater Subjective pt in bed, no signs of distress Pain Level: 0 Oxygen Delivery: Room air O2 liters/minute: 0 Treatments Sit, Stand, Supine: Supine Extremity: Both Lower Extremity Assistance: PROM Repetition: 1 x 20 Exercise: AP, Heel Slides, Hip Abduction, Hip Adduction, SLR, SAQ Stretching BLE stretched throughout Education/Plan Assessment Tolerates exercises and stretching well Safety Awareness: Impaired Response to Treatment: No Change Plan Cont POC Patient will be seen: Daily Monday-Monday Discharge Recommendations: 24 hour Caregiver support Coding Time In: 920 Time Out: 936 Total Minutes: 16 Codes/Units: 26150 Exercise Therp YU Garcia PTA Nov 02, 2016 09:38
[2016-11-02 11:39] VITALS: BP 101/45
--- NOTE | 2016-11-02 12:36 | Progress Note-A/P (E) ---
Progress Note Subjective: Patient is resting my bed upon my visit. Tube feeds are running. Patient's mother arrives this evening and would like an update, will provide. Objective: Current Medications Carbamazepine 200 mg TID GT Cetirizine 10 mg HS GT Docusate 100 mg BID GT Guaifenesin 400 mg BID GT Albuterol/ Ipratropium 3 ml TID INH Multivitamins Therapeutic 5 ml DAILY@12 GT Polyethylene Glycol 17 gm DAILY PO Polyvinyl Alcohol/ Povidone 1 each DAILY OU Sennosides 8.6 mg DAILY GT Trimethoprim/ Sulfamethoxazole 20 ml BID PO Valproic Acid 500 mg HS PO Hold Enoxaparin 40 mg DAILY SC Levothyroxine 37.5 mcg DAILY GT Diltiazem 120 mg DAILY@0900 PO Topiramate 50 mg HS PO Famotidine 20 mg BID GT Carboxymethylcellulose 1 DROP HS OU Polyvinyl Alcohol/ Povidone 1 DROP QID PRN OU Sterile Water FOR GT FLUSH UD PRN GT Bisacodyl 10 mg BID PRN NJ Heparin 30 unit UD PRN IV Potassium Chloride 20 meq BID PO Ondansetron 4 mg Q6H PRN IV Acetaminophen 325 mg Q4H PRN PO Vital Signs Date Time Temp Pulse Resp B/P Pulse Ox O2 Delivery O2 Flow Rate FiO2 11/02/16 11:39 97.9 78 16 101/45 92 Room air 10/27/16 22:30 0.00 I & O Past 24 hrs 11/02/16 07:00 Intake Total 2027 ml Output Total 1006 ml Balance 1021 ml IV Total 1215 ml Tube Feeding 572 ml Tube Irrigant 240 ml Output Urine Total 1006 ml # Bowel Movements 6 Physical Exam General--Resting. No distress. HEENT--[place] facial features. MMM in oral cavity. Lungs--Clear bilaterally. Heart--RRR. Abdomen--NBS/S/ND/NTTP. Extremities--No edema noted to lower extremities. Past 24 hour Lab Results 11/02/16 06:15 Laboratory Results Past 24 Hrs 11/02/16 06:15: Alanine Aminotransferase (ALT/SGPT) 58, Albumin 2.7, Albumin/Globulin Ratio 1.080, Alkaline Phosphatase 149, Anion Gap 12.2, Aspartate Amino Transf (AST/ SGOT) 65, BUN/Creatinine Ratio 48, Blood Urea Nitrogen 23, Calcium Level 8.3, Calcium/Ionized Calcium Ratio 4.3, Calculated Osmolality 294, Carbon Dioxide Level 25, Chloride Level 116, Creatinine 0.48, Estimat Glomerular Filtration Rate 176.1, Estimated GFR (Non- 145.5, Glucose Level 112, Magnesium Level 3.0, Potassium Level 3.4, Sodium Level 150, Total Bilirubin 1.7 , Total Protein 5.2 Microbiology 10/29/16 Blood Culture - Preliminary, Resulted No Growth in 4 days 10/16/16 Urine Culture - Final, Complete Imaging Results 10/17/16 ECHO Summary: Technically challenging study. Normal cardiac chamber sizes. Normal LV wall thickness. Intact LV systolic function with estimated EF 61%. Thickened aortic valve, with no significant stenosis or insufficiency. No significant mitral or tricuspid insufficiency. No pericardial effusion. 10.16.16 CXR IMPRESSION: 1. In the chest, there is persistent cardiomegaly with mild pulmonary vascular congestion and patchy perihilar airspace disease similar to the prior study. 2. No acute abdominal abnormality is suspected. 10.18.16 Small bowel follow through. IMPRESSION: Findings are compatible with constipation. There is mild delay in small bowel transit with transit time of 5.5 hours. No obstruction is seen. 10.20.16 Abdominal film IMPRESSION: 1. Gastrostomy tube projects over the expected position of the stomach. 2. Mild gaseous distention of bowel most likely involving loops of large bowel which is less prominent compared to prior exam. 10.22.16 Abdominal film Impression: Increasing distention of the colon. Findings may relate to worsening ileus. However, distal colonic obstruction not excluded. Recommend clinical correlation. 10.23.16 Abdominal film Impression: 1. Stable appearance of the chest as described 2. Moderate improvement since the recent prior abdominal series with findings suggestive of improving ileus as described. 10.27.16 Abdominal u/s IMPRESSION: 1. Cholelithiasis with no evidence of gallbladder wall thickening or bile duct dilatation. 2. Liver parenchyma is homogeneous in appearance with no evidence of hepatomegaly. 10.27.16 CXR Impression: No acute finding. 10.29.16 CT chest/abd/pelvis IMPRESSION: CT CHEST, ABDOMEN, AND PELVIS. 1. Low lung volumes with associated central bronchovascular crowding and respiratory motion artifact. 2. No identified acute cardiopulmonary abnormality. 3. No identified acute abnormality within the abdomen or pelvis. 4. Moderate distention of the urinary bladder. 5. Nonobstructing renal stones bilaterally. 6. Cholelithiasis without findings to suggest acute cholecystitis. 7. Atherosclerotic calcifications noted. 1.1.17 Abdominal film with gastrograffin to evaluate tube placement IMPRESSION: Gastrostomy tube appears to be in the stomach in satisfactory position. Assessment/Plan G tube dysfunction/Constipation/Feeding intolerance. Persistent recurrent problem. Imaging noted above. Pro-motility agents are being implemented--erythromycin. Switched to continuous tube feeds. Continue to monitor residuals. SIRS Meeting criteria with fever (1004.) and tachycardia (90-100's). Unclear source. No respiratory source Acute respiratory failure Improving, recurred. Re-evaluation has not revealed a source. Continue supplemental oxygen as needed. Asthma Continue albuterol. Will add back duonebs if needed. CAP Patient received a 5 day course of levofloxacin. Blood cultures drawn 10.29 are negative at 24 hours. UTI Resolved. Culture above. Abx provided. Constipation/Ileus Improving. Multiple BM's since admission. Imaging noted above. CHF Echo per above. Provided furosemide. Monitor daily i/o's carefully and daily weights. Hyperammonemia Has normalized. Attributed to valproic acid, holding for now. Elevated liver enzymes and bilirubin Improving. Imaging noted above. Hep panel negative. No improvement with fluids. Continue to monitor for improvement. Hypernatremia Increased the amount of free water through PEG tube. Sodium has normalized. Debility Per the home staff the patient does ambulate, however has not been doing that here. Continue PT. Seizure disorder Currently on keppra. Was on topiramate and valproic acid at home, currently administering only keppra. Valproate stopped with elevated LFT's and ammonia. Topiramate was held when patient was not tolerating feeds. Hypothyroidism Holding home dose of levothyroxine since patient is NPO. Will restart when patient is tolerating po. Can add iv levothyroxine if needed. GERD Providing iv famotidine. Seasonal allergies Holding home cetirizine. HTN Has been on diltiazem at home, continued here, however since not tolerating feeds, changing to IV metoprolol. 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 Monitor. FEN Tube feeds restarted continuously, Jevity 1.0 at 40/hr. Will look to change to pm feeds and off during the day. Will look to local delivery truck driver for input on feeding schedule. Electrolytes--hypokalemia replaced. Hypernatremia noted above. Hypermag-- resolved with fluids and diuresis. No fluids at this time. Code status Full code. DVT proph SCD's Dispo Inpatient. Adjusting tube feeds, looking to see if patient tolerates this. Will look to adjust to cyclic feeds. Continue PT. Look for d/c in the near future. CIERRA DOMINGUEZ MD Nov 02, 2016 12:36 CIERRA DOMINGUEZ MD Nov 02, 2016 12:36
[2016-11-02] MEDS: THERAPEUTIC MULTIVITAMINS LIQUID 5 ML UDC GT SCH (13:26)
--- NOTE | 2016-11-02 14:21 | PT Daily Note Inpatient (E) ---
PT Daily Treatment Service Date/Time 11/02/16, 14:18 Medical Diagnosis: (1) Dehydration ICD Code: E86.0 Physical Therapy: (1) Weakness generalized ICD Code: R53.1 Precaution/Isolation: Standard Precautions Resuscitation Status: Full Code Fall Level: High Risk 51 or greater Subjective pt in bed, not easily aroused to stimuli of hands and feet, no signs of distress Pain Level: 0 Oxygen Delivery: Room air O2 liters/minute: 0 Treatments Sit, Stand, Supine: Supine Extremity: Both Lower Extremity Assistance: PROM, Stretching Repetition: 1 x 20 Exercise: QS, Heel Slides, Hip Abduction, Hip Adduction, SLR, SAQ Stretching stretched BLE throughout Transfers Rolling: Total Assistance Education/Plan Assessment pt tolerates bed exercises with no signs of distress/pain, not able to get patient up without total assist Safety Awareness: Impaired Response to Treatment: No Change Plan Cont POC Patient will be seen: Daily Monday-Monday Discharge Recommendations: 24 hour Caregiver support Coding Time In: 1402 Time Out: 1417 Total Minutes: 15 Codes/Units: 69205 Exercise Therp Lori m YU NUNO CALL CENTER DIRECTOR Nov 02, 2016 14:21
[2016-11-02 15:41] VITALS: BP 84/42
--- NOTE | 2016-11-02 20:15 | NUR ---
1800-Oral care provided. Warm washcloth to eyes for conjunctivitis. Pt repositioned in bed. 190-Report given to Anand Li RN at this time.
[2016-11-02 20:20] VITALS: BP 73/38
[2016-11-02] MEDS: CARBOXYMETHYLCELLULOSE 1% (CELLUVISC) OPHTHALMIC DROPS OU SCH (21:36)
[2016-11-02] MEDS: CETIRIZINE 1 MG/ML GT SCH (21:36)
--- NOTE | 2016-11-02 22:05 | NUR ---
540 mls of residual from peg tube. Dr. Burroughs notified. Pt head of bed upright. Meds given. Will recheck in 1 hr. Addendum: 11/03/16 at 0159 by Jimena Li RN Patient's feeding stopped at 2130.
--- NOTE | 2016-11-02 23:00 | NUR ---
Gastric residual checked. Amount = 360 mls. Returned per peg tube. Dr. Burroughs notified and feedings continue to be held.
[2016-11-03 00:44] VITALS: BP 88/52
--- NOTE | 2016-11-03 02:15 | NUR ---
Residual feeding rechecked. 90 mls aspirated and returned.
[2016-11-03] MEDS: WATER, FOR IRRIGATION 1000 ML POUR BOTTLE GT PRN ×2 (02:42→09:49)
--- NOTE | 2016-11-03 03:04 | NUR ---
Continuous feeding of Jevity 1 chase at 40 mls per hour with interval of H2O flushes restarted.
[2016-11-03 04:00] VITALS: BP 104/52
[2016-11-03] MEDS: SODIUM CHLORIDE FLUSH 10 ML SYR IV PRN (05:37)
--- NOTE | 2016-11-03 05:42 | NUR ---
Port blood draw at this time followed by flush with NS and heparin per protocol for flush.
[2016-11-03 06:36] LABS: ANION GAP 13.9 MEQ/L (3-15); CALCULATED IONIZED CALCIUM 4.1 mg/dL (3.8-4.6); MAGNESIUM* 2.7 mg/dL (1.6-2.3); PHOSPHORUS 4.2 mg/dL (2.4-4.9)
[2016-11-03 06:52] LABS: BASOPHILS % (AUTO) 1 % (0-2); EOSINOPHILS # (AUTO) 0.1 10^3uL; EOSINOPHILS % (AUTO) 2 % (0-4); LYMPHOCYTES # (AUTO) 0.9 X10^3; MONOCYTES # (AUTO) 0.4 X10^3; MONOCYTES % (AUTO) 11 % (3-11); NEUTROPHILS # (AUTO) 2.5 X10^3; NEUTROPHILS % (AUTO) 63 % (51-67); WHITE BLOOD COUNT 3.95 10^3uL (4.0-11.0)
--- NOTE | 2016-11-03 07:00 | NUR ---
Patient appeared comfortable throughout night.
[2016-11-03 07:14] LABS: MEAN CORPUSCULAR HEMOGLOBIN 34.5 PG (26.0-34.0); MEAN CORPUSCULAR VOLUME 104 FL (80-100)
[2016-11-03 07:31] LABS: PLATELET COUNT 107 10^3uL (150-450)
[2016-11-03 08:30] VITALS: BP 84/44
--- NOTE | 2016-11-03 09:07 | Progress Note-A/P (E) ---
Progress Note Subjective: Patient is up to chair. She is responsive. Updated career manager late yesterday evening. Objective: Current Medications Carbamazepine 200 mg TID GT Cetirizine 10 mg HS GT Docusate 100 mg BID GT Guaifenesin 400 mg BID GT Albuterol/ Ipratropium 3 ml TID INH Multivitamins Therapeutic 5 ml DAILY@12 GT Polyethylene Glycol 17 gm DAILY PO Polyvinyl Alcohol/ Povidone 1 each DAILY OU Sennosides 8.6 mg DAILY GT Trimethoprim/ Sulfamethoxazole 20 ml BID PO Valproic Acid 500 mg HS PO Hold Enoxaparin 40 mg DAILY SC Levothyroxine 37.5 mcg DAILY GT Diltiazem 120 mg DAILY@0900 PO Topiramate 50 mg HS PO Famotidine 20 mg BID GT Carboxymethylcellulose 1 DROP HS OU Polyvinyl Alcohol/ Povidone 1 DROP QID PRN OU Sterile Water FOR GT FLUSH UD PRN GT Bisacodyl 10 mg BID PRN IN Heparin 30 unit UD PRN IV Potassium Chloride 20 meq BID PO Ondansetron 4 mg Q6H PRN IV Acetaminophen 325 mg Q4H PRN PO Vital Signs Date Time Temp Pulse Resp B/P Pulse Ox O2 Delivery O2 Flow Rate FiO2 11/03/16 08:30 97.5 70 22 84/44 95 Room air 0.00 I & O Past 24 hrs 11/03/16 07:00 Intake Total 280 ml Output Total 568 ml Balance -288 ml Intake Oral 0 ml Tube Feeding 280 ml Output Urine Total 568 ml Physical Exam General--Resting. No distress. HEENT--[place] facial features. MMM in oral cavity. Lungs--Clear bilaterally. Heart--RRR. Abdomen--NBS/S/ND/NTTP. PEG tube in place, no drainage. Extremities--No edema noted to lower extremities. Past 24 hour Lab Results 11/03/16 05:35 Laboratory Results Past 24 Hrs 11/03/16 05:35: Alanine Aminotransferase (ALT/SGPT) 58, Albumin 3.0, Albumin/Globulin Ratio 1.000, Alkaline Phosphatase 149, Anion Gap 13.9, Aspartate Amino Transf (AST/ SGOT) 53, BUN/Creatinine Ratio 43, Basophils # (Auto) 0.0, Basophils (%) (Auto) 1, Blood Urea Nitrogen 20, Calcium Level 8.5, Calcium/Ionized Calcium Ratio 4.1 , Calculated Osmolality 288, Carbon Dioxide Level 24, Chloride Level 113, Creatinine 0.46, Eosinophils # (Auto) 0.1, Eosinophils (%) (Auto) 2, Estimat Glomerular Filtration Rate 184.9, Estimated GFR (Non- 152.9, Glucose Level 97, Hematocrit 30.90, Hemoglobin 10.2, Lymphocytes # (Auto) 0.9, Lymphocytes (%) (Auto) 23, Magnesium Level 2.7, Mean Corpuscular Hemoglobin 34.5 , Mean Corpuscular Hemoglobin Concent 33.0, Mean Corpuscular Volume 104, Mean Platelet Volume , Monocytes # (Auto) 0.4, Monocytes (%) (Auto) 11, Neutrophils # (Auto) 2.5, Neutrophils (%) (Auto) 63, Phosphorus Level 4.2, Platelet Count 107, Potassium Level 3.1, Red Blood Count 2.96, Red Cell Distribution Width 12.3 , Sodium Level 148, Total Bilirubin 1.5, Total Protein 6.0, White Blood Count 3.95 Microbiology 10/29/16 Blood Culture - Final, Complete No Growth in 5 days 11/01/16 Urine Culture - Preliminary, Resulted Imaging Results 10/17/16 ECHO Summary: Technically challenging study. Normal cardiac chamber sizes. Normal LV wall thickness. Intact LV systolic function with estimated EF 61%. Thickened aortic valve, with no significant stenosis or insufficiency. No significant mitral or tricuspid insufficiency. No pericardial effusion. 10.16.16 CXR IMPRESSION: 1. In the chest, there is persistent cardiomegaly with mild pulmonary vascular congestion and patchy perihilar airspace disease similar to the prior study. 2. No acute abdominal abnormality is suspected. 10.18.16 Small bowel follow through. IMPRESSION: Findings are compatible with constipation. There is mild delay in small bowel transit with transit time of 5.5 hours. No obstruction is seen. 16 Abdominal film IMPRESSION: 1. Gastrostomy tube projects over the expected position of the stomach. 2. Mild gaseous distention of bowel most likely involving loops of large bowel which is less prominent compared to prior exam. 16 Abdominal film Impression: Increasing distention of the colon. Findings may relate to worsening ileus. However, distal colonic obstruction not excluded. Recommend clinical correlation. 16 Abdominal film Impression: 1. Stable appearance of the chest as described 2. Moderate improvement since the recent prior abdominal series with findings suggestive of improving ileus as described. 10.27.16 Abdominal u/s IMPRESSION: 1. Cholelithiasis with no evidence of gallbladder wall thickening or bile duct dilatation. 2. Liver parenchyma is homogeneous in appearance with no evidence of hepatomegaly. 10.27.16 CXR Impression: No acute finding. 10.29.16 CT chest/abd/pelvis IMPRESSION: CT CHEST, ABDOMEN, AND PELVIS. 1. Low lung volumes with associated central bronchovascular crowding and respiratory motion artifact. 2. No identified acute cardiopulmonary abnormality. 3. No identified acute abnormality within the abdomen or pelvis. 4. Moderate distention of the urinary bladder. 5. Nonobstructing renal stones bilaterally. 6. Cholelithiasis without findings to suggest acute cholecystitis. 7. Atherosclerotic calcifications noted. 17 Abdominal film with gastrograffin to evaluate tube placement IMPRESSION: Gastrostomy tube appears to be in the stomach in satisfactory position. Assessment/Plan G tube dysfunction/Constipation/Feeding intolerance. Persistent recurrent problem. Imaging noted above. Pro-motility agents are being implemented--erythromycin. Switched to continuous tube feeds, however patient had large residuals overnight. Therefore will change formula to decrease volume, will return to bolus feeds with less volume, continue free water, patient is to be SITTING UP IN CHAIR for all feeds. Continue to monitor residuals. SIRS Resolved Met criteria with fever (1004.) and tachycardia (90-100's). Unclear source. No respiratory source Acute respiratory failure Improving, recurred. Re-evaluation has not revealed a source. Weaned from supplemental oxygen. Asthma Continue albuterol. Will add back duonebs if needed. CAP Patient received a 5 day course of levofloxacin. Blood cultures drawn 10.29 are negative at 24 hours. UTI Resolved. Culture above. Abx provided. Constipation/Ileus Improving. Patient continues to have regular BM's. Imaging noted above. CHF Echo per above. Provided furosemide. Monitor daily i/o's carefully and daily weights. Hyperammonemia Has normalized. Attributed to valproic acid, holding for now. Elevated liver enzymes and bilirubin Continues to improve. Imaging noted above. Hep panel negative. No improvement with fluids. Continue to monitor for improvement. Hypernatremia Increased the amount of free water through PEG tube. Sodium has normalized. Debility Per the home staff the patient does ambulate, however has not been doing that here. Continue PT. Seizure disorder Currently on keppra. Was on topiramate and valproic acid at home, currently administering only keppra. Valproate stopped with elevated LFT's and ammonia. Topiramate was held when patient was not tolerating feeds. Hypothyroidism Currently on home dose of levothyroxine. GERD Providing famotidine. Seasonal allergies Home cetirizine. HTN Diltiazem per home dose. 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 FEN Recommendations from preparation room worker: 1. Recommend TwoCal HN formula for total volume 552 ml/day, providing 1,108 kcals, 46 g. protein and 387 ml water. This can be split into feedings of 138 ml QID. 2. Additional water flush needed: recommend we start conservatively due to hx. of not tolerating large boluses and start with the fluid calculation of 1 ml /kcal. This equals 721 ml additional water flush needed per 24 hrs. Recommend her sodium and hydration status be closely monitored while she still has access to IV fluids, so we can see if we need to increase the water flushes and if she can tolerate it. PATIENT IS TO REMAIN SITTING FOR 1 HOUR AFTER ALL FEEDS. Electrolytes--hypokalemia replaced. Hypernatremia noted above. Hypermag-- resolved with fluids and diuresis. No fluids at this time. Code status Full code. DVT proph SCD's Dispo Inpatient. Adjusting tube feeds per above. CIERRA DOMINGUEZ MD Nov 03, 2016 09:07
[2016-11-03] MEDS ORDERED: POTASSIUM CHLORIDE ORAL SOLUTION 20 MEQ/15 ML (KCL) UDC PO ONE (09:10)
[2016-11-03] MEDS: SODIUM CHLORIDE FLUSH 10 ML SYR IV SCH (09:37)
[2016-11-03] MEDS: LEVETIRACETAM 500 MG/5 ML PO SCH ×2 (09:38→20:47)
[2016-11-03] MEDS: CARBAMAZEPINE 100 MG/5 ML GT SCH ×3 (09:38→17:36)
[2016-11-03] MEDS: LEVOTHYROXINE 75 MCG (LEVOTHROID) TABLET GT SCH (09:38)
[2016-11-03] MEDS: ENOXAPARIN 40 MG/0.4 ML (LOVENOX) SYR SC SCH (09:38)
[2016-11-03] MEDS: FAMOTIDINE 40 MG/5 ML GT SCH ×2 (09:38→20:48)
[2016-11-03] MEDS: ARTIFICIAL TEARS (REFRESH) OPHTHALMIC DROPS OU SCH (09:38)
[2016-11-03] MEDS: DILTIAZEM CD 120 MG (CARDIZEM CD) CAP PO SCH (09:38)
[2016-11-03] MEDS: ERYTHROMYCIN ETHYLSUCCINATE 200 MG/5 ML GT SCH ×3 (09:38→17:36)
--- NOTE | 2016-11-03 10:50 | NUR ---
0935-Pt resting in bed. No s/s of pain noted. Residual checked before meds given, 60mls received. Residual replaced per Dr order and meds given and feeding continued at this time. Pt repositioned in bed. Will continue to monitor.
--- NOTE | 2016-11-03 11:25 | PT Daily Note Inpatient (E) ---
PT Daily Treatment Service Date/Time 11/03/16, 11:19 Medical Diagnosis: (1) Dehydration ICD Code: E86.0 Physical Therapy: (1) Weakness generalized ICD Code: R53.1 Precaution/Isolation: Standard Precautions Resuscitation Status: Full Code Fall Level: High Risk 51 or greater Subjective pt in bed, UE flaccid, pt does not respond to voice or stimuli Pain Level: 0 Oxygen Delivery: Room air O2 liters/minute: 0 Treatments Sit, Stand, Supine: Supine Extremity: Both Lower Extremity Assistance: PROM, Stretching Comment pt not responding to voice or stimuli, limbs flaccid, no signs of distress Education/Plan Assessment pt not showing signs of progress with physical therapy, tolerates PROM with no signs of distress Safety Awareness: Impaired Response to Treatment: Declining Plan Plan to d/c from PT if no progress in next few treatments Patient will be seen: Daily Monday-Monday Discharge Recommendations: 24 hour Caregiver support Coding Time In: 1115 Time Out: 1123 Total Minutes: 8 Codes/Units: 12651 Exercise Therp Lori m YU NUNO WEED INSPECTOR Nov 03, 2016 11:25
--- NOTE | 2016-11-03 11:52 | NUR ---
Wound noted to pt's coccyx. Documentation noted in wound assessment intervention. Mepilex applied. Pt tolerated well.
[2016-11-03] MEDS: THERAPEUTIC MULTIVITAMINS LIQUID 5 ML UDC GT SCH (11:58)
[2016-11-03 12:31] VITALS: BP 72/46
--- NOTE | 2016-11-03 14:07 | OT Therapy Evaluation (E) ---
POC Plan of Care Problems Identified: Activity Tolerance, ADLs, Lt UE Strength, ROM, Rt UE Strength Plan: Evaluation-OT, ADL/Self Care Management, Therapy Exercises, Therapy Activities Frequency of OT: Five times weekly Duration of OT: 1 week Therapy to Include: ADL training, Balance with ADLs, Therapeutic activities, UE strengthing Discharge Recommendations: 24 hour Caregiver support ([facility] ) Pt would benefit from skilled occupational therapy services to improve independence with self care tasks and maintain full range of UE joints for improved use during functional activities and self care tasks. Pt. Aware of Dx and Prognosis: No Pt. Aware of Risk & Benefit: No Goals: Family unavailable Short Term Goals STG Time Frame: 4 Days STG #1 Pt will engage in functional activity sitting at EOB for 3 minutes with moderate assistance to improve participation in daily activities. STG #2 Pt will tolerate 10 min of ther-ex to maintain range and prevent stiffness in BUE's. Usp Goals LTG Time Frame: 7 Days Will Dress Upper Extremity: With Mod Assistance LTG # 1 Pt will participate in functional activity sitting at EOB with minimal assistance for 4 minutes to improve participation in daily activities. LTG # 2 Pt will complete grooming task with moderate assistance and use of visual aides and demonstration as needed. Inital Evaluation/General Service Date/Time 11/03/16, 14:06 Primary Diagnosis: (1) Dehydration ICD Code: E86.0 Treatment Diagnosis: (1) Weakness ICD Code: R53.1 Onset Date: 10/17/16 Start of Care Date: Nov 03, 2016 Precaution/Isolation: Standard Precautions Fall Level: High Risk 51 or greater Resuscitation Status: Full Code Reason for Referral: Evaluation and Treat Pertinent Medical History: Other (Conelia de Pike ) Pain Locattion/Comments Unable to assess pain level Oxygen Needed: Room air O2 liters/minute: 0 Rehabilitation Potential: Fair Potential Based On Patient's complex past medical history and comorbidities Living Status Prior to Admit: [facility] Prior Level of Function: Requires Supervision Pt receives maximum assistance for all self care tasks. Plans Following Discharge: Return Home (To [facility] ) Comment Unable to obtain information regarding set up and prior level of function secondary to no family available. Will update when family is around. Current Function Assessment Mental Status Patient Orientation: Eyes Open Mental Status: Other (Pt able to track with eyes during evaluation, but no consistently. With maximum demonstration and tactile cueing pt able to lift bilateral upper extremities. ) Cognition Attention: Impaired ROM/Strength ROM Comment Able to passively move all upper extremity joints. Pt would not actively hold arms above head, but with game pt able to demonstrate functional movement of bilateral arms. Strength Comment Unable to accurately assess due to intellectual concerns. Per clinical observation, demonstrates muscle wasting and decreased strength of BUE's and BLE 's. Bed Mobility/Transfers Bed Mobility: Maximum, Of 2 Supine from Sit: Maximum assist, 2 persons Sit to Stand: Maximum assist (Attempted to stand with pt with maximum assistance x 2. ), 2 persons Chair Transfer: Maximum assist, Of 2 persons ADLs Hand : Comment Pt has a feeding tube. Dressing Dressing: Maximum assist Bathing Shower/Bench Transfer Ability: Maximum assist, Assist of 2 Bathing- Type of Assistance: Maximum Assist Toileting Toilet Hygiene: Dependent Toilet Transfer Ability: Maximum assist Additional Assessment/Comments Pt presents with decreased strength, decreased movement, decreased ability to complete self care tasks of bathing, dressing, grooming, toileting, decreased sitting balance and decreased cognitive decline which impacts pt's participation. Pt presents with comorbidities that affect occupational performance and requires signification modification of evaluation assessments and significant verbal and physical assistance during the evaluation indicating a high complexity level. CPT/G Codes Time In: 13:20 Time Out: 13:50 Total Minutes: 30 (30 eval) RICO PACHECO OT Nov 03, 2016 14:07
--- NOTE | 2016-11-03 14:31 | PT Daily Note Inpatient (E) ---
PT Daily Treatment Service Date/Time 11/03/16, 14:26 Medical Diagnosis: (1) Dehydration ICD Code: E86.0 Physical Therapy: (1) Weakness generalized ICD Code: R53.1 Precaution/Isolation: Standard Precautions Resuscitation Status: Full Code Fall Level: High Risk 51 or greater Subjective pt in chair, awake and more alert than previous visits Pain Level: 0 Oxygen Delivery: Room air O2 liters/minute: 0 Treatments Sit, Stand, Supine: Long Sitting Extremity: Both Lower Extremity Assistance: PROM Repetition: 1 x 15 Exercise: AP, Heel Slides, Hip Abduction, SLR Stretching BLE stretch throughout Transfers Supine-Sit: Total Assistance Sit-Stand from bed: Total Assistance (pt stood at bed with total assist x2, AA steps forward x2 before carrying her to chair, pt sat EOB x20" before requiring assist) Pivot Transfers: Total Assistance Education/Plan Assessment pt more alert with this visit, responds minimally to exercises Safety Awareness: Impaired Response to Treatment: No Change Plan Cont POC Patient will be seen: Daily Monday-Monday Discharge Recommendations: 24 hour Caregiver support Coding Time In: 1405 Time Out: 1420 Total Minutes: 15 Codes/Units: 85652 Exercise Therp Lori m YU NUNO PHYSICAL EDUCATION PROFESSOR Nov 03, 2016 14:30
[2016-11-03 15:47] VITALS: BP 81/48
--- NOTE | 2016-11-03 15:47 | NUR ---
Nutrition Follow Up: Pt. has been receiving continuous feedings at 40 ml/hr. x 2 days now. She has been turned by nursing every 2 hours in bed, but is not able to walk yet. She had no gastric residuals yesterday during the day, but then had 540 ml at 2205. Feedings were stopped at 2130. Residuals were down to 360 ml at 2300, and down to 90 ml this morning at 0215, to which feedings were restarted. Noted documentation of stage 2 pressure ulcer to pt. coccyx today. Weight today: 102.3#/46.5 kg--this is up 5.5# since 3 days ago Spoke with physician re: plan for feedings. Cyclic feedings at night were the initial goal, but it may be undesirable for her HOB to remain elevated all night long plus it would put additional pressure on her coccyx. Therefore we discussed switching formula to a more calorie-dense option to decrease the total volume needed and try bolus feedings again at low-dose. 1. Recommend TwoCal HN formula for total volume 552 ml/day, providing 1,108 kcals, 46 g. protein and 387 ml water. This can be split into feedings of 138 ml QID. 2. Additional water flush needed: recommend we start conservatively due to hx. of not tolerating large boluses and start with the fluid calculation of 1 ml/kcal. This equals 721 ml additional water flush needed per 24 hrs. Recommend her sodium and hydration status be closely monitored while she still has access to IV fluids, so we can see if we need to increase the water flushes and if she can tolerate it.
--- NOTE | 2016-11-03 17:53 | NUR ---
Up to chair, no s/s of pain noted.
--- NOTE | 2016-11-03 19:01 | NUR ---
Report given to ESPERANZA Martínez at this time.
[2016-11-03 20:17] VITALS: BP 94/53
[2016-11-03] MEDS: CARBOXYMETHYLCELLULOSE 1% (CELLUVISC) OPHTHALMIC DROPS OU SCH (20:48)
[2016-11-03] MEDS: CETIRIZINE 1 MG/ML GT SCH (20:48)
--- NOTE | 2016-11-03 23:00 | NUR ---
Assumed care from Naty MATA. Patient repositioned in bed. Respirations even and non-labored.
--- NOTE | 2016-11-04 | NUR ---
Tube feeding administered as ordered. Residual checked. 90 cc obtained and given back. Jevity 2 Russell 138 cc administered per gravity, followed by 180 ml of water. Patient tolerated well. Repositioned in bed.
[2016-11-04 00:40] VITALS: BP 98/59
[2016-11-04 04:47] VITALS: BP 102/62
--- NOTE | 2016-11-04 06:00 | NUR ---
Rested well tonight. Turned and repositioned. Does not like t be on her sides, patient trys to roll back. Supported with pillows. Heels off of the bed. Good mikaela care given. Sore on coccyx area cleansed and dried. New Mepilex applied to area. Tube feeding done. Residual 150cc. Administered 2 Russell Jevity via [id number] cc, followed by water as ordered. Patient tolerated well. Sitting in bed fully upright for one hour after tube feeding. Oral care given several times.
[2016-11-04 06:28] LABS: BASOPHILS % (AUTO) 1 % (0-2); EOSINOPHILS % (AUTO) 1 % (0-4); LYMPHOCYTES # (AUTO) 0.8 X10^3; MEAN CORPUSCULAR HGB CONC 32.4 g/dL (31.0-37.0); MONOCYTES # (AUTO) 0.5 X10^3; MONOCYTES % (AUTO) 13 % (3-11); NEUTROPHILS # (AUTO) 2.3 X10^3; NEUTROPHILS % (AUTO) 62 % (51-67); PLATELET COUNT 118 10^3uL (150-450); WHITE BLOOD COUNT 3.67 10^3uL (4.0-11.0)
[2016-11-04 06:38] LABS: ALBUMIN 2.9 g/dL (3.4-5.0); ANION GAP 11.7 MEQ/L (3-15); MAGNESIUM* 2.6 mg/dL (1.6-2.3); PHOSPHORUS 3.7 mg/dL (2.4-4.9)
[2016-11-04 06:59] LABS: MEAN CORPUSCULAR VOLUME 105 FL (80-100)
[2016-11-04 08:22] VITALS: BP 76/45
[2016-11-04] MEDS: SODIUM CHLORIDE FLUSH 10 ML SYR IV SCH (09:25)
[2016-11-04] MEDS: LEVETIRACETAM 500 MG/5 ML PO SCH ×2 (09:26→20:04)
[2016-11-04] MEDS: ERYTHROMYCIN ETHYLSUCCINATE 200 MG/5 ML GT SCH ×3 (09:26→17:41)
[2016-11-04] MEDS: LEVOTHYROXINE 75 MCG (LEVOTHROID) TABLET GT SCH (09:26)
[2016-11-04] MEDS: FAMOTIDINE 40 MG/5 ML GT SCH ×2 (09:26→20:04)
[2016-11-04] MEDS: CARBAMAZEPINE 100 MG/5 ML GT SCH ×3 (09:26→17:41)
[2016-11-04] MEDS: DILTIAZEM CD 120 MG (CARDIZEM CD) CAP PO SCH (09:27)
[2016-11-04] MEDS: ARTIFICIAL TEARS (REFRESH) OPHTHALMIC DROPS OU SCH (09:27)
[2016-11-04] MEDS: ENOXAPARIN 40 MG/0.4 ML (LOVENOX) SYR SC SCH (09:27)
--- NOTE | 2016-11-04 10:52 | PT Daily Note Inpatient (E) ---
PT Daily Treatment Service Date/Time 11/04/16, 10:48 Medical Diagnosis: (1) Dehydration ICD Code: E86.0 Physical Therapy: (1) Weakness generalized ICD Code: R53.1 Precaution/Isolation: Standard Precautions Resuscitation Status: Full Code Fall Level: High Risk 51 or greater Subjective pt in bed, stretching out arms above head Pain Level: 0 Oxygen Delivery: Room air O2 liters/minute: 0 Treatments Sit, Stand, Supine: Supine Extremity: Both Lower Extremity Assistance: PROM, Stretching Repetition: 1 x 20 Exercise: AP, Heel Slides, Hip Abduction, Hip Adduction, SLR, SAQ, External Rotation, Internal Rotation Comment pt sleeps through most of treatment Stretching BLE stretching throughout Education/Plan Assessment Pt is not showing signs of progress, does not participate in treatment Safety Awareness: Not tested Response to Treatment: No Change Plan Cont POC Patient will be seen: Daily Monday-Monday Discharge Recommendations: 24 hour Caregiver support Coding Time In: 1036 Time Out: 1047 Total Minutes: 11 Codes/Units: 85687 Exercise Therp Lori m YU NUNO ADJUSTMENT EXAMINER Nov 04, 2016 10:52
[2016-11-04 11:54] VITALS: BP 80/48
[2016-11-04] MEDS: THERAPEUTIC MULTIVITAMINS LIQUID 5 ML UDC GT SCH (12:25)
--- NOTE | 2016-11-04 13:25 | NUR ---
Pt assisted to chair with OT and this RN. Pt unable to take any steps or bear weight. Pillows placed under head and arms for support.
--- NOTE | 2016-11-04 15:11 | NUR ---
Remains in chair, repositioned at this time. Pillows for support.
[2016-11-04 15:39] VITALS: BP 100/55
--- NOTE | 2016-11-04 15:46 | PT Daily Note Inpatient (E) ---
PT Daily Treatment Service Date/Time 11/04/16, 15:45 Medical Diagnosis: (1) Dehydration ICD Code: E86.0 Physical Therapy: (1) Weakness generalized ICD Code: R53.1 Precaution/Isolation: Standard Precautions Resuscitation Status: Full Code Fall Level: High Risk 51 or greater Subjective Oxygen Delivery: Room air O2 liters/minute: 0 Education/Plan Plan Patient will be seen: Daily Monday-Monday Discharge Recommendations: 24 hour Caregiver support Coding PT spoke with Dr. Burroughs this afternoon regarding patient's lack of active participation and progress with therapy services. Dr. Burroughs is hopeful that patient's participation will improve as she get more nutrition. Dr. Burroughs was okay with us hold PT services over the weekend but would like PT to reassess this patient on Monday. SELENE INGRAM PT Nov 04, 2016 15:46
--- NOTE | 2016-11-04 16:54 | Progress Note-A/P (E) ---
Progress Note Subjective: Patient is resting quietly in bed. She is awake, but appears tired. No family or home staff at bedside during my visit. Objective: Current Medications Carbamazepine 200 mg TID GT Cetirizine 10 mg HS GT Docusate 100 mg BID GT Guaifenesin 400 mg BID GT Albuterol/ Ipratropium 3 ml TID INH Multivitamins Therapeutic 5 ml DAILY@12 GT Polyethylene Glycol 17 gm DAILY PO Polyvinyl Alcohol/ Povidone 1 each DAILY OU Sennosides 8.6 mg DAILY GT Trimethoprim/ Sulfamethoxazole 20 ml BID PO Valproic Acid 500 mg HS PO Hold Enoxaparin 40 mg DAILY SC Levothyroxine 37.5 mcg DAILY GT Diltiazem 120 mg DAILY@0900 PO Topiramate 50 mg HS PO Famotidine 20 mg BID GT Carboxymethylcellulose 1 DROP HS OU Polyvinyl Alcohol/ Povidone 1 DROP QID PRN OU Sterile Water FOR GT FLUSH UD PRN GT Bisacodyl 10 mg BID PRN AL Heparin 30 unit UD PRN IV Potassium Chloride 20 meq BID PO Ondansetron 4 mg Q6H PRN IV Acetaminophen 325 mg Q4H PRN PO Vital Signs Date Time Temp Pulse Resp B/P Pulse Ox O2 Delivery O2 Flow Rate FiO2 11/04/16 15:39 98.9 84 24 100/55 93 Room air 11/03/16 12:31 0.00 I & O Past 24 hrs 11/04/16 07:00 Intake Total 680 ml Output Total 298 ml Balance 382 ml Intake Oral 0 ml Tube Feeding 440 ml Tube Irrigant 240 ml Output Urine Total 298 ml Physical Exam General--Resting. No distress. HEENT--Marcela de Pike facial features. MMM in oral cavity. Lungs--Clear bilaterally. Heart--RRR. II/ LARISA over left sternal border. Abdomen--NBS/S/ND/NTTP. PEG tube in place, no drainage. Extremities--No edema noted to lower extremities. Past 24 hour Lab Results 11/04/16 05:30 Laboratory Results Past 24 Hrs 11/04/16 05:30: Albumin 2.9, Anion Gap 11.7, Basophils # (Auto) 0.0, Basophils (%) (Auto) 1, Blood Urea Nitrogen 16, Calcium Level 8.6, Carbon Dioxide Level 27, Chloride Level 115, Creatinine 0.49, Eosinophils # (Auto) 0.0, Eosinophils (%) (Auto) 1, Estimat Glomerular Filtration Rate 172.0, Estimated GFR (Non- 142.1, Glucose Level 84, Hematocrit 30.60, Hemoglobin 9.9, Lymphocytes # (Auto) 0.8, Lymphocytes (%) (Auto) 23, Magnesium Level 2.6, Mean Corpuscular Hemoglobin 34.0, Mean Corpuscular Hemoglobin Concent 32.4, Mean Corpuscular Volume 105, Mean Platelet Volume , Monocytes # (Auto) 0.5, Monocytes (%) (Auto) 13, Neutrophils # (Auto) 2.3, Neutrophils (%) (Auto) 62, Phosphorus Level 3.7, Platelet Count 118, Potassium Level 4.1, Red Blood Count 2.91, Red Cell Distribution Width 12.5, Sodium Level 150, White Blood Count 3.67 Microbiology 10/29/16 Blood Culture - Final, Complete No Growth in 5 days 11/01/16 Urine Culture - Final, Complete Imaging Results 10/17/16 ECHO Summary: Technically challenging study. Normal cardiac chamber sizes. Normal LV wall thickness. Intact LV systolic function with estimated EF 61%. Thickened aortic valve, with no significant stenosis or insufficiency. No significant mitral or tricuspid insufficiency. No pericardial effusion. 10.16.16 CXR IMPRESSION: 1. In the chest, there is persistent cardiomegaly with mild pulmonary vascular congestion and patchy perihilar airspace disease similar to the prior study. 2. No acute abdominal abnormality is suspected. 10.18.16 Small bowel follow through. IMPRESSION: Findings are compatible with constipation. There is mild delay in small bowel transit with transit time of 5.5 hours. No obstruction is seen. 10.20.16 Abdominal film IMPRESSION: 1. Gastrostomy tube projects over the expected position of the stomach. 2. Mild gaseous distention of bowel most likely involving loops of large bowel which is less prominent compared to prior exam. 10.22.16 Abdominal film Impression: Increasing distention of the colon. Findings may relate to worsening ileus. However, distal colonic obstruction not excluded. Recommend clinical correlation. 10.23.16 Abdominal film Impression: 1. Stable appearance of the chest as described 2. Moderate improvement since the recent prior abdominal series with findings suggestive of improving ileus as described. 10.27.16 Abdominal u/s IMPRESSION: 1. Cholelithiasis with no evidence of gallbladder wall thickening or bile duct dilatation. 2. Liver parenchyma is homogeneous in appearance with no evidence of hepatomegaly. 10.27.16 CXR Impression: No acute finding. 10.29.16 CT chest/abd/pelvis IMPRESSION: CT CHEST, ABDOMEN, AND PELVIS. 1. Low lung volumes with associated central bronchovascular crowding and respiratory motion artifact. 2. No identified acute cardiopulmonary abnormality. 3. No identified acute abnormality within the abdomen or pelvis. 4. Moderate distention of the urinary bladder. 5. Nonobstructing renal stones bilaterally. 6. Cholelithiasis without findings to suggest acute cholecystitis. 7. Atherosclerotic calcifications noted. 10.30.16 Abdominal film with gastrograffin to evaluate tube placement IMPRESSION: Gastrostomy tube appears to be in the stomach in satisfactory position. Assessment/Plan G tube dysfunction/Constipation/Feeding intolerance. Persistent recurrent problem. Imaging noted above. Pro-motility agents have been implemented--erythromycin. Switched to continuous tube feeds, however patient had large residuals .03.15. Therefore will change to TwoCal HN to decrease volume, will return to bolus feeds with less volume, continue free water, patient is to be SITTING UP IN CHAIR for all feeds (reiterated with nursing staff). Continue to monitor residuals. Debility Per the home staff the patient does ambulate, however has not been doing that here. Continue PT, although due to poor interaction and no progress, PT would like to d/c her from their services, they will re-evaluate on Monday. SIRS Resolved Met criteria with fever and tachycardia. Unclear source. No respiratory source Acute respiratory failure Improving, recurred. Re-evaluation has not revealed a source. Weaned from supplemental oxygen. Asthma Continue albuterol. CAP Patient received a 5 day course of levofloxacin. Blood cultures drawn 10.29 are negative at 24 hours. UTI Resolved. Culture above. Abx provided. Constipation/Ileus Resolved. Patient continues to have regular BM's. Imaging noted above. CHF Echo per above. Provided furosemide. Monitor daily i/o's carefully and daily weights. Hyperammonemia Has normalized. Attributed to valproic acid, holding for now. Elevated liver enzymes and bilirubin Improving. Imaging noted above. Hep panel negative. No improvement with fluids. Continue to monitor for improvement. Hypernatremia Increased the amount of free water through PEG tube. Sodium has normalized. Seizure disorder Currently on keppra. Was on topiramate and valproic acid at home, currently administering only keppra. Valproate stopped with elevated LFT's and ammonia. Topiramate was held when patient was not tolerating feeds. Hypothyroidism Currently on home dose of levothyroxine. GERD Providing famotidine. Seasonal allergies Home cetirizine. HTN Diltiazem per home dose. 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 FEN Implementing recommendations from urban redevelopment specialist: 1. Recommend TwoCal HN formula for total volume 552 ml/day, providing 1,108 kcals, 46 g. protein and 387 ml water. This can be split into feedings of 138 ml QID. 2. Additional water flush needed: recommend we start conservatively due to hx. of not tolerating large boluses and start with the fluid calculation of 1 ml /kcal. This equals 721 ml additional water flush needed per 24 hrs. Recommend her sodium and hydration status be closely monitored while she still has access to IV fluids, so we can see if we need to increase the water flushes and if she can tolerate it. PATIENT IS TO REMAIN SITTING FOR 1 HOUR AFTER ALL FEEDS. Electrolytes--hypokalemia replaced. Hypernatremia noted above. Hypermag-- resolved with fluids and diuresis. No fluids at this time. Code status Full code. DVT proph SCD's Dispo Inpatient. Adjusting tube feeds per above, monitoring residuals closely. Hope that the patient continues to get strong and participates more with PT with better nutrition. CIERRA DOMINGUEZ MD Nov 04, 2016 16:54
--- NOTE | 2016-11-04 17:44 | OT Daily Note Inpatient (E) ---
OT Daily Treatment Service Date/Time 11/04/16, 17:33 Primary Diagnosis: (1) Dehydration ICD Code: E86.0 Treatment Diagnosis: (1) Weakness ICD Code: R53.1 Onset Date: 10/17/16 Start of Care Date: Nov 03, 2016 Precaution/Isolation: Standard Precautions Fall Level: High Risk 51 or greater Resuscitation Status: Full Code Current Activity: Asleep, diff to arouse, In bed Pt non verbal and did not respond well to tx Oxygen Needed: Room air O2 liters/minute: 0 Current Function Assessment Cognition Attention: Impaired Bed Mobility/Transfers Bed Mobility: Maximum, Of 2 Supine from Sit: Maximum assist, 2 persons Sit to Stand: Maximum assist, 2 persons Chair Transfer: Maximum assist, Of 2 persons ADLs Grooming: Grooming Position: In bed Grooming Status: Maximum assist, Verbal cues Grooming Assistance With-: Combing hair, Washing face Treatments Gross Motor Skill Exercise U E Gross Motor Skills U E : Position -Gross Motor: In sitting, With maximum assist Comment attempted B UE AROm with bubble popping, moving beads and attempt reach for viola bear but did not respond well Education/Assessment Treatment Tolerance: Viridiana trmnt w/o complaints Rehabilitation Potential: Fair Pt non verbal and did not respond well to tx. Nursing states she has been letharic and tired. POC Plan of Care Problems Identified: Activity Tolerance, ADLs, Lt UE Strength, ROM, Rt UE Strength Plan: Evaluation-OT, ADL/Self Care Management, Therapy Exercises, Therapy Activities Frequency of OT: Five times weekly Duration of OT: 1 week Therapy to Include: ADL training, Balance with ADLs, Therapeutic activities, UE strengthing Discharge Recommendations: 24 hour Caregiver support ([facility] ) Pt. Aware of Dx and Prognosis: No Pt. Aware of Risk & Benefit: No Goals: Family unavailable Short Term Goals STG Time Frame: 4 Days STG #1 Pt will engage in functional activity sitting at EOB for 3 minutes with moderate assistance to improve participation in daily activities. STG #2 Pt will tolerate 10 min of ther-ex to maintain range and prevent stiffness in BUE's. Nursing Home Goals LTG Time Frame: 7 Days Will Dress Upper Extremity: With Mod Assistance LTG # 1 Pt will participate in functional activity sitting at EOB with minimal assistance for 4 minutes to improve participation in daily activities. LTG # 2 Pt will complete grooming task with moderate assistance and use of visual aides and demonstration as needed. CPT/G Codes Time In: 1248 Time Out: 1313 Total Minutes: 25 Codes/Minutes: 75904 Therp Activity Fauzia Montesinos Nov 04, 2016 17:44
--- NOTE | 2016-11-04 18:56 | NUR ---
1630-Assisted back to bed with x2-3 assist. Pt did not bear weight at all. Brief changed and new mepilex placed on pt's coccyx.
--- NOTE | 2016-11-04 18:57 | NUR ---
1750-Residual 230mls, Dr. Burroughs notified. Feeding and meds given and flushed. 1844-Report given to Phylicia Pop RN at this time.
[2016-11-04] MEDS: CETIRIZINE 1 MG/ML GT SCH (20:04)
[2016-11-04] MEDS: CARBOXYMETHYLCELLULOSE 1% (CELLUVISC) OPHTHALMIC DROPS OU SCH (20:04)
[2016-11-04 20:17] VITALS: BP 110/66
[2016-11-05] VITALS (7 sets, daily range): BP systolic 80–98; BP diastolic 44–63
--- NOTE | 2016-11-05 06:52 | NUR ---
Patient tolerates tube feeds throughout night. No needs at this time.
--- NOTE | 2016-11-05 07:37 | NUR ---
Pt resting quietly in bed upon shift assessment. Wakes easily to voice. Feeding tube intact; belly soft. Resp even and non labored on RA.
[2016-11-05] MEDS: LEVOTHYROXINE 75 MCG (LEVOTHROID) TABLET GT SCH (08:08)
[2016-11-05] MEDS: LEVETIRACETAM 500 MG/5 ML PO SCH ×2 (08:08→20:29)
[2016-11-05] MEDS: ENOXAPARIN 40 MG/0.4 ML (LOVENOX) SYR SC SCH (08:08)
[2016-11-05] MEDS: ERYTHROMYCIN ETHYLSUCCINATE 200 MG/5 ML GT SCH ×3 (08:08→17:36)
[2016-11-05] MEDS: CARBAMAZEPINE 100 MG/5 ML GT SCH ×3 (08:08→17:36)
[2016-11-05] MEDS: ARTIFICIAL TEARS (REFRESH) OPHTHALMIC DROPS OU SCH (08:09)
[2016-11-05] MEDS: FAMOTIDINE 40 MG/5 ML GT SCH ×2 (08:09→20:29)
[2016-11-05] MEDS: SODIUM CHLORIDE FLUSH 10 ML SYR IV SCH (08:09)
[2016-11-05] MEDS: DILTIAZEM CD 120 MG (CARDIZEM CD) CAP PO SCH (08:09)
[2016-11-05] MEDS: THERAPEUTIC MULTIVITAMINS LIQUID 5 ML UDC GT SCH (12:06)
--- NOTE | 2016-11-05 13:44 | Progress Note (E) ---
Progress Note SUBJECTIVE No on more concentrated feeds and now tolerating bolus feeds. Mentation remains variable. Still not ambulating, which she was apparently able to do before this illness. Checking AED levels along with chemistry in AM. If stable electrolytes and drug levels, consider discharge 11/07. OBJECTIVE Vital Signs Date Time Temp Pulse Resp B/P Pulse Ox O2 Delivery O2 Flow Rate FiO2 11/05/16 11:31 97.2 83 20 98/60 95 Room air 11/03/16 12:31 0.00 I & O 11/04/16 11/05/16 Cumulative From/Thru 18:59 06:59 10/16/16 21:35 - 11/05/16 06:30 Intake Total 0 ml 7451 ml Output Total 624 ml 758 ml 63464 ml Balance -624 ml -758 ml -01881 ml GEN: Resting in chair. Nods off easily. No apparent acute distress. 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 Dry skin. Clear sclerae. Somewhat dry oral mucosa. Sclerae clear bilaterally. Somewhat dry oral mucosa. Some nasal congestion noted. CV: Regular, prominent 3/6 systolic murmur, crescendo/decrescendo. PULM: Clear bilaterally with no R/R/W. ABD: Soft, tolerates exam. Active bowel sounds. EXTR: Warm, well-perfused. Left arm is hyperemic but edema in upper extremities is improved and appearance is stable. INTEG: Dry skin. Left arm hyperemia as noted. Resolving blister, right hand between 1st and 2nd digits. NEURO: Non-verbal. Anambulatory. See EMR for full lab details. 11/01/16 05:45: Albumin 3.1L, Anion Gap 15.1H, Blood Urea Nitrogen 26H, Calcium Level 7.9L, Carbon Dioxide Level 22, Chloride Level 120H, Creatinine 0.61, Estimat Glomerular Filtration Rate 133.5, Estimated GFR (Non- 110.4, Glucose Level 127#H, Magnesium Level 3.2H, Phosphorus Level 3.9, Potassium Level 3.4L, Sodium Level 153H 11/01/16 11:05: Urine Bacteria 1+, Urine Bilirubin 1+H, Urine Clarity Slightly cloudy, Urine Collection Type Wee bag, Urine Color Lauren, Urine Glucose (UA) Negative, Urine Hyaline Casts 2+, Urine Ketones Negative, Urine Leukocyte Esterase TraceH, Urine Mucus 1+, Urine Nitrite Negative, Urine Protein Negative, Urine RBC 5-10H , Urine RBC (Auto) 1+H, Urine Specific [place] 1.015, Urine Squamous Epithelial Cells 2-5, Urine Urobilinogen 2.0H, Urine WBC 2-5, Urine pH 5.5, Volume Urine Centrifuged 12 ml 11/02/16 06:15: Alanine Aminotransferase (ALT/SGPT) 58, Albumin 2.7L, Albumin/Globulin Ratio 1.080L, Alkaline Phosphatase 149H, Anion Gap 12.2, Aspartate Amino Transf (AST/ SGOT) 65H, BUN/Creatinine Ratio 48H, Blood Urea Nitrogen 23H, Calcium Level 8.3L , Calcium/Ionized Calcium Ratio 4.3, Calculated Osmolality 294, Carbon Dioxide Level 25, Chloride Level 116H, Creatinine 0.48L, Estimat Glomerular Filtration Rate 176.1, Estimated GFR (Non- 145.5, Glucose Level 112H, Magnesium Level 3.0H, Potassium Level 3.4L, Sodium Level 150, Total Bilirubin 1.7H, Total Protein 5.2L 11/03/16 05:35: Alanine Aminotransferase (ALT/SGPT) 58, Albumin 3.0L, Albumin/Globulin Ratio 1.000L, Alkaline Phosphatase 149H, Anion Gap 13.9, Aspartate Amino Transf (AST/ SGOT) 53H, BUN/Creatinine Ratio 43H, Blood Urea Nitrogen 20H, Calcium Level 8.5L , Calcium/Ionized Calcium Ratio 4.1, Calculated Osmolality 288, Carbon Dioxide Level 24, Chloride Level 113H, Creatinine 0.46L, Estimat Glomerular Filtration Rate 184.9, Estimated GFR (Non- 152.9, Glucose Level 97, Magnesium Level 2.7H, Potassium Level 3.1L, Sodium Level 148, Total Bilirubin 1.5H, Total Protein 6.0L, Basophils # (Auto) 0.0, Basophils (%) (Auto) 1, Eosinophils # (Auto) 0.1, Eosinophils (%) (Auto) 2, Hematocrit 30.90L, Hemoglobin 10.2L, Lymphocytes # (Auto) 0.9, Lymphocytes (%) (Auto) 23, Mean Corpuscular Hemoglobin 34.5H, Mean Corpuscular Hemoglobin Concent 33.0, Mean Corpuscular Volume 104H, Mean Platelet Volume , Monocytes # (Auto) 0.4, Monocytes (%) (Auto) 11, Neutrophils # (Auto) 2.5, Neutrophils (%) (Auto) 63, Phosphorus Level 4.2, Platelet Count 107L, Red Blood Count 2.96L, Red Cell Distribution Width 12.3, White Blood Count 3.95L 11/04/16 05:30: Albumin 2.9L, Anion Gap 11.7, Blood Urea Nitrogen 16, Calcium Level 8.6L, Carbon Dioxide Level 27, Chloride Level 115H, Creatinine 0.49L, Estimat Glomerular Filtration Rate 172.0, Estimated GFR (Non- 142.1, Glucose Level 84, Magnesium Level 2.6H, Potassium Level 4.1#, Sodium Level 150, Basophils # (Auto) 0.0, Basophils (%) (Auto) 1, Eosinophils # (Auto) 0.0, Eosinophils (%) (Auto) 1, Hematocrit 30.60L, Hemoglobin 9.9L, Lymphocytes # ( Auto) 0.8, Lymphocytes (%) (Auto) 23, Mean Corpuscular Hemoglobin 34.0, Mean Corpuscular Hemoglobin Concent 32.4, Mean Corpuscular Volume 105H, Mean Platelet Volume , Monocytes # (Auto) 0.5, Monocytes (%) (Auto) 13H, Neutrophils # (Auto) 2.3, Neutrophils (%) (Auto) 62, Phosphorus Level 3.7, Platelet Count 118L, Red Blood Count 2.91L, Red Cell Distribution Width 12.5, White Blood Count 3.67L MICRO 10/27 Resp PCR Panel Negative SPEC #: [id number] FAN: 10/16/16 STATUS: COMP REQ #: [id number] RECD: 10/16/[address]: JONNY QUINN MD Order Location: ED SOURCE: URINE DESCRIPTION: U CATH Procedure Result Verified URINE CULTURE Final Verified 10/19/16-0731 AM Source: URINE / SONG CATH, IN/OUT Order Location: EMERGENCY Site: [facility] Received : 10/17/16 13:23 Order#: [id number] Urine Culture FINAL 10/19/16 07:30 S Escherichia coli >100,000 cfu/ml E. coli Antibiotic AVIS INT Ampicillin >=32 R Ampicillin/sulbactam 16 I Cefazolin <=4 S Ceftriaxone <=1 S Ciprofloxacin 1 S Gentamicin <=1 S Nitrofurantoin <=16 S Trimethoprim/Sulfa >=320 R S=SUSCEPTIBLE I=INTERMEDIATE R=RESISTANT S-DD= SUSCEPTIBLE, DOSE DEPENDENT 10/17 Resp PCR Panel Negative IMAGING 11/01/16 ABDOMEN, FLAT UPRIGHT DECUB INDICATION: Feeding tube intolerance. TECHNIQUE: A KUB was obtained at 0504 hours. COMPARISON: 10/31/2016. FINDINGS: A gastrostomy tube is seen with the tip overlying the stomach. There is some residual contrast in the large and small bowel with scattered fluid levels. This may represent gastroenteritis or an ileus. There is no overt obstruction. Contrast is visualized to the rectum. IMPRESSION: Scattered fluid levels in bowel loops as above which may represent an ileus or gastroenteritis. No sign of obstruction. Some of the contrast administered yesterday has reached the rectum. 10/30/16 ABDOMEN, FLAT UPRIGHT DECUB INDICATION: Evaluation of gastric PEG tube. EXAMINATION: Abdomen. Contrast injected through the PEG tube. FINDINGS: Contrast appears to be going into the stomach and then passing along through the small bowel. IMPRESSION: Gastrostomy tube appears to be in the stomach in satisfactory position. 10/29/16 CT CHEST/ABDOMEN/PELVIS W WO PROCEDURE: CT chest, abdomen, and pelvis with and without contrast. TECHNIQUE: Precontrast images were obtained of the chest, abdomen, and pelvis. Multiple contiguous axial images were obtained through the chest, abdomen, and pelvis after administration of intravenous contrast. DATE: October 29, 2016. COMPARISON: Chest radiograph October 27, 2016. Abdominal radiographs October 23, 2016. INDICATION: 36-year-old female, fever of unknown origin. Ileus. Feeding intolerance. FINDINGS: There are low lung volumes with associated central bronchovascular crowding. There is respiratory motion artifact. There is no identified pulmonary nodule. There is mild scattered atelectasis. There is no identified additional focal airspace consolidation. There is no pneumothorax. There is no pleural effusion. There is no identified central pulmonary embolus. There is no pericardial effusion. There is no identified abnormally enlarged mediastinal, hilar, or axillary lymph node which meets CT size criteria for adenopathy. The liver is unremarkable in size and contour. There is no identified liver lesion. The main , right, and left portal vein are patent. There is a gallstone without evidence of acute cholecystitis. There is no intrahepatic or extrahepatic bile duct dilation. The pancreatic parenchyma is unremarkable. The spleen is normal in size. The adrenal glands are unremarkable. Unremarkable appearance of the renal parenchyma. The urinary collecting systems are not distended. There is no identified renal or ureteral stone. The urinary bladder is moderately distended and otherwise unremarkable in appearance. There is a nonobstructing 2-mm right renal stone on axial image 64. There is a nonobstructing 2-mm left renal stone on axial image 56 and a punctate nonobstructing left renal stone on axial image 62. There is enteric contrast material extending to the level of the rectum. There is a gastrostomy tube within the stomach. There is no gross distention of the intestinal tract. There is no free intraperitoneal air. There is no drainable fluid collection. There is no free pelvic fluid. There are atherosclerotic calcifications noted. There is no identified abnormally enlarged lymph node within the abdomen or pelvis that meets CT size criteria for adenopathy. There are chronic-appearing bony deformities of the pelvis. There is no identified acute bony abnormality. IMPRESSION: CT CHEST, ABDOMEN, AND PELVIS. 1. Low lung volumes with associated central bronchovascular crowding and respiratory motion artifact. 2. No identified acute cardiopulmonary abnormality. 3. No identified acute abnormality within the abdomen or pelvis. 4. Moderate distention of the urinary bladder. 5. Nonobstructing renal stones bilaterally. 6. Cholelithiasis without findings to suggest acute cholecystitis. 7. Atherosclerotic calcifications noted. 10/27/16 CHEST 1 VIEW, AP/PA ONLY* Indication: Respiratory distress. Exam: Single frontal view 5:20 p.m. Comparisons: 10/23/2016, 12/01/2015. Findings: Single frontal view shows a left venous catheter to be present with the tip in the right atrium. Moderate cardiomegaly is present. There is a somewhat wide left superior mediastinum however this is unchanged from 12/01/2015 and 2014. The pulmonary vascularity shows no venous congestion. There is no pleural effusion or alveolar infiltrate. A radiopaque catheter overlies the upper abdomen. Impression: No acute finding. 10/27/16 US ABDOMEN, COMPLETE PROCEDURE: US abdomen complete. TECHNIQUE: Multiple real-time grayscale images were obtained over the abdomen in various projections. INDICATION: Possible cirrhosis. Patient has history of [place] de Pike syndrome FINDINGS: Study is limited due to patient's inability to cooperate. The liver measures approximately 12.7 cm. There is normal echogenicity with no evidence of focal liver lesions. The bile ducts are not dilated. The common duct measures 3 mm. Gallbladder shows multiple gallstones. The gallbladder wall does not appear thickened. There is a gastric tube present. The pancreas is not visualized. Proximal and mid aorta are visualized and are not dilated. IVC appears normal. The right kidney measures 10.4 x 5.2 x 4.1 cm. The left kidney measures 11.5 x 4.6 x 4.1 cm. IMPRESSION: 1. Cholelithiasis with no evidence of gallbladder wall thickening or bile duct dilatation. 2. Liver parenchyma is homogeneous in appearance with no evidence of hepatomegaly. 10/23/16 ACUTE ABD SERIES Indication: Constipation and pneumonia Comparison: Abdomen dated 10/22/2016 and chest 12/01/2015 Findings: PA chest: Left Port-A- Cath is unchanged. The tip appears to be in the right atrium. Cardiomegaly with mild prominence pulmonary vascularity appears similar to the prior study. Some streaky atelectasis or scarring at the left midlung and right upper lung appears stable. No new pulmonary parenchymal abnormality is suspected. Abdomen: Gastrostomy catheter over the left upper quadrant is unchanged. There has been significant improvement in appearance of bowel gas pattern since the prior study with significant decrease in the extent of colonic distention. There is some persistent prominent colon and air-filled small bowel. Findings are likely related to improving ileus. There is chronic deformity of the pelvis. Impression : 1. Stable appearance of the chest as described 2. Moderate improvement since the recent prior abdominal series with findings suggestive of improving ileus as described. 10/22/16 ABDOMEN (FLAT PLATE) 1VIEW Indication: Vomiting, abdominal distention Comparison: August 20, 2016 Technique: Single radiograph of the abdomen dated October 22, 2016. Findings: Percutaneous gastrostomy catheter is again seen overlying the upper abdomen. Significant gaseous distention of the colon is identified, increased from the prior examination. This now measures up to 13.8 cm. No definite free air. Osseous structures appear stable. Impression: Increasing distention of the colon. Findings may relate to worsening ileus. However, distal colonic obstruction not excluded. Recommend clinical correlation. 10/20/16 ACUTE ABD SERIES EXAMINATION: Abdominal radiographs, acute series. DATE : October 20, 2016. CLINICAL INDICATION: 36-year-old female, constipation. G- tube dysfunction. COMPARISON: October 18, 2016. COMMENTS: There is a left- sided venous line with tip projecting over the expected position of the upper right atrium. The heart appears enlarged. There is no identified pneumothorax or large pleural effusion. The gastrostomy tube projects over the expected position of the stomach. There is enteric contrast material within the transverse colon and right colon. There is no identified free intraperitoneal air. There is mild gaseous distention of large bowel which is less prominent compared to prior exam. IMPRESSION: 1. Gastrostomy tube projects over the expected position of the stomach. 2. Mild gaseous distention of bowel most likely involving loops of large bowel which is less prominent compared to prior exam. 10/18/16 SMALL BOWEL STUDY INDICATION: Abdominal pain and distention. FINDINGS: [employer] radiographs of the abdomen reveal diffuse dilatation of colon containing moderate to large amount of stool. Gastrografin contrast was injected through the indwelling gastrostomy tube. Contrast opacifies mildly prominent small bowel loops with contrast reaching the distal small bowel and proximal colon after 5-1/2 hours. IMPRESSION: Findings are compatible with constipation. There is mild delay in small bowel transit with transit time of 5.5 hours. No obstruction is seen. 10/17/16 ECHO: Summary: Technically challenging study. Normal cardiac chamber sizes. Normal LV wall thickness. Intact LV systolic function with estimated EF 61%. Thickened aortic valve, with no significant stenosis or insufficiency. No significant mitral or tricuspid insufficiency. No pericardial effusion. 10/16/16 ACUTE ABD SERIES INDICATION: Abdominal pain COMPARISON: 09/14/2016 FINDINGS: Frontal chest: Left-sided Port-A-Cath is unchanged. Heart size is enlarged but stable. Mild pulmonary venous congestion is unchanged. Some patchy perihilar infiltrate is again demonstrated. No pleural fluid is seen. Abdomen: Gastrostomy tube is again seen overlying the stomach. The bowel gas pattern appears unremarkable with the exception of moderate amount of stool in the colon. There is no evidence of free intraperitoneal air. No abnormal calcifications are suspected. Deformity of the bony pelvis is again demonstrated. IMPRESSION: 1. In the chest, there is persistent cardiomegaly with mild pulmonary vascular congestion and patchy perihilar airspace disease similar to the prior study. 2. No acute abdominal abnormality is suspected. ASSESSMENT Kelly Jackson is a 36 year old female admitted from ED 10/17 where she presented for the second time in two days. She had a recent diagnosis of conjunctivitis and developed acute respiratory distress, vomiting after tube feeds, increased lethargy, and increased weight. She had a significant murmur on exam and pulmonary edema on admit imaging. 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 She was found to have multiple acute issues as outlined including constipation, pneumonia, UTI, and hyperammonemia. She has had a prolonged hospitalization due to persistent problems with feeding tolerance. This has gradually improved with adjustments in feeding regimen. Mental status, however, has not consistently improved and though she had been ambulatory in the past, she has not been ambulatory during this hospitalization. PLAN * Feeding Intolerance: Improving. Persistent, recurrent problem. Extensive imaging as noted has not shown any definitive GI pathology nor G-tube dysfunction. Motility may be an issue. Metoclopramide started 10/30. Switched to erythromycin due to metoclopramide adverse effect profile. Switched to continuous feeds 10/31, then to bolus feeds with more concentrated formula . * Hypermagnesemia: Improving. Level shamika to 4.2 10/30, same on 10/31. No apparent exogenous sources of magnesium being given. Renal function preserved. NS bolus + furosemide 10/31. Improved to 3.2 11/01. Monitor trend closely. * Ileus: Recurrent, mild. Multifactorial: constipation, then later perhaps aggravated by lactulose. Small bowel follow-through as noted. Serial exam and imaging as noted. Continue close monitoring of bowel function. * Nausea/Vomiting: Resolved. Had resolved earlier in her hospitalization but had recurrent episode 10/22. Attributed to constipation initially. Likely not tolerating lactulose. Ondansetron for nausea. Improved with bowel rest and cessation of lactulose. * Hyperbilirubinemia, Elevated AST, Elevated ALT: Some modest improvement. Cholestasis from volume contraction? Hepatitis panel negative, abdominal sono unremarkable, CT abdomen unremarkable. Related to her syndrome? Monitor trends. * Hypernatremia: Noted 10/27, treated with D5W and increased free water per PEG tube. Stopped D5W 10/28 and increased flushes. Continue to monitor fluid balance , sodium, especially in light of interruptions to her tube feeds. * Seizure disorder: Topiramate. Added levetiracetam and stopped valproic acid due to hyperammonemia. Follow-up with Dr. Mckeon post-discharge. Check AED levels 11/06. * F/E/N: Peripheral IV. Tube feeds. I&O, daily weight. * Prophylaxis: SCDs. * Code Status: Full * Dispo: Inpatient. Discharge still deferred due to complex issues. RESOLVING ISSUES * Acute Respiratory Distress: Had improved, but worse in afternoon 10/27 perhaps due to fever. URI considered but resp PCR panel 10/17 was negative. Repeat Resp PCR Panel and CXR negative for new changes. Heart failure less likely based on echo. Workup for heart failure as noted. Oxygen protocol. * Community Acquired Pneumonia: Resolving. Clinical diagnosis. Blood culture not obtained on admit. No sputum for culture. Allergy to PCN noted. Unable to participate in acapella or IS. NT suction PRN. Levofloxacin course completed. * UTI Due to E coli: Culture as noted. Levofloxacin course completed. * Congestive Heart Failure due to Fluid Overload: On the basis of murmur, CXR, pulmonary exam, edema. Echo as noted. Improved with furosemide. Monitor daily weight. I&O difficult to monitor due to incontinence. * Edema: Monitor I&O, daily weight. Furosemide increased to IV dosing 10/22. Stopped after last dose 10/23. * Hyperammonemia: Attributed to valproic acid adverse effect. Hold valproate. Lactulose on hold due to poor tolerance. Monitor ammonia trend. * Altered Mental Status: Improving. Due to infection, ammonia. Treat underlying problems. * Medication Adverse Effect: Due to lactulose. Worse bloating, nausea/vomiting with this medication. Hold lactulose. * Conjunctivitis: Polymixin/trimethoprim eye drops, moisturizing eye drops. Warm compress. CHRONIC ISSUES * Constipation: Bowel regimen * Hypothyroidism: Levothyroxine * GERD: Famotidine * Seasonal allergies: Cetirizine * HTN? Diltiazem. Verify indication. * Eczema: Observe * Marcela de Pike syndrome: Observe. * Asthma: Duoneb TID, albuterol PRN. MARYBETH FERNANDO MD Nov 05, 2016 13:44
--- NOTE | 2016-11-05 18:25 | NUR ---
Pt up to chair for tube feeds. Tolerates well. Less residual (approx. 100 ml) with 1800 feed. Appears slightly more lethargic later in the day. Left port heplocked.
[2016-11-05] MEDS: CARBOXYMETHYLCELLULOSE 1% (CELLUVISC) OPHTHALMIC DROPS OU SCH (20:29)
[2016-11-05] MEDS: CETIRIZINE 1 MG/ML GT SCH (20:29)
[2016-11-06] VITALS (7 sets, daily range): BP systolic 79–96; BP diastolic 41–59
--- NOTE | 2016-11-06 05:08 | NUR ---
Pt is resting in bed asleep, resp are even and nonlabored. Has been changed and turned every 2hrs. Does not appear in pain during this shift. Pt is able to tolerate HS and AM tube feedings. Bed alarm on, call light in reach, will continue to monitor frequently.
[2016-11-06 06:56] LABS: ALBUMIN 2.8 g/dL (3.4-5.0); ANION GAP 13.1 MEQ/L (3-15); CALCULATED IONIZED CALCIUM 4.4 mg/dL (3.8-4.6); MAGNESIUM* 2.5 mg/dL (1.6-2.3); TOTAL PROTEIN 5.6 g/dL (6.4-8.5)
--- NOTE | 2016-11-06 07:00 | NUR ---
Report received from [facility] and care assumed. Pt is resting in bed with eyes partially closed, resp even and unlabored.
--- NOTE | 2016-11-06 08:15 | NUR ---
Assessments completed. Pt is non verbal. Has peg tube for feedings.
[2016-11-06] MEDS: ENOXAPARIN 40 MG/0.4 ML (LOVENOX) SYR SC SCH (10:08)
[2016-11-06] MEDS: LEVOTHYROXINE 75 MCG (LEVOTHROID) TABLET GT SCH (10:08)
[2016-11-06] MEDS: LEVETIRACETAM 500 MG/5 ML PO SCH ×2 (10:09→20:53)
[2016-11-06] MEDS: CARBAMAZEPINE 100 MG/5 ML GT SCH ×3 (10:09→18:05)
[2016-11-06] MEDS: DILTIAZEM CD 120 MG (CARDIZEM CD) CAP PO SCH (10:09)
[2016-11-06] MEDS: ARTIFICIAL TEARS (REFRESH) OPHTHALMIC DROPS OU SCH (10:09)
[2016-11-06] MEDS: FAMOTIDINE 40 MG/5 ML GT SCH ×2 (10:09→20:53)
[2016-11-06] MEDS: ERYTHROMYCIN ETHYLSUCCINATE 200 MG/5 ML GT SCH ×3 (10:09→18:05)
--- NOTE | 2016-11-06 12:05 | NUR ---
Pt up in chair receiving peg tube feeding. Tolerating it well.
[2016-11-06] MEDS: THERAPEUTIC MULTIVITAMINS LIQUID 5 ML UDC GT SCH (12:17)
--- NOTE | 2016-11-06 14:06 | Progress Note (E) ---
Progress Note SUBJECTIVE Continued, consistent tolerance of tube feeds which is reassuring. Na is improved. Waiting on AED levels. If satisfactory, planning discharge to [facility] tomorrow with neurology follow-up needed. Minimizing repeat labs because of anemia that is likely due to constant phlebotomy. On exam, Kelly is awake and looking around room. Directs gaze to caregivers. Still not ambulatory. OBJECTIVE Vital Signs Date Time Temp Pulse Resp B/P Pulse Ox O2 Delivery O2 Flow Rate FiO2 11/06/16 11:22 97.8 77 16 85/41 92 Room air 11/06/16 00:00 0.00 I & O 11/05/16 11/06/16 Cumulative From/Thru 19:00 07:00 10/16/16 21:35 - 11/06/16 06:07 Intake Total 0 ml 636 ml 8087 ml Output Total 10088 ml 81287 ml 38360 ml Balance -11745 ml -08578 ml -49324 ml GEN: Resting in chair. More awake and interactive. 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 Dry skin. Clear sclerae. Somewhat dry oral mucosa. Sclerae clear bilaterally. CV: Regular, prominent 3/6 systolic murmur, crescendo/decrescendo. PULM: Clear bilaterally with no R/R/W. ABD: Soft, tolerates exam. Active bowel sounds. EXTR: Warm, well-perfused. Left arm is mildly hyperemic but edema in upper extremities is improved and appearance is stable. INTEG: Dry skin. Left arm hyperemia as noted. Resolving blister, right hand between 1st and 2nd digits. NEURO: Non-verbal. Anambulatory. See EMR for full lab details. Laboratory Results Past 48 Hrs 11/06/16 05:52: Alanine Aminotransferase (ALT/SGPT) 46, Albumin 2.8L, Albumin/Globulin Ratio 1.000L, Alkaline Phosphatase 199H, Anion Gap 13.1, Aspartate Amino Transf (AST/ SGOT) 44H, BUN/Creatinine Ratio 33H, Blood Urea Nitrogen 15, Calcium Level 8.7L , Calcium/Ionized Calcium Ratio 4.4, Calculated Osmolality 283, Carbamazepine Screen [Pending], Carbon Dioxide Level 29, Chloride Level 110H, Creatinine 0.45L , Estimat Glomerular Filtration Rate 189.7, Estimated GFR (Non- 156.8, Glucose Level 79, Levetiracetam (Keppra) Level [Pending], Magnesium Level 2.5H, Potassium Level 4.7, Sodium Level 147, Total Bilirubin 1.1H, Total Protein 5.6L MICRO 10/27 Resp PCR Panel Negative SPEC #: [id number] FAN: 10/16/16 STATUS: COMP REQ #: [id number] RECD: 10/16/[address]: JONNY QUINN MD Order Location: ED SOURCE: URINE DESCRIPTION: U CATH Procedure Result Verified URINE CULTURE Final Verified 10/19/16-0731 AM Source: URINE / STRAIGHT CATH, IN/OUT Order Location: EMERGENCY Site: U CATH Received : 10/17/16 13:23 Order#: [id number] Urine Culture FINAL 10/19/16 07:30 S Escherichia coli >100,000 cfu/ml E. coli Antibiotic AVIS INT Ampicillin >=32 R Ampicillin/sulbactam 16 I Cefazolin <=4 S Ceftriaxone <=1 S Ciprofloxacin 1 S Gentamicin <=1 S Nitrofurantoin <=16 S Trimethoprim/Sulfa >=320 R S=SUSCEPTIBLE I=INTERMEDIATE R=RESISTANT S-DD= SUSCEPTIBLE, DOSE DEPENDENT 10/17 Resp PCR Panel Negative IMAGING 11/01/16 ABDOMEN, FLAT UPRIGHT DECUB INDICATION: Feeding tube intolerance. TECHNIQUE: A KUB was obtained at 0504 hours. COMPARISON: 10/31/2016. FINDINGS: A gastrostomy tube is seen with the tip overlying the stomach. There is some residual contrast in the large and small bowel with scattered fluid levels. This may represent gastroenteritis or an ileus. There is no overt obstruction. Contrast is visualized to the rectum. IMPRESSION: Scattered fluid levels in bowel loops as above which may represent an ileus or gastroenteritis. No sign of obstruction. Some of the contrast administered yesterday has reached the rectum. 10/30/16 ABDOMEN, FLAT UPRIGHT DECUB INDICATION: Evaluation of gastric PEG tube. EXAMINATION: Abdomen. Contrast injected through the PEG tube. FINDINGS: Contrast appears to be going into the stomach and then passing along through the small bowel. IMPRESSION: Gastrostomy tube appears to be in the stomach in satisfactory position. 10/29/16 CT CHEST/ABDOMEN/PELVIS W WO PROCEDURE: CT chest, abdomen, and pelvis with and without contrast. TECHNIQUE: Precontrast images were obtained of the chest, abdomen, and pelvis. Multiple contiguous axial images were obtained through the chest, abdomen, and pelvis after administration of intravenous contrast. DATE: October 29, 2016. COMPARISON: Chest radiograph October 27, 2016. Abdominal radiographs October 23, 2016. INDICATION: 36-year-old female, fever of unknown origin. Ileus. Feeding intolerance. FINDINGS: There are low lung volumes with associated central bronchovascular crowding. There is respiratory motion artifact. There is no identified pulmonary nodule. There is mild scattered atelectasis. There is no identified additional focal airspace consolidation. There is no pneumothorax. There is no pleural effusion. There is no identified central pulmonary embolus. There is no pericardial effusion. There is no identified abnormally enlarged mediastinal, hilar, or axillary lymph node which meets CT size criteria for adenopathy. The liver is unremarkable in size and contour. There is no identified liver lesion. The main , right, and left portal vein are patent. There is a gallstone without evidence of acute cholecystitis. There is no intrahepatic or extrahepatic bile duct dilation. The pancreatic parenchyma is unremarkable. The spleen is normal in size. The adrenal glands are unremarkable. Unremarkable appearance of the renal parenchyma. The urinary collecting systems are not distended. There is no identified renal or ureteral stone. The urinary bladder is moderately distended and otherwise unremarkable in appearance. There is a nonobstructing 2-mm right renal stone on axial image 64. There is a nonobstructing 2-mm left renal stone on axial image 56 and a punctate nonobstructing left renal stone on axial image 62. There is enteric contrast material extending to the level of the rectum. There is a gastrostomy tube within the stomach. There is no gross distention of the intestinal tract. There is no free intraperitoneal air. There is no drainable fluid collection. There is no free pelvic fluid. There are atherosclerotic calcifications noted. There is no identified abnormally enlarged lymph node within the abdomen or pelvis that meets CT size criteria for adenopathy. There are chronic-appearing bony deformities of the pelvis. There is no identified acute bony abnormality. IMPRESSION: CT CHEST, ABDOMEN, AND PELVIS. 1. Low lung volumes with associated central bronchovascular crowding and respiratory motion artifact. 2. No identified acute cardiopulmonary abnormality. 3. No identified acute abnormality within the abdomen or pelvis. 4. Moderate distention of the urinary bladder. 5. Nonobstructing renal stones bilaterally. 6. Cholelithiasis without findings to suggest acute cholecystitis. 7. Atherosclerotic calcifications noted. 10/27/16 CHEST 1 VIEW, AP/PA ONLY* Indication: Respiratory distress. Exam: Single frontal view 5:20 p.m. Comparisons: 10/23/2016, 12/01/2015. Findings: Single frontal view shows a left venous catheter to be present with the tip in the right atrium. Moderate cardiomegaly is present. There is a somewhat wide left superior mediastinum however this is unchanged from 12/01/2015 and 2014. The pulmonary vascularity shows no venous congestion. There is no pleural effusion or alveolar infiltrate. A radiopaque catheter overlies the upper abdomen. Impression: No acute finding. 10/27/16 US ABDOMEN, COMPLETE PROCEDURE: US abdomen complete. TECHNIQUE: Multiple real-time grayscale images were obtained over the abdomen in various projections. INDICATION: Possible cirrhosis. Patient has history of Deerton de Pike syndrome FINDINGS: Study is limited due to patient's inability to cooperate. The liver measures approximately 12.7 cm. There is normal echogenicity with no evidence of focal liver lesions. The bile ducts are not dilated. The common duct measures 3 mm. Gallbladder shows multiple gallstones. The gallbladder wall does not appear thickened. There is a gastric tube present. The pancreas is not visualized. Proximal and mid aorta are visualized and are not dilated. IVC appears normal. The right kidney measures 10.4 x 5.2 x 4.1 cm. The left kidney measures 11.5 x 4.6 x 4.1 cm. IMPRESSION: 1. Cholelithiasis with no evidence of gallbladder wall thickening or bile duct dilatation. 2. Liver parenchyma is homogeneous in appearance with no evidence of hepatomegaly. 10/23/16 ACUTE ABD SERIES Indication: Constipation and pneumonia Comparison: Abdomen dated 10/22/2016 and chest 12/01/2015 Findings: PA chest: Left Port-A- Cath is unchanged. The tip appears to be in the right atrium. Cardiomegaly with mild prominence pulmonary vascularity appears similar to the prior study. Some streaky atelectasis or scarring at the left midlung and right upper lung appears stable. No new pulmonary parenchymal abnormality is suspected. Abdomen: Gastrostomy catheter over the left upper quadrant is unchanged. There has been significant improvement in appearance of bowel gas pattern since the prior study with significant decrease in the extent of colonic distention. There is some persistent prominent colon and air-filled small bowel. Findings are likely related to improving ileus. There is chronic deformity of the pelvis. Impression : 1. Stable appearance of the chest as described 2. Moderate improvement since the recent prior abdominal series with findings suggestive of improving ileus as described. 10/22/16 ABDOMEN (FLAT PLATE) 1VIEW Indication: Vomiting, abdominal distention Comparison: August 20, 2016 Technique: Single radiograph of the abdomen dated October 22, 2016. Findings: Percutaneous gastrostomy catheter is again seen overlying the upper abdomen. Significant gaseous distention of the colon is identified, increased from the prior examination. This now measures up to 13.8 cm. No definite free air. Osseous structures appear stable. Impression: Increasing distention of the colon. Findings may relate to worsening ileus. However, distal colonic obstruction not excluded. Recommend clinical correlation. 10/20/16 ACUTE ABD SERIES EXAMINATION: Abdominal radiographs, acute series. DATE : October 20, 2016. CLINICAL INDICATION: 36-year-old female, constipation. G- tube dysfunction. COMPARISON: October 18, 2016. COMMENTS: There is a left- sided venous line with tip projecting over the expected position of the upper right atrium. The heart appears enlarged. There is no identified pneumothorax or large pleural effusion. The gastrostomy tube projects over the expected position of the stomach. There is enteric contrast material within the transverse colon and right colon. There is no identified free intraperitoneal air. There is mild gaseous distention of large bowel which is less prominent compared to prior exam. IMPRESSION: 1. Gastrostomy tube projects over the expected position of the stomach. 2. Mild gaseous distention of bowel most likely involving loops of large bowel which is less prominent compared to prior exam. 10/18/16 SMALL BOWEL STUDY INDICATION: Abdominal pain and distention. FINDINGS: Egg Tester radiographs of the abdomen reveal diffuse dilatation of colon containing moderate to large amount of stool. Gastrografin contrast was injected through the indwelling gastrostomy tube. Contrast opacifies mildly prominent small bowel loops with contrast reaching the distal small bowel and proximal colon after 5-1/2 hours. IMPRESSION: Findings are compatible with constipation. There is mild delay in small bowel transit with transit time of 5.5 hours. No obstruction is seen. 10/17/16 ECHO: Summary: Technically challenging study. Normal cardiac chamber sizes. Normal LV wall thickness. Intact LV systolic function with estimated EF 61%. Thickened aortic valve, with no significant stenosis or insufficiency. No significant mitral or tricuspid insufficiency. No pericardial effusion. 10/16/16 ACUTE ABD SERIES INDICATION: Abdominal pain COMPARISON: 09/14/2016 FINDINGS: Frontal chest: Left-sided Port-A-Cath is unchanged. Heart size is enlarged but stable. Mild pulmonary venous congestion is unchanged. Some patchy perihilar infiltrate is again demonstrated. No pleural fluid is seen. Abdomen: Gastrostomy tube is again seen overlying the stomach. The bowel gas pattern appears unremarkable with the exception of moderate amount of stool in the colon. There is no evidence of free intraperitoneal air. No abnormal calcifications are suspected. Deformity of the bony pelvis is again demonstrated. IMPRESSION: 1. In the chest, there is persistent cardiomegaly with mild pulmonary vascular congestion and patchy perihilar airspace disease similar to the prior study. 2. No acute abdominal abnormality is suspected. ASSESSMENT Kelly Jackson is a 36 year old female admitted from ED 10/17 where she presented for the second time in two days. She had a recent diagnosis of conjunctivitis and developed acute respiratory distress, vomiting after tube feeds, increased lethargy, and increased weight. She had a significant murmur on exam and pulmonary edema on admit imaging. 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 She was found to have multiple acute issues as outlined including constipation, pneumonia, UTI, and hyperammonemia. She has had a prolonged hospitalization due to persistent problems with feeding tolerance and electrolyte abnormalities. This has gradually improved with adjustments in feeding regimen and fluids. Mental status, however, has not consistently improved and though she had been ambulatory in the past, she has not been ambulatory during this hospitalization. Valproic acid was changed to levetiracetam due to elevation of ammonia and AED levels were checked 11/06 ( pending.) If continued stability, discharge home 11/07 with new tube feeding regimen (higher calorie concentration, smaller volume, with increased free water.) PLAN * Feeding Intolerance: Improving. Persistent, recurrent problem. Extensive imaging as noted has not shown any definitive GI pathology nor G-tube dysfunction. Motility may be an issue. Metoclopramide started 10/30. Switched to erythromycin due to metoclopramide adverse effect profile. Switched to continuous feeds 10/31, then to bolus feeds with more concentrated formula . * Hypermagnesemia: Improving. Level shamika to 4.2 10/30, same on 10/31. No apparent exogenous sources of magnesium being given. Renal function preserved. NS bolus + furosemide 10/31. Improved to 3.2 11/01. Monitor trend closely. * Ileus: Recurrent, mild. Multifactorial: constipation, then later perhaps aggravated by lactulose. Small bowel follow-through as noted. Serial exam and imaging as noted. Continue close monitoring of bowel function. * Nausea/Vomiting: Resolved. Had resolved earlier in her hospitalization but had recurrent episode 10/22. Attributed to constipation initially. Likely not tolerating lactulose. Ondansetron for nausea. Improved with bowel rest and cessation of lactulose. * Hyperbilirubinemia, Elevated AST, Elevated ALT: Slow, modest improvement. Cholestasis from volume contraction? Hepatitis panel negative, abdominal sono unremarkable, CT abdomen unremarkable. Monitor trends. * Hypernatremia: Noted 10/27, treated with D5W and increased free water per PEG tube. Stopped D5W 10/28 and increased flushes. Continue to monitor fluid balance , sodium, especially in light of interruptions to her tube feeds. Adjusted free water per tube feeds to good effect. Peak Na was 160 10/07, improved to 147 . * Seizure disorder: Topiramate. Added levetiracetam and stopped valproic acid due to hyperammonemia. AED levels 11/06 pending. Follow-up with Dr. Mckeon post-discharge. * F/E/N: Peripheral IV. Tube feeds. I&O, daily weight. * Prophylaxis: SCDs. * Code Status: Full * Dispo: Inpatient. Checking with [facility] and considering discharge in AM 11/07 if continued stability. RESOLVING ISSUES * Acute Respiratory Distress: Had improved, but worse in afternoon 10/27 perhaps due to fever. URI considered but resp PCR panel 10/17 was negative. Repeat Resp PCR Panel and CXR negative for new changes. Heart failure less likely based on echo. Workup for heart failure as noted. Oxygen protocol. * Community Acquired Pneumonia: Resolving. Clinical diagnosis. Blood culture not obtained on admit. No sputum for culture. Allergy to PCN noted. Unable to participate in acapella or IS. NT suction PRN. Levofloxacin course completed. * UTI Due to E coli: Culture as noted. Levofloxacin course completed. * Congestive Heart Failure due to Fluid Overload: On the basis of murmur, CXR, pulmonary exam, edema. Echo as noted. Improved with furosemide. Monitor daily weight. I&O difficult to monitor due to incontinence. * Edema: Monitor I&O, daily weight. Furosemide increased to IV dosing 10/22. Stopped after last dose 10/23. * Hyperammonemia: Attributed to valproic acid adverse effect. Hold valproate. Lactulose on hold due to poor tolerance. Monitor ammonia trend. * Altered Mental Status: Improving. Due to infection, ammonia. Treat underlying problems. * Medication Adverse Effect: Due to lactulose. Worse bloating, nausea/vomiting with this medication. Hold lactulose. * Conjunctivitis: Polymixin/trimethoprim eye drops, moisturizing eye drops. Warm compress. CHRONIC ISSUES * Constipation: Bowel regimen * Hypothyroidism: Levothyroxine * GERD: Famotidine * Seasonal allergies: Cetirizine * HTN? Diltiazem. Verify indication. * Eczema: Observe * Marcela de Pike syndrome: Observe. * Asthma: Duoneb TID, albuterol PRN. MARYBETH FERNANDO MD Nov 06, 2016 14:06
[2016-11-06] MEDS: SODIUM CHLORIDE FLUSH 10 ML SYR IV SCH (14:08)
--- NOTE | 2016-11-06 15:52 | NUR ---
[facility] staff member present inquiring about pt condition. Informed that pt may be released tomorrow. Staff member states she thinks pt is depressed.
--- NOTE | 2016-11-06 18:50 | NUR ---
Report received, care assumed.
--- NOTE | 2016-11-06 19:05 | NUR ---
Pt up in chair, nonverbal. No signs discomfort. Cooperative with assessment. Will continue to monitor.
[2016-11-06] MEDS: CETIRIZINE 1 MG/ML GT SCH (20:53)
[2016-11-06] MEDS: CARBOXYMETHYLCELLULOSE 1% (CELLUVISC) OPHTHALMIC DROPS OU SCH (20:53)
--- NOTE | 2016-11-06 20:56 | NUR ---
Medications administered via G-tube. Pt resting in bed. Appears comfortable. No other needs.
--- NOTE | 2016-11-07 00:05 | NUR ---
Pt resting with eyes partially opened. Appears comfortable. Was just repositioned. Will continue to monitor.
[2016-11-07 04:00] VITALS: BP 91/55
--- NOTE | 2016-11-07 06:10 | NUR ---
Pt is resting quietly in bed, appears to be sleeping. Has not had any indications of discomfort this shift. Pt has tolerated tube feedings with minimal residual. No needs at this time.
[2016-11-07] MEDS: FAMOTIDINE 40 MG/5 ML GT SCH (07:32)
[2016-11-07] MEDS: CARBAMAZEPINE 100 MG/5 ML GT SCH ×2 (07:33→11:53)
[2016-11-07] MEDS: ARTIFICIAL TEARS (REFRESH) OPHTHALMIC DROPS OU SCH (07:33)
[2016-11-07] MEDS: ENOXAPARIN 40 MG/0.4 ML (LOVENOX) SYR SC SCH (07:33)
[2016-11-07] MEDS: ERYTHROMYCIN ETHYLSUCCINATE 200 MG/5 ML GT SCH ×2 (07:33→11:54)
[2016-11-07] MEDS: LEVETIRACETAM 500 MG/5 ML PO SCH (07:33)
[2016-11-07] MEDS: DILTIAZEM CD 120 MG (CARDIZEM CD) CAP PO SCH (07:34)
[2016-11-07] MEDS: LEVOTHYROXINE 75 MCG (LEVOTHROID) TABLET GT SCH (07:34)
[2016-11-07] MEDS: SODIUM CHLORIDE FLUSH 10 ML SYR IV SCH (07:34)
[2016-11-07 08:00] VITALS: BP 90/50
--- NOTE | 2016-11-07 10:58 | NUR ---
Kelly is awakened and compliant for morning medications and assessment. She opens eyes to voice, respirations are even and unlabored, skin is warm and blankets pulled half back. On wound assessment mepilex is removed and pressure ulcer/fissure is assessed. Clean mepilex applied at this time. Kelly is being turned Q2HR and as needed with cushions provided for comfort and prevention.
--- NOTE | 2016-11-07 11:30 | Discharge Instructions (E) ---
Discharge Instructions Instructions * Kelly had a prolonged hospitalization for multiple medical issues: * She was treated for feeding tube intolerance. Her feeding tube formulation and regimen was changed to help her tolerate feeds better. See new tube feed instructions below. * She was treated for electrolyte abnormalities and these have stabilized. * She was treated for high ammonia that was likely a side effect of valproic acid, a medication she had been taking for seizures. Her ammonia level improved. Levetiracetam (Keppra) was added to help prevent seizures. She was referred back to her neurologist for follow-up. * She had a urinary tract infection due to E coli and this was treated with antibiotic. * She had an upper respiratory infection, likely due to a viral illness. * Tube Feeding Regimen: * TwoCal HN 138 ml/feed. Give 4 times per day, about 1 feed every 6 hours. * Water 180 ml. Give 4 times per day, after each feed. * Flush tube with 20 ml water as needed after medication administrations. Activity Instructions As tolerated. Doctor's Appointment Follow-up with neurology as scheduled. Follow-up with primary care doctor in 3- 5 days. Discharge Diet: Other (Nothing by mouth. See tube feed orders in discharge instructions.) MARYBETH FERNANDO MD Nov 07, 2016 11:30
[2016-11-07] MEDS ORDERED: ERYT200S GT (11:35)
[2016-11-07] MEDS ORDERED: LEVE500UDC PO (11:35)
[2016-11-07] MEDS ORDERED: POTA20LI2 PO (11:35)
--- NOTE | 2016-11-07 11:52 | Discharge Summary (E) ---
Discharge Summary (E) Admit Date/Time Oct 17, 2016 at 00:53 Discharge Date/Time Nov 07, 2016 Admitting Provider Wong Dial DO Primary Care Provider Willem Sparrow MD Attending Provider Wong Dial Delane MD Bloustine, Michael MD Consulting Provider History and Present Illness See History and Physical for complete details. Kelly Jackson is a 36 year old female admitted from ED 10/17 where she presented for the second time in two days. She had a recent diagnosis of conjunctivitis and developed acute respiratory distress, vomiting after tube feeds, increased lethargy, and increased weight. She had a significant murmur on exam and pulmonary edema on admit imaging. 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 She was found to have multiple acute issues as outlined including constipation, pneumonia, UTI, and hyperammonemia. She has had a prolonged hospitalization due to persistent problems with feeding tolerance and electrolyte abnormalities. This has gradually improved with adjustments in feeding regimen and fluids. Mental status, however, has not consistently improved and though she had been ambulatory in the past, she has not been ambulatory during this hospitalization. Valproic acid was changed to levetiracetam due to elevation of ammonia. With stability of tube feeds, arrangements were made for discharge home. Outpatient referral was arranged for her to see neurology. Hospital Course and Treatment * Feeding Intolerance: Improving. Persistent, recurrent problem. Extensive imaging as noted has not shown any definitive GI pathology nor G-tube dysfunction. Motility may be an issue. Metoclopramide started 10/30. Switched to erythromycin due to metoclopramide adverse effect profile. Switched to continuous feeds 10/31, then to bolus feeds with more concentrated formula . Continued this at discharge: TwoCal HN 138 ml/feed QID with 180 mg free water after each feed (QID). * Hypermagnesemia: Improving. Level shamika to 4.2 10/30, same on 10/31. No apparent exogenous sources of magnesium being given. Renal function preserved. NS bolus + furosemide 10/31. Improved to 3.2 11/01. Monitored trend closely. * Ileus: Recurrent, mild. Multifactorial: constipation, then later perhaps aggravated by lactulose. Small bowel follow-through as noted. Serial exam and imaging as noted. Continue close monitoring of bowel function. * Nausea/Vomiting: Resolved. Had resolved earlier in her hospitalization but had recurrent episode 10/22. Attributed to constipation initially. Likely not tolerating lactulose. Ondansetron for nausea. Improved with bowel rest and cessation of lactulose. * Hyperbilirubinemia, Elevated AST, Elevated ALT: Slow, modest improvement. Cholestasis from volume contraction? Hepatitis panel negative, abdominal sono unremarkable, CT abdomen unremarkable. Monitor trends. * Hypernatremia: Noted 10/27, treated with D5W and increased free water per PEG tube. Stopped D5W 10/28 and increased flushes. Continue to monitor fluid balance , sodium, especially in light of interruptions to her tube feeds. Adjusted free water per tube feeds to good effect. Peak Na was 160 10/07, improved to 147 . * Seizure disorder: Topiramate, carbamazepine. Added levetiracetam and stopped valproic acid due to hyperammonemia. AED levels 11/06 pending. Follow-up with Dr. Mckeon post-discharge. * F/E/N: Peripheral IV. Tube feeds. I&O, daily weight. * Prophylaxis: SCDs. * Code Status: Full * Dispo: Inpatient. Discharged home 11/07. RESOLVING ISSUES * Acute Respiratory Distress: URI considered but resp PCR panel 10/17 was negative. Repeat Resp PCR Panel and CXR negative for new changes. Heart failure less likely based on echo. Workup for heart failure as noted. Oxygen protocol. Had improved through last week and she remains on room air. * Community Acquired Pneumonia: Resolving. Clinical diagnosis. Blood culture not obtained on admit. No sputum for culture. Allergy to PCN noted. Unable to participate in acapella or IS. NT suction PRN. Levofloxacin course completed. * UTI Due to E coli: Culture as noted. Levofloxacin course completed. * Congestive Heart Failure due to Fluid Overload: On the basis of murmur, CXR, pulmonary exam, edema. Echo as noted. Improved with furosemide. Monitor daily weight. I&O difficult to monitor due to incontinence. * Edema: Monitor I&O, daily weight. Furosemide increased to IV dosing 10/22. Stopped after last dose 10/23 and hasn't needed furosemide since. Did not continue home dose at discharge due to electrolyte abnormalities. * Hyperammonemia: Attributed to valproic acid adverse effect. Hold valproate. Lactulose on hold due to poor tolerance. Monitor ammonia trend. * Altered Mental Status: Improving. Due to infection, ammonia. Treat underlying problems. * Medication Adverse Effect: Due to lactulose. Worse bloating, nausea/vomiting with this medication. Hold lactulose. * Conjunctivitis: Polymixin/trimethoprim eye drops, course completed. Moisturizing eye drops. Warm compress. CHRONIC ISSUES * Constipation: Bowel regimen * Hypothyroidism: Levothyroxine * GERD: Famotidine * Seasonal allergies: Cetirizine * HTN? Diltiazem. * Eczema: Observe * [place] de Pike syndrome: Observe. * Asthma: Duoneb TID, albuterol PRN. Was not taking these medications at home. Observe. Discharge Physicial Exam General Vital Signs Date Time Temp Pulse Resp B/P Pulse Ox O2 Delivery O2 Flow Rate FiO2 11/07/16 08:00 97.7 75 16 90/50 93 Room air 11/06/16 00:00 0.00 Discharge weight: 44.5 kg GEN: Resting in chair. Not very interactive at present but eyes open. 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 Dry skin. Clear sclerae. Pupils equal but constricted. Somewhat dry oral mucosa but improved appearance overall. Sclerae clear bilaterally. CV: Regular, 2/6 systolic murmur, crescendo/decrescendo. PULM: Clear bilaterally with no R/R/W. ABD: Soft, tolerates exam. Active bowel sounds. EXTR: Warm, well-perfused. Left arm is mildly hyperemic but edema in upper extremities is improved and appearance is stable. (This is a feature of her syndrome.) INTEG: Dry skin. Left arm hyperemia as noted. Resolving blister, right hand between 1st and 2nd digits. NEURO: Non-verbal. Anambulatory. Laboratory/Radiology Data Labs too numerous to list here. Please see EMR for complete details. Relevant labs are summarized in discussion above. Most recent labs: Laboratory Results Past 72 Hrs 11/06/16 05:52: Alanine Aminotransferase (ALT/SGPT) 46, Albumin 2.8L, Albumin/Globulin Ratio 1.000L, Alkaline Phosphatase 199H, Anion Gap 13.1, Aspartate Amino Transf (AST/ SGOT) 44H, BUN/Creatinine Ratio 33H, Blood Urea Nitrogen 15, Calcium Level 8.7L , Calcium/Ionized Calcium Ratio 4.4, Calculated Osmolality 283, Carbamazepine Screen 11.0, Carbon Dioxide Level 29, Chloride Level 110H, Creatinine 0.45L, Estimat Glomerular Filtration Rate 189.7, Estimated GFR (Non- 156.8, Glucose Level 79, Levetiracetam (Keppra) Level [Pending], Magnesium Level 2.5H, Potassium Level 4.7, Sodium Level 147, Total Bilirubin 1.1H, Total Protein 5.6L MICRO 10/27 Resp PCR Panel Negative SPEC #: [id number] FAN: 10/16/16 STATUS: COMP REQ #: [id number] RECD: 10/16/[address]: JONNY QUINN MD Order Location: ED SOURCE: URINE DESCRIPTION: U CATH Procedure Result Verified URINE CULTURE Final Verified 10/19/16-0731 AM Source: URINE / STRAIGHT CATH, IN/OUT Order Location: EMERGENCY Site: U CATH Received : 10/17/16 13:23 Order#: [id number] Urine Culture FINAL 10/19/16 07:30 S Escherichia coli >100,000 cfu/ml E. coli Antibiotic AVIS INT Ampicillin >=32 R Ampicillin/sulbactam 16 I Cefazolin <=4 S Ceftriaxone <=1 S Ciprofloxacin 1 S Gentamicin <=1 S Nitrofurantoin <=16 S Trimethoprim/Sulfa >=320 R S=SUSCEPTIBLE I=INTERMEDIATE R=RESISTANT S-DD= SUSCEPTIBLE, DOSE DEPENDENT 10/17 Resp PCR Panel Negative IMAGING 11/01/16 ABDOMEN, FLAT UPRIGHT DECUB INDICATION: Feeding tube intolerance. TECHNIQUE: A KUB was obtained at 0504 hours. COMPARISON: 10/31/2016. FINDINGS: A gastrostomy tube is seen with the tip overlying the stomach. There is some residual contrast in the large and small bowel with scattered fluid levels. This may represent gastroenteritis or an ileus. There is no overt obstruction. Contrast is visualized to the rectum. IMPRESSION: Scattered fluid levels in bowel loops as above which may represent an ileus or gastroenteritis. No sign of obstruction. Some of the contrast administered yesterday has reached the rectum. 10/30/16 ABDOMEN, FLAT UPRIGHT DECUB INDICATION: Evaluation of gastric PEG tube. EXAMINATION: Abdomen. Contrast injected through the PEG tube. FINDINGS: Contrast appears to be going into the stomach and then passing along through the small bowel. IMPRESSION: Gastrostomy tube appears to be in the stomach in satisfactory position. 10/29/16 CT CHEST/ABDOMEN/PELVIS W WO PROCEDURE: CT chest, abdomen, and pelvis with and without contrast. TECHNIQUE: Precontrast images were obtained of the chest, abdomen, and pelvis. Multiple contiguous axial images were obtained through the chest, abdomen, and pelvis after administration of intravenous contrast. DATE: October 29, 2016. COMPARISON: Chest radiograph October 27, 2016. Abdominal radiographs October 23, 2016. INDICATION: 36-year-old female, fever of unknown origin. Ileus. Feeding intolerance. FINDINGS: There are low lung volumes with associated central bronchovascular crowding. There is respiratory motion artifact. There is no identified pulmonary nodule. There is mild scattered atelectasis. There is no identified additional focal airspace consolidation. There is no pneumothorax. There is no pleural effusion. There is no identified central pulmonary embolus. There is no pericardial effusion. There is no identified abnormally enlarged mediastinal, hilar, or axillary lymph node which meets CT size criteria for adenopathy. The liver is unremarkable in size and contour. There is no identified liver lesion. The main , right, and left portal vein are patent. There is a gallstone without evidence of acute cholecystitis. There is no intrahepatic or extrahepatic bile duct dilation. The pancreatic parenchyma is unremarkable. The spleen is normal in size. The adrenal glands are unremarkable. Unremarkable appearance of the renal parenchyma. The urinary collecting systems are not distended. There is no identified renal or ureteral stone. The urinary bladder is moderately distended and otherwise unremarkable in appearance. There is a nonobstructing 2-mm right renal stone on axial image 64. There is a nonobstructing 2-mm left renal stone on axial image 56 and a punctate nonobstructing left renal stone on axial image 62. There is enteric contrast material extending to the level of the rectum. There is a gastrostomy tube within the stomach. There is no gross distention of the intestinal tract. There is no free intraperitoneal air. There is no drainable fluid collection. There is no free pelvic fluid. There are atherosclerotic calcifications noted. There is no identified abnormally enlarged lymph node within the abdomen or pelvis that meets CT size criteria for adenopathy. There are chronic-appearing bony deformities of the pelvis. There is no identified acute bony abnormality. IMPRESSION: CT CHEST, ABDOMEN, AND PELVIS. 1. Low lung volumes with associated central bronchovascular crowding and respiratory motion artifact. 2. No identified acute cardiopulmonary abnormality. 3. No identified acute abnormality within the abdomen or pelvis. 4. Moderate distention of the urinary bladder. 5. Nonobstructing renal stones bilaterally. 6. Cholelithiasis without findings to suggest acute cholecystitis. 7. Atherosclerotic calcifications noted. 10/27/16 CHEST 1 VIEW, AP/PA ONLY* Indication: Respiratory distress. Exam: Single frontal view 5:20 p.m. Comparisons: 10/23/2016, 12/01/2015. Findings: Single frontal view shows a left venous catheter to be present with the tip in the right atrium. Moderate cardiomegaly is present. There is a somewhat wide left superior mediastinum however this is unchanged from 12/01/2015 and 2014. The pulmonary vascularity shows no venous congestion. There is no pleural effusion or alveolar infiltrate. A radiopaque catheter overlies the upper abdomen. Impression: No acute finding. 10/27/16 US ABDOMEN, COMPLETE PROCEDURE: US abdomen complete. TECHNIQUE: Multiple real-time grayscale images were obtained over the abdomen in various projections. INDICATION: Possible cirrhosis. Patient has history of [place] de Pike syndrome FINDINGS: Study is limited due to patient's inability to cooperate. The liver measures approximately 12.7 cm. There is normal echogenicity with no evidence of focal liver lesions. The bile ducts are not dilated. The common duct measures 3 mm. Gallbladder shows multiple gallstones. The gallbladder wall does not appear thickened. There is a gastric tube present. The pancreas is not visualized. Proximal and mid aorta are visualized and are not dilated. IVC appears normal. The right kidney measures 10.4 x 5.2 x 4.1 cm. The left kidney measures 11.5 x 4.6 x 4.1 cm. IMPRESSION: 1. Cholelithiasis with no evidence of gallbladder wall thickening or bile duct dilatation. 2. Liver parenchyma is homogeneous in appearance with no evidence of hepatomegaly. 10/23/16 ACUTE ABD SERIES Indication: Constipation and pneumonia Comparison: Abdomen dated 10/22/2016 and chest 12/01/2015 Findings: PA chest: Left Port-A- Cath is unchanged. The tip appears to be in the right atrium. Cardiomegaly with mild prominence pulmonary vascularity appears similar to the prior study. Some streaky atelectasis or scarring at the left midlung and right upper lung appears stable. No new pulmonary parenchymal abnormality is suspected. Abdomen: Gastrostomy catheter over the left upper quadrant is unchanged. There has been significant improvement in appearance of bowel gas pattern since the prior study with significant decrease in the extent of colonic distention. There is some persistent prominent colon and air-filled small bowel. Findings are likely related to improving ileus. There is chronic deformity of the pelvis. Impression : 1. Stable appearance of the chest as described 2. Moderate improvement since the recent prior abdominal series with findings suggestive of improving ileus as described. 10/22/16 ABDOMEN (FLAT PLATE) 1VIEW Indication: Vomiting, abdominal distention Comparison: August 20, 2016 Technique: Single radiograph of the abdomen dated October 22, 2016. Findings: Percutaneous gastrostomy catheter is again seen overlying the upper abdomen. Significant gaseous distention of the colon is identified, increased from the prior examination. This now measures up to 13.8 cm. No definite free air. Osseous structures appear stable. Impression: Increasing distention of the colon. Findings may relate to worsening ileus. However, distal colonic obstruction not excluded. Recommend clinical correlation. 10/20/16 ACUTE ABD SERIES EXAMINATION: Abdominal radiographs, acute series. DATE : October 20, 2016. CLINICAL INDICATION: 36-year-old female, constipation. G- tube dysfunction. COMPARISON: October 18, 2016. COMMENTS: There is a left- sided venous line with tip projecting over the expected position of the upper right atrium. The heart appears enlarged. There is no identified pneumothorax or large pleural effusion. The gastrostomy tube projects over the expected position of the stomach. There is enteric contrast material within the transverse colon and right colon. There is no identified free intraperitoneal air. There is mild gaseous distention of large bowel which is less prominent compared to prior exam. IMPRESSION: 1. Gastrostomy tube projects over the expected position of the stomach. 2. Mild gaseous distention of bowel most likely involving loops of large bowel which is less prominent compared to prior exam. 10/18/16 SMALL BOWEL STUDY INDICATION: Abdominal pain and distention. FINDINGS: Multimedia Manager radiographs of the abdomen reveal diffuse dilatation of colon containing moderate to large amount of stool. Gastrografin contrast was injected through the indwelling gastrostomy tube. Contrast opacifies mildly prominent small bowel loops with contrast reaching the distal small bowel and proximal colon after 5-1/2 hours. IMPRESSION: Findings are compatible with constipation. There is mild delay in small bowel transit with transit time of 5.5 hours. No obstruction is seen. 10/17/16 ECHO: Summary: Technically challenging study. Normal cardiac chamber sizes. Normal LV wall thickness. Intact LV systolic function with estimated EF 61%. Thickened aortic valve, with no significant stenosis or insufficiency. No significant mitral or tricuspid insufficiency. No pericardial effusion. 10/16/16 ACUTE ABD SERIES INDICATION: Abdominal pain COMPARISON: 09/14/2016 FINDINGS: Frontal chest: Left-sided Port-A-Cath is unchanged. Heart size is enlarged but stable. Mild pulmonary venous congestion is unchanged. Some patchy perihilar infiltrate is again demonstrated. No pleural fluid is seen. Abdomen: Gastrostomy tube is again seen overlying the stomach. The bowel gas pattern appears unremarkable with the exception of moderate amount of stool in the colon. There is no evidence of free intraperitoneal air. No abnormal calcifications are suspected. Deformity of the bony pelvis is again demonstrated. IMPRESSION: 1. In the chest, there is persistent cardiomegaly with mild pulmonary vascular congestion and patchy perihilar airspace disease similar to the prior study. 2. No acute abdominal abnormality is suspected. Discharge Disposition Discharged to [facility]. Instructions * Kelly had a prolonged hospitalization for multiple medical issues: * She was treated for feeding tube intolerance. Her feeding tube formulation and regimen was changed to help her tolerate feeds better. See new tube feed instructions below. * She was treated for electrolyte abnormalities and these have stabilized. * She was treated for high ammonia that was likely a side effect of valproic acid, a medication she had been taking for seizures. Her ammonia level improved. Levetiracetam (Keppra) was added to help prevent seizures. She was referred back to her neurologist for follow-up. * She had a urinary tract infection due to E coli and this was treated with antibiotic. * She had an upper respiratory infection, likely due to a viral illness. * Tube Feeding Regimen: * TwoCal HN 138 ml/feed. Give 4 times per day, about 1 feed every 6 hours. * Water 180 ml. Give 4 times per day, after each feed. * Flush tube with 20 ml water as needed after medication administrations. Activity Instructions As tolerated. Appointments Follow-up with neurology as scheduled. Follow-up with primary care doctor in 3- 5 days. Discharge Diet: Other (Nothing by mouth. See tube feed orders in discharge instructions.) Discharge Medications New Medications: Erythromycin Ethylsuccinate (E.E.S. 200mg/5ml) 200 Mg/5 Ml Susp.recon 125 MG GT TIDWM #1 Ref 1 BTL Levetiracetam (Keppra 100mg/ml) 100 Mg/Ml Susp 500 MG PO BID #1 Ref 0 BTL Changed Medications: Potassium Chloride (KCl 20mEq/15ml) 20 Meq/15 Ml Liquid 7.5 ML PO Q48H #0 Ref 0 BTL (Changed from: DAILY; Refills: ) Continued Medications: Acetaminophen (Tylenol Melt/Chew) 80 Mg Tab 240 MG PO Q4H PRN HEADACHE TAB Calamine (Calamine Lotion) 120 Ml Lotion 0 TOP BID PRN INSECT BITES BTL Carbamazepine (Tegretol) 100 Mg/5 Ml Oral.susp 10 ML GT TID Carboxymethylcellulos/Glycerin (Refresh Optive Eye Drops) 15 Ml Drops 1 DROP OU HS DROPS Cetirizine Hcl (Zyrtec) 1 Mg/1 Ml Solution 10 ML GT HS Diltiazem HCl (Diltiazem ER) 120 Mg Capsule.er 120 MG PO DAILY CAP Docusate Sodium (Colace 10mg/ml) 10 Mg/Ml Liquid 10 ML GT BID Guaifenesin (Robafen) 100 Mg/5 Ml Liquid 400 MG PO BID Hydrocortisone (Neosporin) 28 Gm Cream..g. 0 TP BID PRN Wound Care Hydrogen Peroxide (Hydrogen Peroxide) 473 Ml Solution 0 TOP PRN PRN CLEANSE CUTS BTL Ipratropium/Albuterol Sulfate (Duoneb 3mg-0.5mg/3ml) 3 Ml Ampul.neb 3 ML IH TID Levothyroxine Sodium (Synthroid) 75 Mcg Tablet 37.5 MG GT DAILY Magnesium Hydroxide (Milk of Magnesia 400mg/5ml) 400 Mg/5 Ml Oral.susp 30 ML PO Q72H PRN CONSTIPATION BTL Multivits W-Fe,Other Min (Centrum) 236 Ml Liquid 5 ML PEG DAILY AT NOON Nystatin (Nystatin) 15 Gm Cream..g. 0 TP TID PRN CRYSTAL AREA Polyethylene Glycol 3350 (Miralax) 17 Gm Powd.pack 17 GM PO DAILY Constipation Ref 0 PKT Polyvinyl Alcohol (Liquitears) 15 Ml Drops 1 ML OU QID PRN Eye Care DROPS Ranitidine HCl (Ranitidine 75mg/5ml) 15 Mg/1 Ml Syrup 10 ML PO BID BTL Tolnaftate (Tinactin) 150 Gm [place] 0 TP DAILY PRN ATHLETES FOOT SPRAY Topiramate (Topamax) 25 Mg Cap.sprink 50 MG GT BID Discontinued Medications: Bacitracin (Bacitracin Ophthalmic Ointment) 3.5 Gm Oint...g. 0.5 INCH OD BID TUBE Bismuth Subsalicylate (Bismuth Subsalicylate) 262 Mg/15 Ml Oral.susp 30 MG PO Q3H PRN GI UPSET ML Furosemide (Lasix 10mg/ml) 10 Mg/Ml Soln 20 MG GT DAILY BTL Lactose-Free Food (Jevity) 237 Ml Liquid 237 ML PO QID Nitrofurantoin Macrocrystal (Macrodantin) 50 Mg Capsule 50 MG PO HS CAP Sennosides (Senna-Gen) 8.6 Mg Tablet 8.6 MG PO DAILY TAB Sulfamethoxazole/Trimethoprim (Sulfamethoxazole/Trimethoprim 200mg-40mg/5ml) 473 Ml Oral.susp 20 ML PO BID BTL Valproic Acid (Depakene 250mg/5ml) 250 Mg/5 Ml Syrup 500 MG PO HS BTL ([Maalox/Zinc 1:1]) 0 TOP PRN PRN PEG TUBE Follow up Follow up Referrals: Neurology - 11/28/[address] Rodas New Orders: COMPREHENSIVE METABOLIC PANEL* - 11/09/16 MAGNESIUM - 11/09/16 Discharge Diagnosis See list above. Problems: Copies to: End of Report . MARYBETH FERNANDO MD Nov 07, 2016 11:52
[2016-11-07] MEDS: THERAPEUTIC MULTIVITAMINS LIQUID 5 ML UDC GT SCH (11:53)
--- NOTE | 2016-11-07 12:16 | NUR ---
Kelly is up in chair with eyes open watching television. She is compliant with medications and TF. No evidence of pain, discomfort or distress. Discharge orders are in process
--- NOTE | 2016-11-07 12:36 | NUR ---
MULTIDISCIPLINARY MTG/DR. DOMINGUEZ: Plan for Pt. to go back to [facility] today. Pt. now has a fissure on her bottom. Pt. is more alert today. PT has been working with Pt. No discharge needs identified at this time.
--- NOTE | 2016-11-07 13:49 | NUR ---
port removed and discharge instructions read to patient laboratory animal care veterinarian. Belongings gathered and the patient will be escorted out of the building via wheelchair by Isabell MEMBRENO
--- NOTE | 2016-11-08 11:31 | Physical Therapy Evaluation(E) ---
Discharge Summary Service Date/Time 11/08/16, 11:28 Primary Diagnosis: (1) Dehydration ICD Code: E86.0 Treatment Diagnosis: (1) Weakness generalized ICD Code: R53.1 Start of Service Date: Oct 25, 2016 Summary of Progress Distance Walked in Feet only able to take two steps. Assistive Device: Handheld Assist (Moderate assist x 2) Assist: Mod Assist (x2) Gait Description: Wide Based Gait, Shuffling, Short Step Length Gait Limitations: Fatigue, Decreased Strength, Decreased Balance Patient demonstrates limitted mobility at UEs and LEs. Transfer STG and Status Sit-Stand from bed: Moderate Assistance Goal Status at Discharge: Goal Not Met Stand-Sit: Moderate Assistance Goal Status at Discharge: Goal Not Met Pivot Transfer: Minimal Assistance Goal Status at Discharge: Goal Not Met Ambulation: Minimal Assistance Goal Status at Discharge: Goal Not Met Goal Status at Discharge: Goal Not Met Barriers Limiting Function: Balance, Activity Tolerance Transfer LTG and Status Goal Status at Discharge: Goal Not Met Plan of Care Goals and Status STG: Plan-Treatment Functional: Amb Safe w/ AD on level Goal Status at Discharge: Goal Not Met Goal Status at Discharge: Goal Not Met Discharge Recommendations: 24 hour Caregiver support Service Recommendations: DC Services Rationale for Recommendations Discharge to longterm. Jason Polanco PT Nov 08, 2016 11:31
[2016-11-08 14:09] LABS: LEVETIRACETAM LEVEL 8.6 mcg/mL
[2016-11-09] MEDS ORDERED: METOCLOPRAMIDE 10 MG/10 ML PO SCH (17:30)
--- NOTE | 2016-11-28 14:00 | OT Therapy Evaluation (E) ---
Discharge Summary Service Date/Time 11/28/16, 13:57 Primary Diagnosis: (1) Dehydration ICD Code: E86.0 Treatment Diagnosis: (1) Weakness ICD Code: R53.1 Onset Date: 10/17/16 Start of Care Date: Nov 03, 2016 Summary of Discharge Therapy Comments Pt was seen for one occupational therapy evaluation following initial evaluation. Unable to reassess all goals secondary to early discharge. Pt transitioned home to [facility]. Short Term Goals/Status STG #1 Pt will engage in functional activity sitting at EOB for 3 minutes with moderate assistance to improve participation in daily activities. NOT MET. STG #2 Pt will tolerate 10 min of ther-ex to maintain range and prevent stiffness in BUE's. NOT MET. Event Decorator Goals/ Status Will Dress Upper Extremity: With Mod Assistance LTG # 1 Pt will participate in functional activity sitting at EOB with minimal assistance for 4 minutes to improve participation in daily activities. NOT MET. LTG # 2 Pt will complete grooming task with moderate assistance and use of visual aides and demonstration as needed. NOT MET. Maximum assistance. Discharge Recommendations: Other, See Comments ([facility]) RICO PACHECO OT Nov 28, 2016 14:00
== END 2016-11-07 13:50 | disposition home or self-care (01) | DRG 194 ==
LOC: ED 21:12 → OBSVTOIN 10-17 00:53 → UNDOADMOB 10-17 00:53 → MED/SURG 10-17 00:53
PROVIDERS: ADMIT Family Medicine; ATTEND Family Medicine
DX: J18.9 Pneumonia, unspecified organism (principal); K56.7 Ileus, unspecified; E87.0 Hyperosmolality and hypernatremia; N39.0 Urinary tract infection, site not specified; E72.20 Disorder of urea cycle metabolism, unspecified; Q87.1 Congenital malformation syndromes predominantly associated with short stature; F72 Severe intellectual disabilities; Z43.1 Encounter for attention to gastrostomy; I50.9 Heart failure, unspecified; H10.9 Unspecified conjunctivitis; E83.41 Hypermagnesemia; G40.909 Epilepsy, unspecified, not intractable, without status epilepticus; J45.909 Unspecified asthma, uncomplicated; T42.6X5A Adverse effect of other antiepileptic and sedative-hypnotic drugs, initial encounter; T47.3X5A Adverse effect of saline and osmotic laxatives, initial encounter
CPT/HCPCS: 31720; 36415; 51701; 71010; 71270; 74000; 74020; 74022; 74178; 74250; 76700; 80053; 80069; 80074; 80076; 80156; 80177; 81003; 81015; 82140; 82248; 83690; 83735; 83880; 84100; 84295; 84439; 84443; 85007; 85025; 85027; 86140; 87040; 87077; 87088; 87186; 87324; 87449; 87486; 87581; 87633; 87798; 93306; 94640; 94760; 96361; 96374; 99282; 99284

== ENCOUNTER 2016-11-09 14:17 | Emergency (ER) | payer MEDICARE, MEDICAID ==
[~2016-11-09] VITALS: Ht 132.1 cm; Wt 47.0 kg
--- OUTSIDE RECORDS SUMMARY | 2016-11-09 14:19 | XMS REPORT | Continuity of Care Document ---
Author Author [facility] Organization [facility] Address Unknown Phone Unavailable Care Team Providers Care Turbinated Bone Grinder Name Role Phone Hari Gunter PCP [phone] Source Comments Some departments are not documenting in the electronic medical record. If you do not see the information that you expected, contact Release of Information in the Health Information Management department at [phone] for further assistance in locating additional records.[facility] Active Allergies and Adverse Reactions Allergen [...] unless visual function changes AT TID [facility] [place] syndrome 10/16/2012 Social History Tobacco Use Types Packs/Day Years Used Date Never Smoker Alcohol Use Drinks/Week oz/Week Comments No Last Filed Vital Signs Vital Sign Reading Time Taken Blood Pressure 105/58 01/05/2012 12:30 PM HUMAN RESOURCES DEPARTMENT SUPERVISOR Pulse 107 01/05/2012 12:38 PM HUMAN RESOURCES DEPARTMENT SUPERVISOR Temperature 36.7 C (98.1 F) 01/05/2012 12:38 PM HUMAN RESOURCES DEPARTMENT SUPERVISOR Respiratory Rate - - Height 1.321 m (4' 4") 12/23/2013 3:44 PM HUMAN RESOURCES DEPARTMENT SUPERVISOR Weight 48.535 kg (107 lb) 05/09/2016 2:16 PM CDT Body Mass Index 27.81 05/09/2016 2:16 PM CDT Oxygen Saturation 96% 01/05/2012 12:38 PM HUMAN RESOURCES DEPARTMENT SUPERVISOR Plan of Care Health Maintenance Due Date Last Done Comments Physical (Comprehensive) 1986 Exam Pertussis Vaccine 1990 Tetanus Vaccine 1996 Cervical Cancer Screening 2000 Influenza Vaccine 06/30/2016 Results from Last 3 Months Not on file
--- OUTSIDE RECORDS SUMMARY | 2016-11-09 14:23 | XMS REPORT | Continuity of Care Document ---
Author Author [facility] Organization [facility] Address Unknown Phone Unavailable Care Team Providers Care Senior Cost Analyst Name Role Phone Hari Gunter PCP [phone] Source Comments Some departments are not documenting in the electronic medical record. If you do not see the information that you expected, contact Release of Information in the Health Information Management department at [phone] for further assistance in locating additional records.[facility] Active Allergies and Adverse Reactions Allergen Noted [...] unless visual function changes AT TID [facility] [place] syndrome 10/16/2012 Social History Tobacco Use Types Packs/Day Years Used Date Never Smoker Alcohol Use Drinks/Week oz/Week Comments No Last Filed Vital Signs Vital Sign Reading Time Taken Blood Pressure 105/58 01/05/2012 12:30 PM BOATSWAIN MATE Pulse 107 01/05/2012 12:38 PM BOATSWAIN MATE Temperature 36.7 C (98.1 F) 01/05/2012 12:38 PM BOATSWAIN MATE Respiratory Rate - - Height 1.321 m (4' 4") 12/23/2013 3:44 PM BOATSWAIN MATE Weight 48.535 kg (107 lb) 05/09/2016 2:16 PM CDT Body Mass Index 27.81 05/09/2016 2:16 PM CDT Oxygen Saturation 96% 01/05/2012 12:38 PM BOATSWAIN MATE Plan of Care Health Maintenance Due Date Last Done Comments Physical (Comprehensive) 1986 Exam Pertussis Vaccine 1990 Tetanus Vaccine 1996 Cervical Cancer Screening 2000 Influenza Vaccine 06/30/2016 Results from Last 3 Months Not on file
--- NOTE | 2016-11-09 15:00 | NUR ---
Pt staff states pt has not continued her abx because insurance won't cover it.
--- NOTE | 2016-11-09 15:19 | Diagnostic Imaging Report ---
INDICATION: Abdominal pain, weakness, cough, constipation. FINDINGS: Upright view of the chest demonstrates a left jugular portacatheter in place with its tip in the right atrium. Cardiomegaly is present with mild congestion. The congestion appears new since November 01. Supine and upright views of the abdomen demonstrated G-tube remaining in place. Bowel gas pattern appears unremarkable. No air-fluid levels or free air present. IMPRESSION: 1. The bowel gas pattern appears unremarkable. 2. There has been interval development of some pulmonary congestion. Dictated by: Dictated on workstation # [id number]
--- NOTE | 2016-11-09 15:19 | NUR ---
Pt staff states patient was recently here for 3 weeks and when pt came home, the pt had a pressure ulcer on right buttocks.
[2016-11-09 15:20] LABS: BASOPHILS % (AUTO) 0 % (0-2); EOSINOPHILS # (AUTO) 0.1 10^3uL; EOSINOPHILS % (AUTO) 2 % (0-4); LYMPHOCYTES # (AUTO) 0.5 X10^3; MEAN CORPUSCULAR HGB CONC 32.8 g/dL (31.0-37.0); MONOCYTES # (AUTO) 0.5 X10^3; MONOCYTES % (AUTO) 10 % (3-11); NEUTROPHILS # (AUTO) 3.5 X10^3; NEUTROPHILS % (AUTO) 76 % (51-67); PLATELET COUNT 132 10^3uL (150-450); WHITE BLOOD COUNT 4.54 10^3uL (4.0-11.0)
[2016-11-09 15:22] LABS: ALBUMIN 3.2 g/dL (3.4-5.0); ANION GAP 12.9 MEQ/L (3-15); TOTAL PROTEIN 6.3 g/dL (6.4-8.5)
[2016-11-09 15:27] LABS: MEAN CORPUSCULAR HEMOGLOBIN 34.1 PG (26.0-34.0); MEAN CORPUSCULAR VOLUME 104 FL (80-100)
[2016-11-09 15:55] LABS: BILIRUBIN,URINE Negative (Negative); CLARITY,URINE Clear; COLOR,URINE Amber; GLUCOSE, URINE (UA) Negative (Negative); LEUKOCYTE ESTERASE ,URINE Negative (Negative); PH,URINE 8.5 (5.0 - 8.0); UROBILINOGEN,URINE 0.2 mg/dL (0.2-1.0)
[2016-11-09 16:07] LABS: RBC,URINE 0-2 /HPF; URINE CENTRIFUGED VOLUME 12 mL
--- NOTE | 2016-11-09 16:27 | NUR ---
This nurse went with for an exam of pt pressure ulcer. Pt staff noted to be irritated and stated we can just dismiss her if everything seems fine with pt, and they can bring her somewhere else if needed. very kind and states he is still waiting on some of her lab results still.
--- NOTE | 2016-11-09 16:45 | NUR ---
pt staff requests pt be transferred to [facility]. in pt room.
[2016-11-09] MEDS ORDERED: NS IV 500 ML 500 ML IV SCH ×2 (16:50→18:05)
[2016-11-09] MEDS ORDERED: LEVOFLOXACIN 500 MG/100 ML IV 100 ML IV ONE (17:15)
--- NOTE | 2016-11-09 17:49 | NUR ---
attempt made x3 to contact hospitalist from [facility]
[2016-11-09 18:56] VITALS: BP 80/40
== END 2016-11-09 18:50 | disposition short-term general hospital (02) ==
LOC: ED 14:19
DX: A41.9 Sepsis, unspecified organism (principal); L89.899 Pressure ulcer of other site, unspecified stage
CPT/HCPCS: 36415; 36591; 51701; 74022; 80053; 81003; 81015; 82140; 83605; 83735; 83880; 84443; 85025; 86140; 87040; 87088; 96361; 96365; 99284; J1956; J7040; 99283

== ENCOUNTER → 2016-11-09 | Outpatient (CLI) | payer MEDICARE, MEDICAID ==
[~2016-11-09] MED LIST changes: +ACET80TA20 PO; +BACI3.5O6 OD; +BACI30OI7 TP; +CALA120L5 TOP; +CARB15DR2 OU; +ERYT200S GT; +HYDR28CR43 TP; +LEVE500UDC PO; +MAALOX TOP; +MAGN400O7 PO; +NYST15CR TP; +TOLN150S2 TP; +ZINC TOP; +[UNRECOGNIZED DRUG - CODE] OU; +[UNRECOGNIZED DRUG - CODE] PO; +[UNRECOGNIZED DRUG - CODE] PO; +[UNRECOGNIZED DRUG - CODE] TOP
== END ==
LOC: EMS 14:28
PROVIDERS: ATTEND Family Medicine
DX: A41.9 Sepsis, unspecified organism (principal); R41.82 Altered mental status, unspecified

== ENCOUNTER 2017-02-20 19:16 | Emergency (ER) | payer MEDICARE, MEDICAID ==
[~2017-02-20] VITALS: Ht 132.1 cm; Wt 47.7 kg
--- OUTSIDE RECORDS SUMMARY | 2017-02-20 19:22 | XMS REPORT | Continuity of Care Document ---
Author Author [facility] Organization [facility] Address Unknown Phone Unavailable Care Team Providers Care Coat Joiner Lockstitch Name Role Phone Hari Gunter PCP [phone] Source Comments Some departments are not documenting in the electronic medical record. If you do not see the information that you expected, contact Release of Information in the Health Information Management department at [phone] for further assistance in locating additional records.[facility] Active Allergies and Adverse Reactions Allergen [...] unless visual function changes AT TID [facility] [place] syndrome 10/16/2012 Social History Tobacco Use Types Packs/Day Years Used Date Never Smoker Alcohol Use Drinks/Week oz/Week Comments No Last Filed Vital Signs Vital Sign Reading Time Taken Blood Pressure 105/58 01/05/2012 12:30 PM RECREATIONAL COUNSELOR Pulse 107 01/05/2012 12:38 PM RECREATIONAL COUNSELOR Temperature 36.7 C (98.1 F) 01/05/2012 12:38 PM RECREATIONAL COUNSELOR Respiratory Rate - - Height 1.321 m (4' 4") 12/23/2013 3:44 PM RECREATIONAL COUNSELOR Weight 48.535 kg (107 lb) 05/09/2016 2:16 PM CDT Body Mass Index 27.81 05/09/2016 2:16 PM CDT Oxygen Saturation 96% 01/05/2012 12:38 PM RECREATIONAL COUNSELOR Plan of Care Health Maintenance Due Date Last Done Comments Physical (Comprehensive) 1986 Exam Pertussis Vaccine 1990 Tetanus Vaccine 1996 Cervical Cancer Screening 2000 Influenza Vaccine 06/30/2017 Results from Last 3 Months Not on file
--- OUTSIDE RECORDS SUMMARY | 2017-02-20 19:23 | XMS REPORT | Continuity of Care Document ---
Author Author [facility] Organization [facility] Address Unknown Phone Unavailable Care Team Providers Care Talent Acquisition Sourcer Name Role Phone Hari Gunter PCP [phone] Source Comments Some departments are not documenting in the electronic medical record. If you do not see the information that you expected, contact Release of Information in the Health Information Management department at [phone] for further assistance in locating additional records.[facility] Active Allergies and Adverse Reactions Allergen Noted [...] unless visual function changes AT TID O[facility] [place] syndrome 10/16/2012 Social History Tobacco Use Types Packs/Day Years Used Date Never Smoker Alcohol Use Drinks/Week oz/Week Comments No Last Filed Vital Signs Vital Sign Reading Time Taken Blood Pressure 105/58 01/05/2012 12:30 PM SPANISH INSTRUCTOR Pulse 107 01/05/2012 12:38 PM SPANISH INSTRUCTOR Temperature 36.7 C (98.1 F) 01/05/2012 12:38 PM SPANISH INSTRUCTOR Respiratory Rate - - Height 1.321 m (4' 4") 12/23/2013 3:44 PM SPANISH INSTRUCTOR Weight 48.535 kg (107 lb) 05/09/2016 2:16 PM CDT Body Mass Index 27.81 05/09/2016 2:16 PM CDT Oxygen Saturation 96% 01/05/2012 12:38 PM SPANISH INSTRUCTOR Plan of Care Health Maintenance Due Date Last Done Comments Physical (Comprehensive) 1986 Exam Pertussis Vaccine 1990 Tetanus Vaccine 1996 Cervical Cancer Screening 2000 Influenza Vaccine 06/30/2017 Results from Last 3 Months Not on file
[2017-02-20 20:28] VITALS: BP 100/70
== END 2017-02-20 20:25 | disposition home or self-care (01) ==
LOC: ED 19:17
DX: Z43.1 Encounter for attention to gastrostomy (principal)
CPT/HCPCS: 43760; 99281; 99283

== ENCOUNTER → 2017-02-22 | Emergency (ER) | payer MEDICARE, MEDICAID ==
[~2017-02-22] VITALS: Ht 132.1 cm; Wt 48.0 kg
--- OUTSIDE RECORDS SUMMARY | 2017-02-22 15:54 | XMS REPORT | Continuity of Care Document ---
Author Author [facility] Organization [facility] Address Unknown Phone Unavailable Care Team Providers Care Infrastructure Engineer Name Role Phone Hari Gunter PCP [phone] Source Comments Some departments are not documenting in the electronic medical record. If you do not see the information that you expected, contact Release of Information in the Health Information Management department at [phone] for further assistance in locating additional records.[facility] Active Allergies and Adverse Reactions Allergen Noted [...] unless visual function changes AT TID O[facility] [place] syndrome 10/16/2012 Social History Tobacco Use Types Packs/Day Years Used Date Never Smoker Alcohol Use Drinks/Week oz/Week Comments No Last Filed Vital Signs Vital Sign Reading Time Taken Blood Pressure 105/58 01/05/2012 12:30 PM CLINICAL LAB SCIENTIST Pulse 107 01/05/2012 12:38 PM CLINICAL LAB SCIENTIST Temperature 36.7 C (98.1 F) 01/05/2012 12:38 PM CLINICAL LAB SCIENTIST Respiratory Rate - - Height 1.321 m (4' 4") 12/23/2013 3:44 PM CLINICAL LAB SCIENTIST Weight 48.535 kg (107 lb) 05/09/2016 2:16 PM CDT Body Mass Index 27.81 05/09/2016 2:16 PM CDT Oxygen Saturation 96% 01/05/2012 12:38 PM CLINICAL LAB SCIENTIST Plan of Care Health Maintenance Due Date Last Done Comments Physical (Comprehensive) 1986 Exam Pertussis Vaccine 1990 Tetanus Vaccine 1996 Cervical Cancer Screening 2000 Influenza Vaccine 06/30/2017 Results from Last 3 Months Not on file
--- OUTSIDE RECORDS SUMMARY | 2017-02-22 15:54 | XMS REPORT | Continuity of Care Document ---
Author Author [facility] Organization [facility] Address Unknown Phone Unavailable Care Team Providers Care Ditch Rider Name Role Phone Hari Gunter PCP [phone] Source Comments Some departments are not documenting in the electronic medical record. If you do not see the information that you expected, contact Release of Information in the Health Information Management department at [phone] for further assistance in locating additional records.[facility] Active Allergies and Adverse Reactions [...] unless visual function changes AT TID O[facility] [place] syndrome 10/16/2012 Social History Tobacco Use Types Packs/Day Years Used Date Never Smoker Alcohol Use Drinks/Week oz/Week Comments No Last Filed Vital Signs Vital Sign Reading Time Taken Blood Pressure 105/58 01/05/2012 12:30 PM WIND TURBINE PERFORMANCE ENGINEER Pulse 107 01/05/2012 12:38 PM WIND TURBINE PERFORMANCE ENGINEER Temperature 36.7 C (98.1 F) 01/05/2012 12:38 PM WIND TURBINE PERFORMANCE ENGINEER Respiratory Rate - - Height 1.321 m (4' 4") 12/23/2013 3:44 PM WIND TURBINE PERFORMANCE ENGINEER Weight 48.535 kg (107 lb) 05/09/2016 2:16 PM CDT Body Mass Index 27.81 05/09/2016 2:16 PM CDT Oxygen Saturation 96% 01/05/2012 12:38 PM WIND TURBINE PERFORMANCE ENGINEER Plan of Care Health Maintenance Due Date Last Done Comments Physical (Comprehensive) 1986 Exam Pertussis Vaccine 1990 Tetanus Vaccine 1996 Cervical Cancer Screening 2000 Influenza Vaccine 06/30/2017 Results from Last 3 Months Not on file
--- NOTE | 2017-02-22 16:47 | NUR ---
PEG tube patent. Stomach contents aspirates easily. Flushes readily without resistance or leakage. Reported findings to Dr. Anguiano.
[2017-02-22 17:04] VITALS: BP 104/68
== END | disposition home or self-care (01) ==
LOC: ED 15:50
DX: Z43.1 Encounter for attention to gastrostomy (principal)
CPT/HCPCS: 99281; 99282